=== PATIENT | male | born 1950 | race Caucasian/White ===

== ENCOUNTER → 2020-04-06 10:00 | Outpatient (BNVA) | payer MEDICARE, BC, SELFPAY | PROVIDERS: PCP Family Medicine; Visit Provider Family Medicine | DX: E11.9 Type 2 diabetes mellitus without complications (principal); E78.00 Pure hypercholesterolemia, unspecified; I10 Essential (primary) hypertension; N40.0 Benign prostatic hyperplasia without lower urinary tract symptoms; L82.1 Other seborrheic keratosis; Z79.899 Other long term (current) drug therapy; Z12.5 Encounter for screening for malignant neoplasm of prostate; Z68.30 Body mass index [BMI] 30.0-30.9, adult; F17.211 Nicotine dependence, cigarettes, in remission | CPT/HCPCS: 80053; 80061; 83036; 85025; G0103 ==

== ENCOUNTER → 2020-09-13 09:20 | Outpatient (BNVA) | payer MEDICARE, BC, SELFPAY | PROVIDERS: PCP Family Medicine; Visit Provider Surgery | DX: Z01.812 Encounter for preprocedural laboratory examination (principal); K63.5 Polyp of colon | CPT/HCPCS: 87635 ==

== ENCOUNTER 2020-09-19 07:43 | Day surgery (SDC) | payer MEDICARE, BC, SELFPAY ==
[2020-09-15 08:22] VITALS: BMI 31.1
[2020-09-19 08:00] VITALS: BP 145/75; PULSE 62; RESP 18; TEMP 36.6; O2SAT 97
[2020-09-19 08:13] LABS: Glucose Point of Care 170 mg/dL (70-110)
[2020-09-19] MEDS: sodium chloride 0.9% 1,000 ML 30 ML IV (08:14)
--- NOTE | 2020-09-19 08:25 | ANES.PREANE2 ---
Pre-Anesthetic Assessment Pre-Anesthetic Assessment: Height/Weight: Height 1.73 m Weight 92.986 kg Temp Pulse Resp BP Pulse Ox 98 F 62 18 145/75 97 09/19/20 08:00 09/19/20 08:00 09/19/20 08:00 09/19/20 08:00 09/19/20 08:00 Preop Diagnosis: screening colonoscopy Proposed Procedure: Operation Date: 09/19/20 08:30 Proposed Procedures p Colonoscopy 15784 z86.010(Not Applicable) - Scott Beltrán MD Was Beta Vish taken within 24 hours: Yes Last intake: Intake Last Liquid Date 09/18/20 Last Liquid Time 20:00 Last Solid Date 09/18/20 Last Solid Time 08:00 Social: Social History: No alcohol and No tobacco Exam: Pre-Anes Outpt Exam: alert, oriented x 3, clear to auscultation bilaterally and regular rate & rhythm Airway: Submandibular: WNL Cervical ROM: WNL MP: 2 Additional comments: Poor, missing several CV/HEM: CV/HEM: HTN Metabolic: Metabolic: DM and Morbid obesity Anesthetic Plan: ASA status: 3 Anesthesia: MAC Risk of > 500 ml blood loss (7ml/kg in children): No Meds/Allergies Current Medications: Current Medications Generic Name Dose Route Start Last Admin Trade Name Freq PRN Reason Stop Dose Admin Sodium Chloride 1,000 mls @ 30 ml s/hr 09/19/20 08:00 09/19/20 08:14 Sodium Chloride 0.9% IV 09/20/20 07:59 30 mls/hr .Q24H LAURE Administration PFSH Anesthesia PFSH: Medical History (Updated 09/01/20 @ 16:19 by Scott Beltrán MD) Colonic polyp Diabetes Hypercholesteremia Hypertension Mild depression Prostatic hypertrophy Surgical History (Updated 09/01/20 @ 09:23 by Scott Beltrán MD) History of back surgery History of colonoscopy with polypectomy History of hip replacement, total Family History (Updated 09/01/20 @ 09:12 by HIREN Solano) Denies family history of Anesthesia complication Bleeding disorder Social History Smoking and tobacco status: former smoker Alcohol intake: never Data Anesthesia Other Labs: Laboratory Results - last 48 hr 09/19/20 08:11 POC Glucose 170 H Cardiac Studies: No Data to Display
--- NOTE | 2020-09-19 08:40 | W.PM.OPSUD ---
Surgery/Procedure H&P Update DATE OF PROCEDURE: September 19, 2020 DATE H&P PERFORMED: 09/01/20 H&P UPDATE INFORMATION: I have reviewed H&P completed within last 30 days, I have examined patient prior to procedure and No changes to prior documentation PREOP DIAGNOSIS: screening colonoscopy PLANNED PROCEDURE: Operation Date: 09/19/20 08:30 Proposed Procedures p Colonoscopy 72710 z86.010(Not Applicable) - Scott Beltrán MD
[2020-09-19 09:04] VITALS: BP 103/70; PULSE 93; RESP 16; TEMP 36.1; O2SAT 95
[2020-09-19 09:19] VITALS: BP 117/81; PULSE 98; RESP 16; O2SAT 94
--- NOTE | 2020-09-19 09:20 | ANE.PACU2 ---
Inpatient post-anesthesia follow up: Airway intact: Yes Vital signs: Temperature 97 F Pulse Rate 98 Respiratory Rate 16 Blood Pressure 117/81 Pulse Oximetry 94 Oxygen Delivery Me thod Room Air Oxygen Flow Rate Fraction of Inspir ed Oxygen Hydration adequate: Yes Nausea and vomiting: No
--- NOTE | 2020-09-19 13:29 | ANE.PACU2 ---
Inpatient post-anesthesia follow up: Airway intact: Yes Vital signs: Temperature 97 F Pulse Rate 98 Respiratory Rate 16 Blood Pressure 117/81 Pulse Oximetry 94 Oxygen Delivery Me thod Room Air Oxygen Flow Rate Fraction of Inspir ed Oxygen Hydration adequate: Yes Nausea and vomiting: No Pain level: 1 Mental status: Baseline
== END 2020-09-19 09:32 | disposition home or self-care (01) ==
PROVIDERS: PCP Family Medicine; Visit Provider Surgery
PROC: 0DJD8ZZ Inspection of Lower Intestinal Tract, Via Natural or Artificial Opening Endoscopic (ICD-10-PCS; CPT 45378; principal; 2020-09-19 08:30)
DX: Z12.11 Encounter for screening for malignant neoplasm of colon (principal); Z86.010 Personal history of colon polyps; I10 Essential (primary) hypertension; E11.9 Type 2 diabetes mellitus without complications; E66.01 Morbid (severe) obesity due to excess calories; Z68.31 Body mass index [BMI] 31.0-31.9, adult; Z87.891 Personal history of nicotine dependence
CPT/HCPCS: 12345; 36416; 45378; 82962; J2704; J3490; J7030

== ENCOUNTER → 2020-11-08 11:34 | Outpatient (BNVA) | payer MEDICARE, BC, SELFPAY | PROVIDERS: PCP Family Medicine; Visit Provider Family Medicine | DX: E11.9 Type 2 diabetes mellitus without complications (principal); I10 Essential (primary) hypertension; E78.00 Pure hypercholesterolemia, unspecified; M72.2 Plantar fascial fibromatosis; Z68.31 Body mass index [BMI] 31.0-31.9, adult; F17.211 Nicotine dependence, cigarettes, in remission | CPT/HCPCS: 80053; 80061; 83036; 85025 ==

== ENCOUNTER → 2021-02-12 11:45 | Outpatient (BNVA) | payer MEDICARE, BC, SELFPAY | PROVIDERS: PCP Family Medicine; Visit Provider Family Medicine | DX: E11.9 Type 2 diabetes mellitus without complications (principal); E78.00 Pure hypercholesterolemia, unspecified; I10 Essential (primary) hypertension; N40.0 Benign prostatic hyperplasia without lower urinary tract symptoms; N02.9 Recurrent and persistent hematuria with unspecified morphologic changes | CPT/HCPCS: 80061; 81000; 83036; 85025; G0103 ==

== ENCOUNTER → 2021-02-13 10:18 | Outpatient (BNVA) | payer MEDICARE, BC, SELFPAY | PROVIDERS: PCP Family Medicine; Visit Provider Family Medicine | DX: N02.9 Recurrent and persistent hematuria with unspecified morphologic changes (principal) | CPT/HCPCS: 81000 ==

== ENCOUNTER → 2021-07-30 09:43 | Outpatient (BNVA) | payer MEDICARE, BC, SELFPAY | PROVIDERS: PCP Family Medicine; Visit Provider Family Medicine | DX: I10 Essential (primary) hypertension (principal); E11.9 Type 2 diabetes mellitus without complications; E78.00 Pure hypercholesterolemia, unspecified; N40.0 Benign prostatic hyperplasia without lower urinary tract symptoms; Z00.00 Encounter for general adult medical examination without abnormal findings; N02.9 Recurrent and persistent hematuria with unspecified morphologic changes | CPT/HCPCS: 80053; 80061; 83036; 85025; G0103 ==

== ENCOUNTER → 2022-07-25 12:32 | Outpatient (BNVA) | payer MEDICARE, BC, SELFPAY | PROVIDERS: PCP Family Medicine; Visit Provider Family Medicine | DX: I10 Essential (primary) hypertension (principal); E78.00 Pure hypercholesterolemia, unspecified; E11.9 Type 2 diabetes mellitus without complications | CPT/HCPCS: 80053; 80061; 83036; 85025 ==

== ENCOUNTER → 2023-08-27 10:03 | Outpatient (BNVA) | payer MEDICARE, SELFPAY | PROVIDERS: PCP Family Medicine; Visit Provider Family Medicine | DX: N40.0 Benign prostatic hyperplasia without lower urinary tract symptoms (principal); E11.9 Type 2 diabetes mellitus without complications; E78.00 Pure hypercholesterolemia, unspecified; I10 Essential (primary) hypertension; Z85.46 Personal history of malignant neoplasm of prostate; Z80.42 Family history of malignant neoplasm of prostate; Z00.00 Encounter for general adult medical examination without abnormal findings | CPT/HCPCS: 80053; 80061; 83036; 85025; G0103 ==

== ENCOUNTER → 2024-05-17 10:20 | Outpatient (BNVA) | payer MEDICARE, SELFPAY | PROVIDERS: PCP Family Medicine; Visit Provider Family Medicine | DX: I10 Essential (primary) hypertension (principal); E78.00 Pure hypercholesterolemia, unspecified; E11.9 Type 2 diabetes mellitus without complications | CPT/HCPCS: 80053; 80061; 83036; 85025 ==

== ENCOUNTER → 2024-07-06 08:38 | Outpatient (BNVA) | payer MEDICARE, SELFPAY | PROVIDERS: PCP Family Medicine; Referring Provider Family Medicine; Visit Provider Nurse Practitioner Family | DX: L57.0 Actinic keratosis (principal); L21.8 Other seborrheic dermatitis; L24.9 Irritant contact dermatitis, unspecified cause; L57.8 Other skin changes due to chronic exposure to nonionizing radiation | CPT/HCPCS: 17000; 99204 ==

== ENCOUNTER → 2024-08-03 08:27 | Outpatient (BNVA) | payer MEDICARE, SELFPAY | PROVIDERS: PCP Family Medicine; Visit Provider Nurse Practitioner Family | DX: L24.9 Irritant contact dermatitis, unspecified cause (principal); L21.8 Other seborrheic dermatitis | CPT/HCPCS: 99214 ==

== ENCOUNTER → 2025-02-01 07:55 | Outpatient (BNVA) | payer MEDICARE, SELFPAY | PROVIDERS: PCP Family Medicine; Visit Provider Nurse Practitioner Family | DX: L21.8 Other seborrheic dermatitis (principal); L24.9 Irritant contact dermatitis, unspecified cause; D18.01 Hemangioma of skin and subcutaneous tissue; S80.862A Insect bite (nonvenomous), left lower leg, initial encounter; S80.861A Insect bite (nonvenomous), right lower leg, initial encounter; X58.XXXA Exposure to other specified factors, initial encounter | CPT/HCPCS: 99214 ==

== ENCOUNTER 2025-03-22 12:59 | Outpatient (CLI) | payer MEDICARE, SELFPAY ==
--- NOTE | 2025-03-22 13:05 | XRR_ITS ---
PROCEDURE INFORMATION: Exam: XR Chest Exam date and time: 03/22/2025 1:12 PM Age: 74 years old Clinical indication: Dyspnea; Additional info: Dyspnea on exertion/abnormal weight loss TECHNIQUE: Imaging protocol: Radiologic exam of the chest. Views: 2 views. COMPARISON: No relevant prior studies available. FINDINGS: Tubes, catheters and devices: Neurostimulator leads terminate in the region of the T8 level of the thoracic spine. Lungs: A few linear scattered opacities are seen in both lungs most prominent in the left lower lung field. These could represent areas of infiltrate, atelectasis, or scarring. Pleural spaces: Unremarkable. No pleural effusion. No pneumothorax. Heart/Mediastinum: Unremarkable. No cardiomegaly. Bones/joints: Unremarkable. XR/XR chest 2V* [id number] IMPRESSION: Scattered linear opacities as described above. Acuity is uncertain without comparison studies. Clinical correlation is advised.
== END 2025-03-22 13:00 | disposition home or self-care (01) ==
PROVIDERS: PCP Family Medicine; Visit Provider Family Medicine
DX: R63.4 Abnormal weight loss (principal); R06.09 Other forms of dyspnea; R91.8 Other nonspecific abnormal finding of lung field
CPT/HCPCS: 71046; 80053; 82378; 83036; 85025

== ENCOUNTER 2025-03-23 10:35 | Emergency (ER) | payer MEDICARE, SELFPAY ==
[2025-03-23] VITALS (8 sets, daily range): BP systolic 102–137; BP diastolic 49–70; PULSE 76–107; RESP 15–18; TEMP 36.6–37.1; O2SAT 94–99; BMI 26.3
--- NOTE | 2025-03-23 10:37 | XR_ITS ---
WS: [id number] Portable AP upright chest, 03/23/2025 Clinical Data: sob Comparison: Two-view chest, 03/22/2025 Findings: Minimal interstitial opacities are seen in the left lower lobe which could represent atelectasis and/or scarring. Is less likely to represent pneumonia. The diaphragms are flattened. No nodules, masses or effusions are seen. The heart is normal. The pulmonary vascularity is not increased. No pneumonia or pneumothorax is seen. There are epidural stimulator leads overlying the mid thoracic vertebral bodies. Monitor leads are on the chest wall. XR/XR chest 1V portable [id number] Impression: 1. Interstitial opacities in left lower lobe which could be chronic rather than acute. 2. Atherosclerosis and hyperinflation.
--- NOTE | 2025-03-23 10:38 | ECG_ITS ---
[facility] Test Date: 2025-03-23 Pat Name: Janice Barros Department: Room: Gender: Male Route Manager: : 1950 Requested By: Alexandrea Portillo Order Number: [id number] Kai MD: Marquis Ya M.D. Measurements Intervals Foster Rate: 100 P: 63 TN: 146 QRS: 17 QRSD: 97 T: 131 QT: 327 QTc: 423 Interpretive Statements SINUS TACHYCARDIA NONSPECIFIC T-WAVE ABNORMALITY No previous ECG available for comparison Electronically Signed On 03-24-2025 10:24:20 CDT by Marquis Ya M.D. [email or web address]
[2025-03-23 11:10] LABS: Hematocrit 25.1 % (37-53); Hemoglobin 7.80 g/dL (11.27-16.99); Mean Corpuscular HGB Conc 31.1 g/dL (30-55); Mean Corpuscular Hemoglobin 29.5 pg (27-33); Mean Corpuscular Volume 95.1 fl (82-101); Nucleated Red Blood Cells % 0 %; Red Blood Count 2.64 10^6/uL (3.85-5.65); White Blood Count 2.01 10^3/uL (3.29-11.43)
[2025-03-23 11:37] LABS: Alanine Aminotransferase 9 U/L (0-41); Albumin Level 3.6 g/dL (3.5-5.2); Alkaline Phosphatase 135 U/L (40-130); Anion Gap 16.1 (5-19); Aspartate Amino Transferase 8 U/L (0-40); Blood Urea Nitrogen 17 mg/dL (8-23); Calcium 8.2 mg/dL (8.5-10.5); Carbon Dioxide 22 mmol/L (22-29); Chloride 100 mmol/L (98-107); Creatinine Clr Calc Pharmacy 73.7697; Globulin 3.3 g/dL (1.3-4.6); Glucose 204 mg/dL (65-115); NT Pro B Type Natriuretic Pept 125 pg/mL (0-125); Osmolality Calculated 285 mOsm/kg (285-295); Potassium 4.1 mmol/L (3.5-5.1); Sodium 134 mmol/L (136-145); Total Protein 6.9 g/dL (6.6-8.7)
[2025-03-23 11:57] LABS: Platelet Count 21 10^3/cmm (157-399)
[2025-03-23 11:58] LABS: Slide Review Slide Review Perform
--- NOTE | 2025-03-23 12:15 | ED_ITS ---
HPI - SOB/Dyspnea 2 General: Chief Complaint: Shortness of Breath/Dyspnea Stated Complaint: SOB Time Seen by Provider: 03/23/25 10:49 History of Present Illness: HPI Narrative: 74-year-old male presents emergency room from his primary care directed here he had a lab work done yesterday he is pancytopenic. This is new for him. He has not noticed hematochezia melena hematemesis or coffee-ground emesis. He has significant thrombocytopenia he is not having any acute bleeding. No known history of any hematologic disorders in the past. Associated symptoms: Deny abdominal pain, chest pain or fever(s) Related Data Home Medications ?Medication ?Instructions ?Recorded ?Confirmed aspirin 81 mg tablet,delayed 81 mg PO DAILY 10/07/19 0 03/23/25 release atorvastatin 10 mg tablet 10 mg PO DAILY 03/23/2502/24 duloxetine 60 mg capsule,delayed 60 mg PO DAILY 03/23/25 release finasteride 5 mg tablet 5 mg PO DAILY 03/23/2503/23 ketoconazole 2 % shampoo 1 applic topical .[id number] 0 03/23/25 03/23/25 losartan 50 mg-hydrochlorothiazide 1 tab PO DAILY 02/2403/23/25 12.5 mg tablet metformin 850 mg tablet 850 mg PO BID 03/23/2503/23 metoprolol succinate 100 mg 50 mg PO DAILY 03/23/25 tablet,extended release 24 hr triamcinolone acetonide 0.1 % 1 applic topical TID PRN skin 03/23/25 03/23/25 topical ointment irritation Previous Rx's ?Medication ?Instructions ?Recorded glipizide 5 mg tablet 5 mg PO BID 90 days #180 tab s 08/11/24 Allergies Allergy/AdvReac Type Severity Reaction Status Date / Time No Known Allergies Allergy Verified 03/22/25 11:19 Review of Systems 2 Const: Denies: fever(s) or chills Card: Denies: chest pain Resp: Denies: dyspnea GI: Denies: abdominal pain : Denies: dysuria, urinary frequency or urinary urgency Musc: Denies: neck pain or back pain Skin/Breast: Denies: rash PFSH ED 2 PFSH: Medical History Colonic polyp Prostatic hypertrophy Mild depression Diabetes Hypercholesteremia Hypertension Surgical History Hx of colonoscopy (09/19/20) normal History of colonoscopy with polypectomy History of back surgery History of hip replacement, total Family History Denies family history of Anesthesia complication Bleeding disorder Social History Smoking and tobacco/nicotine status: never used tobacco/nicotine Alcohol intake: never Substance/Drug Use: never Physical Exam 2 Const: GENERAL APPEARANCE: cooperative ORIENTATION/CONSCIOUSNESS: Yes awake, Yes oriented to person, Yes oriented to place and Yes oriented to time HENMT: COMMON NORMALS: normocephalic, atraumatic and hearing grossly normal bilaterally HEAD & SCALP: normocephalic and atraumatic Resp: COMMON NORMALS: normal respiratory effort, No retractions, No use of accessory muscles and clear to auscultation bilaterally AUSCULTATION: clear to auscultation bilaterally Cardio: COMMON NORMALS: regular rate, regular rhythm and No murmurs present (Cardio) RATE: regular rate RHYTHM: regular rhythm GI: COMMON NORMALS: Soft to palpation and No hepatosplenomegaly present A USCULTATION: Yes normoactive bowel sounds PALPATION: Yes Soft to palpation, No Tenderness to palpation present (GI), No Guarding due to palpation present (GI) and Yes No hepatosplenomegaly present Extremity: COMMON NORMALS: normal to inspection, capillary refill normal, no clubbing, cyanosis or edema, no calf tenderness and no pedal edema Neuro: SENSORIUM/ORIENTATION: Yes oriented to person, Yes oriented to place and Yes oriented to time Skin: COMMON NORMALS: no rashes or lesions noted GENERAL SKIN EXAM: no rashes or lesions noted Course 2 Vital Signs: Vital signs: Vital Signs Temperature 98.2 F 03/23/25 16:48 Pulse Rate 76 03/23/25 16:48 Respiratory Rate 16 03/23/25 16:48 Blood Pressure 125/63 03/23/25 16:48 Pulse Oximetry 98 03/23/25 16:48 Oxygen Delivery Me thod Room Air 03/23/25 16:48 MDM - SOB/Dyspnea Medical Decision Making Discussed with oncology on-call they recommend transfer for emergent evaluation for relative sudden onset of pancytopenia patient is stable at this time I discussed with Justina will take him several days to get a bed available at [facility] is able to receive them today discussed with her inpatient hospitalist they will accept him on transfer. Patient stable at this time labs and imaging to be forwarded. Medical Records I reviewed the patient's medical records. Lab Data I reviewed the patient's lab results. 03/23/25 11:01 03/23/25 11:01 Labs/Radiology: Radiology Impressions Chest X-Ray 03/23/25 10:37 Impression: 1. Interstitial opacities in left lower lobe which could be chronic rather than acute. 2. Atherosclerosis and hyperinflation. Laboratory Results WBC 2.01 10^3/uL (3.29-11.43) L 03/23/25 11:01 RBC 2.64 10^6/uL (3.85-5.65) L 03/23/25 11:01 Hgb 7.80 g/dL (11.27-16.99) L 03/23/25 11:01 Hct 25.1 % (37-53) L 03/23/25 11:01 MCV 95.1 fl (82-101) 03/23/25 11:01 MCH 29.5 pg (27-33) 03/23/25 11:01 MCHC 31.1 g/dL (30-55) 03/23/25 11:01 RDW 18.0 % (12.1-15.1) H 03/23/25 11:01 Plt Count 21 10^3/cmm (157-399) L* 03/23/25 11:01 MPV 12.2 fL (7.4-10.4) H 03/23/25 11:01 Neut % (Auto) 38.2 % 03/23/25 11:01 Lymph % (Auto) 44.3 % 03/23/25 11:01 [place] % (Auto) 8.5 % 03/23/25 11:01 Eos % (Auto) 5.5 % 03/23/25 11:01 Baso % (Auto) 1.5 % 03/23/25 11:01 Neut # (Auto) 0.77 10^3/uL (1.8-7.7) L* 03/23/25 11:01 Lymph # (Auto) 0.9 10^3/uL (0.8-4.8) 03/23/25 11:01 [place] # (Auto) 0.2 10^3/uL (0.2-0.9) 03/23/25 11:01 Eos # (Auto) 0.1 10^3/uL (0.0-0.8) 03/23/25 11:01 Baso # (Auto) 0.0 10^3/uL (0.0-0.1) 03/23/25 11:01 Nucleated RBC % (auto) 0 % 03/23/25 11:01 Nucleated RBCs # 0.0 /100WBC 03/23/25 11:01 Peripher Smr Path Cons Sent for review 03/23/25 11:01 PT 14.20 SECONDS (12.1-14.9) 03/23/25 11:01 INR 1.03 (0.8-1.2) 03/23/25 11:01 APTT 37.3 SECONDS (23.9-36.7) H 03/23/25 11:01 Fibrinogen 264 mg/dL (174-498) 03/23/25 11:01 Sodium 134 mmol/L (136-145) L 03/23/25 11:01 Potassium 4.1 mmol/L (3.5-5.1) 03/23/25 11:01 Chloride 100 mmol/L (98-107) 03/23/25 11:01 Carbon Dioxide 22 mmol/L (22-29) 03/23/25 11:01 Anion Gap 16.1 (5-19) 03/23/25 11:01 BUN 17 mg/dL (8-23) 03/23/25 11:01 Creatinine 0.9 mg/dL (0.7-1.2) 03/23/25 11:01 GFR Calculation Not Reportable 03/23/25 11:01 Glucose 204 mg/dL (65-115) H 03/23/25 11:01 Calculated Osmolality 285 mOsm/kg (285-295) 03/23/25 11:01 Uric Acid 5.3 mg/dL (3.4-7.0) 03/23/25 11:01 Calcium 8.2 mg/dL (8.5-10.5) L 03/23/25 11:01 Phosphorus 1.8 mg/dL (2.5-4.5) L 03/23/25 11:01 Total Bilirubin 1.0 mg/dL (0.15-1.2) 03/23/25 11:01 AST 8 U/L (0-40) 03/23/25 11:01 ALT 9 U/L (0-41) 03/23/25 11:01 Alkaline Phosphatase 135 U/L (40-130) H 03/23/25 11:01 Lactate Dehydrogenase 146 U/L (135-225) 03/23/25 11:01 C-Reactive Protein 9.2 mg/L (0.0-4.9) H 03/23/25 11:01 NT-Pro-B Natriuret Pep 125 pg/mL (0-125) 03/23/25 11:01 Total Protein 6.9 g/dL (6.6-8.7) 03/23/25 11:01 Albumin 3.6 g/dL (3.5-5.2) 03/23/25 11:01 Globulin 3.3 g/dL (1.3-4.6) 03/23/25 11:01 Hepatitis A IgM Ab Non-reactive (Nonreactive) 03/23/25 11:01 Hep Bs Antigen Non-reactive (Nonreactive) 03/23/25 11:01 Hep B Core IgM Ab Non-reactive (Nonreactive) 03/23/25 11:01 Hepatitis C Antibody Reactive (Nonreactive) H 03/23/25 11:01 HIV 1&2 Ab & HIV 1 Ag Non-reactive (Non-Reactiv) 03/23/25 11:01 HIV 1&2 Antibody Non-reactive (Non-Reactiv) 03/23/25 11:01 Blood Type O Positive 03/23/25 12:41 Rho(D) Type Rh positive 03/23/25 12:41 Antibody Screen Negative 03/23/25 12:41 Crossmatch See Detail 03/23/25 12:41 All radiology interpretation(s) finalized by discharge Discharge Plan Discharge Patient Disposition: Xfer Short-Term Hosp Clinical Impression: Pancytopenia, Neutropenia Condition: Stable Referrals: Janet Fatima MD [Primary Care Provider, [facility]] Print Language: Turkmen Coding Level of Care Code ED Sap Payroll Consultant for Regine Delgado
--- NOTE | 2025-03-23 13:46 | PC.PHAR ---
Dr Fatima stopped several medications yesterday 03/22/25. I was uncomfortable removing from chart at this time. Documented in pharmacy notes. Atorvastatin 10mg, Losartan-hctz, Metformin 850mg, and Metoprolol Succ. 100mg.
[2025-03-23 14:28] LABS: INR 1.03 (0.8-1.2); Prothrombin Time 14.20 SECONDS (12.1-14.9)
[2025-03-23 14:29] LABS: Partial Thromboplastin Time 37.3 SECONDS (23.9-36.7)
[2025-03-23 14:30] LABS: Fibrinogen 264 mg/dL (174-498)
[2025-03-23 14:34] LABS: Uric Acid 5.3 mg/dL (3.4-7.0)
[2025-03-23 14:43] LABS: HIV 1 & 2 Antigen Non-Reactive (Non-Reactiv)
[2025-03-23 14:44] LABS: Hepatitis A Antibody IgM Non-Reactive (Nonreactive); Hepatitis B Surface Antigen Non-Reactive (Nonreactive)
[2025-03-23 15:02] LABS: LAB Peripheral Smear Sent for Review
[2025-03-24 00:43] LABS: Hematocrit 25.9 % (37-53); Hemoglobin 8.30 g/dL (11.27-16.99); Mean Corpuscular HGB Conc 32.0 g/dL (30-55); Mean Corpuscular Hemoglobin 30.1 pg (27-33); Mean Corpuscular Volume 93.8 fl (82-101); Nucleated Red Blood Cells % 0 %; Red Blood Count 2.76 10^6/uL (3.85-5.65); White Blood Count 2.16 10^3/uL (3.29-11.43)
[2025-03-24 01:12] LABS: Platelet Count 21 10^3/cmm (157-399); Slide Review Slide Review Perform
--- NOTE | 2025-03-24 01:18 | PC.NURSE ---
Erika called with updated CBC results on Platelet count and Absolute Neut count.
[2025-03-24 01:23] VITALS: BP 115/63; PULSE 60; RESP 12; TEMP 36.5; O2SAT 96
[2025-03-24 04:32] VITALS: BP 116/62; PULSE 73; RESP 18; O2SAT 93
--- NOTE | 2025-03-24 06:58 | PC.NURSE ---
THIS NURSE ASSUME CARE @ 0204.
[2025-03-24 07:02] VITALS: BP 121/69; PULSE 84; RESP 16; O2SAT 98
[2025-03-24 08:15] LABS: Hematocrit 26.5 % (37-53); Hemoglobin 8.60 g/dL (11.27-16.99); Mean Corpuscular HGB Conc 32.5 g/dL (30-55); Mean Corpuscular Hemoglobin 30.1 pg (27-33); Mean Corpuscular Volume 92.7 fl (82-101); Nucleated Red Blood Cells % 0 %; Red Blood Count 2.86 10^6/uL (3.85-5.65); White Blood Count 1.77 10^3/uL (3.29-11.43)
[2025-03-24 08:29] LABS: Alanine Aminotransferase 8 U/L (0-41); Albumin Level 3.3 g/dL (3.5-5.2); Alkaline Phosphatase 123 U/L (40-130); Anion Gap 12.0 (5-19); Aspartate Amino Transferase 8 U/L (0-40); Blood Urea Nitrogen 13 mg/dL (8-23); Calcium 8.1 mg/dL (8.5-10.5); Carbon Dioxide 25 mmol/L (22-29); Chloride 103 mmol/L (98-107); Creatinine Clr Calc Pharmacy 82.9909; Globulin 3.0 g/dL (1.3-4.6); Glucose 177 mg/dL (65-115); Osmolality Calculated 286 mOsm/kg (285-295); Potassium 4.0 mmol/L (3.5-5.1); Sodium 136 mmol/L (136-145); Total Protein 6.3 g/dL (6.6-8.7)
[2025-03-24 09:02] LABS: Slide Review Slide Review Perform
[2025-03-24 09:03] LABS: Platelet Count 15 10^3/cmm (157-399)
[2025-03-24 09:25] VITALS: BP 106/51; PULSE 93; O2SAT 99
[2025-03-24 09:35] LABS: Ferritin 302 ng/mL (30-400); Iron 92 ug/dL (59-158); Total Iron Binding Capacity 148 mcg/dl; Unsaturated Iron Binding 56 ug/dL (112-347)
[2025-03-24 09:36] LABS: Vitamin B12 644 pg/mL (232-1245)
[2025-03-24 13:34] LABS: HEP C RNA Viral Load Quant <1.18 NOT DETECTED Log IU/mL (NOT DETECTED); HEP C RNA Viral Load Quant <15 NOT DETECTED IU/mL (NOT DETECTED)
== END 2025-03-24 09:29 | disposition short-term general hospital (02) ==
PROVIDERS: Emergency Medicine; Emergency Provider Family Medicine; PCP Family Medicine
DX: D61.818 Other pancytopenia (principal); D70.9 Neutropenia, unspecified; E11.9 Type 2 diabetes mellitus without complications; I10 Essential (primary) hypertension
CPT/HCPCS: 36415; 36430; 71045; 80053; 80074; 80503; 82607; 82728; 82746; 83010; 83540; 83550; 83615; 83880; 84100; 84550; 85025; 85384; 85610; 85730; 86140; 86850; 86900; 86920; 87040; 87522; 87806; 93005; 96372; 99285; J1815; P9016

== ENCOUNTER 2025-04-07 07:34 | Oncology outpatient (recurring) (ONCR) | payer MEDICARE, SELFPAY | END 2025-04-24 23:59 | disposition home or self-care (01) | PROVIDERS: PCP Family Medicine; Visit Provider Internal Medicine | DX: D46.9 Myelodysplastic syndrome, unspecified (principal); D61.818 Other pancytopenia; Z87.891 Personal history of nicotine dependence; Z79.899 Other long term (current) drug therapy | CPT/HCPCS: 99204 ==

== ENCOUNTER → 2025-04-08 11:36 | Day surgery (SDC) | payer MEDICARE, SELFPAY ==
[2025-04-08 12:05] VITALS: BP 120/72; PULSE 110; RESP 16; TEMP 37.4; O2SAT 97
--- NOTE | 2025-04-08 12:14 | XR_ITS ---
WS: [id number] Portable AP upright chest, 04/08/2025 Clinical Data: Post PICC insertion Comparison: Portable chest, 03/23/2025 Findings: The right PICC line ends in the superior vena cava. No pneumothorax is seen. XR/XR chest 1V portable [id number] Impression: Satisfactory insertion of right PICC line.
--- NOTE | 2025-04-08 13:17 | PICC.NOTE ---
Double lumen PICC placed to right brachial vein. Referred to vascular access nurse for PICC placement due to need for chemo. Risks and benefits discussed and informed consent obtained from patient. Right arm assessed with right brachial vein measuring 5.0 mm, straight, and apparent best choice for placement. Using sterile technique and MST, right brachial vein accessed x 1 stick. Mid-arm circumference measured 10 cm from right AC 28 cm. Trimmed cath 42 cm with 0 cm external length noted. CXR shows tip in SVC, in satisfactory position for use per radiologist. Line secured with stat-lock. Insertion site covered with Biopatch and TSM. [facility]. Tanja Orosco notified of successful PICC insertion. Home teaching and written material provided for PICC to both patient and patient . No questions voiced at this time.
== END ==
LOC: OPS 11:39
PROVIDERS: PCP Family Medicine; Visit Provider Internal Medicine
DX: D46.9 Myelodysplastic syndrome, unspecified (principal)
CPT/HCPCS: 36573; 71045

== ENCOUNTER 2025-04-09 15:40 | Emergency (ER) | payer MEDICARE, SELFPAY ==
--- OUTSIDE RECORDS SUMMARY | 2025-03-24 11:28 | XMS_ITS | Encounter Summary ---
Author Organization [facility] Address [address] [place] [address] Care Team Providers Care Submarine Advisory Team Watch Officer Name Role Phone Unavailable Primary Care Provider Unavailabl e Reason for Visit * Auth/Cert (Routine) Specialty Diagnoses / Procedures Referred By Earnest t Referred To Contact Oncology Diagnoses Pancytopenia SHort of breath Renny Álvarez MD [address] [place] [phone] Phone: tel: fax: [address] Oncology [address] [place] [phone] Phone: tel: fax: Referral ID Status Reason Start Date Expiration Date Visits Re quested Visits Authorized [id number] 1 1 Encounter Details Date Type Department Care Team (Latest Contact Info) Description 03/24/2025 11:28 AM CDT - 2025 2:20 PM CDT Hospital Encounter [address] Oncology [address] [place] [phone] [place]enny Á[place] [address] [place] [phone] Astrid Lion MD [address] [place] [phone] Beni Moses DO [address] [place] [address] Pancytopenia (CMS/HCC) Discharge Disposition: Home or Self Care Social History Tobacco Use Types Packs/Day Years Used Date Smoking Tobacco: Never Tobacco Cessation:Counseling Given: Not Answered Sex and Gender Information Value Date Recorded Sex Assigned at Not on file Legal Sex Male 1:51 PM CDT Gender Identity Not on file Sexual Orientation Not on file documented as of this encounter Last Filed Vital Signs Vital Sign Reading Time Taken Comments Blood Pressure 110/64 2025 11:48 AM CDT Pulse 106 2025 11:48 AM CDT Temperature 36.7 C (98.1 F) 2025 11:48 AM CDT Respiratory Rate 14 2025 11:48 AM CDT Oxygen Saturation 97% 2025 11:48 AM CDT Inhaled Oxygen Concentration - - Weight 72.4 kg (159 lb 9.6 oz) 2025 4:52 A M CDT Height 172.7 cm (5' 8 ) 03/24/2025 11:29 AM CDT Body Mass Index 24.27 03/24/2025 11:29 AM CDT documented in this encounter Discharge Summaries * Beni Moses DO - 2025 3:09 PM CDT [facility] Summary Faina Barrso 75 y.o. male 1950 CSN: [id number] Date of Admission: 03/24/2025 Date of Discharge: 2025 LOS: 10 days Discharging Physician: Beni Moses DO PCP: No primary care provider on file. Code Status at Discharge: Full Code Dispo: home Labs and studies from this hospitalization needing follow up: CBC/CMP within 5 days Significant Diagnostic Studies: FINAL DIAGNOSIS A/B/C. Bone marrow and peripheral blood; aspirate, clot, and core biopsy; right posterior iliac crest - Myelodysplastic neoplasm, preliminary classified as myelodysplastic neoplasm with low blasts (MDS-LB) with less than 3% bone marrow blasts and no circulating blasts - Diffuse moderate interstitial reticulin fibrosis - Iron stain shows a subset of ring sideroblasts (estimated at less than 10% of erythroid precursors) - See diagnosis comment REV:NEHAL Renetta Lucas MD [id number] at 0926 CDT DIAGNOSIS COMMENT Karyotype and NeoType NGS/CMML profile are pending. 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 Results will be reported in an addendum. Procedures performed: 04/01 1243 COMPREHENSIVE METABOLIC PANEL 04/01 1242 PROTIME-INR Patient instructions: Follow up with oncology and PCP within one week of discharge Patient instructed to seek medical attention if recurrence or worsening of admission concerns, chest pain, palpitations, shortness of breath, coughing blood, nausea, vomiting, diarrhea, pain, fever, chills, bleeding, bloody or black tarry stools. Discharge Condition: improving Primary Discharge Diagnosis: Pancytopenia (CMS/HCC) Other Active medical issues also addressed during this admission: Active Hospital Problems Diagnosis MDS (myelodysplastic syndrome), high grade (CMS/HCC) Protein-calorie malnutrition, moderate Hypophosphatemia Pancytopenia (CMS/HCC) Type 2 diabetes mellitus, without long-term current use of insulin (CMS/HCC) Benign hypertension Resolved Hospital Problems No resolved problems to display. HOSPITAL COURSE: Please see H and P for full details on admission, symptoms and initial care. Faina Barros is a 74-year-old male with a history of type 2 diabetes mellitus and benign hypertension who was admitted for evaluation and management of pancytopenia after presenting with two months of progressive weakness, shortness of breath, and gait instability. On admission, laboratory studiesrevealed leukopenia, anemia, and severe thrombocytopenia, with no evidence of bleeding or bruising,and he was hemodynamically stable. Initial workup included peripheral smear, iron studies, vitamin B12 and folate levels, hepatitis and HIV panels, and inflammatory markers, all of which were reviewed by hematology and oncology consultants. Imaging demonstrated hepatosplenomegaly and chronic interstitial lung changes. A bone marrow biopsy was performed, which ultimately revealed a myelodysplastic neoplasm with low blasts (MDS-LB), and further staining classified this as high- grade MDS. Flow cytometry was negative for acute leukemia. The diagnosis was supported by persistent trilineage cytopenias, normocytic anemia, and absence of nutritional deficiencies or infectious etiologies, including a negative tickbornepanel and non-detectable hepatitis C RNA. During hospitalization, he received transfusions to maintain hemoglobin above 7 g/dL and platelets above 10,000/??L After confirmation of high-grade MDS, he was initiated on cycle 1 of azacitidine and venetoclax, with antimicrobial prophylaxis including acyclovir, sulfamethoxazole-trimethoprim, and voriconazole. Doxycycline was discontinued after negative tickborne panel results. He tolerated chemotherapy without major complications and remained clinically stable, with plans for outpatient oncology follow-up after completion of the initial cycle. Additional issues addressed during admission included moderate protein-calorie malnutrition, managed with oral nutritional supplementation and neutropenic diet, and hypophosphatemia, which was replaced as needed. His diabetes was managed with sliding scale insulin, and oral hypoglycemic agents wereheld. Hypertension remained stable throughout the admission. Constipation was managed with bowel regimen including milk of magnesia, polyethylene glycol, senna, and docusate sodium. At the time of discharge planning, he was clinically stable, completing day 5 of chemotherapy, withongoing monitoring of cell counts and supportive care. He was anticipated to be discharged home with family after completion of cycle 1, with outpatient hematology and oncology follow-up arranged prior to discharge, patient reports he has follow up with oncology at [place] this upcoming . He is instructed to recheck is CBC with PCP or oncology within 3-5 days of discharge. Plt count appropriately increased after most recent transfusion. PCP COMMUNICATION : No primary care provider on file. via [employer] communication MEDICATION RECONCILIATION: Current and discharge medications reviewed and reconciled: Yes Consultants: IP CONSULT TO IV TEAM DISCHARGE MEDICATIONS: Medication List START taking these medications acyclovir 400 mg tablet Commonly known as: ZOVIRAX Take 1 Tablet (400 mg) by mouth 2 times daily for 14 days. Signed by: Dr. Shelby Moses Quantity: 28 Tablet Refills: 0 bisacodyL 10 mg Suppository Commonly known as: DULCOLAX Insert 1 Suppository (10 mg) by rectum 1 time daily as needed for Constipation. Signed by: Dr. Shelby Moses Quantity: 14 Suppository Refills: 0 polyethylene glycol 17 gram Powder in Packet Commonly known as: MIRALAX Take 1 Packet (17 Grams) by mouth 2 times daily as needed for Constipation. Signed by: Dr. Shelby Moses Quantity: 28 Packet Refills: 0 sennosides 17.2 mg Tablet tablet Commonly known as: SENOKOT XTRA Take 1 Tablet (17.2 mg) by mouth daily for 14 days. Signed by: Dr. Shelby Moses Quantity: 14 Tablet Refills: 0 sulfamethoxazole-trimethoprim 800-160 mg tablet Commonly known as: BACTRIM DS Take 1 Tablet by mouth every Friday, Friday, and Friday for 14 days. Start taking on: April 04, 2025 Signed by: Dr. Shelby Moses Quantity: 6 Tablet Refills: 0 venetoclax 100 mg tablet Commonly known as: VENCLEXTA Take 1 Tablet (100 mg) by mouth daily with breakfast for 14 days on, 14 days off. Signed by: Dr. Dolores Rico Quantity: 14 Tablet Refills: 0 voriconazole 200 mg tablet Commonly known as: VFEND Take 1 Tablet (200 mg) by mouth every 12 hours for 14 days. Signed by: Dr. Shelby Moses Quantity: 28 Tablet Refills: 0 CONTINUE taking these medications DULoxetine 60 mg Capsule, Delayed Release(E.C.) Commonly known as: CYMBALTA Take 60 mg by mouth daily. Refills: 0 finasteride 5 mg tablet Commonly known as: PROSCAR Take 5 mg by mouth daily. Refills: 0 glipiZIDE 5 mg tablet Commonly known as: GLUCOTROL Take 5 mg by mouth 2 times daily with meals. Refills: 0 Where to Get Your Medications These medications were sent to [id number] - [place], [place] - [address] [facility] [address], [facility] [address] Hours: M-F [id number] Sat [id number] Sun [phone] acyclovir 400 mg tablet bisacodyL 10 mg Suppository polyethylene glycol 17 gram Powder in Packet sennosides 17.2 mg Tablet tablet sulfamethoxazole-trimethoprim 800-160 mg tablet voriconazole 200 mg tablet These medications will be mailed to you From: [facility] venetoclax 100 mg tablet DISCHARGE EXAM: BP 110/64 Pulse (!) 106 Temp 98.1 ??F (36.7 ??C) Resp 14 Ht 5' 8 (1.727 m) Wt 72.4 kg (159 lb 9.6 oz) SpO2 97% BMI 24.27 kg/m?? Last documented weight: Weight: 72.4 kg (159 lb 9.6 oz) (04/03/25 5242) General: alert Neurologic: no gross focal deficits HEENT: atraumatic, normocephalic, without obvious abnormality Lungs: non labored breathing Heart: normal rate Abdomen: non distended Extremities: extremities normal Skin: negative for rash on exposed skin Total time spent on discharge services today including examining and educating the patient and available family members, writing prescriptions and reviewing the discharge medication list, documentingthis discharge summary and coordinating outpatient care and follow up required greater than 30 minutes. documented in this encounter Discharge Instructions * Discharge Instructions* Amarilis Jackson RN - 03/31/2025 8:29 AM CDT Follow up with [facility] in [place] on 04/08/25 for appointment with provider and labs of CBC and CMP Diet: You may resume your usual diet. Activity: As tolerated. Take frequent rest periods. Avoid crowds: Avoid persons with colds, flu, or other contagious diseases Medicine to note: Do not take aspirin or aspirin products unless otherwise instructed by your physician. Do not take anti-inflammatory medicines (usually used to treat pain or arthritis) such as ibuprofen, Motrin, Advil, or Aleve, unless otherwise instructed by your physician. Mouth: Mouth rinses with salt/soda after meals and before bedtime. Do not use commercial mouth washes. Follow-up: Follow up with pcp 3-5 days after d/c Follow up with [facility] in [place] on 04/08/25 for appointment with provider and labs of CBC and CMP Call the doctor if: Fever over 100.4F or shaking chills. Pain that is new or pain not relieved by current medication(s). Nausea/vomiting that is new or does not lessen after taking medication for nausea. You are unable to keep food or liquids down for 24 hours or more. Any bleeding, such as nosebleed. Diarrhea that is new or persists. Cough is new or persists. Weight loss more than 10 pounds from admission weight. Central line is red, tender or draining. Smoking: STOP SMOKING AND/OR DO NOT ALLOW ANYONE TO SMOKE IN YOUR HOUSE OR CAR. Tobacco smoke aggravates coughing and increases wheezing. Tobacco smoke may cause you to have further lung problems and delay your recovery. Tobacco smoke irritates the breathing passages and greatlyincreases the risk of pneumonia, bronchitis, and asthma. If you need help to stop smoking, call [phone] or the Health Information Team at [phone] or [phone] The staff of seeks to provide the best possible care. We hope you were satisfied with your recent stay. You may receive a phone call regarding this hospital stay and we would appreciate your sincere feedback. Thank you, Management & staff of * Discharge Instr - Activity* Amarilis Jackson RN - 2025 1:37 PM CDT Activity as tolerated * Discharge Instr - Diet* Amarilis Jackson RN - 2025 1:37 PM CDT Resume diabetic diet * Attachments The following attachments cannot be sent through Care Everywhere. * Acyclovir (Zimbabwean) * Bisacodyl (Zimbabwean) * Polyethylene Glycol 3350 (Zimbabwean) * Senna (Zimbabwean) * Co trimoxazole (Zimbabwean) * Voriconazole (Zimbabwean) * Venetoclax (Zimbabwean) documented in this encounter Medications at Time of Discharge acyclovir (ZOVIRAX) 400 mg tablet Take 1 Tablet (400 mg) by mouth 2 times daily for 14 days. 28 Tablet 2025 04/17/20 25 voriconazole (VFEND) 200 mg tablet Take 1 Tablet (200 mg) by mouth every 12 hours for 14 days. 28 Tablet 2025 04/17/20 25 sulfamethoxazole -trimethoprim (BACTRIM DS) 800-160 mg tablet Take 1 Tablet by mouth every Friday, Friday, and Friday for 14 days. 6 Tablet 04/04/2025 04/18/20 25 sennosides (SENOKOT XTRA) 17.2 mg Tablet tablet Take 1 Tablet (17.2 mg) by mouth daily for 14 days. 14 Tablet 2025 04/17/20 25 polyethylene glycol (MIRALAX) 17 gram Powder in Packet Take 1 Packet (17 Grams) by mouth 2 times daily as needed for Constipation. 28 Packet 2025 04/17/20 25 bisacodyL (DULCOLAX) 10 mg Suppository Insert 1 Suppository (10 mg) by rectum 1 time daily as needed for Constipation. 14 Suppository 2025 glipiZIDE (GLUCOTROL) 5 mg tablet Take 5 mg by mouth 2 times daily with meals. finasteride (PROSCAR) 5 mg tablet Take 5 mg by mouth daily. DULoxetine (CYMBALTA) 60 mg Capsule, Delayed Release(E.C.) Take 60 mg by mouth daily. venetoclax (VENCLEXTA) 100 mg tabletIndication s:MDS (myelodysplastic syndrome), high grade (CMS/HCC) Take 1 Tablet (100 mg) by mouth daily with breakfast for 14 days 14 Tablet 04/07/2025 1:54 PM CDT 03/31/2025 04/21/20 25 documented as of this encounter Progress Notes * Popeye Be RN - 2025 2:19 PM CDT Faina Barros will be discharged via wheelchair to home. Faina Barros is accompanied by spouse andwill be transported via private vehicle. IV removed and discharge instructions given. All questionsand concerns addressed. Pt left with all personal belongings. * Amarilis Jackson RN - 2025 12:28 PM CDT Chemotherapy Administration Note Infusion of azaCITIDine (VIDAZA) 145 mg in sterile water 5.8 mL syringe Day of current cycle: cycle 1 Day 12/27 Chemotherapy Verification: Complete order checks were performed by myself and Duane Pharmacist to verify the following: patient name and , the drug name, dose, volume, rate of administration, expiration date/times, and appearance and physical integrity of the drug with the Electronic Health Record (EHR). Dosage calculations were verified prior to administration to be in an appropriate range. Vital signs, lab values, and patient condition reviewed and found to be within appropriate limits for administration. Chemotherapy education and consent for treatment verified to be complete. Treatment reviewed with patient and/or family. Patient/family instructed to notify staff of any s/sof a reaction, including but not limited to: itching, swelling, pain/tenderness at the access site,nausea, vomiting, or generalized discomfort noted after chemotherapy initiated that may indicate a reaction. Pre-medications: Pre-medications administered per protocol/physician orders. IV Access/Blood Return: SQ injection Tolerance: Patient is tolerating treatment with no s/s of adverse reaction at this time. * Astrid Lion MD - 04/02/2025 4:30 PM CDT Images from the original note were not included. Your life is our life's work [facility] Hospitalist/Hospital Medicine Progress Note LOS: 9 days Room/Bed: [address] [place] [address] Patient name: Faina Barros Date of : 1950 HOSPITAL COURSE SUMMARY: Faina Barros is a 74 y.o. male with history sniffing and for hypertension, type 2 diabetes who wasadmitted for further management of abnormal labs. Patient reports has been having some generalized weakness, shortness of breath and gait instabilityover the last 2 months. He was seen by his primary care doctor where he was noted to have pancytopenia, and was sent to the ER for further evaluation. Presented to the ER at [facility] and eventually was sent here to [facility] for further evaluation of pancytopenia and hematology evaluation. Patient reported no bleeding, bruising. No family history of known malignancy or leukemia. No rash.[place], states it was worse this season and has removed multiple ticks from his body. On admission here patient hemodynamically stable. Labs with pancytopenia- leukopenia with WBC of 1.7, anemia with hemoglobin of 8.8, thrombocytopenia with platelets of 60, normal LFTs, normal B12 and folate, iron-50, normal TSH, hepatitis panel-hep C antibody reactive. RNA pending. Mildly elevated CRP, negative PSA. Patient was seen by hematology and being worked up for etiology. Bone marrow biopsy planned. 03/25: Patient doing well, reports no complaint, states he feels very fine and has no complaints currently. He is ambulating without difficulty. Remains hemodynamically stable. Afebrile. No bleeding noted, no bruising. Patient scheduled for bone marrow biopsy today, hematology following. Will start patient on doxycycline given history of recurrent tick bites. Continue neutropenic precautions. 03/26: No new complaints. No significant change in cell counts. Patient had bone marrow biopsy done yesterday, well-tolerated. Continue neutropenic precautions. Continue doxycycline. 03/27: No new complaints. No bleeding or bruising noted. Labs reviewed-slightly worse thrombocytopenia-down to 11K. Bone marrow biopsy results still pending 03/28: No new complaints. Patient doing well. Hemodynamically stable. Labs reviewed-no significant change in pancytopenia. According to pathologist-bone marrow preliminary with some concern for MDS however pending further staining. Continue to monitor cell counts. Oncology following. Tickborne panel negative. Will discontinue doxycycline 03/29: Patient reports no complaints. No bleeding, no bruising. Platelets down to 9K this morning. Patient received 1 units of platelets. Bone marrow biopsy reported with some concern for MDS. Oncologyfollowing planning for therapy with Vidaza plus venetoclax. Patient to start cycle 1 while inpatient. 03/30: Patient still with no complaints. Hemodynamically stable. No bleeding, no bruising. Labs reviewed, hemoglobin trended down to 7 and platelets still at 9K despite 1 unit platelets received yesterday. Will transfuse with another unit of PRBC and 1 unit of platelets. Oncology starting patient on vidaza + venetoclax today. Monitor closely 03/31: No new complaints. Patient tolerated chemotherapy. Platelets today 17K, hemoglobin improved, ANC improving. Continue chemotherapy as per oncology-cycle 1 day 2 Vidaza/venetoclax. 04/01: Patient continues to report no complaints. Labs reviewed this morning, platelets down trended back to 10,000.Hemoglobin stable above 8. Continuing chemotherapy cycle 1 day 3. Oncology following 04/02: Patient reports that he is still constipated despite bowel regimen with milk of mag and MiraLAX. No other complaints. Will order senna/Colace. If still no bowel movement may need an enema. Encourage OOB. Patient continuing chemotherapy cycle 1 day 4 today. Platelets down to 8K. Will transfuse 1 unit platelets today. Oncology not available over the weekend however reports that if patient completes day 5 of chemotherapy tomorrow 04/03 and cell counts stable, can be discharged to follow-up in clinic. Consultants: IP CONSULT TO IV TEAM SUBJECTIVE: Patient reports no complaints except for constipation. ROS: 10 point review of system negative except for above. OBJECTIVE: Temp (24hrs), Av ??F (36.7 ??C), Min:97.3 ??F (36.3 ??C), Max:98.4 ??F (36.9 ??C) BP 133/62 Pulse (!) 112 Temp 98.2 ??F (36.8 ??C) Resp 16 Ht 5' 8 (1.727 m) Wt 74.6 kg (164 lb 6.4 oz) SpO2 92% BMI 25.00 kg/m?? Intake/Output Summary (Last 24 hours) at 04/02/2025 1631 Last data filed at 04/02/2025 1500 Gross per 24 hour Intake 870 ml Output 0 ml Net 870 ml Last documented weight: Weight: 74.6 kg (164 lb 6.4 oz) (04/01/25 7382) EXAM: General: alert, in no distress Neurologic: Grossly normal HEENT: atraumatic, Normocephalic, without obvious abnormality Lungs: clear to auscultation bilaterally, normal respiratory effort Heart: normal rate, regular rhythm, normal S1, S2, no murmurs, rubs, clicks or gallops Abdomen: Soft, non-tender. Bowel sounds normal. No masses, no organomegaly. Extremities: extremities normal, atraumatic, no cyanosis or edema, intact distal pulses, moves all extremities equally, no edema, redness or tenderness in the calves or thighs, normal strength, normal tone Skin: negative LABORATORY: Recent Labs 03/31/2542703/31/25125604/01/25 0539 04/02/25 0558 WBC 1.8* 1.4* 1.1* 1.2* HGB 8.2* 8.1* 8.3* 8.3* HCT 24.1* 24.2* 24.6* 25.1* PLT 17* 14* 10* 8* Recent Labs 03/31/2542703/31/25125604/01/25 0539 04/02/25 0558 NA 129* 128* 130* 129* K 4.6 4.2 4.5 4.4 CL 98 96* 98 97* CO2 22 23 23 23 CA 7.9* 8.0* 8.1* 8.6* BUN 24* 24* 24* 27* CREAT 0.97 1.14 1.07 1.10 GLUCOSE 184* 226* 186* 271* Recent Labs 03/31/2542703/31/25125604/01/25 0539 04/02/25 0558 TOTALPROTEIN 6.1* 6.3* 6.4 6.8 ALBUMIN 3.1* 3.1* 3.2* 3.3* BILITOTAL 1.0 0.9 1.0 1.0 ALKPHOS 246* 216* 196* 176* AST 23 13 12 13 ALT 24 20 18 16 Diagnostic testing reviewed by me: Labs and imaging reviewed by me-noted below No results found for this or any previous visit. Medications were reviewed by me. Current Facility-Administered Medications: sodium chloride 0.9 % infusion, , IV, continuous, Truman Rico MD, Last Rate: 30 mL/hr at 04/02/25742, New Bag at 04/02/25742 sennosides (SENOKOT) tablet 17.2 mg, 17.2 mg, Oral, BID, Astrid Lion MD docusate sodium (COLACE) capsule 100 mg, 100 mg, Oral, BID, Astrid Lion MD [COMPLETED] voriconazole (VFEND) tablet 400 mg, 400 mg, Oral, every 12 hours (2 times daily), 400 mg at 03/31/254 FOLLOWED BY voriconazole (VFEND) tablet 200 mg, 200 mg, Oral, every 12 hours (2 times daily), Truman Rico MD, 200 mg at 04/02/25 0734 polyethylene glycol (MIRALAX) packet 17 Gram, 17 Gram, Oral, daily PRN, Truman Rico MD, 17 Gram at 04/02/25 0734 magnesium HYDROXIDE (MILK OF MAGNESIA) oral suspension 30 mL, 30 mL, Oral, daily PRN, Truman Rico MD, 30 mL at 04/02/25 1523 loperamide (IMODIUM) capsule 2 mg, 2 mg, Oral, QID PRN, Truman Rico MD venetoclax (VENCLEXTA) tablet 100 mg, 100 mg, Oral, daily WITH breakfast, Truman Rico MD, 100mg at 04/02/25 0734 ondansetron (ZOFRAN ODT) tablet 8 mg, 8 mg, Sublingual, every 24 hours, Batool Wagner, ASSISTANT STORE MANAGER, 8 mg at 04/02/25 1131 azaCITIDine (VIDAZA) 145 mg in sterile water 5.8 mL syringe, 75 mg/m2 (Treatment Plan Recorded), subCUT, every 24 hours, Batool Wagner, ASSISTANT STORE MANAGER, 145 mg at 04/02/25 1151 acyclovir (ZOVIRAX) tablet 400 mg, 400 mg, Oral, BID, Truman Rico MD, 400 mg at 04/02/25 0734 sulfamethoxazole-trimethoprim (BACTRIM DS) 800-160 mg per tablet 1 Tablet, 1 Tablet, Oral, every Mon, Wed, Fri, Truman Rico MD, 1 Tablet at 04/01/25 09 cetirizine (ZyrTEC) tablet 10 mg, 10 mg, Oral, daily, Astrid Lion MD, 10 mg at 04/02/25 0734 DULoxetine (CYMBALTA) capsule 60 mg, 60 mg, Oral, daily, Astrid Lion MD, 60 mg at 04/02/25 0734 sodium chloride flush injection 10 mL, 10 mL, IV, every 12 hours (2 times daily), Renny Álvarez MD, 10 mL at 04/02/25 0734 sodium chloride flush injection 10 mL, 10 mL, IV, see admin instructions, Renny Álvarez MD, 10 mLat 04/01/25 0114 sodium chloride 0.9 % flush bag 25 mL, 25 mL, IV, see admin instructions, Renny Álvarez MD dextrose 5 % in water 250 mL flush bag 25 mL, 25 mL, IV, see admin instructions, Renny Álvarez MD naloxone (NARCAN) 0.4 mg/mL injection 0.1-0.4 mg, 0.1-0.4 mg, IV, see admin instructions, Renny Álvarez MD acetaminophen (TYLENOL) tablet 650 mg, 650 mg, Oral, every 6 hours PRN, Renny Álvarez MD, 650 mg at 03/30/25 0933 dextrose 5 % - sodium chloride 0.9 % infusion, , IV, see admin instructions, Renny Álvarez MD dextrose 50% (D50) syringe 12.5 Gram, 12.5 Gram, IV, see admin instructions, Renny Álvarez MD dextrose 50% (D50) syringe 25 Gram, 25 Gram, IV, see admin instructions, Renny Álvarez MD glucagon HCL 1 mg/mL injection 1 mg, 1 mg, IM, see admin instructions, Renny Álvarez MD insulin lispro (HumaLOG,ADMELOG) injection 0-6 Units, 0-6 Units, subCUT, TID WITH meals, Renny Álvarez MD, 3 Units at 04/02/25 1139 insulin lispro (HumaLOG,ADMELOG) injection 0-3 Units, 0-3 Units, subCUT, daily BEDTIME, Renny Álvarez MD, 1 Units at 03/28/25 2128 insulin lispro (HumaLOG,ADMELOG) injection 0-3 Units, 0-3 Units, subCUT, daily at 0200, Renny Álvarez MD diphenhydrAMINE (BENADRYL) tablet 25 mg, 25 mg, Oral, every 8 hours PRN, Renny Álvarez MD, 25 mg at 03/30/25 0912 Primary discharge diagnosis: Pancytopenia (CMS/HCC) Other active medical issues also addressed during this admission: Active Hospital Problems Diagnosis MDS (myelodysplastic syndrome), high grade (CMS/HCC) Protein-calorie malnutrition, moderate Hypophosphatemia Pancytopenia (CMS/HCC) Type 2 diabetes mellitus, without long-term current use of insulin (CMS/HCC) Benign hypertension Resolved Hospital Problems No resolved problems to display. ASSESSMENT AND PLAN: Principal Problem: Pancytopenia (CMS/HCC) Active Problems: Type 2 diabetes mellitus, without long-term current use of insulin (CMS/HCC) Benign hypertension Hypophosphatemia Protein-calorie malnutrition, moderate MDS (myelodysplastic syndrome), high grade (CMS/HCC) Pancytopenia # Leukopenia-WBC 1.7, neutropenia--ANC of 0.4 # Anemia-hemoglobin 8.4-->7 # Thrombocytopenia-platelets of 13K-->11k--> 9K--17K--8k High suspicion for MDS Unsure etiology-renal possible infection, malignancy or medication effects. No bleeding or bruising noted. History of recurrent tick bites. Hematology on board Workup ongoing-s/p bone marrow biopsy on 03/25--Bone marrow biopsy preliminary reported with some suspicion for MDS. Pending further staining Labs so far-blood cultures-NGTD, normal B12 and folate, normal iron levels, normal TSH, hepatitis Cantibody positive, HIV negative, mildly elevated CRP and ESR, LDH-146, haptoglobin-47, reticulocytes-1.8 Order labs pending-peripheral smear, hepatitis C RNA pending, INDER pending, free light chain ratio pending, tickborne panel-negative Doxycycline discontinued Oncology planning on starting cycle 1 of Vidaza + venetoclax 03/30-cycle 1 day 4, [, will complete cycle dose on 04/03] Continue to monitor cell counts daily Transfuse to keep hemoglobin above 7 Transfuse platelets if <10K or actively bleeding. Patient received 1 unit PRBC and 2 unit platelets so far this admission. Receiving another unit of platelets today 04/02. Consider using irradiated, leukocyte reduced, CMV negative blood products. Bleeding precautions. Continue neutropenic precautions Hypophosphatemia Replaced as appropriate Optimize electrolytes. Hyponatremia-mild Continue to monitor closely Type 2 diabetes mellitus Hold oral hypoglycemic agents Continue current sliding scale Continue to monitor blood sugar Hypoglycemic protocol in place. Lab Results Component Value Date/Time HGBA1C 5.2 03/25/2025 04:09 AM Recent Labs 04/01/25 1700 04/01/25 2208 04/02/25 0703 04/02/25 1050 GLUCPOC 224* 185* 272* 252* Nutrition Status: Malnutrition Nutrition Diagnosis: Moderate protein-calorie malnutrition Provider Assessment/Plan: Symptoms/Signs/Physical Exam: Muscle Wasting, Subcutaneous Fat Loss, Poor Appetite, and Weight Loss Etiology: Cancer and Acute illness Nutrition Treatment Plan: - Current Diet and/or Nutritional Supplementation ordered: DIET NEUTROPENIC - LOW BACTERIA - Daily weights Impact of Malnutrition on patient condition and outcomes: Reduced oral intake, Increased muscle weakness and fall risk, Decreased activity tolerance and reduced mobility , and Decreased bone health and healing DVT prevention: SCDs for now-high risk for bleeding Outpatient follow up: PCP, hematology Anticipated Disposition Location: Home with family Timeframe: 1 to 2 days Criteria: Stability, completion of workup Education/DME/Equipment Needs: Patient's understanding of illness: Good Primary family contact: Spouse Code status: Full Code Medical complexity-high Astrid Lion MD 04/02/2025, 4:31 PM * Amarilis Jackson RN - 04/02/2025 11:51 AM CDT Chemotherapy Administration Note Infusion of azaCITIDine (VIDAZA) 145 mg in sterile water 5.8 mL syringe Day of current cycle: Cycle 1 Day 4/5 Chemotherapy Verification: Complete order checks were performed by myself and [place] Pharmacist to verify the following: patient name and , the drug name, dose, volume, rate of administration, expiration date/times, and appearance and physical integrity of the drug with the Electronic Health Record (EHR). Dosage calculations were verified prior to administration to be in an appropriate range. Vital signs, lab values, and patient condition reviewed and found to be within appropriate limits for administration. Chemotherapy education and consent for treatment verified to be complete. Treatment reviewed with patient and/or family. Patient/family instructed to notify staff of any s/sof a reaction, including but not limited to: itching, swelling, pain/tenderness at the access site,nausea, vomiting, or generalized discomfort noted after chemotherapy initiated that may indicate a reaction. Pre-medications: Pre-medications administered per protocol/physician orders. IV Access/Blood Return: SQ injection Tolerance: Patient is tolerating treatment with no s/s of adverse reaction at this time. * Astrid Lion MD - 04/01/2025 5:21 PM CDT Images from the original note were not included. Your life is our life's work [facility] Hospitalist/Hospital Medicine Progress Note LOS: 8 days Room/Bed: 7116/ Patient name: Faina Barros Date of : 1950 HOSPITAL COURSE SUMMARY: Faina Barros is a 74 y.o. male with history sniffing and for hypertension, type 2 diabetes who wasadmitted for further management of abnormal labs. Patient reports has been having some generalized weakness, shortness of breath and gait instabilityover the last 2 months. He was seen by his primary care doctor where he was noted to have pancytopenia, and was sent to the ER for further evaluation. Presented to the ER at [facility] and eventually was sent here to [facility] for further evaluation of pancytopenia and hematology evaluation. Patient reported no bleeding, bruising. No family history of known malignancy or leukemia. No rash.[place], states it was worse this season and has removed multiple ticks from his body. On admission here patient hemodynamically stable. Labs with pancytopenia- leukopenia with WBC of 1.7, anemia with hemoglobin of 8.8, thrombocytopenia with platelets of 60, normal LFTs, normal B12 and folate, iron-50, normal TSH, hepatitis panel-hep C antibody reactive. RNA pending. Mildly elevated CRP, negative PSA. Patient was seen by hematology and being worked up for etiology. Bone marrow biopsy planned. 03/25: Patient doing well, reports no complaint, states he feels very fine and has no complaints currently. He is ambulating without difficulty. Remains hemodynamically stable. Afebrile. No bleeding noted, no bruising. Patient scheduled for bone marrow biopsy today, hematology following. Will start patient on doxycycline given history of recurrent tick bites. Continue neutropenic precautions. 03/26: No new complaints. No significant change in cell counts. Patient had bone marrow biopsy done yesterday, well-tolerated. Continue neutropenic precautions. Continue doxycycline. 03/27: No new complaints. No bleeding or bruising noted. Labs reviewed-slightly worse thrombocytopenia-down to 11K. Bone marrow biopsy results still pending 03/28: No new complaints. Patient doing well. Hemodynamically stable. Labs reviewed-no significant change in pancytopenia. According to pathologist-bone marrow preliminary with some concern for MDS however pending further staining. Continue to monitor cell counts. Oncology following. Tickborne panel negative. Will discontinue doxycycline 03/29: Patient reports no complaints. No bleeding, no bruising. Platelets down to 9K this morning. Patient received 1 units of platelets. Bone marrow biopsy reported with some concern for MDS. Oncologyfollowing planning for therapy with Vidaza plus venetoclax. Patient to start cycle 1 while inpatient. 03/30: Patient still with no complaints. Hemodynamically stable. No bleeding, no bruising. Labs reviewed, hemoglobin trended down to 7 and platelets still at 9K despite 1 unit platelets received yesterday. Will transfuse with another unit of PRBC and 1 unit of platelets. Oncology starting patient on vidaza + venetoclax today. Monitor closely 03/31: No new complaints. Patient tolerated chemotherapy. Platelets today 17K, hemoglobin improved, ANC improving. Continue chemotherapy as per oncology-cycle 1 day 2 Vidaza/venetoclax. 04/01: Patient continues to report no complaints. Labs reviewed this morning, platelets down trended back to 10,000.Hemoglobin stable above 8. Continuing chemotherapy cycle 1 day 3. Oncology following Consultants: IP CONSULT TO IV TEAM SUBJECTIVE: Patient reports no complaints. ROS: 10 point review of system negative except for above. OBJECTIVE: Temp (24hrs), Av.2 ??F (36.8 ??C), Min:97.3 ??F (36.3 ??C), Max:98.6 ??F (37 ??C) BP 118/63 (BP Location: Right arm, Patient Position (BP): Supine) Pulse (!) 104 Temp 98.2 ??F (36.8 ??C) (Oral) Resp 16 Ht 5' 8 (1.727 m) Wt 74.6 kg (164 lb 6.4 oz) SpO2 99% BMI 25.00 kg/m?? No intake or output data in the 24 hours ending 04/01/251720 Last documented weight: Weight: 74.6 kg (164 lb 6.4 oz) (04/01/25421) EXAM: General: alert, in no distress Neurologic: Grossly normal HEENT: atraumatic, Normocephalic, without obvious abnormality Lungs: clear to auscultation bilaterally, normal respiratory effort Heart: normal rate, regular rhythm, normal S1, S2, no murmurs, rubs, clicks or gallops Abdomen: Soft, non-tender. Bowel sounds normal. No masses, no organomegaly. Extremities: extremities normal, atraumatic, no cyanosis or edema, intact distal pulses, moves all extremities equally, no edema, redness or tenderness in the calves or thighs, normal strength, normal tone Skin: negative LABORATORY: Recent Labs 03/30/2541203/31/2542703/31/25 1257 04/01/25 0539 WBC 1.6* 1.8* 1.4* 1.1* HGB 7.0* 8.2* 8.1* 8.3* HCT 20.8* 24.1* 24.2* 24.6* PLT 9* 17* 14* 10* Recent Labs 03/30/2541203/31/2542703/31/25 1257 04/01/25 0539 NA 131* 129* 128* 130* K 4.7 4.6 4.2 4.5 CL 100 98 96* 98 CO2 25 22 23 23 CA 7.8* 7.9* 8.0* 8.1* BUN 20 24* 24* 24* CREAT 0.85 0.97 1.14 1.07 GLUCOSE 194* 184* 226* 186* Recent Labs 03/30/2541203/31/2542703/31/25 1257 04/01/25 0539 TOTALPROTEIN 6.0* 6.1* 6.3* 6.4 ALBUMIN 3.0* 3.1* 3.1* 3.2* BILITOTAL 0.9 1.0 0.9 1.0 ALKPHOS 191* 246* 216* 196* AST 12 23 13 12 ALT 19 24 20 18 No results for input(s): INR , PT in the last 72 hours. Invalid input(s): PTT Diagnostic testing reviewed by me: Labs and imaging reviewed by me-noted below No results found for this or any previous visit. Medications were reviewed by me. Current Facility-Administered Medications: [COMPLETED] ondansetron (ZOFRAN) 4 mg/2 mL injection 2 mg, 2 mg, IV, ONE time only, Sita Ledbetter, BUS DRIVER/MONITOR, 2 mg at 04/01/25 0111 [COMPLETED] voriconazole (VFEND) tablet 400 mg, 400 mg, Oral, every 12 hours (2 times daily), 400 mg at 03/31/252043 FOLLOWED BY voriconazole (VFEND) tablet 200 mg, 200 mg, Oral, every 12 hours (2 times daily), Truman Rico MD, 200 mg at 04/01/25 09 polyethylene glycol (MIRALAX) packet 17 Gram, 17 Gram, Oral, daily PRN, Truman Rico MD magnesium HYDROXIDE (MILK OF MAGNESIA) oral suspension 30 mL, 30 mL, Oral, daily PRN, Truman Rico MD, 30 mL at 04/01/25 09 loperamide (IMODIUM) capsule 2 mg, 2 mg, Oral, QID PRN, Truman Rico MD venetoclax (VENCLEXTA) tablet 100 mg, 100 mg, Oral, daily WITH breakfast, Truman Rico MD, 100mg at 04/01/25 0903 ondansetron (ZOFRAN ODT) tablet 8 mg, 8 mg, Sublingual, every 24 hours, Batool Wagner NP, 8 mg at 04/01/25 1209 azaCITIDine (VIDAZA) 145 mg in sterile water 5.8 mL syringe, 75 mg/m2 (Treatment Plan Recorded), subCUT, every 24 hours, Batool Wagner ASSISTANT STORE MANAGER, 145 mg at 04/01/25 1302 acyclovir (ZOVIRAX) tablet 400 mg, 400 mg, Oral, BID, Truman Rico MD, 400 mg at 04/01/25 09 sulfamethoxazole-trimethoprim (BACTRIM DS) 800-160 mg per tablet 1 Tablet, 1 Tablet, Oral, every Mon, Wed, Fri, Truman Rico MD, 1 Tablet at 04/01/25901 cetirizine (ZyrTEC) tablet 10 mg, 10 mg, Oral, daily, Astrid Lion MD, 10 mg at 04/01/25901 DULoxetine (CYMBALTA) capsule 60 mg, 60 mg, Oral, daily, Astrid Lion MD, 60 mg at 04/01/25 09 sodium chloride flush injection 10 mL, 10 mL, IV, every 12 hours (2 times daily), Renny Álvarez MD, 10 mL at 04/01/25 0900 sodium chloride flush injection 10 mL, 10 mL, IV, see admin instructions, Renny Álvarez MD, 10 mLat 04/01/25 0114 sodium chloride 0.9 % flush bag 25 mL, 25 mL, IV, see admin instructions, Renny Álvarez MD dextrose 5 % in water 250 mL flush bag 25 mL, 25 mL, IV, see admin instructions, Renny Álvarez MD naloxone (NARCAN) 0.4 mg/mL injection 0.1-0.4 mg, 0.1-0.4 mg, IV, see admin instructions, Renny Álvarez MD acetaminophen (TYLENOL) tablet 650 mg, 650 mg, Oral, every 6 hours PRN, Renny Álvarez MD, 650 mg at 03/30/25 0933 dextrose 5 % - sodium chloride 0.9 % infusion, , IV, see admin instructions, Renny Álvarez MD dextrose 50% (D50) syringe 12.5 Gram, 12.5 Gram, IV, see admin instructions, Renny Álvarez MD dextrose 50% (D50) syringe 25 Gram, 25 Gram, IV, see admin instructions, Renny Álvarez MD glucagon HCL 1 mg/mL injection 1 mg, 1 mg, IM, see admin instructions, Renny Álvarez MD insulin lispro (HumaLOG,ADMELOG) injection 0-6 Units, 0-6 Units, subCUT, TID WITH meals, Renny Álvarez MD, 2 Units at 04/01/25 1717 insulin lispro (HumaLOG,ADMELOG) injection 0-3 Units, 0-3 Units, subCUT, daily BEDTIME, Renny Álvarez MD, 1 Units at 03/28/25 2128 insulin lispro (HumaLOG,ADMELOG) injection 0-3 Units, 0-3 Units, subCUT, daily at 0200, Renny Álvarez MD diphenhydrAMINE (BENADRYL) tablet 25 mg, 25 mg, Oral, every 8 hours PRN, Renny Álvarez MD, 25 mg at 03/30/25 0933 Primary discharge diagnosis: Pancytopenia (CMS/HCC) Other active medical issues also addressed during this admission: Active Hospital Problems Diagnosis MDS (myelodysplastic syndrome), high grade (CMS/HCC) Protein-calorie malnutrition, moderate Hypophosphatemia Pancytopenia (CMS/HCC) Type 2 diabetes mellitus, without long-term current use of insulin (CMS/HCC) Benign hypertension Resolved Hospital Problems No resolved problems to display. ASSESSMENT AND PLAN: Principal Problem: Pancytopenia (CMS/HCC) Active Problems: Type 2 diabetes mellitus, without long-term current use of insulin (CMS/HCC) Benign hypertension Hypophosphatemia Protein-calorie malnutrition, moderate MDS (myelodysplastic syndrome), high grade (CMS/HCC) Pancytopenia # Leukopenia-WBC 1.7, neutropenia--ANC of 0.3 # Anemia-hemoglobin 8.4-->7 # Thrombocytopenia-platelets of 13K-->11k--> 9K--17K High suspicion for MDS Unsure etiology-renal possible infection, malignancy or medication effects. No bleeding or bruising noted. History of recurrent tick bites. Hematology on board Workup ongoing-s/p bone marrow biopsy on 03/25--Bone marrow biopsy preliminary reported with some suspicion for MDS. Pending further staining Labs so far-blood cultures-NGTD, normal B12 and folate, normal iron levels, normal TSH, hepatitis Cantibody positive, HIV negative, mildly elevated CRP and ESR, LDH-146, haptoglobin-47, reticulocytes-1.8 Order labs pending-peripheral smear, hepatitis C RNA pending, INDER pending, free light chain ratio pending, tickborne panel-negative Doxycycline discontinued Oncology planning on starting cycle 1 of Vidaza + venetoclax 03/30-cycle 1 day 3, [, will complete dose on 04/03] Continue to monitor cell counts daily Transfuse to keep hemoglobin above 7 Transfuse platelets if <10K or actively bleeding. Patient received 1 unit PRBC and 2 unit platelets so far this admission Consider using irradiated, leukocyte reduced, CMV negative blood products. Bleeding precautions. Continue neutropenic precautions Hypophosphatemia Replacing as appropriate Optimize electrolytes. Hyponatremia-mild Continue to monitor closely Type 2 diabetes mellitus Hold oral hypoglycemic agents Continue current sliding scale Continue to monitor blood sugar Hypoglycemic protocol in place. Lab Results Component Value Date/Time HGBA1C 5.2 03/25/2025 04:09 AM Recent Labs 04/01/25 0110 04/01/25 0704 04/01/25 1051 04/01/25 1700 GLUCPOC 201* 189* 229* 224* Nutrition Status: Malnutrition Nutrition Diagnosis: Moderate protein-calorie malnutrition Provider Assessment/Plan: Symptoms/Signs/Physical Exam: Muscle Wasting, Subcutaneous Fat Loss, Poor Appetite, and Weight Loss Etiology: Cancer and Acute illness Nutrition Treatment Plan: - Current Diet and/or Nutritional Supplementation ordered: DIET NEUTROPENIC - LOW BACTERIA - Daily weights Impact of Malnutrition on patient condition and outcomes: Reduced oral intake, Increased muscle weakness and fall risk, Decreased activity tolerance and reduced mobility , and Decreased bone health and healing DVT prevention: SCDs for now-high risk for bleeding Outpatient follow up: PCP, hematology Anticipated Disposition Location: Home with family Timeframe: 2 to 3 days Criteria: Stability, completion of workup Education/DME/Equipment Needs: Patient's understanding of illness: Good Primary family contact: Spouse Code status: Full Code Medical complexity-high Astrid Lion MD 04/01/2025, 5:21 PM * Kylee Escalona - 04/01/2025 2:17 PM CDT Reason for Visit: Referral Patient spiritual issues identified: Responded to patient's on priority list. I visited with patient, who's told me: he has Diabetes. Lately has shortness of breat. Family lives in [place]. [place]No family present. Patient's calm and continue to wait for his Doctor advice for treatment. I offered spiritual support and prayer with Faina. summary of patient???s most significant issue(s): Family : Faina has support from his at home in [place]. Emma/values: Faina has [employer] emma tradition. Open for rn utilization management um visit and prayer. Needs/hopes resources: Medical team have been provide good care for Faina. Spiritual interventions Ministry of presence. Utilized presence and active listening to explore feelings, stressors, perceptions, questions and concerns, and coping patterns of Spiritual support provided;Emotional support;Hope instilled VEGETABLE VENDOR???S ASSESSMENT OF PATIENT???S LEVEL OF DISTRESS: Moderate Outcomes of Care Elizabeths found comfort from rn utilization management um visit and prayer. Expressed thanks for being and prayer with him. Goals of Spiritual Care [place] Plan Spiritual Care Services remain available for referral PRN. Recommendations for Healthcare Team As spiritual needs and distress arise, please contact Spiritual Care Services. We will follow up as needed. Thank you for this referral. Sister Kylee Augustus Mosqueda [facility]. [facility]-Spiritual Care Team * Amarilis Jackson RN - 04/01/2025 1:02 PM CDT Chemotherapy Administration Note Infusion of azaCITIDine (VIDAZA) 145 mg in sterile water 5.8 mL syringe Day of current cycle: Cycle 1 Day 3/5 Chemotherapy Verification: Complete order checks were performed by myself and Pio Bernal RN to verify the following: patient nameand , the drug name, dose, volume, rate of administration, expiration date/times, and appearanceand physical integrity of the drug with the Electronic Health Record (EHR). Dosage calculations were verified prior to administration to be in an appropriate range. Vital signs, lab values, and patient condition reviewed and found to be within appropriate limits for administration. Chemotherapy education and consent for treatment verified to be complete. Treatment reviewed with patient and/or family. Patient/family instructed to notify staff of any s/sof a reaction, including but not limited to: itching, swelling, pain/tenderness at the access site,nausea, vomiting, or generalized discomfort noted after chemotherapy initiated that may indicate a reaction. Pre-medications: Pre-medications administered per protocol/physician orders. IV Access/Blood Return: SQ injection Tolerance: Patient is tolerating treatment with no s/s of adverse reaction at this time. * Truman Rico MD - 04/01/2025 9:01 AM CDT HEMATOLOGY PROGRESS NOTE Subjective: Patient is resting in the bed. Patient is getting day 3 of the chemo. Patient would like to go homeon Friday if his labs are stable and feel fine. Review of Systems: Constitutional: denies fevers, chills, sweats, fatigue Neurological: denies headaches, weakness, visual changes Respiratory: denies cough, dyspnea, nosebleeds Cardiovascular: denies chest pain or discomfort Gastrointestinal: denies abdominal pain, constipation, diarrhea, vomiting Genitourinary: denies dysuria, urinary frequency Hematologic, Oncologic: denies bruising, bleeding, petechiae Lymphatic: denies lymph node swelling, no lumps or bumps Musculoskeletal: denies: myalgia, muscle weakness Skin: denies nail changes or rash Hematology history -03/23/2025 WBC 2.01 hgb 7.80 plts 21 ANC 0.77 -03/24/2025 WBC 2.01 ANC 0.77, hgb 7.80, plts 21 PT 14.20 INR 1.03 PTT 37.3 fibrinogen 264 uric acid5.3 LDH 146 hepatitis B negative HIV negative -03/25/2025 WBC 2.2, hemoglobin 8.4, MCV 92.1, platelet 13, ANC 0.58, calcium 8, glucose 177, albumin3.2, alkaline phosphatase 146, bilirubin 1.1, INR 1.2, fibrinogen 241 normal, PT 16. Bone marrow flow cytometry negative. -03/28/2025 WBC 1.9 hgb 7.9 plts 11 MCV 92.3 ANC 0.44 Ca 8.3 alk phos 185 --03/29/2025 WBC 1.7 ANC 0.57 hgb 7.4 plts 9 --03/30/2025 WBC 1.6 ANC 0.29 hgb 7.0 plts 9 --03/31/2025 WBC 1.8 ANC 0.52 hgb 8.2 plts 17 alk phos 246 -04/01/2025 WBC 1.1, hemoglobin 8.3, platelet 10, ANC 0.37. Imaging/procedure: -12/09/2018 CT chest 1. Relatively mild but diffuse symmetric subpleural reticulation distributed throughout both upper and lower lobes. This is most consistent with mild pulmonary fibrosis, but no specific pattern/distribution. There is presumed a superimposed atelectatic change in the dependent lung bases, but no evidence of honeycombing or significant bronchiectatic change. 2. Mildly enlarged right paratracheal/mediastinal lymph node, and borderline- enlarged left perihilar lymph node are nonspecific, presumably reactive. - 03/24/2025 ultrasound abdomen 1. Hepatosplenomegaly. 2. Bilateral renal cortical cysts. The largest cyst involving the lower pole left kidney demonstrates thickened internal septations. Short interval follow-up ultrasound or further characterization with nonemergent renal MRI with and without contrast recommended. 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 Objective: Vitals: 03/31/25 1937 04/01/25 0035 04/01/25 0422 04/01/25 0800 BP: 122/70 110/57 115/63 105/63 BP Location: Right arm Right arm Right arm Right arm Patient Position (BP): Supine Supine Supine Supine Pulse: 94 61 94 (!) 105 Resp: 11 18 18 16 Temp: 98.4 ??F (36.9 ??C) 98.4 ??F (36.9 ??C) 98.6 ??F (37 ??C) 98.2 ??F (36.8 ??C) TempSrc: Oral Oral Oral Oral SpO2: 94% 92% 97% 94% Weight: 74.6 kg (164 lb 6.4 oz) Height: PHYSICAL EXAMINATION: General appearance: Alert, in no distress ECOG 1. Head: Atraumatic, normocephalic without obvious abnormality. Eyes: Conjunctivae/corneas clear. PERRL, EOM's intact. Nose: Nares normal. Septum midline. Mucosa normal, no drainage, or sinus tenderness. Lungs: Clear to auscultation bilaterally, normal respiratory effort. Heart: Normal rate, regular rhythm, normal S1-S2,. Abdomen: Soft, non-tender. Bowel sounds normal, no masses, no organomegaly. Extremities: No extremity edema, Skin: Skin color, texture, turgor normal, no rashes, or lesions. Data Review: Labs Reviewed Lab Results Component Value Date/Time WBC 1.1 (L) 04/01/2025 05:39 AM HGB 8.3 (L) 04/01/2025 05:39 AM HCT 24.6 (L) 04/01/2025 05:39 AM PLT 10 (LL) 04/01/2025 05:39 AM MCV 92.1 04/01/2025 05:39 AM Lab Results Component Value Date/Time NA 130 (L) 04/01/2025 05:39 AM K 4.5 04/01/2025 05:39 AM CL 98 04/01/2025 05:39 AM CO2 23 04/01/2025 05:39 AM CA 8.1 (L) 04/01/2025 05:39 AM BUN 24 (H) 04/01/2025 05:39 AM CREAT 1.07 04/01/2025 05:39 AM GLUCOSE 186 (H) 04/01/2025 05:39 AM TOTALPROTEIN 6.4 04/01/2025 05:39 AM ALBUMIN 3.2 (L) 04/01/2025 05:39 AM BILITOTAL 1.0 04/01/2025 05:39 AM ALKPHOS 196 (H) 04/01/2025 05:39 AM AST 12 04/01/2025 05:39 AM ALT 18 04/01/2025 05:39 AM ANIONGAP 9 04/01/2025 05:39 AM ASSESSMENT/PLAN Principal Problem: Pancytopenia (CMS/HCC) Active Problems: Type 2 diabetes mellitus, without long-term current use of insulin (CMS/HCC) Benign hypertension Hypophosphatemia Protein-calorie malnutrition, moderate MDS (myelodysplastic syndrome), high grade (CMS/HCC) Pancytopenia -on admission: WBC 2.01 ANC 0.77, hgb 7.80, plts 21 -WBC 1.8 ANC 0.52 -monitor daily -neutropenic precautions -plan to ludwig culture for fever > 100.4 -hgb 8.2 -monitor daily -plan to transfuse for hgb <7 or active bleeding -plts 17 -monitor daily -plan to transfuse for plts < 10 or active bleeding -plan to hold AC for plts <50 -rule out underproduction: -iron 50 TIBC 116 -ferritin 350 -vitamin B12 617 -folate 11.4 -hepatitis panel C ab positive RNA not detected -HIV negative -TSH 2.09 -rule out destruction: -LDH 146 -reticulocytes 1.8 -loly negative -haptoglobin 47 -tBili 1 -CRP 12.2 -ESR 22 -INDER pending -PT 14.2 INR 1.03 -fibrinogen 264 -peripheral smear-Red blood cells are quantitatively decreased but normocytic. There is mild Priscila poikilocytosis including a dual population of microcytes and macrocytes as well as elliptocytes. No significant schistocytes. -rule out nutritional deficit: -vitamin B12 617 -folate 11.4 -zinc 58 -copper 88 -rule out malignancy: -PSA 0.6 -SPEP-Small monoclonal protein identified in the gamma region-see separate immunofixation report -free light chain ratio 1.14 -rheumatoid factor pending -rule out underproduction: -vitamin B12 617 -folate 11.4 -rule out platelet clumping: -peripheral smear-Platelets are quantitatively decreased with no significant platelet clumps. -rule out infection as cause for thrombocytopenia -blood cultures with no growth to date -tick panel negative -HIV negative -hepatitis panel C ab positive RNA pending -CMV pending -EBV pending -rule out destruction (DIC) -PT 16.0 INR 1.2 -fibrinogen 241 -s/p bone marrow fursga-jkdeefzkf-Tyemtiobxgscvoj neoplasm, preliminary classified as myelodysplastic neoplasm with low blasts (MDS-LB) with less than 3% bone marrow blasts and no circulating blasts -plan for therapy with vidaza + venetoclax-plan for a total of 5 days of therapy -con't antimicrobial prophylaxis -cycle 1 day 1 03/30/2025 -cycle 1 day 2 03/31/2025 -medical management per primary team and appropriate consultants Hematology daily plan: -plan for therapy with vidaza + venetoclax-plan for 5 day course-cycle 1 day 2 today -he will finish chemo Friday -will set up follow up with oncology at [facility]-referral sent today-will check back later this afternoon for appointment information -monitor counts,plan to ludwig culture for fever > 100.4 if ANC < 1 -monitor counts, plan to transfuse for hgb <7, plts <10 or active bleeding Discharge planning -disposition-TBD per primary team -timeframe-TBD per primary team -criteria-clinical improvement -follow up-TBD pending clinical course I have seen, examined and interviewed the patient independently myself and agree with the note mentioned above by nurse practitioner. Vitals: Vitals: 03/31/25 1937 04/01/25 0035 04/01/25 0422 04/01/25 0800 BP: 122/70 110/57 115/63 105/63 BP Location: Right arm Right arm Right arm Right arm Patient Position (BP): Supine Supine Supine Supine Pulse: 94 61 94 (!) 105 Resp: 11 18 18 16 Temp: 98.4 ??F (36.9 ??C) 98.4 ??F (36.9 ??C) 98.6 ??F (37 ??C) 98.2 ??F (36.8 ??C) TempSrc: Oral Oral Oral Oral SpO2: 94% 92% 97% 94% Weight: 74.6 kg (164 lb 6.4 oz) Height: Exam: General: Alert, awake, no distress See above Assessment: Pancytopenia Plan: Consider irradiated, leuko-reduced, CMV safe blood products only. Discussed in detail with the patient about the pathology. Answered questions in detail, agreeable with the plan. Complexity high. Discussed with the primary team. Discussed with the patient that he has MDS and per RIPSS score he has high risk MDS. We will start Azacitidine and venetoclax. Started PPX meds for infection. Pt does not want to go to [facility] and start treatment here. Tick panel negative. He would like to get this treatment locally. D/w pharmacy about treatment. Start Aza 75mg/m2 for 5 days every 28 days. For 4 cycles. With venetoclax. Reviewed up to date for high risk MDS due to pancytopenia. Discussed with the pharmacist. Azacitidine plus venetoclax -Treatment of 107 treatment-naive patients using 7-day azacitidine dosing plus an abbreviated course of venetoclax (400 mg on days 1 to 14) in 28-day cycles was associated with 30 percent complete response (CR) rate and 49 percent hematologic improvement; among the 59 patients who were red blood cell (RBC)- or platelet-transfusion dependent at baseline, 41 percent achieved transfusion independence [51]. With median follow-up of 32 months, two-year OS was 51 percent [51]. Most patients needed dose adjustment or interruption for treatment-emergent adverse effects (AEs), but toxicity reflected the known safety profiles for venetoclax and azacitidine, including grade >=3 febrile neutropenia in 42 percent and pneumonia in 11 percent. Patient will be discharged after completion of the treatment. Patient will need bone marrow biopsy after at least 1 or 2 cycles. To do: - started aza 75 mg/m2 for 5 days, today is day 3. - start acyclivir, fluconazole, bactrim - start venetoclax oral per protocol with AML, 100 daily and patient will take it inpatient and will. Discharge on venetoclax outpatient for [facility]. -discussed the bone marrow biopsy results, NGS panel pending - Patient denies any new drugs or alcohol usage. - CBC daily while inpatient - Keep hemoglobin more than 7 - Keep platelets more than 10, if bleeding keep more than 50 - Rest medical management per primary team. We appreciate the help of the primary team in taking care of this patient. Feel free to contact us if any questions or concerns. Thank you for consulting us in taking care of this patient. We will follow along from distance over the weekend. This documentation was created by polysom tech software. Effort has been done to assure accuracy of polysom tech. Any obvious errors or omissions should be clarified with the author of the document. * Anne Tee RN - 03/31/2025 3:53 PM CDT Shift Summary Patient has remained free from falls, skin remains intact. Patient has denied presence of pain. Patient reports he is tolerating the oral and injectable chemo well, denies any side effects. Preventative zofran given per MAR prior to 1430 dose of chemo. * Jana Cordero RN - 03/31/2025 2:40 PM CDT Chemotherapy Administration Note Infusion of azaCITIDine (VIDAZA) 145 mg in sterile water 5.8 mL syringe Day of current cycle: Cycle 1 /Day 2 Chemotherapy Verification: Complete order checks were performed by myself and Brayan Ortega Pharmacist to verify the following:patient name and , the drug name, dose, volume, rate of administration, expiration date/times, and appearance and physical integrity of the drug with the Electronic Health Record (EHR). Dosage calculations were verified prior to administration to be in an appropriate range. Vital signs, lab values, and patient condition reviewed and found to be within appropriate limits for administration. Chemotherapy education and consent for treatment verified to be complete. Treatment reviewed with patient and/or family. Patient/family instructed to notify staff of any s/sof a reaction, including but not limited to: itching, swelling, pain/tenderness at the access site,nausea, vomiting, or generalized discomfort noted after chemotherapy initiated that may indicate a reaction. Pre-medications: Pre-medications administered per protocol/physician orders. SubQ Site: RLQ Tolerance: Patient is tolerating treatment with no s/s of adverse reaction at this time. * Astrid Lion MD - 03/31/2025 1:37 PM CDT Images from the original note were not included. Your life is our life's work [facility] Hospitalist/Hospital Medicine Progress Note LOS: 7 days Room/Bed: 7116/01 Patient name: Faina Barros Date of : 1950 HOSPITAL COURSE SUMMARY: Faina Barros is a 74 y.o. male with history sniffing and for hypertension, type 2 diabetes who wasadmitted for further management of abnormal labs. Patient reports has been having some generalized weakness, shortness of breath and gait instabilityover the last 2 months. He was seen by his primary care doctor where he was noted to have pancytopenia, and was sent to the ER for further evaluation. Presented to the ER at [facility] and eventually was sent here to [facility] for further evaluation of pancytopenia and hematology evaluation. Patient reported no bleeding, bruising. No family history of known malignancy or leukemia. No rash.[place], states it was worse this season and has removed multiple ticks from his body. On admission here patient hemodynamically stable. Labs with pancytopenia- leukopenia with WBC of 1.7, anemia with hemoglobin of 8.8, thrombocytopenia with platelets of 60, normal LFTs, normal B12 and folate, iron-50, normal TSH, hepatitis panel-hep C antibody reactive. RNA pending. Mildly elevated CRP, negative PSA. Patient was seen by hematology and being worked up for etiology. Bone marrow biopsy planned. 03/25: Patient doing well, reports no complaint, states he feels very fine and has no complaints currently. He is ambulating without difficulty. Remains hemodynamically stable. Afebrile. No bleeding noted, no bruising. Patient scheduled for bone marrow biopsy today, hematology following. Will start patient on doxycycline given history of recurrent tick bites. Continue neutropenic precautions. 03/26: No new complaints. No significant change in cell counts. Patient had bone marrow biopsy done yesterday, well-tolerated. Continue neutropenic precautions. Continue doxycycline. 03/27: No new complaints. No bleeding or bruising noted. Labs reviewed-slightly worse thrombocytopenia-down to 11K. Bone marrow biopsy results still pending 03/28: No new complaints. Patient doing well. Hemodynamically stable. Labs reviewed-no significant change in pancytopenia. According to pathologist-bone marrow preliminary with some concern for MDS however pending further staining. Continue to monitor cell counts. Oncology following. Tickborne panel negative. Will discontinue doxycycline 03/29: Patient reports no complaints. No bleeding, no bruising. Platelets down to 9K this morning. Patient received 1 units of platelets. Bone marrow biopsy reported with some concern for MDS. Oncologyfollowing planning for therapy with Vidaza plus venetoclax. Patient to start cycle 1 while inpatient. 03/30: Patient still with no complaints. Hemodynamically stable. No bleeding, no bruising. Labs reviewed, hemoglobin trended down to 7 and platelets still at 9K despite 1 unit platelets received yesterday. Will transfuse with another unit of PRBC and 1 unit of platelets. Oncology starting patient on vidaza + venetoclax today. Monitor closely 03/31: No new complaints. Patient tolerated chemotherapy. Platelets today 17K, hemoglobin improved, ANC improving. Continue chemotherapy as per oncology-cycle 1 day 2 Vidaza/venetoclax. Consultants: IP CONSULT TO IV TEAM SUBJECTIVE: Patient reports no complaints. ROS: 10 point review of system negative except for above. OBJECTIVE: Temp (24hrs), Av.2 ??F (36.8 ??C), Min:97 ??F (36.1 ??C), Max:100.8 ??F (38.2 ??C) BP 108/59 (BP Location: Right arm, Patient Position (BP): Supine) Pulse (!) 103 Temp 97.6 ??F (36.4 ??C) (Oral) Resp 18 Ht 5' 8 (1.727 m) Wt 77 kg (169 lb 11.2 oz) SpO2 96% BMI 25.80 kg/m?? Intake/Output Summary (Last 24 hours) at 03/31/2025 1337 Last data filed at 03/31/2025 1200 Gross per 24 hour Intake 450 ml Output -- Net 450 ml Last documented weight: Weight: 77 kg (169 lb 11.2 oz) (03/30/25 9147) EXAM: General: alert, in no distress Neurologic: Grossly normal HEENT: atraumatic, Normocephalic, without obvious abnormality Lungs: clear to auscultation bilaterally, normal respiratory effort Heart: normal rate, regular rhythm, normal S1, S2, no murmurs, rubs, clicks or gallops Abdomen: Soft, non-tender. Bowel sounds normal. No masses, no organomegaly. Extremities: extremities normal, atraumatic, no cyanosis or edema, intact distal pulses, moves all extremities equally, no edema, redness or tenderness in the calves or thighs, normal strength, normal tone Skin: negative LABORATORY: Recent Labs 03/29/25 0551 03/30/25 0413 03/31/25 0428 03/31/25 1257 WBC 1.7* 1.6* 1.8* 1.4* HGB 7.4* 7.0* 8.2* 8.1* HCT 22.2* 20.8* 24.1* 24.2* PLT 9* 9* 17* 14* Recent Labs 03/29/2555003/30/2541203/31/25 0428 NA 130* 131* 129* K 4.3 4.7 4.6 CL 98 100 98 CO2 23 25 22 CA 7.8* 7.8* 7.9* BUN 19 20 24* CREAT 0.81 0.85 0.97 GLUCOSE 211* 194* 184* Recent Labs 03/29/25 0503/30/25 0413 03/31/25 0428 TOTALPROTEIN 5.8* 6.0* 6.1* ALBUMIN 2.9* 3.0* 3.1* BILITOTAL 0.9 0.9 1.0 ALKPHOS 160* 191* 246* AST 10 12 23 ALT 16 19 24 No results for input(s): INR , PT in the last 72 hours. Invalid input(s): PTT Diagnostic testing reviewed by me: Labs and imaging reviewed by me-noted below No results found for this or any previous visit. Medications were reviewed by me. Current Facility-Administered Medications: voriconazole (VFEND) tablet 400 mg, 400 mg, Oral, every 12 hours (2 times daily), 400 mg at 03/31/25 0928 FOLLOWED BY [START ON 04/01/2025] voriconazole (VFEND) tablet 200 mg, 200 mg, Oral, every 12 hours (2 times daily), Truman Rico MD polyethylene glycol (MIRALAX) packet 17 Gram, 17 Gram, Oral, daily PRN, Truman Rico MD magnesium HYDROXIDE (MILK OF MAGNESIA) oral suspension 30 mL, 30 mL, Oral, daily PRN, Truman Rico MD loperamide (IMODIUM) capsule 2 mg, 2 mg, Oral, QID PRN, Truman Rico MD venetoclax (VENCLEXTA) tablet 100 mg, 100 mg, Oral, daily WITH breakfast, Truman Rico MD, 100mg at 03/31/25 0938 ondansetron (ZOFRAN ODT) tablet 8 mg, 8 mg, Sublingual, every 24 hours, Batool Wagner, ASSISTANT STORE MANAGER, 8 mg at 03/30/25 1539 azaCITIDine (VIDAZA) 145 mg in sterile water 5.8 mL syringe, 75 mg/m2 (Treatment Plan Recorded), subCUT, every 24 hours, Batool Wagner, ASSISTANT STORE MANAGER, 145 mg at 03/30/25 1553 acyclovir (ZOVIRAX) tablet 400 mg, 400 mg, Oral, BID, Truman Rico MD, 400 mg at 03/31/25 0928 sulfamethoxazole-trimethoprim (BACTRIM DS) 800-160 mg per tablet 1 Tablet, 1 Tablet, Oral, every Mon, Fri, Fri, Truman Rico MD, 1 Tablet at 03/30/25 08 cetirizine (ZyrTEC) tablet 10 mg, 10 mg, Oral, daily, Astrid Lion MD, 10 mg at 03/31/25927 DULoxetine (CYMBALTA) capsule 60 mg, 60 mg, Oral, daily, Astrid Lion MD, 60 mg at 03/31/2528 sodium chloride flush injection 10 mL, 10 mL, IV, every 12 hours (2 times daily), Renny Álvarez MD, 10 mL at 03/30/252025 sodium chloride flush injection 10 mL, 10 mL, IV, see admin instructions, Renny Álvarez MD sodium chloride 0.9 % flush bag 25 mL, 25 mL, IV, see admin instructions, Renny Álvarez MD dextrose 5 % in water 250 mL flush bag 25 mL, 25 mL, IV, see admin instructions, Renny Álvarez MD naloxone (NARCAN) 0.4 mg/mL injection 0.1-0.4 mg, 0.1-0.4 mg, IV, see admin instructions, Renny Álvarez MD acetaminophen (TYLENOL) tablet 650 mg, 650 mg, Oral, every 6 hours PRN, Renny Álvarez MD, 650 mg at 03/30/25 0933 dextrose 5 % - sodium chloride 0.9 % infusion, , IV, see admin instructions, Renny Álvarez MD dextrose 50% (D50) syringe 12.5 Gram, 12.5 Gram, IV, see admin instructions, Renny Álvarez MD dextrose 50% (D50) syringe 25 Gram, 25 Gram, IV, see admin instructions, Renny Álvarez MD glucagon HCL 1 mg/mL injection 1 mg, 1 mg, IM, see admin instructions, Renny Álvarez MD insulin lispro (HumaLOG,ADMELOG) injection 0-6 Units, 0-6 Units, subCUT, TID WITH meals, Renny Álvarez MD, 1 Units at 03/31/25 1206 insulin lispro (HumaLOG,ADMELOG) injection 0-3 Units, 0-3 Units, subCUT, daily BEDTIME, Renny Álvarez MD, 1 Units at 03/28/25 2128 insulin lispro (HumaLOG,ADMELOG) injection 0-3 Units, 0-3 Units, subCUT, daily at 0200, Renny Álvarez MD diphenhydrAMINE (BENADRYL) tablet 25 mg, 25 mg, Oral, every 8 hours PRN, Renny Álvarez MD, 25 mg at 03/30/25 0933 Primary discharge diagnosis: Pancytopenia (CMS/HCC) Other active medical issues also addressed during this admission: Active Hospital Problems Diagnosis MDS (myelodysplastic syndrome), high grade (CMS/HCC) Protein-calorie malnutrition, moderate Hypophosphatemia Pancytopenia (CMS/HCC) Type 2 diabetes mellitus, without long-term current use of insulin (CMS/HCC) Benign hypertension Resolved Hospital Problems No resolved problems to display. ASSESSMENT AND PLAN: Principal Problem: Pancytopenia (CMS/HCC) Active Problems: Type 2 diabetes mellitus, without long-term current use of insulin (CMS/HCC) Benign hypertension Hypophosphatemia Protein-calorie malnutrition, moderate MDS (myelodysplastic syndrome), high grade (CMS/HCC) Pancytopenia # Leukopenia-WBC 1.7, neutropenia--ANC of 0.3 # Anemia-hemoglobin 8.4-->7 # Thrombocytopenia-platelets of 13K-->11k--> 9K--17K High suspicion for MDS Unsure etiology-renal possible infection, malignancy or medication effects. No bleeding or bruising noted. History of recurrent tick bites. Hematology on board Workup ongoing-s/p bone marrow biopsy on 03/25--Bone marrow biopsy preliminary reported with some suspicion for MDS. Pending further staining Labs so far-blood cultures-NGTD, normal B12 and folate, normal iron levels, normal TSH, hepatitis Cantibody positive, HIV negative, mildly elevated CRP and ESR, LDH-146, haptoglobin-47, reticulocytes-1.8 Order labs pending-peripheral smear, hepatitis C RNA pending, INDER pending, free light chain ratio pending, tickborne panel-negative Doxycycline discontinued Oncology planning on starting cycle 1 of Vidaza + venetoclax 03/30-cycle 1 day 2, Continue to monitor cell counts daily Transfuse to keep hemoglobin above 7 Transfuse platelets if <10K or actively bleeding. Patient received 1 unit PRBC and 2 unit platelets so far this admission Consider using irradiated, leukocyte reduced, CMV negative blood products. Bleeding precautions. Continue neutropenic precautions Hypophosphatemia Replacing as appropriate Optimize electrolytes. Hyponatremia-mild Continue to monitor closely Type 2 diabetes mellitus Hold oral hypoglycemic agents Continue current sliding scale Continue to monitor blood sugar Hypoglycemic protocol in place. Lab Results Component Value Date/Time HGBA1C 5.2 03/25/2025 04:09 AM Recent Labs 03/30/25202203/31/25 0205 03/31/25 0707 03/31/25 1102 GLUCPOC 186* 200* 172* 185* Nutrition Status: Malnutrition Nutrition Diagnosis: Moderate protein-calorie malnutrition Provider Assessment/Plan: Symptoms/Signs/Physical Exam: Muscle Wasting, Subcutaneous Fat Loss, Poor Appetite, and Weight Loss Etiology: Cancer and Acute illness Nutrition Treatment Plan: - Current Diet and/or Nutritional Supplementation ordered: DIET NEUTROPENIC - LOW BACTERIA - Daily weights Impact of Malnutrition on patient condition and outcomes: Reduced oral intake, Increased muscle weakness and fall risk, Decreased activity tolerance and reduced mobility , and Decreased bone health and healing DVT prevention: SCDs for now-high risk for bleeding Outpatient follow up: PCP, hematology Anticipated Disposition Location: Home with family Timeframe: 2 to 3 days Criteria: Stability, completion of workup Education/DME/Equipment Needs: Patient's understanding of illness: Good Primary family contact: Spouse Code status: Default Full Code - Needs Discussion Medical complexity-high Astrid Lion MD 03/31/2025, 1:37 PM * Truman Rico MD - 03/31/2025 9:06 AM CDT HEMATOLOGY PROGRESS NOTE Subjective: Patient is resting in the bed. Patient is getting day 2 of the chemo. Review of Systems: Constitutional: denies fevers, chills, sweats, fatigue Neurological: denies headaches, weakness, visual changes Respiratory: denies cough, dyspnea, nosebleeds Cardiovascular: denies chest pain or discomfort Gastrointestinal: denies abdominal pain, constipation, diarrhea, vomiting Genitourinary: denies dysuria, urinary frequency Hematologic, Oncologic: denies bruising, bleeding, petechiae Lymphatic: denies lymph node swelling, no lumps or bumps Musculoskeletal: denies: myalgia, muscle weakness Skin: denies nail changes or rash Hematology history -03/23/2025 WBC 2.01 hgb 7.80 plts 21 ANC 0.77 -03/24/2025 WBC 2.01 ANC 0.77, hgb 7.80, plts 21 PT 14.20 INR 1.03 PTT 37.3 fibrinogen 264 uric acid5.3 LDH 146 hepatitis B negative HIV negative -03/25/2025 WBC 2.2, hemoglobin 8.4, MCV 92.1, platelet 13, ANC 0.58, calcium 8, glucose 177, albumin3.2, alkaline phosphatase 146, bilirubin 1.1, INR 1.2, fibrinogen 241 normal, PT 16. Bone marrow flow cytometry negative. -03/28/2025 WBC 1.9 hgb 7.9 plts 11 MCV 92.3 ANC 0.44 Ca 8.3 alk phos 185 --03/29/2025 WBC 1.7 ANC 0.57 hgb 7.4 plts 9 --03/30/2025 WBC 1.6 ANC 0.29 hgb 7.0 plts 9 --03/31/2025 WBC 1.8 ANC 0.52 hgb 8.2 plts 17 alk phos 246 Imaging/procedure: -12/09/2018 CT chest 1. Relatively mild but diffuse symmetric subpleural reticulation distributed throughout both upper and lower lobes. This is most consistent with mild pulmonary fibrosis, but no specific pattern/distribution. There is presumed a superimposed atelectatic change in the dependent lung bases, but no evidence of honeycombing or significant bronchiectatic change. 2. Mildly enlarged right paratracheal/mediastinal lymph node, and borderline- enlarged left perihilar lymph node are nonspecific, presumably reactive. - 03/24/2025 ultrasound abdomen 1. Hepatosplenomegaly. 2. Bilateral renal cortical cysts. The largest cyst involving the lower pole left kidney demonstrates thickened internal septations. Short interval follow-up ultrasound or further characterization with nonemergent renal MRI with and without contrast recommended. -03/25/2025 bone marrow biopsy --03/29/2025 bone marrow biopsy pathology-Myelodysplastic neoplasm, preliminary classified as myelodysplastic neoplasm with low blasts (MDS-LB) with less than 3% bone marrow blasts and no circulating blasts --03/29/2025 1 unit plts per primary --03/30/2025 1 unit PRBC, 1 unit plts per primary --03/30/2025 cycle 1 day 1 vidaza/venetoclax --03/31/2025 cycle 1 day 2 vidaza/venetoclax Objective: Vitals: 03/30/25 1940 03/31/25 0010 03/31/25 0421 03/31/25 0715 BP: 115/66 132/72 115/65 108/59 BP Location: Left arm Right arm Patient Position (BP): Supine Supine Supine Supine Pulse: 86 (!) 112 (!) 118 (!) 103 Resp: 20 18 Temp: 98.4 ??F (36.9 ??C) 100.8 ??F (38.2 ??C) 97 ??F (36.1 ??C) 97.6 ??F (36.4 ??C) TempSrc: Oral Oral Oral Oral SpO2: 91% 90% (!) 89% 96% Weight: Height: PHYSICAL EXAMINATION: General appearance: Alert, in no distress ECOG 1. Head: Atraumatic, normocephalic without obvious abnormality. Eyes: Conjunctivae/corneas clear. PERRL, EOM's intact. Nose: Nares normal. Septum midline. Mucosa normal, no drainage, or sinus tenderness. Lungs: Clear to auscultation bilaterally, normal respiratory effort. Heart: Normal rate, regular rhythm, normal S1-S2,. Abdomen: Soft, non-tender. Bowel sounds normal, no masses, no organomegaly. Extremities: No extremity edema, Skin: Skin color, texture, turgor normal, no rashes, or lesions. Data Review: Labs Reviewed Lab Results Component Value Date/Time WBC 1.8 (L) 03/31/2025 04:28 AM HGB 8.2 (L) 03/31/2025 04:28 AM HCT 24.1 (L) 03/31/2025 04:28 AM PLT 17 (LL) 03/31/2025 04:28 AM MCV 90.9 03/31/2025 04:28 AM Lab Results Component Value Date/Time NA 129 (L) 03/31/2025 04:28 AM K 4.6 03/31/2025 04:28 AM CL 98 03/31/2025 04:28 AM CO2 22 03/31/2025 04:28 AM CA 7.9 (L) 03/31/2025 04:28 AM BUN 24 (H) 03/31/2025 04:28 AM CREAT 0.97 03/31/2025 04:28 AM GLUCOSE 184 (H) 03/31/2025 04:28 AM TOTALPROTEIN 6.1 (L) 03/31/2025 04:28 AM ALBUMIN 3.1 (L) 03/31/2025 04:28 AM BILITOTAL 1.0 03/31/2025 04:28 AM ALKPHOS 246 (H) 03/31/2025 04:28 AM AST 23 03/31/2025 04:28 AM ALT 24 03/31/2025 04:28 AM ANIONGAP 9 03/31/2025 04:28 AM ASSESSMENT/PLAN Principal Problem: Pancytopenia (CMS/HCC) Active Problems: Type 2 diabetes mellitus, without long-term current use of insulin (CMS/HCC) Benign hypertension Hypophosphatemia Protein-calorie malnutrition, moderate MDS (myelodysplastic syndrome), high grade (CMS/HCC) Pancytopenia -on admission: WBC 2.01 ANC 0.77, hgb 7.80, plts 21 -WBC 1.8 ANC 0.52 -monitor daily -neutropenic precautions -plan to ludwig culture for fever > 100.4 -hgb 8.2 -monitor daily -plan to transfuse for hgb <7 or active bleeding -plts 17 -monitor daily -plan to transfuse for plts < 10 or active bleeding -plan to hold AC for plts <50 -rule out underproduction: -iron 50 TIBC 116 -ferritin 350 -vitamin B12 617 -folate 11.4 -hepatitis panel C ab positive RNA not detected -HIV negative -TSH 2.09 -rule out destruction: -LDH 146 -reticulocytes 1.8 -loly negative -haptoglobin 47 -tBili 1 -CRP 12.2 -ESR 22 -INDER pending -PT 14.2 INR 1.03 -fibrinogen 264 -peripheral smear-Red blood cells are quantitatively decreased but normocytic. There is mild Priscila poikilocytosis including a dual population of microcytes and macrocytes as well as elliptocytes. No significant schistocytes. -rule out nutritional deficit: -vitamin B12 617 -folate 11.4 -zinc 58 -copper 88 -rule out malignancy: -PSA 0.6 -SPEP-Small monoclonal protein identified in the gamma region-see separate immunofixation report -free light chain ratio 1.14 -rheumatoid factor pending -rule out underproduction: -vitamin B12 617 -folate 11.4 -rule out platelet clumping: -peripheral smear-Platelets are quantitatively decreased with no significant platelet clumps. -rule out infection as cause for thrombocytopenia -blood cultures with no growth to date -tick panel negative -HIV negative -hepatitis panel C ab positive RNA pending -CMV pending -EBV pending -rule out destruction (DIC) -PT 16.0 INR 1.2 -fibrinogen 241 -s/p bone marrow llkgwg-psuifkcme-Gwrnpuqghsfiuzt neoplasm, preliminary classified as myelodysplastic neoplasm with low blasts (MDS-LB) with less than 3% bone marrow blasts and no circulating blasts -plan for therapy with vidaza + venetoclax-plan for a total of 5 days of therapy -con't antimicrobial prophylaxis -cycle 1 day 1 03/30/2025 -cycle 1 day 2 03/31/2025 -medical management per primary team and appropriate consultants Hematology daily plan: -plan for therapy with vidaza + venetoclax-plan for 5 day course-cycle 1 day 2 today -he will finish chemo Friday -will set up follow up with oncology at [facility]-referral sent today-will check back later this afternoon for appointment information -monitor counts,plan to ludwig culture for fever > 100.4 if ANC < 1 -monitor counts, plan to transfuse for hgb <7, plts <10 or active bleeding Discharge planning -disposition-TBD per primary team -timeframe-TBD per primary team -criteria-clinical improvement -follow up-TBD pending clinical course I have seen, examined and interviewed the patient independently myself and agree with the note mentioned above by nurse practitioner. Vitals: Vitals: 03/30/25 1940 03/31/25 0010 03/31/25 0421 03/31/25 0715 BP: 115/66 132/72 115/65 108/59 BP Location: Left arm Right arm Patient Position (BP): Supine Supine Supine Supine Pulse: 86 (!) 112 (!) 118 (!) 103 Resp: 20 18 Temp: 98.4 ??F (36.9 ??C) 100.8 ??F (38.2 ??C) 97 ??F (36.1 ??C) 97.6 ??F (36.4 ??C) TempSrc: Oral Oral Oral Oral SpO2: 91% 90% (!) 89% 96% Weight: Height: Exam: General: Alert, awake, no distress See above Assessment: Pancytopenia Plan: Consider irradiated, leuko-reduced, CMV safe blood products only. Discussed in detail with the patient about the pathology. Answered questions in detail, agreeable with the plan. Complexity high. Discussed with the primary team. Discussed with the patient that he has MDS and per RIPSS score he has high risk MDS. We will start Azacitidine and venetoclax. Start PPX meds for infection. Pt does not want to go to [facility] and start treatment here. Tick panel negative. He will explore if he can get treatment locally. D/w pharmacy about treatment. Start Aza 75mg/m2 for 5 days every 28 days. For 4 cycles. With venetoclax. Reviewed up to date for high risk MDS due to pancytopenia. Discussed with the pharmacist. Azacitidine plus venetoclax -Treatment of 107 treatment-naive patients using 7-day azacitidine dosing plus an abbreviated course of venetoclax (400 mg on days 1 to 14) in 28-day cycles was associated with 30 percent complete response (CR) rate and 49 percent hematologic improvement; among the 59 patients who were red blood cell (RBC)- or platelet-transfusion dependent at baseline, 41 percent achieved transfusion independence [51]. With median follow-up of 32 months, two-year OS was 51 percent [51]. Most patients needed dose adjustment or interruption for treatment-emergent adverse effects (AEs), but toxicity reflected the known safety profiles for venetoclax and azacitidine, including grade >=3 febrile neutropenia in 42 percent and pneumonia in 11 percent. Patient will be discharged after completion of the treatment. To do: - started aza 75 mg/m2 for 5 days, today is day 2. - start acyclivir, fluconazole, bactrim - start venetoclax oral per protocol with AML, 100 daily and patient will take it inpatient and will. Discharged outpatient for [facility]. -discussed the bone marrow biopsy results - Patient denies any new drugs or alcohol usage. - CBC daily while inpatient - Keep hemoglobin more than 7 - Keep platelets more than 10, if bleeding keep more than 50 - Rest medical management per primary team. We appreciate the help of the primary team in taking care of this patient. Feel free to contact us if any questions or concerns. Thank you for consulting us in taking care of this patient. We will follow along. This documentation was created by polysom tech software. Effort has been done to assure accuracy of polysom tech. Any obvious errors or omissions should be clarified with the author of the document. * Astrid Lion MD - 03/30/2025 4:34 PM CDT Images from the original note were not included. Your life is our life's work [facility] Hospitalist/Hospital Medicine Progress Note LOS: 6 days Room/Bed: 7116/01 Patient name: Faina Barros Date of : 1950 HOSPITAL COURSE SUMMARY: Faina Barros is a 74 y.o. male with history sniffing and for hypertension, type 2 diabetes who wasadmitted for further management of abnormal labs. Patient reports has been having some generalized weakness, shortness of breath and gait instabilityover the last 2 months. He was seen by his primary care doctor where he was noted to have pancytopenia, and was sent to the ER for further evaluation. Presented to the ER at [facility] and eventually was sent here to [facility] for further evaluation of pancytopenia and hematology evaluation. Patient reported no bleeding, bruising. No family history of known malignancy or leukemia. No rash.[place], states it was worse this season and has removed multiple ticks from his body. On admission here patient hemodynamically stable. Labs with pancytopenia- leukopenia with WBC of 1.7, anemia with hemoglobin of 8.8, thrombocytopenia with platelets of 60, normal LFTs, normal B12 and folate, iron-50, normal TSH, hepatitis panel-hep C antibody reactive. RNA pending. Mildly elevated CRP, negative PSA. Patient was seen by hematology and being worked up for etiology. Bone marrow biopsy planned. 03/25: Patient doing well, reports no complaint, states he feels very fine and has no complaints currently. He is ambulating without difficulty. Remains hemodynamically stable. Afebrile. No bleeding noted, no bruising. Patient scheduled for bone marrow biopsy today, hematology following. Will start patient on doxycycline given history of recurrent tick bites. Continue neutropenic precautions. 03/26: No new complaints. No significant change in cell counts. Patient had bone marrow biopsy done yesterday, well-tolerated. Continue neutropenic precautions. Continue doxycycline. 03/27: No new complaints. No bleeding or bruising noted. Labs reviewed-slightly worse thrombocytopenia-down to 11K. Bone marrow biopsy results still pending 03/28: No new complaints. Patient doing well. Hemodynamically stable. Labs reviewed-no significant change in pancytopenia. According to pathologist-bone marrow preliminary with some concern for MDS however pending further staining. Continue to monitor cell counts. Oncology following. Tickborne panel negative. Will discontinue doxycycline 03/29: Patient reports no complaints. No bleeding, no bruising. Platelets down to 9K this morning. Patient received 1 units of platelets. Bone marrow biopsy reported with some concern for MDS. Oncologyfollowing planning for therapy with Vidaza plus venetoclax. Patient to start cycle 1 while inpatient. 03/30: Patient still with no complaints. Hemodynamically stable. No bleeding, no bruising. Labs reviewed, hemoglobin trended down to 7 and platelets still at 9K despite 1 unit platelets received yesterday. Will transfuse with another unit of PRBC and 1 unit of platelets. Oncology starting patient on vidaza + venetoclax today. Monitor closely Consultants: IP CONSULT TO IV TEAM SUBJECTIVE: Patient reports no complaints. States he feels fine. No bleeding or bruising reported. ROS: 10 point review of system negative except for above. OBJECTIVE: Temp (24hrs), Av.2 ??F (36.8 ??C), Min:97.3 ??F (36.3 ??C), Max:99 ??F (37.2 ??C) BP 112/61 (BP Location: Left arm, Patient Position (BP): Supine) Pulse 82 Temp 97.3 ??F (36.3 ??C) (Axillary) Resp 16 Ht 5' 8 (1.727 m) Wt 77 kg (169 lb 11.2 oz) SpO2 100% BMI 25.80 kg/m?? Intake/Output Summary (Last 24 hours) at 03/30/2025 1634 Last data filed at 03/29/2025 2137 Gross per 24 hour Intake -- Output 1 ml Net -1 ml Last documented weight: Weight: 77 kg (169 lb 11.2 oz) (03/30/25 3494) EXAM: General: alert, in no distress Neurologic: Grossly normal HEENT: atraumatic, Normocephalic, without obvious abnormality Lungs: clear to auscultation bilaterally, normal respiratory effort Heart: normal rate, regular rhythm, normal S1, S2, no murmurs, rubs, clicks or gallops Abdomen: Soft, non-tender. Bowel sounds normal. No masses, no organomegaly. Extremities: extremities normal, atraumatic, no cyanosis or edema, intact distal pulses, moves all extremities equally, no edema, redness or tenderness in the calves or thighs, normal strength, normal tone Skin: negative LABORATORY: Recent Labs 03/28/2551303/29/25 0551 03/30/25 0413 WBC 1.9* 1.7* 1.6* HGB 7.9* 7.4* 7.0* HCT 23.9* 22.2* 20.8* PLT 11* 9* 9* Recent Labs 03/28/2514 03/29/25 0551 03/30/25 0413 NA 133* 130* 131* K 4.5 4.3 4.7 CL 101 98 100 CO2 27 23 25 CA 8.3* 7.8* 7.8* BUN 17 19 20 CREAT 0.84 0.81 0.85 GLUCOSE 211* 211* 194* Recent Labs 03/28/2551303/29/25 0551 03/30/25 0413 TOTALPROTEIN 6.2* 5.8* 6.0* ALBUMIN 3.2* 2.9* 3.0* BILITOTAL 1.0 0.9 0.9 ALKPHOS 185* 160* 191* AST 10 10 12 ALT 20 16 19 No results for input(s): INR , PT in the last 72 hours. Invalid input(s): PTT Diagnostic testing reviewed by me: Labs and imaging reviewed by me-noted below No results found for this or any previous visit. Medications were reviewed by me. Current Facility-Administered Medications: [START ON 03/31/2025] voriconazole (VFEND) tablet 400 mg, 400 mg, Oral, every 12 hours (2 times daily) FOLLOWED BY [START ON 04/01/2025] voriconazole (VFEND) tablet 200 mg, 200 mg, Oral, every 12 hours (2 times daily), Truman Rico MD polyethylene glycol (MIRALAX) packet 17 Gram, 17 Gram, Oral, daily PRN, Truman Rico MD magnesium HYDROXIDE (MILK OF MAGNESIA) oral suspension 30 mL, 30 mL, Oral, daily PRN, Truman Rico MD loperamide (IMODIUM) capsule 2 mg, 2 mg, Oral, QID PRN, Truman Rico MD venetoclax (VENCLEXTA) tablet 100 mg, 100 mg, Oral, daily WITH breakfast, Truman Rico MD, 100mg at 03/30/25 1542 ondansetron (ZOFRAN ODT) tablet 8 mg, 8 mg, Sublingual, every 24 hours, Batool Wagner, ASSISTANT STORE MANAGER, 8 mg at 03/30/25 1539 azaCITIDine (VIDAZA) 145 mg in sterile water 5.8 mL syringe, 75 mg/m2 (Treatment Plan Recorded), subCUT, every 24 hours, Batool Wagner NP, 145 mg at 03/30/25 1553 acyclovir (ZOVIRAX) tablet 400 mg, 400 mg, Oral, BID, Truman Rico MD, 400 mg at 03/30/25821 sulfamethoxazole-trimethoprim (BACTRIM DS) 800-160 mg per tablet 1 Tablet, 1 Tablet, Oral, every Mon, Wed, Fri, Truman Rico MD, 1 Tablet at 03/30/25821 [DISCONTINUED] fluconazole (DIFLUCAN) tablet 400 mg, 400 mg, Oral, daily, Truman Rico MD, 400mg at 03/30/25821 [DISCONTINUED] magnesium HYDROXIDE (MILK OF MAGNESIA) oral suspension 30 mL, 30 mL, Oral, daily, Astrid Lion MD, 30 mL at 03/30/25821 [DISCONTINUED] polyethylene glycol (MIRALAX) packet 17 Gram, 17 Gram, Oral, daily, Astrid Lion MD, 17 Gram at 03/30/25821 cetirizine (ZyrTEC) tablet 10 mg, 10 mg, Oral, daily, Astrid Lion MD, 10 mg at 03/30/25821 DULoxetine (CYMBALTA) capsule 60 mg, 60 mg, Oral, daily, Astrid Lion MD, 60 mg at 03/30/25821 sodium chloride flush injection 10 mL, 10 mL, IV, every 12 hours (2 times daily), Renny Álvarez MD, 10 mL at 08/06/25 0822 sodium chloride flush injection 10 mL, 10 mL, IV, see admin instructions, Renny Álvarez MD sodium chloride 0.9 % flush bag 25 mL, 25 mL, IV, see admin instructions, eRnny Álvarez MD dextrose 5 % in water 250 mL flush bag 25 mL, 25 mL, IV, see admin instructions, Renny Álvarez MD naloxone (NARCAN) 0.4 mg/mL injection 0.1-0.4 mg, 0.1-0.4 mg, IV, see admin instructions, Renny Álvarez MD acetaminophen (TYLENOL) tablet 650 mg, 650 mg, Oral, every 6 hours PRN, Renny Álvarez MD, 650 mg at 03/30/25 0933 dextrose 5 % - sodium chloride 0.9 % infusion, , IV, see admin instructions, Renny Álvarez MD dextrose 50% (D50) syringe 12.5 Gram, 12.5 Gram, IV, see admin instructions, Renny Álvarez MD dextrose 50% (D50) syringe 25 Gram, 25 Gram, IV, see admin instructions, Renny Álvarez MD glucagon HCL 1 mg/mL injection 1 mg, 1 mg, IM, see admin instructions, Renny Álvarez MD insulin lispro (HumaLOG,ADMELOG) injection 0-6 Units, 0-6 Units, subCUT, TID WITH meals, Renny Álvarez MD, 2 Units at 03/30/25 1320 insulin lispro (HumaLOG,ADMELOG) injection 0-3 Units, 0-3 Units, subCUT, daily BEDTIME, Renny Álvarez MD, 1 Units at 03/28/25 2128 insulin lispro (HumaLOG,ADMELOG) injection 0-3 Units, 0-3 Units, subCUT, daily at 0200, Renny Álvarez MD diphenhydrAMINE (BENADRYL) tablet 25 mg, 25 mg, Oral, every 8 hours PRN, Renny Álvarez MD, 25 mg at 03/30/25 0933 Primary discharge diagnosis: Pancytopenia (CMS/HCC) Other active medical issues also addressed during this admission: Active Hospital Problems Diagnosis MDS (myelodysplastic syndrome), high grade (CMS/HCC) Protein-calorie malnutrition, moderate Hypophosphatemia Pancytopenia (CMS/HCC) Type 2 diabetes mellitus, without long-term current use of insulin (CMS/HCC) Benign hypertension Resolved Hospital Problems No resolved problems to display. ASSESSMENT AND PLAN: Principal Problem: Pancytopenia (CMS/HCC) Active Problems: Type 2 diabetes mellitus, without long-term current use of insulin (CMS/HCC) Benign hypertension Hypophosphatemia Protein-calorie malnutrition, moderate MDS (myelodysplastic syndrome), high grade (CMS/HCC) Pancytopenia # Leukopenia-WBC 1.7, neutropenia--ANC of 0.3 # Anemia-hemoglobin 8.4-->7 # Thrombocytopenia-platelets of 13K-->11k--> 9K High suspicion for MDS Unsure etiology-renal possible infection, malignancy or medication effects. No bleeding or bruising noted. History of recurrent tick bites. Hematology on board Workup ongoing-s/p bone marrow biopsy on 03/25--Bone marrow biopsy preliminary reported with some suspicion for MDS. Pending further staining Labs so far-blood cultures-NGTD, normal B12 and folate, normal iron levels, normal TSH, hepatitis Cantibody positive, HIV negative, mildly elevated CRP and ESR, LDH-146, haptoglobin-47, reticulocytes-1.8 Order labs pending-peripheral smear, hepatitis C RNA pending, INDER pending, free light chain ratio pending, tickborne panel-negative Doxycycline discontinued Oncology planning on starting cycle 1 of Vidaza + venetoclax today 03/30, Continue to monitor cell counts daily Transfuse to keep hemoglobin above 7 Transfuse platelets if <10K or actively bleeding. Patient receiving 1 unit PRBC and 1 unit platelets today. Consider using irradiated, leukocyte reduced, CMV negative blood products. Bleeding precautions. Continue neutropenic precautions Hypophosphatemia Replacing as appropriate Optimize electrolytes. Hyponatremia-mild Continue to monitor closely Type 2 diabetes mellitus Hold oral hypoglycemic agents Continue current sliding scale Continue to monitor blood sugar Hypoglycemic protocol in place. Lab Results Component Value Date/Time HGBA1C 5.2 03/25/2025 04:09 AM Recent Labs 03/29/25 2139 03/30/25 0235 03/30/25 0658 03/30/25 1104 GLUCPOC 180* 185* 198* 209* Nutrition Status: Malnutrition Nutrition Diagnosis: Moderate protein-calorie malnutrition Provider Assessment/Plan: Symptoms/Signs/Physical Exam: Muscle Wasting, Subcutaneous Fat Loss, Poor Appetite, and Weight Loss Etiology: Cancer and Acute illness Nutrition Treatment Plan: - Current Diet and/or Nutritional Supplementation ordered: DIET NEUTROPENIC - LOW BACTERIA - Daily weights Impact of Malnutrition on patient condition and outcomes: Reduced oral intake, Increased muscle weakness and fall risk, Decreased activity tolerance and reduced mobility , and Decreased bone health and healing DVT prevention: SCDs for now-high risk for bleeding Outpatient follow up: PCP, hematology Anticipated Disposition Location: Home with family Timeframe: 2 to 3 days Criteria: Stability, completion of workup Education/DME/Equipment Needs: Patient's understanding of illness: Good Primary family contact: Spouse Code status: Default Full Code - Needs Discussion Medical complexity-high Astrid Lion MD 03/30/2025, 4:34 PM * Gurmeet Pichardo GN - 03/30/2025 3:53 PM CDT Chemotherapy Administration Note Shot of azaCITIDine (VIDAZA) 145 mg in sterile water 5.8 mL syringe Day of current cycle: */* Chemotherapy Verification: Complete order checks were performed by myself and Mikaela Adair to verify the following: patient name and , the drug name, dose, volume, rate of administration, expiration date/times, and appearance and physical integrity of the drug with the Electronic Health Record (EHR). Dosage calculations were verified prior to administration to be in an appropriate range. Vital signs, lab values, and patient condition reviewed and found to be within appropriate limits for administration. Chemotherapy education and consent for treatment verified to be complete. Treatment reviewed with patient and/or family. Patient/family instructed to notify staff of any s/sof a reaction, including but not limited to: itching, swelling, pain/tenderness at the access site,nausea, vomiting, or generalized discomfort noted after chemotherapy initiated that may indicate a reaction. Pre-medications: Pre-medications administered per protocol/physician orders. Tolerance: Patient is tolerating treatment with no s/s of adverse reaction at this time. * Gurmeet Pichardo GN - 03/30/2025 3:39 PM CDT Chemotherapy Education Note Cancer Resource Guide, and [facility] mouth care pamphlet left with patient/caregivers. Teaching sheets on venetoclax (VENCLEXTA) tablet 100 mg azaCITIDine (VIDAZA) 145 mg in sterile water 5.8 mL syringe left with patient and related side effects. Patient/family can describe how chemotherapy/targeted therapy works. Patient/Family can identify drugs included in treatment plan and how frequently they are given. Patient/family can identify that resource guide should be brought with them to oncology appointments and kept available at home for after office communication with oncology physicians. Patient/family can identify how to contact the health care team. Patient family can identify number in directory and verbalize phone is answered 24 hours per day. Patient/family can describe dietary modifications during treatment and resources available. Patient/family can identify need to go to closest emergency room for a true emergency, like chest pain, uncontrolled bleeding or inability to breath. Discussed with patient self care measures for the following after effects 1. Hair loss (alopecia) 2. Peripheral neuropathy 3. Constipation 4. Sore mouth 5. Myelosuppression (neutropenia, anemia, thrombocytopenia) 6. Fatigue 7. Diarrhea 8. Skin changes Patient/family can identify potential late after effects of chemotherapy. 1. Secondary malignancy 2. Pulmonary complications 3. Peripheral neuropathy 4. Infertility 5. Cardiac complications Patient/family can verbalize available resources 1. Navigating the System Class 2. Support groups Patient/family can identify symptoms to report to the health care team. 1. Fever 100.5 or higher 2. Bleeding or unusual bruising 3. Chills 4. Confusion 5. Constipation 6. Diarrhea 7. Difficulty passing your urine 8. Dizziness 9. Infection (cold, flu, changes in breathing) 10. Fatigue 11. Mouth sores 12. Nausea or vomiting 13. Pain (new or worsening) 14. Red dots under skin 15. Shortness of breath 16. Visual changes 17. Weight changes (more than 5 lbs in a week) 18. Anaphylactoid reaction (itching, anxiety, shortness of breath, light headedness) Patient/family can 1. Identify possible reaction between antioxidants and chemotherapy. General multivitamin use is allowed. 2. Identify need to self-report the use of herbal and dietary supplements. All questions answered to patient/family satisfaction. Patient in agreement with current plan. Chemotherapy consent signed and placed in paper chart. * Truman Rico MD - 03/30/2025 10:07 AM CDT HEMATOLOGY PROGRESS NOTE Subjective: Patient is resting in the bed. Patient agreed for the treatment for MDS and will start with venetoclax and azacitidine. Review of Systems: Constitutional: denies fevers, chills, sweats, fatigue Neurological: denies headaches, weakness, visual changes Respiratory: denies cough, dyspnea, nosebleeds Cardiovascular: denies chest pain or discomfort Gastrointestinal: denies abdominal pain, constipation, diarrhea, vomiting Genitourinary: denies dysuria, urinary frequency Hematologic, Oncologic: denies bruising, bleeding, petechiae Lymphatic: denies lymph node swelling, no lumps or bumps Musculoskeletal: denies: myalgia, muscle weakness Skin: denies nail changes or rash Hematology history -03/23/2025 WBC 2.01 hgb 7.80 plts 21 ANC 0.77 -03/24/2025 WBC 2.01 ANC 0.77, hgb 7.80, plts 21 PT 14.20 INR 1.03 PTT 37.3 fibrinogen 264 uric acid5.3 LDH 146 hepatitis B negative HIV negative -03/25/2025 WBC 2.2, hemoglobin 8.4, MCV 92.1, platelet 13, ANC 0.58, calcium 8, glucose 177, albumin3.2, alkaline phosphatase 146, bilirubin 1.1, INR 1.2, fibrinogen 241 normal, PT 16. Bone marrow flow cytometry negative. -03/28/2025 WBC 1.9 hgb 7.9 plts 11 MCV 92.3 ANC 0.44 Ca 8.3 alk phos 185 --03/29/2025 WBC 1.7 ANC 0.57 hgb 7.4 plts 9 --03/30/2025 WBC 1.6 ANC 0.29 hgb 7.0 plts 9 Imaging/procedure: -12/09/2018 CT chest 1. Relatively mild but diffuse symmetric subpleural reticulation distributed throughout both upper and lower lobes. This is most consistent with mild pulmonary fibrosis, but no specific pattern/distribution. There is presumed a superimposed atelectatic change in the dependent lung bases, but no evidence of honeycombing or significant bronchiectatic change. 2. Mildly enlarged right paratracheal/mediastinal lymph node, and borderline- enlarged left perihilar lymph node are nonspecific, presumably reactive. - 03/24/2025 ultrasound abdomen 1. Hepatosplenomegaly. 2. Bilateral renal cortical cysts. The largest cyst involving the lower pole left kidney demonstrates thickened internal septations. Short interval follow-up ultrasound or further characterization with nonemergent renal MRI with and without contrast recommended. 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 Head: Atraumatic, normocephalic without obvious abnormality. Eyes: Conjunctivae/corneas clear. PERRL, EOM's intact. Nose: Nares normal. Septum midline. Mucosa normal, no drainage, or sinus tenderness. Lungs: Clear to auscultation bilaterally, normal respiratory effort. Heart: Normal rate, regular rhythm, normal S1-S2,. Abdomen: Soft, non-tender. Bowel sounds normal, no masses, no organomegaly. Extremities: No extremity edema, Skin: Skin color, texture, turgor normal, no rashes, or lesions. Data Review: Labs Reviewed Lab Results Component Value Date/Time WBC 1.6 (L) 03/30/2025 04:13 AM HGB 7.0 (L) 03/30/2025 04:13 AM HCT 20.8 (L) 03/30/2025 04:13 AM PLT 9 (LL) 03/30/2025 04:13 AM MCV 90.4 03/30/2025 04:13 AM Lab Results Component Value Date/Time NA 131 (L) 03/30/2025 04:13 AM K 4.7 03/30/2025 04:13 AM CL 100 03/30/2025 04:13 AM CO2 25 03/30/2025 04:13 AM CA 7.8 (L) 03/30/2025 04:13 AM BUN 20 03/30/2025 04:13 AM CREAT 0.85 03/30/2025 04:13 AM GLUCOSE 194 (H) 03/30/2025 04:13 AM TOTALPROTEIN 6.0 (L) 03/30/2025 04:13 AM ALBUMIN 3.0 (L) 03/30/2025 04:13 AM BILITOTAL 0.9 03/30/2025 04:13 AM ALKPHOS 191 (H) 03/30/2025 04:13 AM AST 12 03/30/2025 04:13 AM ALT 19 03/30/2025 04:13 AM ANIONGAP 6 (L) 03/30/2025 04:13 AM ASSESSMENT/PLAN Principal Problem: Pancytopenia (CMS/HCC) Active Problems: Type 2 diabetes mellitus, without long-term current use of insulin (CMS/HCC) Benign hypertension Hypophosphatemia Protein-calorie malnutrition, moderate Pancytopenia -on admission: WBC 2.01 ANC 0.77, hgb 7.80, plts 21 -WBC 1.6 ANC 0.29 -monitor daily -neutropenic precautions -plan to ludwig culture for fever > 100.4 -hgb 7.0 -monitor daily -plan to transfuse for hgb <7 or active bleeding -1 unit PRBC today per primary -plts 9 -monitor daily -plan to transfuse for plts < 10 or active bleeding -plan to hold AC for plts <50 -1 unit plts today per primary -rule out underproduction: -iron 50 TIBC 116 -ferritin 350 -vitamin B12 617 -folate 11.4 -hepatitis panel C ab positive RNA not detected -HIV negative -TSH 2.09 -rule out destruction: -LDH 146 -reticulocytes 1.8 -loly negative -haptoglobin 47 -tBili 1 -CRP 12.2 -ESR 22 -INDER pending -PT 14.2 INR 1.03 -fibrinogen 264 -peripheral smear-Red blood cells are quantitatively decreased but normocytic. There is mild Priscila poikilocytosis including a dual population of microcytes and macrocytes as well as elliptocytes. No significant schistocytes. -rule out nutritional deficit: -vitamin B12 617 -folate 11.4 -zinc 58 -copper 88 -rule out malignancy: -PSA 0.6 -SPEP-Small monoclonal protein identified in the gamma region-see separate immunofixation report -free light chain ratio 1.14 -rheumatoid factor pending -rule out underproduction: -vitamin B12 617 -folate 11.4 -rule out platelet clumping: -peripheral smear-Platelets are quantitatively decreased with no significant platelet clumps. -rule out infection as cause for thrombocytopenia -blood cultures pending -tick panel negative -HIV negative -hepatitis panel C ab positive RNA pending -CMV pending -EBV pending -rule out destruction (DIC) -PT 16.0 INR 1.2 -fibrinogen 241 -s/p bone marrow tvraaq-wadgwjxto-Yxrudykwaxbfytv neoplasm, preliminary classified as myelodysplastic neoplasm with low blasts (MDS-LB) with less than 3% bone marrow blasts and no circulating blasts -plan for therapy with vidaza + venetoclax -con't antimicrobial prophylaxis -cycle 1 day 1 today 03/30/2025 -medical management per primary team and appropriate consultants Hematology daily plan: -plan for therapy with vidaza + venetoclax-plan for 5 day course-cycle 1 day 1 today -monitor counts,plan to ludwig culture for fever > 100.4 if ANC < 1 -monitor counts, plan to transfuse for hgb <7, plts <10 or active bleeding Discharge planning -disposition-TBD per primary team -timeframe-TBD per primary team -criteria-clinical improvement -follow up-TBD pending clinical course I have seen, examined and interviewed the patient independently myself and agree with the note mentioned above by nurse practitioner. Vitals: Vitals: 03/30/25 0701 03/30/25 0715 03/30/25 0741 03/30/25 0945 BP: 108/60 115/62 111/61 BP Location: Right arm Right arm Patient Position (BP): Supine Supine Pulse: 94 94 (!) 102 Resp: 18 17 16 17 Temp: 98.2 ??F (36.8 ??C) 97.5 ??F (36.4 ??C) 98.8 ??F (37.1 ??C) TempSrc: Oral Oral Oral SpO2: 100% 98% 94% Weight: Height: Exam: General: Alert, awake, no distress See above Assessment: Pancytopenia Plan: Consider irradiated, leuko-reduced, CMV safe blood products only. Discussed in detail with the patient about the pathology. Answered questions in detail, agreeable with the plan. Complexity high. Discussed with the primary team. Discussed with the patient that he has MDS and per RIPSS score he has high risk MDS. We will start Azacitidine and venetoclax. Start PPX meds for infection. Pt [facility] not [facility] and start treatment here. Tick panel negative. He will explore if he can get treatment locally. D/w pharmacy about treatment. Start Aza 75mg/m2 for 5 days every 28 days. For 4 cycles. With venetoclax. Reviewed up to date for high risk MDS due to pancytopenia. Discussed with the pharmacist. Azacitidine plus venetoclax -Treatment of 107 treatment-naive patients using 7-day azacitidine dosing plus an abbreviated course of venetoclax (400 mg on days 1 to 14) in 28-day cycles was associated with 30 percent complete response (CR) rate and 49 percent hematologic improvement; among the 59 patients who were red blood cell (RBC)- or platelet-transfusion dependent at baseline, 41 percent achieved transfusion independence [51]. With median follow-up of 32 months, two-year OS was 51 percent [51]. Most patients needed dose adjustment or interruption for treatment-emergent adverse effects (AEs), but toxicity reflected the known safety profiles for venetoclax and azacitidine, including grade >=3 febrile neutropenia in 42 percent and pneumonia in 11 percent. To do: - started aza 75 mg/m2 for 5 days - start acyclivir, fluconazole, bactrim - start venetoclax oral per protocol with AML, 100 daily -discussed the bone marrow biopsy results - Patient denies any new drugs or alcohol usage. - CBC daily while inpatient - Keep hemoglobin more than 7 - Keep platelets more than 10, if bleeding keep more than 50 - Rest medical management per primary team. We appreciate the help of the primary team in taking care of this patient. Feel free to contact us if any questions or concerns. Thank you for consulting us in taking care of this patient. We will follow along. This documentation was created by polysom tech software. Effort has been done to assure accuracy of polysom tech. Any obvious errors or omissions should be clarified with the author of the document. * Astrid Lion MD - 03/29/2025 5:41 PM CDT Images from the original note were not included. Your life is our life's work [facility] Hospitalist/Hospital Medicine Progress Note LOS: 5 days Room/Bed: [address] [place] [address] Patient name: Faina Barros Date of : 1950 HOSPITAL COURSE SUMMARY: Faina Barros is a 74 y.o. male with history sniffing and for hypertension, type 2 diabetes who wasadmitted for further management of abnormal labs. Patient reports has been having some generalized weakness, shortness of breath and gait instabilityover the last 2 months. He was seen by his primary care doctor where he was noted to have pancytopenia, and was sent to the ER for further evaluation. Presented to the ER at [facility] and eventually was sent here to [facility] for further evaluation of pancytopenia and hematology evaluation. Patient reported no bleeding, bruising. No family history of known malignancy or leukemia. No rash.[place], states it was worse this season and has removed multiple ticks from his body. On admission here patient hemodynamically stable. Labs with pancytopenia- leukopenia with WBC of 1.7, anemia with hemoglobin of 8.8, thrombocytopenia with platelets of 60, normal LFTs, normal B12 and folate, iron-50, normal TSH, hepatitis panel-hep C antibody reactive. RNA pending. Mildly elevated CRP, negative PSA. Patient was seen by hematology and being worked up for etiology. Bone marrow biopsy planned. 03/25: Patient doing well, reports no complaint, states he feels very fine and has no complaints currently. He is ambulating without difficulty. Remains hemodynamically stable. Afebrile. No bleeding noted, no bruising. Patient scheduled for bone marrow biopsy today, hematology following. Will start patient on doxycycline given history of recurrent tick bites. Continue neutropenic precautions. 03/26: No new complaints. No significant change in cell counts. Patient had bone marrow biopsy done yesterday, well-tolerated. Continue neutropenic precautions. Continue doxycycline. 03/27: No new complaints. No bleeding or bruising noted. Labs reviewed-slightly worse thrombocytopenia-down to 11K. Bone marrow biopsy results still pending 03/28: No new complaints. Patient doing well. Hemodynamically stable. Labs reviewed-no significant change in pancytopenia. According to pathologist-bone marrow preliminary with some concern for MDS however pending further staining. Continue to monitor cell counts. Oncology following. Tickborne panel negative. Will discontinue doxycycline 03/29: Patient reports no complaints. No bleeding, no bruising. Platelets down to 9K this morning. Patient received 1 units of platelets. Bone marrow biopsy reported with some concern for MDS. Oncologyfollowing planning for therapy with Vidaza plus venetoclax. Patient to start cycle 1 while inpatient. Consultants: IP CONSULT TO IV TEAM SUBJECTIVE: Patient reports no complaints. States he feels fine. No bleeding or bruising reported. ROS: 10 point review of system negative except for above. OBJECTIVE: Temp (24hrs), Av.4 ??F (36.9 ??C), Min:97.3 ??F (36.3 ??C), Max:99.3 ??F (37.4 ??C) BP 113/61 (BP Location: Right arm, Patient Position (BP): Supine) Pulse 87 Temp 98.2 ??F (36.8 ??C) (Oral) Resp 16 Ht 5' 8 (1.727 m) Wt 74.8 kg (165 lb 0.1 oz) SpO2 93% BMI 25.09 kg/m?? Intake/Output Summary (Last 24 hours) at 03/29/2025 1741 Last data filed at 03/29/2025 0452 Gross per 24 hour Intake 600 ml Output 1 ml Net 599 ml Last documented weight: Weight: 74.8 kg (165 lb 0.1 oz) (03/29/25 0450) EXAM: General: alert, in no distress Neurologic: Grossly normal HEENT: atraumatic, Normocephalic, without obvious abnormality Lungs: clear to auscultation bilaterally, normal respiratory effort Heart: normal rate, regular rhythm, normal S1, S2, no murmurs, rubs, clicks or gallops Abdomen: Soft, non-tender. Bowel sounds normal. No masses, no organomegaly. Extremities: extremities normal, atraumatic, no cyanosis or edema, intact distal pulses, moves all extremities equally, no edema, redness or tenderness in the calves or thighs, normal strength, normal tone Skin: negative LABORATORY: Recent Labs 03/27/25 04003/28/25 0514 03/29/25 0551 WBC 1.9* 1.9* 1.7* HGB 7.8* 7.9* 7.4* HCT 23.1* 23.9* 22.2* PLT 11* 11* 9* Recent Labs 03/27/25 04003/28/25 0514 03/29/25 0551 NA 133* 133* 130* K 4.5 4.5 4.3 CL 101 101 98 CO2 24 27 23 CA 8.1* 8.3* 7.8* BUN 18 17 19 CREAT 0.83 0.84 0.81 GLUCOSE 197* 211* 211* Recent Labs 03/27/25 0403 03/28/25 0514 03/29/25 0551 TOTALPROTEIN 5.8* 6.2* 5.8* ALBUMIN 3.1* 3.2* 2.9* BILITOTAL 1.0 1.0 0.9 ALKPHOS 192* 185* 160* AST 18 10 10 ALT 29 20 16 No results for input(s): INR , PT in the last 72 hours. Invalid input(s): PTT Diagnostic testing reviewed by me: Labs and imaging reviewed by me-noted below No results found for this or any previous visit. Medications were reviewed by me. Current Facility-Administered Medications: acyclovir (ZOVIRAX) tablet 400 mg, 400 mg, Oral, BID, Truman Rico MD [START ON 03/30/2025] sulfamethoxazole-trimethoprim (BACTRIM DS) 800-160 mg per tablet 1 Tablet, 1 Tablet, Oral, every Mon, Wed, Fri, Truman Rico MD [START ON 03/30/2025] fluconazole (DIFLUCAN) tablet 400 mg, 400 mg, Oral, daily, Truman Rico MD magnesium HYDROXIDE (MILK OF MAGNESIA) oral suspension 30 mL, 30 mL, Oral, daily, Astrid Lion MD, 30 mL at 03/29/25 08 polyethylene glycol (MIRALAX) packet 17 Gram, 17 Gram, Oral, daily, Astrid Lion MD, 17 Gram at 03/29/25 0811 cetirizine (ZyrTEC) tablet 10 mg, 10 mg, Oral, daily, Astrid Lion MD, 10 mg at 03/29/25 08 DULoxetine (CYMBALTA) capsule 60 mg, 60 mg, Oral, daily, Astrid Lion MD, 60 mg at 03/29/25 08 sodium chloride flush injection 10 mL, 10 mL, IV, every 12 hours (2 times daily), Renny Álvarez MD, 10 mL at 03/29/25 0811 sodium chloride flush injection 10 mL, 10 mL, IV, see admin instructions, Renny Álvarez MD sodium chloride 0.9 % flush bag 25 mL, 25 mL, IV, see admin instructions, Renny Álvarez MD dextrose 5 % in water 250 mL flush bag 25 mL, 25 mL, IV, see admin instructions, Renny Álvarez MD naloxone (NARCAN) 0.4 mg/mL injection 0.1-0.4 mg, 0.1-0.4 mg, IV, see admin instructions, Renny Álvarez MD acetaminophen (TYLENOL) tablet 650 mg, 650 mg, Oral, every 6 hours PRN, Renny Álvarez MD, 650 mg at 03/29/25 0730 dextrose 5 % - sodium chloride 0.9 % infusion, , IV, see admin instructions, Renny Álvarez MD dextrose 50% (D50) syringe 12.5 Gram, 12.5 Gram, IV, see admin instructions, Renny Álvarez MD dextrose 50% (D50) syringe 25 Gram, 25 Gram, IV, see admin instructions, Renny Álvarez MD glucagon HCL 1 mg/mL injection 1 mg, 1 mg, IM, see admin instructions, Renny Álvarez MD insulin lispro (HumaLOG,ADMELOG) injection 0-6 Units, 0-6 Units, subCUT, TID WITH meals, Renny Álvarez MD, 2 Units at 03/29/25 1128 insulin lispro (HumaLOG,ADMELOG) injection 0-3 Units, 0-3 Units, subCUT, daily BEDTIME, Renny Álvarez MD, 1 Units at 03/28/25 2128 insulin lispro (HumaLOG,ADMELOG) injection 0-3 Units, 0-3 Units, subCUT, daily at 0200, Renny Álvarez MD diphenhydrAMINE (BENADRYL) tablet 25 mg, 25 mg, Oral, every 8 hours PRN, Renny Álvarez MD, 25 mg at 03/29/25 0730 Primary discharge diagnosis: Pancytopenia (CMS/HCC) Other active medical issues also addressed during this admission: Active Hospital Problems Diagnosis Protein-calorie malnutrition, moderate Hypophosphatemia Pancytopenia (CMS/HCC) Type 2 diabetes mellitus, without long-term current use of insulin (CMS/HCC) Benign hypertension Resolved Hospital Problems No resolved problems to display. ASSESSMENT AND PLAN: Principal Problem: Pancytopenia (CMS/HCC) Active Problems: Type 2 diabetes mellitus, without long-term current use of insulin (CMS/HCC) Benign hypertension Hypophosphatemia Protein-calorie malnutrition, moderate Pancytopenia # Leukopenia-WBC 1.7 # Anemia-hemoglobin 8.4 # Thrombocytopenia-platelets of 13K-->11k High suspicion for MDS Unsure etiology-renal possible infection, malignancy or medication effects. No bleeding or bruising noted. History of recurrent tick bites. Hematology on board Workup ongoing-s/p bone marrow biopsy on 03/25--Bone marrow biopsy preliminary reported with some suspicion for MDS. Pending further staining Labs so far-blood cultures-NGTD, normal B12 and folate, normal iron levels, normal TSH, hepatitis Cantibody positive, HIV negative, mildly elevated CRP and ESR, LDH-146, haptoglobin-47, reticulocytes-1.8 Order labs pending-peripheral smear, hepatitis C RNA pending, INDER pending, free light chain ratio pending, tickborne panel-negative Doxycycline discontinued Oncology planning on starting cycle 1 of Vidaza + venetoclax, Continue to monitor cell counts daily Transfuse to keep hemoglobin above 7 Transfuse platelets if <10K or actively bleeding. Consider using irradiated, leukocyte reduced, CMV negative blood products. Bleeding precautions. Hypophosphatemia Replacing as appropriate Optimize electrolytes. Type 2 diabetes mellitus Hold oral hypoglycemic agents Continue current sliding scale Continue to monitor blood sugar Hypoglycemic protocol in place. Lab Results Component Value Date/Time HGBA1C 5.2 03/25/2025 04:09 AM Recent Labs 03/29/25 0158 03/29/25 0717 03/29/25 1101 03/29/25 1644 GLUCPOC 210* 213* 246* 161* DVT prevention: SCDs for now-high risk for bleeding Outpatient follow up: PCP, hematology Anticipated Disposition Location: Home with family Timeframe: 2 to 3 days Criteria: Stability, completion of workup Education/DME/Equipment Needs: Patient's understanding of illness: Good Primary family contact: Spouse Code status: Default Full Code - Needs Discussion Medical complexity-moderate Astrid Lion MD 03/29/2025, 5:41 PM * Francisca Temple RD - 03/29/2025 5:02 PM CDT The patient was evaluated by the dietitian and was found to have Malnutrition Nutrition Diagnosis: Moderate protein-calorie malnutrition (03/29/25 1600). The malnutrition pathway is recommended and the assessment via ASPEN criteria and nutrition recommendations from the dietitian are as follows: ASPEN Malnutrition Assessment and Findings Subcutaneous Fat Loss Assessment: Mild fat loss (03/29/251599) Muscle Wasting Assessment: Moderate (03/29/251599) Edema: Normal contour with a barely perceptible pit (no findings) (03/29/251599) Hand Grounds Restoration Specialist: Mild tag stringer (mild) (03/29/251599) Percentage of Energy: < 75% for > 7 days (moderate-acute) (03/29/251599) Percentage of Weight Loss: >10% in 6 months (severe) (03/29/251599) Malnutrition Decision Malnutrition Nutrition Diagnosis: Moderate protein-calorie malnutrition (03/29/251599) BMI BMI (Calculated): (!) 25.08 (03/29/25 0450) Malnutrition Recommendations Nutrition Interventions: Oral nutrition supplement (03/29/251599) Nutrition Interventions: (provided menu and reviewed ordering process) (03/29/251599) Cosigned by Astrid Lion MD at 03/29/2025 5:55 PM CDT * Francisca Temple RD - 03/29/2025 4:18 PM CDT Reason For Nutrition Assessment: LOS, and Other Nutrition Diagnosis Malnutrition Nutrition Diagnosis: Moderate protein-calorie malnutrition (03/29/251599) In the context of: Acute Illness/Injury and Chronic Illness Problem: Increased nutrient needs (03/29/251599) Etiology: Acute illness (03/29/251599) Signs/Symptoms: Change in functional ability (03/29/251599) Malnutrition Impact: Reduced oral intake, Delayed recovery, Increased readmission risk, Increased hospitalization length, and Increased risk of infection Interventions/Recommendations: Provide supplement tid with meals Provide texture of need/ request Provided menu and reviewed ordering process Nutrition Interventions: Oral nutrition supplement (03/29/251599) Goals: 75-100% of meals, +BM, and Consume ordered supplements daily Monitoring/Evaluation: intake, labs, wt Nutrition Discharge Plan: TBD See below for full assessment Assessment 74 y.o.male admitted with Pancytopenia (CMS/HCC). Subjective: requests soft texture Food and Nutrition Related History: DM, HTN, anemia Weight changes: > 10% wt loss over last 6 months per patient wt decreased from 200 # to 170 # Wt Readings from Last 8 Encounters: 03/29/25 74.8 kg (165 lb 0.1 oz) Subjective Global Assessment: Weight: During the past 2 weeks the patient's weight has: Not Changed (03/29/251599) Food Intake: Compared to normal intake, over the past month the patient's intake has been: Unchanged (03/29/251599) Symptoms: Patient reports the following problems that have kept them from eating enough during the past 2 weeks: Constipation (03/29/251599) Activities & Function: Over the past month the patient generally rates their activity as: : Lowenergy but in bed or chair less than half the day (03/29/251599) Total score = SGA Score : 3 (03/29/251599) Nutrition Focused Exam Physical Findings- Summary: Malnutrition Nutrition Diagnosis: Moderate protein-calorie malnutrition (03/29/251599) Orbital: Flattened fat pads but not depressed (mild) (03/29/251599) Facial cheeks (buccal pads): Slightly depressed inward (mild) (03/29/251599) Biceps and triceps: Minor but noticeable thinning of fat tissue fold (mild) (03/29/25 1600) Ribs - lower back, mid axillary line: Ribs not apparent, but mild appearance of iliac crest (mild) (03/29/251599) Subcutaneous Fat Loss Assessment: Mild fat loss (03/29/25 1600) Temporal: Slight depression or shadowing (mild) (03/29/25 1600) Clavicle: Some protrusion (moderate) (03/29/251599) Shoulder (deltoid muscle): Shoulders not square, acromion process visible (moderate) (03/29/25 1600) Scapula: Slight depressions around the scapula bone, but not prominent (mild) (03/29/25 1600) Interosseous: Thinning, flattened muscle (mild) (03/29/25 1600) Thigh (quadriceps muscle): Flattened thigh appearance but no depressions (mild) (03/29/25 1600) Knee: Muscle protrudes, bone not prominent (no findings) (03/29/25 1600) Calf (gastrocnemius muscle): 'Bulb' shape, firm and well developed (no findings) (03/29/251599) Muscle Wasting Assessment: Moderate (03/29/251599) Edema: Normal contour with a barely perceptible pit (no findings) (03/29/25 1600) Hand Grounds Restoration Specialist: Mild tag stringer (mild) (03/29/251599) Percentage of Energy: < 75% for > 7 days (moderate-acute) (03/29/25 1600) Percentage of Weight Loss: >10% in 6 months (severe) (03/29/25 1600) Estimated Needs: Estimated Energy Target: 1870- 2240 (03/29/251599) Estimated Protein Target: 75-95 (03/29/251599) Estimated Fluid Target : 1870- 2240 (03/29/251599) Nutrition Energy Formula: Calories per kilogram (03/29/251599) Weight Used for Formula: Actual weight (03/29/251599) Clinical Data: Height: 5' 8 (172.7 cm) (03/24/25 1129) [place] body weight: 68.4 kg (150 lb 12.7 oz) Adjusted ideal body weight: 71 kg (156 lb 7.7 oz) Body mass index is 25.09 kg/m??. Admission:Weight: 80.3 kg (177 lb) (03/24/25 1129) Weight Method: Actual (03/24/25 112) Current:Weight: 74.8 kg (165 lb 0.1 oz) (03/29/25 0450) Wt Readings from Last 8 Encounters: 03/29/25 74.8 kg (165 lb 0.1 oz) Labs Recent Labs 03/27/25 0403 03/28/25 0514 03/29/25 0551 GLUCOSE 197* 211* 211* BUN 18 17 19 CREAT 0.83 0.84 0.81 GFR >60 >60 >60 NA 133* 133* 130* K 4.5 4.5 4.3 CO2 24 27 23 ANIONGAP 8* 5* 9 CA 8.1* 8.3* 7.8* ALBUMIN 3.1* 3.2* 2.9* ALKPHOS 192* 185* 160* ALT 29 20 16 AST 18 10 10 BILITOTAL 1.0 1.0 0.9 Lab Results Component Value Date/Time PO4 2.0 (L) 03/24/2025 11:56 AM HGBA1C 5.2 03/25/2025 04:09 AM Current Diet and Intake: DIET NEUTROPENIC - LOW BACTERIA Food/Meal: Dinner (03/28/252000),Intake (%): 100% (03/29/25743) , Skin: Boby Score: 21 (03/29/25 0740) Gastrointestinal: Last Bowel Movement (mm/dd/yyyy): 03/27/25 (03/27/25942) Stool Consistency - Reference [place] Stool Chart: formed - (type 1-4) (03/27/25942) Allergies: No Known Allergies No past medical history on file. Time spent:Consultation Time (mins): 25 mins (03/29/25 1600) Cosigned by Astrid Lion MD at 03/29/2025 5:54 PM CDT * Beatriz Owens (Student) - 03/29/2025 2:27 PM CDT Images from the original note were not included. Your life is our life's work [facility] Hospitalist/Hospital Medicine Progress Note LOS: 5 days Room/Bed: 7116/01 Patient name: Faina Barros Date of : 1950 HOSPITAL COURSE SUMMARY: Faina Barros, a 74 y.o. male who is admitted for further management of pancytopenia. He has past medical history of T2DM and benign HTN who presented to his PCP with 2 months of weakness and shortness of breath. His labs revealed pancytopenia and he was advised to go to the ED for further evaluation. He had no signs of bleeding, was afebrile, and reported that he has no family history of blood disorders. He reported several tick bites. He had a chest xray that revealed chronic interstitial opacities. He has reported he has no history of lupus or malignancy. He does not smoke or use alcohol. Heme Onc was consulted. During his admission he has generally been well. Since 03/27 he has been hemody namically stable. He tolerated his bone marrow biopsy well. He was started on doxycycline due to his history of tick bites but was discontinued when his tickborne panel returned negative. He was found to have slightly worsened thrombocytopenia on 03/27 and was started on platelet infusions. 03/29: patient examined at bedside and reports no complaints. Was receiving platelet infusion at timeof examination. He says he feels weak but it's the same as it has been. He has been hemodynamicallystable. Consultants: IP CONSULT TO IV TEAM SUBJECTIVE: Patient says his weakness is unchanged from previous days. ROS: History obtained from the patient As above. All other negative or not pertinent. OBJECTIVE: Temp (24hrs), Av.4 ??F (36.9 ??C), Min:97.3 ??F (36.3 ??C), Max:99.3 ??F (37.4 ??C) BP 113/61 (BP Location: Right arm, Patient Position (BP): Supine) Pulse 87 Temp 98.2 ??F (36.8 ??C) (Oral) Resp 16 Ht 5' 8 (1.727 m) Wt 74.8 kg (165 lb 0.1 oz) SpO2 93% BMI 25.09 kg/m?? Intake/Output Summary (Last 24 hours) at 03/29/2025 1735 Last data filed at 03/29/2025 0452 Gross per 24 hour Intake 600 ml Output 1 ml Net 599 ml Last documented weight: Weight: 74.8 kg (165 lb 0.1 oz) (03/29/25 0450) EXAM: General: alert, in no distress HEENT: atraumatic, Normocephalic, without obvious abnormality Lungs: clear to auscultation bilaterally, normal respiratory effort Extremities: extremities normal, atraumatic, no cyanosis or edema, intact distal pulses, moves all extremities equally, no edema, redness or tenderness in the calves or thighs, normal strength, normal tone Skin: negative LABORATORY: Recent Labs 03/27/25 0403 03/28/25 0514 03/29/25 0551 WBC 1.9* 1.9* 1.7* HGB 7.8* 7.9* 7.4* HCT 23.1* 23.9* 22.2* PLT 11* 11* 9* Recent Labs 03/27/25 0403 03/28/25 0514 03/29/25 0551 NA 133* 133* 130* K 4.5 4.5 4.3 CL 101 101 98 CO2 24 27 23 CA 8.1* 8.3* 7.8* BUN 18 17 19 CREAT 0.83 0.84 0.81 GLUCOSE 197* 211* 211* Recent Labs 03/27/25 0403 03/28/25 0514 03/29/25 0551 TOTALPROTEIN 5.8* 6.2* 5.8* ALBUMIN 3.1* 3.2* 2.9* BILITOTAL 1.0 1.0 0.9 ALKPHOS 192* 185* 160* AST 18 10 10 ALT 29 20 16 No results for input(s): INR , PT in the last 72 hours. Invalid input(s): PTT No results for input(s): BASETROP , 2HRTROP , DELTA , 6HRTROP in the last 72 hours. Diagnostic testing reviewed by me: Medications were reviewed by me. Current Facility-Administered Medications: acyclovir (ZOVIRAX) tablet 400 mg, 400 mg, Oral, BID, Truman Rico MD [START ON 03/30/2025] sulfamethoxazole-trimethoprim (BACTRIM DS) 800-160 mg per tablet 1 Tablet, 1 Tablet, Oral, every Mon, Wed, Fri, Truman Rico MD [START ON 03/30/2025] fluconazole (DIFLUCAN) tablet 400 mg, 400 mg, Oral, daily, Truman Rico MD magnesium HYDROXIDE (MILK OF MAGNESIA) oral suspension 30 mL, 30 mL, Oral, daily, Astrid Lion MD, 30 mL at 03/29/25 0811 polyethylene glycol (MIRALAX) packet 17 Gram, 17 Gram, Oral, daily, Astrid Lion MD, 17 Gram at 03/29/25 0811 cetirizine (ZyrTEC) tablet 10 mg, 10 mg, Oral, daily, Astrid Lion MD, 10 mg at 03/29/25 0811 DULoxetine (CYMBALTA) capsule 60 mg, 60 mg, Oral, daily, Astrid Lion MD, 60 mg at 03/29/25 0811 sodium chloride flush injection 10 mL, 10 mL, IV, every 12 hours (2 times daily), Renny Álvarez MD, 10 mL at 03/29/25 0811 sodium chloride flush injection 10 mL, 10 mL, IV, see admin instructions, Renny Álvarez MD sodium chloride 0.9 % flush bag 25 mL, 25 mL, IV, see admin instructions, Renny Álvarez MD dextrose 5 % in water 250 mL flush bag 25 mL, 25 mL, IV, see admin instructions, Renny Álvarez MD naloxone (NARCAN) 0.4 mg/mL injection 0.1-0.4 mg, 0.1-0.4 mg, IV, see admin instructions, Renny Álvarez MD acetaminophen (TYLENOL) tablet 650 mg, 650 mg, Oral, every 6 hours PRN, Renny Álvarez MD, 650 mg at 03/29/25 0730 dextrose 5 % - sodium chloride 0.9 % infusion, , IV, see admin instructions, Renny Álvarez MD dextrose 50% (D50) syringe 12.5 Gram, 12.5 Gram, IV, see admin instructions, Renny Álvarez MD dextrose 50% (D50) syringe 25 Gram, 25 Gram, IV, see admin instructions, Renny Álvarez MD glucagon HCL 1 mg/mL injection 1 mg, 1 mg, IM, see admin instructions, Renny Álvarez MD insulin lispro (HumaLOG,ADMELOG) injection 0-6 Units, 0-6 Units, subCUT, TID WITH meals, Renny Álvarez MD, 2 Units at 03/29/25 1128 insulin lispro (HumaLOG,ADMELOG) injection 0-3 Units, 0-3 Units, subCUT, daily BEDTIME, Renny Álvarez MD, 1 Units at 03/28/258 insulin lispro (HumaLOG,ADMELOG) injection 0-3 Units, 0-3 Units, subCUT, daily at 0200, Renny Álvarez MD diphenhydrAMINE (BENADRYL) tablet 25 mg, 25 mg, Oral, every 8 hours PRN, Renny Álvarez MD, 25 mg at 03/29/25 0730 Primary discharge diagnosis: Pancytopenia (CMS/HCC) Other active medical issues also addressed during this admission: Active Hospital Problems Diagnosis Protein-calorie malnutrition, moderate Hypophosphatemia Pancytopenia (CMS/HCC) Type 2 diabetes mellitus, without long-term current use of insulin (CMS/HCC) Benign hypertension Resolved Hospital Problems No resolved problems to display. ASSESSMENT AND PLAN: Pancytopenia (CMS/HCC) Pancytopenia etiology unknown but may be due to hemolysis, destruction, nutritional deficit, malignancy. Ruled out immunologic causes of hemolysis with (-) Loly test. Ruled out nutritional deficit from folate, B12 or copper. 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 Continue with sliding insulin scale and monitor blood sugar. Hypoglycemic protocol in place. Benign hypertension HTN stable Hypophosphatemia Monitor and replace as appropriate. DVT prophylaxis: DVT Pharmacologic Prophylaxis: Patient has a contraindication for pharmacologic prophylaxis. Please refer to the orders for additional details. Nutrition Status: Malnutrition Nutrition Diagnosis: Moderate protein-calorie malnutrition Provider Assessment/Plan: - Current Diet and/or Nutritional Supplementation ordered: DIET NEUTROPENIC - LOW BACTERIA Code status: Default Full Code - Needs Discussion Beatriz Owens 03/29/2025, 5:35 PM Cosigned by Astrid Lion MD at 03/30/2025 4:51 PM CDT * Truman Rico MD - 03/29/2025 11:58 AM CDT HEMATOLOGY PROGRESS NOTE Subjective: The patient is seen awake and alert, resting in bed. No family present at time of visit. Discussionof pathology results per Dr. 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 Discussed MDS can transform to a leukemia. Patient is agreeable to initiate therapy. He wouldlike to transfer care to [place]. Review of Systems: Constitutional: denies fevers, chills, sweats, fatigue Neurological: denies headaches, weakness, visual changes Respiratory: denies cough, dyspnea, nosebleeds Cardiovascular: denies chest pain or discomfort Gastrointestinal: denies abdominal pain, constipation, diarrhea, vomiting Genitourinary: denies dysuria, urinary frequency Hematologic, Oncologic: denies bruising, bleeding, petechiae Lymphatic: denies lymph node swelling, no lumps or bumps Musculoskeletal: denies: myalgia, muscle weakness Skin: denies nail changes or rash Hematology history -03/23/2025 WBC 2.01 hgb 7.80 plts 21 ANC 0.77 -03/24/2025 WBC 2.01 ANC 0.77, hgb 7.80, plts 21 PT 14.20 INR 1.03 PTT 37.3 fibrinogen 264 uric acid5.3 LDH 146 hepatitis B negative HIV negative -03/25/2025 WBC 2.2, hemoglobin 8.4, MCV 92.1, platelet 13, ANC 0.58, calcium 8, glucose 177, albumin3.2, alkaline phosphatase 146, bilirubin 1.1, INR 1.2, fibrinogen 241 normal, PT 16. Bone marrow flow cytometry negative. -03/28/2025 WBC 1.9 hgb 7.9 plts 11 MCV 92.3 ANC 0.44 Ca 8.3 alk phos 185 --03/29/2025 WBC 1.7 ANC 0.57 hgb 7.4 plts 9 Imaging/procedure: -12/09/2018 CT chest 1. Relatively mild but diffuse symmetric subpleural reticulation distributed throughout both upper and lower lobes. This is most consistent with mild pulmonary fibrosis, but no specific pattern/distribution. There is presumed a superimposed atelectatic change in the dependent lung bases, but no evidence of honeycombing or significant bronchiectatic change. 2. Mildly enlarged right paratracheal/mediastinal lymph node, and borderline- enlarged left perihilar lymph node are nonspecific, presumably reactive. - 03/24/2025 ultrasound abdomen 1. Hepatosplenomegaly. 2. Bilateral renal cortical cysts. The largest cyst involving the lower pole left kidney demonstrates thickened internal septations. Short interval follow-up ultrasound or further characterization with nonemergent renal MRI with and without contrast recommended. -03/25/2025 bone marrow biopsy --03/29/2025 bone marrow biopsy pathology-Myelodysplastic neoplasm, preliminary classified as myelodysplastic neoplasm with low blasts (MDS-LB) with less than 3% bone marrow blasts and no circulating blasts 03/29/2025 1 unit plts per primary Objective: Vitals: 03/29/25 0450 03/29/25 0724 03/29/25 0808 03/29/25 0949 BP: 124/69 110/57 108/60 123/57 BP Location: Right arm Right arm Right arm Right arm Patient Position (BP): Supine Lying left side Supine Sitting Pulse: 92 97 92 (!) 123 Resp: 14 16 18 16 Temp: 98.6 ??F (37 ??C) 98.2 ??F (36.8 ??C) 97.3 ??F (36.3 ??C) TempSrc: Oral Oral Oral SpO2: 93% 91% 91% 97% Weight: 74.8 kg (165 lb 0.1 oz) Height: PHYSICAL EXAMINATION: General appearance: Alert, in no distress ECOG 1. Head: Atraumatic, normocephalic without obvious abnormality. Eyes: Conjunctivae/corneas clear. PERRL, EOM's intact. Nose: Nares normal. Septum midline. Mucosa normal, no drainage, or sinus tenderness. Lungs: Clear to auscultation bilaterally, normal respiratory effort. Heart: Normal rate, regular rhythm, normal S1-S2,. Abdomen: Soft, non-tender. Bowel sounds normal, no masses, no organomegaly. Extremities: No extremity edema, Skin: Skin color, texture, turgor normal, no rashes, or lesions. Data Review: Labs Reviewed Lab Results Component Value Date/Time WBC 1.7 (L) 03/29/2025 05:51 AM HGB 7.4 (L) 03/29/2025 05:51 AM HCT 22.2 (L) 03/29/2025 05:51 AM PLT 9 (LL) 03/29/2025 05:51 AM MCV 91.0 03/29/2025 05:51 AM Lab Results Component Value Date/Time NA 130 (L) 03/29/2025 05:51 AM K 4.3 03/29/2025 05:51 AM CL 98 03/29/2025 05:51 AM CO2 23 03/29/2025 05:51 AM CA 7.8 (L) 03/29/2025 05:51 AM BUN 19 03/29/2025 05:51 AM CREAT 0.81 03/29/2025 05:51 AM GLUCOSE 211 (H) 03/29/2025 05:51 AM TOTALPROTEIN 5.8 (L) 03/29/2025 05:51 AM ALBUMIN 2.9 (L) 03/29/2025 05:51 AM BILITOTAL 0.9 03/29/2025 05:51 AM ALKPHOS 160 (H) 03/29/2025 05:51 AM AST 10 03/29/2025 05:51 AM ALT 16 03/29/2025 05:51 AM ANIONGAP 9 03/29/2025 05:51 AM ASSESSMENT/PLAN Principal Problem: Pancytopenia (CMS/HCC) Active Problems: Type 2 diabetes mellitus, without long-term current use of insulin (CMS/HCC) Benign hypertension Hypophosphatemia Pancytopenia -on admission: WBC 2.01 ANC 0.77, hgb 7.80, plts 21 -WBC 1.7 ANC 0.57 -monitor daily -neutropenic precautions -plan to ludwig culture for fever > 100.4 -hgb 7.4 -monitor daily -plan to transfuse for hgb <7 or active bleeding -plts 9 -monitor daily -plan to transfuse for plts < 10 or active bleeding -plan to hold AC for plts <50 -1 unit plts today per primary -rule out underproduction: -iron 50 TIBC 116 -ferritin 350 -vitamin B12 617 -folate 11.4 -hepatitis panel C ab positive RNA not detected -HIV negative -TSH 2.09 -rule out destruction: -LDH 146 -reticulocytes 1.8 -loly negative -haptoglobin 47 -tBili 1 -CRP 12.2 -ESR 22 -INDER pending -PT 14.2 INR 1.03 -fibrinogen 264 -peripheral smear-Red blood cells are quantitatively decreased but normocytic. There is mild Priscila poikilocytosis including a dual population of microcytes and macrocytes as well as elliptocytes. No significant schistocytes. -rule out nutritional deficit: -vitamin B12 617 -folate 11.4 -zinc pending -copper pending -rule out malignancy: -PSA 0.6 -SPEP-pending -free light chain ratio pending -rheumatoid factor pending -rule out underproduction: -vitamin B12 617 -folate 11.4 -rule out platelet clumping: -peripheral smear-Platelets are quantitatively decreased with no significant platelet clumps. -rule out infection as cause for thrombocytopenia -blood cultures pending -tick panel negative -HIV negative -hepatitis panel C ab positive RNA pending -CMV pending -EBV pending -rule out destruction (DIC) -PT 16.0 INR 1.2 -fibrinogen 241 -s/p bone marrow fegqck-afqbedrua-Gqqqlacxgemuamx neoplasm, preliminary classified as myelodysplastic neoplasm with low blasts (MDS-LB) with less than 3% bone marrow blasts and no circulating blasts -plan for therapy with vidaza + venetoclax -medical management per primary team and appropriate consultants Hematology daily plan: -plan for therapy with vidaza + venetoclax -patient will require daily therapy for either 5 or 7 days -discussed with oncology office at [place] which is closest to him-will proceed with cycle 1 inpatient and arrange follow up with [place] going forward -monitor counts,plan to ludwig culture for fever > 100.4 if ANC < 1 -monitor counts, plan to transfuse for hgb <7, plts <10 or active bleeding Discharge planning -disposition-TBD per primary team -timeframe-TBD per primary team -criteria-clinical improvement -follow up-TBD pending clinical course This note is prepared by Batool Wagner NP acting as a scribe for Dr. Jacky Wagner NP, 03/29/2025 11:58 AM I have seen, examined and interviewed the patient independently myself and agree with the note mentioned above by nurse practitioner. Vitals: Vitals: 03/29/25 0450 03/29/25 0724 03/29/25 0808 03/29/25 0949 BP: 124/69 110/57 108/60 123/57 BP Location: Right arm Right arm Right arm Right arm Patient Position (BP): Supine Lying left side Supine Sitting Pulse: 92 97 92 (!) 123 Resp: 14 16 18 16 Temp: 98.6 ??F (37 ??C) 98.2 ??F (36.8 ??C) 97.3 ??F (36.3 ??C) TempSrc: Oral Oral Oral SpO2: 93% 91% 91% 97% Weight: 74.8 kg (165 lb 0.1 oz) Height: Exam: General: Alert, awake, no distress See above Assessment: Pancytopenia Plan: Consider irradiated, leuko-reduced, CMV safe blood products only. Discussed in detail with the patient about the pathology. Answered questions in detail, agreeable with the plan. Complexity high. Discussed with the primary team. Discussed with the patient that he has MDS and per RIPSS score he has high risk MDS. We will start Azacitidine and venetoclax. Start PPX meds for infection. [facility] and [facility] treatment here. Tick panel negative. He will explore if he can get treatment locally. D/w pharmacy about treatment. Start Aza 75mg/m2 for 5 days every 28 days. For 4 cycles. With venetoclax. To do: - start aza 75 mg/m2 for 5 days - start acyclivir, fluconazole, bactrim - start venetoclax oral per protocol with AML -discussed the bone marrow biopsy results - Patient denies any new drugs or alcohol usage. - CBC daily while inpatient - Keep hemoglobin more than 7 - Keep platelets more than 10, if bleeding keep more than 50 - Rest medical management per primary team. We appreciate the help of the primary team in taking care of this patient. Feel free to contact us if any questions or concerns. Thank you for consulting us in taking care of this patient. We will follow along. This documentation was created by polysom tech software. Effort has been done to assure accuracy of polysom tech. Any obvious errors or omissions should be clarified with the author of the document. * Astrid Lion MD - 03/28/2025 3:44 PM CDT Images from the original note were not included. Your life is our life's work [facility] Hospitalist/Hospital Medicine Progress Note LOS: 4 days Room/Bed: 7116/ Patient name: Faina Barros Date of : 1950 HOSPITAL COURSE SUMMARY: Faina Barros is a 74 y.o. male with history sniffing and for hypertension, type 2 diabetes who wasadmitted for further management of abnormal labs. Patient reports has been having some generalized weakness, shortness of breath and gait instabilityover the last 2 months. He was seen by his primary care doctor where he was noted to have pancytopenia, and was sent to the ER for further evaluation. Presented to the ER at [facility] and eventually was sent here to [facility] for further evaluation of pancytopenia and hematology evaluation. Patient reported no bleeding, bruising. No family history of known malignancy or leukemia. No rash.[place], states it was worse this season and has removed multiple ticks from his body. On admission here patient hemodynamically stable. Labs with pancytopenia- leukopenia with WBC of 1.7, anemia with hemoglobin of 8.8, thrombocytopenia with platelets of 60, normal LFTs, normal B12 and folate, iron-50, normal TSH, hepatitis panel-hep C antibody reactive. RNA pending. Mildly elevated CRP, negative PSA. Patient was seen by hematology and being worked up for etiology. Bone marrow biopsy planned. 03/25: Patient doing well, reports no complaint, states he feels very fine and has no complaints currently. He is ambulating without difficulty. Remains hemodynamically stable. Afebrile. No bleeding noted, no bruising. Patient scheduled for bone marrow biopsy today, hematology following. Will start patient on doxycycline given history of recurrent tick bites. Continue neutropenic precautions. 03/26: No new complaints. No significant change in cell counts. Patient had bone marrow biopsy done yesterday, well-tolerated. Continue neutropenic precautions. Continue doxycycline. 03/27: No new complaints. No bleeding or bruising noted. Labs reviewed-slightly worse thrombocytopenia-down to 11K. Bone marrow biopsy results still pending 03/28: No new complaints. Patient doing well. Hemodynamically stable. Labs reviewed-no significant change in pancytopenia. According to pathologist-bone marrow preliminary with some concern for MDS however pending further staining. Continue to monitor cell counts. Oncology following. Tickborne panel negative. Will discontinue doxycycline Consultants: IP CONSULT TO IV TEAM SUBJECTIVE: Patient reports no complaints. States he feels fine ROS: 10 point review of system negative except for above. OBJECTIVE: Temp (24hrs), Av.6 ??F (37 ??C), Min:97.5 ??F (36.4 ??C), Max:100 ??F (37.8 ??C) BP 110/70 (BP Location: Right arm, Patient Position (BP): Supine) Pulse (!) 104 Temp 99 ??F (37.2 ??C) (Oral) Resp 12 Ht 5' 8 (1.727 m) Wt 79 kg (174 lb 3.2 oz) SpO2 93% BMI 26.49 kg/m?? Intake/Output Summary (Last 24 hours) at 03/28/2025 1544 Last data filed at 03/27/2025 1700 Gross per 24 hour Intake 240 ml Output -- Net 240 ml Last documented weight: Weight: 79 kg (174 lb 3.2 oz) (03/26/25 9163) EXAM: General: alert, in no distress Neurologic: Grossly normal HEENT: atraumatic, Normocephalic, without obvious abnormality Lungs: clear to auscultation bilaterally, normal respiratory effort Heart: normal rate, regular rhythm, normal S1, S2, no murmurs, rubs, clicks or gallops Abdomen: Soft, non-tender. Bowel sounds normal. No masses, no organomegaly. Extremities: extremities normal, atraumatic, no cyanosis or edema, intact distal pulses, moves all extremities equally, no edema, redness or tenderness in the calves or thighs, normal strength, normal tone Skin: negative LABORATORY: Recent Labs 03/26/2542003/27/2540203/28/25 0514 WBC 2.5* 1.9* 1.9* HGB 8.4* 7.8* 7.9* HCT 25.6* 23.1* 23.9* PLT 13* 11* 11* Recent Labs 03/26/2542003/27/25 04003/28/25 0514 NA 136 133* 133* K 4.2 4.5 4.5 CL 105 101 101 CO2 22 24 27 CA 8.1* 8.1* 8.3* BUN 20 18 17 CREAT 0.90 0.83 0.84 GLUCOSE 171* 197* 211* Recent Labs 03/26/2542003/27/2540203/28/25 0514 TOTALPROTEIN 6.1* 5.8* 6.2* ALBUMIN 3.2* 3.1* 3.2* BILITOTAL 1.0 1.0 1.0 ALKPHOS 187* 192* 185* AST 19 18 10 ALT 26 29 20 No results for input(s): INR , PT in the last 72 hours. Invalid input(s): PTT Diagnostic testing reviewed by me: Labs and imaging reviewed by me-noted below No results found for this or any previous visit. Medications were reviewed by me. Current Facility-Administered Medications: magnesium HYDROXIDE (MILK OF MAGNESIA) oral suspension 30 mL, 30 mL, Oral, daily, Astrid Lion MD, 30 mL at 03/28/25 0810 polyethylene glycol (MIRALAX) packet 17 Gram, 17 Gram, Oral, daily, Astrid Lion MD, 17 Gram at 03/28/25 0811 cetirizine (ZyrTEC) tablet 10 mg, 10 mg, Oral, daily, Astrid Lion MD, 10 mg at 03/28/25 08 DULoxetine (CYMBALTA) capsule 60 mg, 60 mg, Oral, daily, Astrid Lion MD, 60 mg at 03/28/25 0810 [DISCONTINUED] doxycycline hyclate (VIBRAMYCIN) 100 mg in sodium chloride 0.9% 100 mL IVPB (MBP), 100 mg, IV, every 12 hours (2 times daily), Astrid Lion MD, Stopped at 03/28/25 0912 sodium chloride flush injection 10 mL, 10 mL, IV, every 12 hours (2 times daily), Renny Álvarez MD, 10 mL at 03/28/25 0811 sodium chloride flush injection 10 mL, 10 mL, IV, see admin instructions, Renny Álvarez MD sodium chloride 0.9 % flush bag 25 mL, 25 mL, IV, see admin instructions, Renny Álvarez MD dextrose 5 % in water 250 mL flush bag 25 mL, 25 mL, IV, see admin instructions, Renny Álvarez MD naloxone (NARCAN) 0.4 mg/mL injection 0.1-0.4 mg, 0.1-0.4 mg, IV, see admin instructions, Renny Álvarez MD acetaminophen (TYLENOL) tablet 650 mg, 650 mg, Oral, every 6 hours PRN, Renny Álvarez MD dextrose 5 % - sodium chloride 0.9 % infusion, , IV, see admin instructions, Renny Álvarez MD dextrose 50% (D50) syringe 12.5 Gram, 12.5 Gram, IV, see admin instructions, Renny Álvarez MD dextrose 50% (D50) syringe 25 Gram, 25 Gram, IV, see admin instructions, Renny Álvarez MD glucagon HCL 1 mg/mL injection 1 mg, 1 mg, IM, see admin instructions, Renny Álvarez MD insulin lispro (HumaLOG,ADMELOG) injection 0-6 Units, 0-6 Units, subCUT, TID WITH meals, Renny Álvarez MD, 2 Units at 03/28/25 1255 insulin lispro (HumaLOG,ADMELOG) injection 0-3 Units, 0-3 Units, subCUT, daily BEDTIME, Renny Álvarez MD, 1 Units at 03/27/25 2117 insulin lispro (HumaLOG,ADMELOG) injection 0-3 Units, 0-3 Units, subCUT, daily at 0200, Renny Álvarez MD diphenhydrAMINE (BENADRYL) tablet 25 mg, 25 mg, Oral, every 8 hours Henri KEY Liridon, MD, 25 mg at 03/25/25 1544 Primary discharge diagnosis: Pancytopenia (CMS/HCC) Other active medical issues also addressed during this admission: Active Hospital Problems Diagnosis Hypophosphatemia Pancytopenia (CMS/HCC) Type 2 diabetes mellitus, without long-term current use of insulin (CMS/HCC) Benign hypertension Resolved Hospital Problems No resolved problems to display. ASSESSMENT AND PLAN: Principal Problem: Pancytopenia (CMS/HCC) Active Problems: Type 2 diabetes mellitus, without long-term current use of insulin (CMS/HCC) Benign hypertension Hypophosphatemia Pancytopenia # Leukopenia-WBC 1.7 # Anemia-hemoglobin 8.4 # Thrombocytopenia-platelets of 13K-->11k Unsure etiology-renal possible infection, malignancy or medication effects. No bleeding or bruising noted. History of recurrent tick bites. Hematology on board Workup ongoing-s/p bone marrow biopsy on 03/25--pending result Labs so far-blood cultures-NGTD, normal B12 and folate, normal iron levels, normal TSH, hepatitis Cantibody positive, HIV negative, mildly elevated CRP and ESR, LDH-146, haptoglobin-47, reticulocytes-1.8 Bone marrow biopsy preliminary reported with some suspicion for MDS. Pending further staining Order labs pending-peripheral smear, hepatitis C RNA pending, INDER pending, free light chain ratio pending, tickborne panel-negative Doxycycline SW yes mild of discontinued Continue to monitor cell counts daily Transfuse to keep hemoglobin above 7 Transfuse platelets if <10K or actively bleeding. Consider using irradiated, leukocyte reduced, CMV negative blood products. Bleeding precautions. Hypophosphatemia Replacing as appropriate Optimize electrolytes. Type 2 diabetes mellitus Hold oral hypoglycemic agents Continue current sliding scale Continue to monitor blood sugar Hypoglycemic protocol in place. Lab Results Component Value Date/Time HGBA1C 5.2 03/25/2025 04:09 AM Recent Labs 03/27/25 1650 03/27/25 2116 03/28/25 0729 03/28/25 1050 GLUCPOC 194* 190* 211* 240* DVT prevention: SCDs for now-high risk for bleeding Outpatient follow up: PCP, hematology Anticipated Disposition Location: Home with family Timeframe: 2 to 3 days Criteria: Stability, completion of workup Education/DME/Equipment Needs: Patient's understanding of illness: Good Primary family contact: Spouse Code status: Default Full Code - Needs Discussion Medical complexity-moderate Astrid Lion MD 03/28/2025, 3:44 PM * Truman Rico MD - 03/28/2025 8:54 AM CDT HEMATOLOGY PROGRESS NOTE Subjective: The patient is seen awake and alert, resting in bed. No family present at time of visit. Patient reports a little fatigue, not like I was. Reports no bleeding, no dark stools. No lumps or bumps. Afebrile past 24 hours. Waiting for bone marrow biopsy results. Review of Systems: Constitutional: denies fevers, chills, sweats, fatigue Neurological: denies headaches, weakness, visual changes Respiratory: denies cough, dyspnea, nosebleeds Cardiovascular: denies chest pain or discomfort Gastrointestinal: denies abdominal pain, constipation, diarrhea, vomiting Genitourinary: denies dysuria, urinary frequency Hematologic, Oncologic: denies bruising, bleeding, petechiae Lymphatic: denies lymph node swelling, no lumps or bumps Musculoskeletal: denies: myalgia, muscle weakness Skin: denies nail changes or rash Hematology history -03/23/2025 WBC 2.01 hgb 7.80 plts 21 ANC 0.77 -03/24/2025 WBC 2.01 ANC 0.77, hgb 7.80, plts 21 PT 14.20 INR 1.03 PTT 37.3 fibrinogen 264 uric acid5.3 LDH 146 hepatitis B negative HIV negative -03/25/2025 WBC 2.2, hemoglobin 8.4, MCV 92.1, platelet 13, ANC 0.58, calcium 8, glucose 177, albumin3.2, alkaline phosphatase 146, bilirubin 1.1, INR 1.2, fibrinogen 241 normal, PT 16. Bone marrow flow cytometry negative. -03/28/2025 WBC 1.9 hgb 7.9 plts 11 MCV 92.3 ANC 0.44 Ca 8.3 alk phos 185 Imaging/procedure: -12/09/2018 CT chest 1. Relatively mild but diffuse symmetric subpleural reticulation distributed throughout both upper and lower lobes. This is most consistent with mild pulmonary fibrosis, but no specific pattern/distribution. There is presumed a superimposed atelectatic change in the dependent lung bases, but no evidence of honeycombing or significant bronchiectatic change. 2. Mildly enlarged right paratracheal/mediastinal lymph node, and borderline- enlarged left perihilar lymph node are nonspecific, presumably reactive. - 03/24/2025 ultrasound abdomen 1. Hepatosplenomegaly. 2. Bilateral renal cortical cysts. The largest cyst involving the lower pole left kidney demonstrates thickened internal septations. Short interval follow-up ultrasound or further characterization with nonemergent renal MRI with and without contrast recommended. -03/25/2025 bone marrow biopsy Objective: Vitals: 03/27/25 2135 03/28/25 0031 03/28/25 0432 03/28/25 0735 BP: 120/67 121/63 114/61 114/60 BP Location: Right arm Right arm Right arm Right arm Patient Position (BP): Supine Supine Supine Lying left side Pulse: 91 92 82 92 Resp: 20 18 18 13 Temp: 98.6 ??F (37 ??C) 98.8 ??F (37.1 ??C) 98.4 ??F (36.9 ??C) 97.7 ??F (36.5 ??C) TempSrc: Oral Oral Oral Oral SpO2: 94% 95% 92% 96% Weight: Height: PHYSICAL EXAMINATION: General appearance: Alert, in no distress ECOG 1. Head: Atraumatic, normocephalic without obvious abnormality. Eyes: Conjunctivae/corneas clear. PERRL, EOM's intact. Nose: Nares normal. Septum midline. Mucosa normal, no drainage, or sinus tenderness. Lungs: Clear to auscultation bilaterally, normal respiratory effort. Heart: Normal rate, regular rhythm, normal S1-S2,. Abdomen: Soft, non-tender. Bowel sounds normal, no masses, no organomegaly. Extremities: No extremity edema, Skin: Skin color, texture, turgor normal, no rashes, or lesions. Data Review: Labs Reviewed Lab Results Component Value Date/Time WBC 1.9 (L) 03/28/2025 05:14 AM HGB 7.9 (L) 03/28/2025 05:14 AM HCT 23.9 (L) 03/28/2025 05:14 AM PLT 11 (LL) 03/28/2025 05:14 AM MCV 92.3 03/28/2025 05:14 AM Lab Results Component Value Date/Time NA 133 (L) 03/28/2025 05:14 AM K 4.5 03/28/2025 05:14 AM CL 101 03/28/2025 05:14 AM CO2 27 03/28/2025 05:14 AM CA 8.3 (L) 03/28/2025 05:14 AM BUN 17 03/28/2025 05:14 AM CREAT 0.84 03/28/2025 05:14 AM GLUCOSE 211 (H) 03/28/2025 05:14 AM TOTALPROTEIN 6.2 (L) 03/28/2025 05:14 AM ALBUMIN 3.2 (L) 03/28/2025 05:14 AM BILITOTAL 1.0 03/28/2025 05:14 AM ALKPHOS 185 (H) 03/28/2025 05:14 AM AST 10 03/28/2025 05:14 AM ALT 20 03/28/2025 05:14 AM ANIONGAP 5 (L) 03/28/2025 05:14 AM ASSESSMENT/PLAN Principal Problem: Pancytopenia (CMS/HCC) Active Problems: Type 2 diabetes mellitus, without long-term current use of insulin (CMS/HCC) Benign hypertension Hypophosphatemia Pancytopenia -on admission: WBC 2.01 ANC 0.77, hgb 7.80, plts 21 -WBC 1.9 ANC 0.44 -monitor daily -neutropenic precautions -plan to ludwig culture for fever > 100.4 -hgb 7.9 -monitor daily -plan to transfuse for hgb <7 or active bleeding -plts 11 -monitor daily -plan to transfuse for plts < 10 or active bleeding -plan to hold AC for plts <50 -rule out underproduction: -iron 50 TIBC 116 -ferritin 350 -vitamin B12 617 -folate 11.4 -hepatitis panel C ab positive RNA pending -HIV negative -TSH 2.09 -rule out destruction: -LDH 146 -reticulocytes 1.8 -loly negative -haptoglobin 47 -tBili 1 -CRP 12.2 -ESR 22 -INDER pending -PT 14.2 INR 1.03 -fibrinogen 264 -peripheral smear-Red blood cells are quantitatively decreased but normocytic. There is mild Priscila poikilocytosis including a dual population of microcytes and macrocytes as well as elliptocytes. No significant schistocytes. -rule out nutritional deficit: -vitamin B12 617 -folate 11.4 -zinc pending -copper pending -rule out malignancy: -PSA 0.6 -SPEP-pending -free light chain ratio pending -rheumatoid factor pending -rule out underproduction: -vitamin B12 617 -folate 11.4 -rule out platelet clumping: -peripheral smear-Platelets are quantitatively decreased with no significant platelet clumps. -rule out infection as cause for thrombocytopenia -blood cultures pending -tick panel negative -HIV negative -hepatitis panel C ab positive RNA pending -CMV pending -EBV pending -rule out destruction (DIC) -PT 16.0 INR 1.2 -fibrinogen 241 -s/p bone marrow biopsy-pathology pending -medical management per primary team and appropriate consultants Hematology daily plan: -await results of bone marrow biopsy- -interventions will be based on results of bone marrow biopsy -monitor counts,plan to ludiwg culture for fever > 100.4 if ANC < 1 -monitor counts, plan to transfuse for hgb <7, plts <10 or active bleeding Discharge planning -disposition-TBD per primary team -timeframe-TBD per primary team -criteria-clinical improvement -follow up-TBD pending clinical course This note is prepared by Batool Wagner NP acting as a scribe for Dr. Jacky Wagner NP, 03/28/2025 8:54 AM I have seen, examined and interviewed the patient independently myself and agree with the note mentioned above by nurse practitioner. Vitals: Vitals: 03/27/25 2135 03/28/25 0031 03/28/25 0432 03/28/25 0735 BP: 120/67 121/63 114/61 114/60 BP Location: Right arm Right arm Right arm Right arm Patient Position (BP): Supine Supine Supine Lying left side Pulse: 91 92 82 92 Resp: 20 18 18 13 Temp: 98.6 ??F (37 ??C) 98.8 ??F (37.1 ??C) 98.4 ??F (36.9 ??C) 97.7 ??F (36.5 ??C) TempSrc: Oral Oral Oral Oral SpO2: 94% 95% 92% 96% Weight: Height: Exam: General: Alert, awake, no distress See above Assessment: Pancytopenia Plan: Consider irradiated, leuko-reduced, CMV safe blood products only. Discussed in detail with the patient about the pathology. Answered questions in detail, agreeable with the plan. Complexity high. Discussed with the primary team. Discussed with the patient that depending on the pathology we will consider treatment for him. To do: -Waiting for the bone marrow biopsy results - Patient denies any new drugs or alcohol usage. -He mentioned about the tick bites. - CBC daily while inpatient - Keep hemoglobin more than 7 - Keep platelets more than 10, if bleeding keep more than 50 - Rest medical management per primary team. We appreciate the help of the primary team in taking care of this patient. Feel free to contact us if any questions or concerns. Thank you for consulting us in taking care of this patient. We will follow along. This documentation was created by polysom tech software. Effort has been done to assure accuracy of polysom tech. Any obvious errors or omissions should be clarified with the author of the document. * Astrid Lion MD - 03/27/2025 12:37 PM CDT Images from the original note were not included. Your life is our life's work [facility] Hospitalist/Hospital Medicine Progress Note LOS: 3 days Room/Bed: 7116/01 Patient name: Faina Barros Date of : 1950 HOSPITAL COURSE SUMMARY: Faina Barros is a 74 y.o. male with history sniffing and for hypertension, type 2 diabetes who wasadmitted for further management of abnormal labs. Patient reports has been having some generalized weakness, shortness of breath and gait instabilityover the last 2 months. He was seen by his primary care doctor where he was noted to have pancytopenia, and was sent to the ER for further evaluation. Presented to the ER at [facility] and eventually was sent here to [facility] for further evaluation of pancytopenia and hematology evaluation. Patient reported no bleeding, bruising. No family history of known malignancy or leukemia. No rash.[place], states it was worse this season and has removed multiple ticks from his body. On admission here patient hemodynamically stable. Labs with pancytopenia- leukopenia with WBC of 1.7, anemia with hemoglobin of 8.8, thrombocytopenia with platelets of 60, normal LFTs, normal B12 and folate, iron-50, normal TSH, hepatitis panel-hep C antibody reactive. RNA pending. Mildly elevated CRP, negative PSA. Patient was seen by hematology and being worked up for etiology. Bone marrow biopsy planned. 03/25: Patient doing well, reports no complaint, states he feels very fine and has no complaints currently. He is ambulating without difficulty. Remains hemodynamically stable. Afebrile. No bleeding noted, no bruising. Patient scheduled for bone marrow biopsy today, hematology following. Will start patient on doxycycline given history of recurrent tick bites. Continue neutropenic precautions. 03/26: No new complaints. No significant change in cell counts. Patient had bone marrow biopsy done yesterday, well-tolerated. Continue neutropenic precautions. Continue doxycycline. 03/27: No new complaints. No bleeding or bruising noted. Labs reviewed-slightly worse thrombocytopenia-down to 11K. Bone marrow biopsy results still pending Consultants: IP CONSULT TO IV TEAM SUBJECTIVE: Patient reports no complaints. States he feels fine ROS: 10 point review of system negative except for above. OBJECTIVE: Temp (24hrs), Av ??F (37.2 ??C), Min:98.1 ??F (36.7 ??C), Max:99.9 ??F (37.7 ??C) BP 127/69 (BP Location: Right arm, Patient Position (BP): Supine) Pulse 91 Temp 98.6 ??F (37 ??C) (Oral) Resp 17 Ht 5' 8 (1.727 m) Wt 79 kg (174 lb 3.2 oz) SpO2 98% BMI 26.49 kg/m?? Intake/Output Summary (Last 24 hours) at 03/27/2025 1238 Last data filed at 03/27/2025 1200 Gross per 24 hour Intake 1200 ml Output 0 ml Net 1200 ml Last documented weight: Weight: 79 kg (174 lb 3.2 oz) (03/26/25423) EXAM: General: alert, in no distress Neurologic: Grossly normal HEENT: atraumatic, Normocephalic, without obvious abnormality Lungs: clear to auscultation bilaterally, normal respiratory effort Heart: normal rate, regular rhythm, normal S1, S2, no murmurs, rubs, clicks or gallops Abdomen: Soft, non-tender. Bowel sounds normal. No masses, no organomegaly. Extremities: extremities normal, atraumatic, no cyanosis or edema, intact distal pulses, moves all extremities equally, no edema, redness or tenderness in the calves or thighs, normal strength, normal tone Skin: negative LABORATORY: Recent Labs 03/25/2540803/26/2542003/27/25 040 WBC 2.2* 2.5* 1.9* HGB 8.4* 8.4* 7.8* HCT 25.6* 25.6* 23.1* PLT 13* 13* 11* Recent Labs 03/25/2540803/26/2542003/27/25 0403 NA 138 136 133* K 4.0 4.2 4.5 CL 106 105 101 CO2 24 22 24 CA 8.0* 8.1* 8.1* BUN 14 20 18 CREAT 0.83 0.90 0.83 GLUCOSE 177* 171* 197* Recent Labs 03/25/2540803/26/2542003/27/25 040 TOTALPROTEIN 5.8* 6.1* 5.8* ALBUMIN 3.2* 3.2* 3.1* BILITOTAL 1.1* 1.0 1.0 ALKPHOS 146* 187* 192* AST 10 19 18 ALT 12 26 29 Recent Labs 03/25/25408 INR 1.2 PT 16.0* Diagnostic testing reviewed by me: Labs and imaging reviewed by me-noted below No results found for this or any previous visit. Medications were reviewed by me. Current Facility-Administered Medications: magnesium HYDROXIDE (MILK OF MAGNESIA) oral suspension 30 mL, 30 mL, Oral, daily, Astrid Lion MD, 30 mL at 03/27/25 0954 [DISCONTINUED] magnesium HYDROXIDE (MILK OF MAGNESIA) oral suspension 30 mL, 30 mL, Oral, daily PRN, Astrid Lion MD polyethylene glycol (MIRALAX) packet 17 Gram, 17 Gram, Oral, daily, Astrid Lion MD, 17 Gram at 03/27/25 0939 doxycycline hyclate (VIBRAMYCIN) 100 mg in sodium chloride 0.9% 100 mL IVPB (MBP), 100 mg, IV, every 12 hours (2 times daily), Astrid Lion MD, Stopped at 03/27/25 1043 cetirizine (ZyrTEC) tablet 10 mg, 10 mg, Oral, daily, Astird Lion MD, 10 mg at 03/27/25 0939 DULoxetine (CYMBALTA) capsule 60 mg, 60 mg, Oral, daily, Astrid Lion MD, 60 mg at 03/27/25 0938 sodium chloride flush injection 10 mL, 10 mL, IV, every 12 hours (2 times daily), Renny Álvarez MD, 10 mL at 03/27/25 0939 sodium chloride flush injection 10 mL, 10 mL, IV, see admin instructions, Renny Álvarez MD sodium chloride 0.9 % flush bag 25 mL, 25 mL, IV, see admin instructions, Renny Álvarez MD dextrose 5 % in water 250 mL flush bag 25 mL, 25 mL, IV, see admin instructions, Renny Álvarez MD naloxone (NARCAN) 0.4 mg/mL injection 0.1-0.4 mg, 0.1-0.4 mg, IV, see admin instructions, Renny Álvarez MD acetaminophen (TYLENOL) tablet 650 mg, 650 mg, Oral, every 6 hours PRN, Renny Álvarez MD dextrose 5 % - sodium chloride 0.9 % infusion, , IV, see admin instructions, Renny Álvarez MD dextrose 50% (D50) syringe 12.5 Gram, 12.5 Gram, IV, see admin instructions, Renny Álvarez MD dextrose 50% (D50) syringe 25 Gram, 25 Gram, IV, see admin instructions, Renny Álvarez MD glucagon HCL 1 mg/mL injection 1 mg, 1 mg, IM, see admin instructions, Renny Álvarez MD insulin lispro (HumaLOG,ADMELOG) injection 0-6 Units, 0-6 Units, subCUT, TID WITH meals, Renny Álvarez MD, 3 Units at 03/27/25 1129 insulin lispro (HumaLOG,ADMELOG) injection 0-3 Units, 0-3 Units, subCUT, daily BEDTIME, Renny Álvarez MD insulin lispro (HumaLOG,ADMELOG) injection 0-3 Units, 0-3 Units, subCUT, daily at 0200, Renny Álvarez MD diphenhydrAMINE (BENADRYL) tablet 25 mg, 25 mg, Oral, every 8 hours PRN, Renny Álvarez MD, 25 mg at 03/25/25 1544 Primary discharge diagnosis: Pancytopenia (CMS/HCC) Other active medical issues also addressed during this admission: Active Hospital Problems Diagnosis Hypophosphatemia Pancytopenia (CMS/HCC) Type 2 diabetes mellitus, without long-term current use of insulin (CMS/HCC) Benign hypertension Resolved Hospital Problems No resolved problems to display. ASSESSMENT AND PLAN: Principal Problem: Pancytopenia (CMS/HCC) Active Problems: Type 2 diabetes mellitus, without long-term current use of insulin (CMS/HCC) Benign hypertension Hypophosphatemia Pancytopenia # Leukopenia-WBC 1.7 # Anemia-hemoglobin 8.4 # Thrombocytopenia-platelets of 13K-->11k Unsure etiology-renal possible infection, malignancy or medication effects. No bleeding or bruising noted. History of recurrent tick bites. Hematology on board Workup ongoing-s/p bone marrow biopsy on 03/25--pending result Labs so far-blood cultures-NGTD, normal B12 and folate, normal iron levels, normal TSH, hepatitis Cantibody positive, HIV negative, mildly elevated CRP and ESR, LDH-146, haptoglobin-47, reticulocytes-1.8 Order labs pending-peripheral smear, hepatitis C RNA pending, INDER pending, free light chain ratio pending, tickborne panel pending. Started on doxycycline 100 mg twice daily for tickborne Continue to monitor cell counts daily Transfuse to keep hemoglobin above 7 Transfuse platelets if <10K or actively bleeding. Consider using irradiated, leukocyte reduced, CMV negative blood products. Bleeding precautions. Hypophosphatemia Replacing as appropriate Optimize electrolytes. Type 2 diabetes mellitus Hold oral hypoglycemic agents Continue current sliding scale Continue to monitor blood sugar Hypoglycemic protocol in place. Lab Results Component Value Date/Time HGBA1C 5.2 03/25/2025 04:09 AM Recent Labs 03/26/25 1128 03/26/25 1711 03/26/25 2115 03/27/25 0736 GLUCPOC 234* 241* 231* 199* DVT prevention: SCDs for now-high risk for bleeding Outpatient follow up: PCP, hematology Anticipated Disposition Location: Home with family Timeframe: 2 to 3 days Criteria: Stability, completion of workup Education/DME/Equipment Needs: Patient's understanding of illness: Good Primary family contact: Spouse Code status: Default Full Code - Needs Discussion Medical complexity-moderate Astrid Lion MD 03/27/2025, 12:38 PM * Astrid Lion MD - 03/26/2025 1:24 PM CDT Images from the original note were not included. Your life is our life's work [facility] Hospitalist/Hospital Medicine Progress Note LOS: 2 days Room/Bed: 7116/01 Patient name: Faina Barros Date of : 1950 HOSPITAL COURSE SUMMARY: Faina Barros is a 74 y.o. male with history sniffing and for hypertension, type 2 diabetes who wasadmitted for further management of abnormal labs. Patient reports has been having some generalized weakness, shortness of breath and gait instabilityover the last 2 months. He was seen by his primary care doctor where he was noted to have pancytopenia, and was sent to the ER for further evaluation. Presented to the ER at [facility] and eventually was sent here to [facility] for further evaluation of pancytopenia and hematology evaluation. Patient reported no bleeding, bruising. No family history of known malignancy or leukemia. No rash.[place], states it was worse this season and has removed multiple ticks from his body. On admission here patient hemodynamically stable. Labs with pancytopenia- leukopenia with WBC of 1.7, anemia with hemoglobin of 8.8, thrombocytopenia with platelets of 60, normal LFTs, normal B12 and folate, iron-50, normal TSH, hepatitis panel-hep C antibody reactive. RNA pending. Mildly elevated CRP, negative PSA. Patient was seen by hematology and being worked up for etiology. Bone marrow biopsy planned. 03/25: Patient doing well, reports no complaint, states he feels very fine and has no complaints currently. He is ambulating without difficulty. Remains hemodynamically stable. Afebrile. No bleeding noted, no bruising. Patient scheduled for bone marrow biopsy today, hematology following. Will start patient on doxycycline given history of recurrent tick bites. Continue neutropenic precautions. 03/26: No new complaints. No significant change in cell counts. Patient had bone marrow biopsy done yesterday, well-tolerated. Continue neutropenic precautions. Continue doxycycline. Consultants: None SUBJECTIVE: Patient reports no complaints. States he feels fine ROS: 10 point review of system negative except for above. OBJECTIVE: Temp (24hrs), Av.5 ??F (36.9 ??C), Min:97.9 ??F (36.6 ??C), Max:99.1 ??F (37.3 ??C) BP 116/65 Pulse (!) 101 Temp 98.5 ??F (36.9 ??C) Resp 15 Ht 5' 8 (1.727 m) Wt 79 kg (174lb 3.2 oz) SpO2 98% BMI 26.49 kg/m?? Intake/Output Summary (Last 24 hours) at 03/26/2025 1324 Last data filed at 03/26/2025 1039 Gross per 24 hour Intake 842.15 ml Output -- Net 842.15 ml Last documented weight: Weight: 79 kg (174 lb 3.2 oz) (03/26/25 0424) EXAM: General: alert, in no distress Neurologic: Grossly normal HEENT: atraumatic, Normocephalic, without obvious abnormality Lungs: clear to auscultation bilaterally, normal respiratory effort Heart: normal rate, regular rhythm, normal S1, S2, no murmurs, rubs, clicks or gallops Abdomen: Soft, non-tender. Bowel sounds normal. No masses, no organomegaly. Extremities: extremities normal, atraumatic, no cyanosis or edema, intact distal pulses, moves all extremities equally, no edema, redness or tenderness in the calves or thighs, normal strength, normal tone Skin: negative LABORATORY: Recent Labs 03/24/25115503/25/25 04003/26/25 042 WBC 1.7* 2.2* 2.5* HGB 8.8* 8.4* 8.4* HCT 26.5* 25.6* 25.6* PLT 16* 13* 13* Recent Labs 03/24/25115503/25/25 04003/26/25 042 NA 135* 138 136 K 3.5 4.0 4.2 CL 103 106 105 CO2 22 24 22 CA 8.2* 8.0* 8.1* BUN 14 14 20 CREAT 0.82 0.83 0.90 GLUCOSE 227* 177* 171* Recent Labs 03/24/25115503/25/25 0409 03/26/25 042 TOTALPROTEIN 6.2* 5.8* 6.1* ALBUMIN 3.4* 3.2* 3.2* BILITOTAL 1.0 1.1* 1.0 ALKPHOS 127 146* 187* AST 7* 10 19 ALT 8 12 26 Recent Labs 03/25/25 040 INR 1.2 PT 16.0* Diagnostic testing reviewed by me: Labs and imaging reviewed by me-noted below No results found for this or any previous visit. Medications were reviewed by me. Current Facility-Administered Medications: polyethylene glycol (MIRALAX) packet 17 Gram, 17 Gram, Oral, daily, Astrid Lion MD, 17 Gram at 03/26/25 1028 doxycycline hyclate (VIBRAMYCIN) 100 mg in sodium chloride 0.9% 100 mL IVPB (MBP), 100 mg, IV, every 12 hours (2 times daily), Astrid Lion MD, Stopped at 03/26/25 1011 cetirizine (ZyrTEC) tablet 10 mg, 10 mg, Oral, daily, Astrid Lion MD, 10 mg at 03/26/25 0908 DULoxetine (CYMBALTA) capsule 60 mg, 60 mg, Oral, daily, Astrid Lion MD, 60 mg at 03/26/25 0908 sodium chloride flush injection 10 mL, 10 mL, IV, every 12 hours (2 times daily), Renny Álvarez MD, 10 mL at 03/26/25 0910 sodium chloride flush injection 10 mL, 10 mL, IV, see admin instructions, Renny Álvarez MD sodium chloride 0.9 % flush bag 25 mL, 25 mL, IV, see admin instructions, Renny Álvarez MD dextrose 5 % in water 250 mL flush bag 25 mL, 25 mL, IV, see admin instructions, Renny Álvarez MD naloxone (NARCAN) 0.4 mg/mL injection 0.1-0.4 mg, 0.1-0.4 mg, IV, see admin instructions, Renny Álvarez MD acetaminophen (TYLENOL) tablet 650 mg, 650 mg, Oral, every 6 hours PRN, Renny Álvarez MD dextrose 5 % - sodium chloride 0.9 % infusion, , IV, see admin instructions, Renny Álvarez MD dextrose 50% (D50) syringe 12.5 Gram, 12.5 Gram, IV, see admin instructions, Renny Álvarez MD dextrose 50% (D50) syringe 25 Gram, 25 Gram, IV, see admin instructions, Renny Álvarez MD glucagon HCL 1 mg/mL injection 1 mg, 1 mg, IM, see admin instructions, Renny Álvarez MD insulin lispro (HumaLOG,ADMELOG) injection 0-6 Units, 0-6 Units, subCUT, TID WITH meals, Renny Álvarez MD, 2 Units at 03/26/25 1150 insulin lispro (HumaLOG,ADMELOG) injection 0-3 Units, 0-3 Units, subCUT, daily BEDTIME, Renny Álvarez MD insulin lispro (HumaLOG,ADMELOG) injection 0-3 Units, 0-3 Units, subCUT, daily at 0200, Renny Álvarez MD diphenhydrAMINE (BENADRYL) tablet 25 mg, 25 mg, Oral, every 8 hours PRN, Renny Álvarez MD, 25 mg at 03/25/25 1544 Primary discharge diagnosis: Pancytopenia (CMS/HCC) Other active medical issues also addressed during this admission: Active Hospital Problems Diagnosis Hypophosphatemia Pancytopenia (CMS/HCC) Type 2 diabetes mellitus, without long-term current use of insulin (CMS/HCC) Benign hypertension Resolved Hospital Problems No resolved problems to display. ASSESSMENT AND PLAN: Principal Problem: Pancytopenia (CMS/HCC) Active Problems: Type 2 diabetes mellitus, without long-term current use of insulin (CMS/HCC) Benign hypertension Hypophosphatemia Pancytopenia # Leukopenia-WBC 1.7 # Anemia-hemoglobin 8.4 # Thrombocytopenia-platelets of 13K Unsure etiology-renal possible infection, malignancy or medication effects. No bleeding or bruising noted. History of recurrent tick bites. Hematology on board Workup ongoing-s/p bone marrow biopsy on 03/25 Labs so far-blood cultures-NGTD, normal B12 and folate, normal iron levels, normal TSH, hepatitis Cantibody positive, HIV negative, mildly elevated CRP and ESR, LDH-146, haptoglobin-47, reticulocytes-1.8 Order labs pending-peripheral smear, hepatitis C RNA pending, INDER pending, free light chain ratio pending, tickborne panel pending. Started on doxycycline 100 mg twice daily for tickborne Continue to monitor cell counts daily Transfuse to keep hemoglobin above 7 Transfuse platelets if <10K or actively bleeding. Consider using irradiated, leukocyte reduced, CMV negative blood products. Bleeding precautions. Hypophosphatemia Replacing as appropriate Optimize electrolytes. Type 2 diabetes mellitus Hold oral hypoglycemic agents Continue current sliding scale Continue to monitor blood sugar Hypoglycemic protocol in place. Lab Results Component Value Date/Time HGBA1C 5.2 03/25/2025 04:09 AM Recent Labs 03/25/25 2033 03/26/25 0201 03/26/25 0705 03/26/25 1128 GLUCPOC 203* 182* 164* 234* DVT prevention: SCDs for now-high risk for bleeding Outpatient follow up: PCP, hematology Anticipated Disposition Location: Home with family Timeframe: 2 to 3 days Criteria: Stability, completion of workup Education/DME/Equipment Needs: Patient's understanding of illness: Good Primary family contact: Spouse Code status: Default Full Code - Needs Discussion Medical complexity-high Astrid Lion MD 03/26/2025, 1:24 PM * Astrid Lion MD - 03/25/2025 3:27 PM CDT Images from the original note were not included. Your life is our life's work [facility] Hospitalist/[facility] Medicine Progress Note LOS: 1 day Room/Bed: 7116/01 Patient name: Faina Barros Date of : 1950 HOSPITAL COURSE SUMMARY: Faina Barros is a 74 y.o. male with history sniffing and for hypertension, type 2 diabetes who wasadmitted for further management of abnormal labs. Patient reports has been having some generalized weakness, shortness of breath and gait instabilityover the last 2 months. He was seen by his primary care doctor where he was noted to have pancytopenia, and was sent to the ER for further evaluation. Presented to the ER at [facility] and eventually was sent here to [facility] for further evaluation of pancytopenia and hematology evaluation. Patient reported no bleeding, bruising. No family history of known malignancy or leukemia. No rash.[place], states it was worse this season and has removed multiple ticks from his body. On admission here patient hemodynamically stable. Labs with pancytopenia- leukopenia with WBC of 1.7, anemia with hemoglobin of 8.8, thrombocytopenia with platelets of 60, normal LFTs, normal B12 and folate, iron-50, normal TSH, hepatitis panel-hep C antibody reactive. RNA pending. Mildly elevated CRP, negative PSA. Patient was seen by hematology and being worked up for etiology. Bone marrow biopsy planned. 03/25: Patient doing well, reports no complaint, states he feels very fine and has no complaints currently. He is ambulating without difficulty. Remains hemodynamically stable. Afebrile. No bleeding noted, no bruising. Patient scheduled for bone marrow biopsy today, hematology following. Will start patient on doxycycline given history of recurrent tick bites. Continue neutropenic precautions. Consultants: None SUBJECTIVE: Patient reports no complaints. States he feels fine ROS: 10 point review of system negative except for above. OBJECTIVE: Temp (24hrs), Av.1 ??F (36.7 ??C), Min:97.3 ??F (36.3 ??C), Max:99.5 ??F (37.5 ??C) BP 124/71 (BP Location: Right arm, Patient Position (BP): Sitting) Pulse 88 Temp 97.9 ??F (36.6??C) (Oral) Resp 18 Ht 5' 8 (1.727 m) Wt 80.3 kg (177 lb) SpO2 94% BMI 26.91 kg/m?? Intake/Output Summary (Last 24 hours) at 03/25/2025 1527 Last data filed at 03/25/2025 1151 Gross per 24 hour Intake 50 ml Output -- Net 50 ml Last documented weight: Weight: 80.3 kg (177 lb) (03/24/25 1129) EXAM: General: alert, in no distress Neurologic: Grossly normal HEENT: atraumatic, Normocephalic, without obvious abnormality Lungs: clear to auscultation bilaterally, normal respiratory effort Heart: normal rate, regular rhythm, normal S1, S2, no murmurs, rubs, clicks or gallops Abdomen: Soft, non-tender. Bowel sounds normal. No masses, no organomegaly. Extremities: extremities normal, atraumatic, no cyanosis or edema, intact distal pulses, moves all extremities equally, no edema, redness or tenderness in the calves or thighs, normal strength, normal tone Skin: negative LABORATORY: Recent Labs 03/24/25115503/25/25 0409 WBC 1.7* 2.2* HGB 8.8* 8.4* HCT 26.5* 25.6* PLT 16* 13* Recent Labs 03/24/25 1156 03/25/25 0409 NA 135* 138 K 3.5 4.0 CL 103 106 CO2 22 24 CA 8.2* 8.0* BUN 14 14 CREAT 0.82 0.83 GLUCOSE 227* 177* Recent Labs 03/24/25 1156 03/25/25 0409 TOTALPROTEIN 6.2* 5.8* ALBUMIN 3.4* 3.2* BILITOTAL 1.0 1.1* ALKPHOS 127 146* AST 7* 10 ALT 8 12 Recent Labs 03/25/25 0409 INR 1.2 PT 16.0* Diagnostic testing reviewed by me: Labs and imaging reviewed by me-noted below No results found for this or any previous visit. Medications were reviewed by me. Current Facility-Administered Medications: doxycycline hyclate (VIBRAMYCIN) 100 mg in sodium chloride 0.9% 100 mL IVPB (MBP), 100 mg, IV, every 12 hours (2 times daily), Astrid Lion MD, Stopped at 03/25/25 0955 cetirizine (ZyrTEC) tablet 10 mg, 10 mg, Oral, daily, Astrid Lion MD, 10 mg at 03/25/25 1003 [COMPLETED] dextrose 5% - sodium chloride 0.45% infusion, , IV, intra-proc ONE time, Daniel Cummins MD, Stopped at 03/25/25 1151 [COMPLETED] midazolam (VERSED) injection 1.5 mg, 1.5 mg, IV, ONE time only, Daniel Cummins MD,1.5 mg at 03/25/25 1158 sodium chloride flush injection 10 mL, 10 mL, IV, every 12 hours (2 times daily), Renny Álvarez MD, 10 mL at 03/25/25 0852 sodium chloride flush injection 10 mL, 10 mL, IV, see admin instructions, Renny Álvarez MD sodium chloride 0.9 % flush bag 25 mL, 25 mL, IV, see admin instructions, Renny Álvarez MD dextrose 5 % in water 250 mL flush bag 25 mL, 25 mL, IV, see admin instructions, Renny Álvarez MD naloxone (NARCAN) 0.4 mg/mL injection 0.1-0.4 mg, 0.1-0.4 mg, IV, see admin instructions, Renny Álvarez MD acetaminophen (TYLENOL) tablet 650 mg, 650 mg, Oral, every 6 hours PRN, Renny Álvarez MD dextrose 5 % - sodium chloride 0.9 % infusion, , IV, see admin instructions, Renny Álvarez MD dextrose 50% (D50) syringe 12.5 Gram, 12.5 Gram, IV, see admin instructions, Renny Álvarez MD dextrose 50% (D50) syringe 25 Gram, 25 Gram, IV, see admin instructions, Renny Álvarez MD glucagon HCL 1 mg/mL injection 1 mg, 1 mg, IM, see admin instructions, Renny Álvarez MD insulin lispro (HumaLOG,ADMELOG) injection 0-6 Units, 0-6 Units, subCUT, TID WITH meals, Renny Álvarez MD, 2 Units at 03/24/25 1734 insulin lispro (HumaLOG,ADMELOG) injection 0-3 Units, 0-3 Units, subCUT, daily BEDTIME, Renny Álvarez MD insulin lispro (HumaLOG,ADMELOG) injection 0-3 Units, 0-3 Units, subCUT, daily at 0200, Renny Álvarez MD diphenhydrAMINE (BENADRYL) tablet 25 mg, 25 mg, Oral, every 8 hours PRN, Renny Álvarez MD [COMPLETED] sodium PHOSPHATE 15 mmol in sodium chloride 0.9 % 105 mL IVPB, 15 mmol, IV, ONE time only, Renny Álvarez MD, Stopped at 03/24/252116 [COMPLETED] polyethylene glycol (MIRALAX) packet 17 Gram, 17 Gram, Oral, ONE time only, Sita Ledbetter FNP, 17 Gram at 03/24/25 2130 Primary discharge diagnosis: Pancytopenia (CMS/HCC) Other active medical issues also addressed during this admission: Active Hospital Problems Diagnosis Pancytopenia (CMS/HCC) Type 2 diabetes mellitus, without long-term current use of insulin (CMS/HCC) Benign hypertension Resolved Hospital Problems No resolved problems to display. ASSESSMENT AND PLAN: Principal Problem: Pancytopenia (CMS/HCC) Active Problems: Type 2 diabetes mellitus, without long-term current use of insulin (CMS/HCC) Benign hypertension Pancytopenia # Leukopenia-WBC 1.7 # Anemia-hemoglobin 8.4 # Thrombocytopenia-platelets of 13K Unsure etiology-renal possible infection, malignancy or medication effects. No bleeding or bruising noted. History of recurrent tick bites. Hematology on board Workup ongoing-s/p bone marrow biopsy on 03/25 Labs so far-blood cultures-NGTD, normal B12 and folate, normal iron levels, normal TSH, hepatitis Cantibody positive, HIV negative, mildly elevated CRP and ESR, LDH-146, haptoglobin-47, reticulocytes-1.8 Order labs pending-peripheral smear, hepatitis C RNA pending, INDER pending, free light chain ratio pending, tickborne panel pending. Started on doxycycline 100 mg twice daily for tickborne Continue to monitor cell counts daily Transfuse to keep hemoglobin above 7 Transfuse platelets if <10K or actively bleeding. Consider using irradiated, leukocyte reduced, CMV negative blood products. Bleeding precautions. Hypophosphatemia Replacing as appropriate Optimize electrolytes. Type 2 diabetes mellitus Hold oral hypoglycemic agents Continue current sliding scale Continue to monitor blood sugar Hypoglycemic protocol in place. Recent Labs 03/24/25 1652 03/24/25 2034 03/25/25 0123 03/25/25 0655 GLUCPOC 226* 240* 147* 177* DVT prevention: SCDs for now-high risk for bleeding Outpatient follow up: PCP, hematology Anticipated Disposition Location: Home with family Timeframe: 2 to 3 days Criteria: Stability, completion of workup Education/DME/Equipment Needs: Patient's understanding of illness: Good Primary family contact: Spouse Code status: Default Full Code - Needs Discussion Medical complexity-high Astrid Lion MD 03/25/2025, 3:27 PM * Francia Cronin RN - 03/25/2025 11:53 AM CDT Imaging Nurse Post Procedure Note (left blank = NA) Bone Marrow Biopsy Dressing (x by appropriate choice): tegaderm: Bandaid: Percustay: Gauze/tape: X Dermabond: Steristrips: Sureseal: Other: Dressing location: Cumulative Dose : plane A: 15 Plane B: (units in mGy) Dose Area Product (DAP) : plane A: 201.18 Plane B: (units in mGy-cm2) All interventional radiology devices/equipment that were utilized during this case were removed intact as reported per charge histotechnologist Sedation time: 8 (min) (may also be documented via sedation tracking in sedation navigator) : Report: Called to Imaging RN: Called to nurse on floor/unit: yes Written SBAR on chart: Tolerated well: yes Other: Medications given: 1.5 mg Versed * Mitchell Diaz PA - 03/25/2025 11:51 AM CDT Procedure Note: The patient was identified using two unique identifiers. After informed consent eryn bedside timeout procedure, a bone marrow aspirate and biopsy were obtained from the right posterior iliac crest using aseptic technique, 2% Lidocaine and a power device. A portion of the aspirate was quickly made into smears with the remainder retained for the clot. A second aspirate was obtainedand placed into an EDTA tube for molecular studies, and a third aspirate was obtained and placed t[place]on heparinized syringe for flow and/or cytogenetic studies, if indicated. A biopsy was obtained. There was minimal blood loss. The patient tolerated the procedure well. Medication: Versed 1.5 mg Cosigned by Daniel Cummins MD at 03/25/2025 12:21 PM CDT * Jennifer Fonseca RN - 03/25/2025 10:50 AM CDT Radiology Nursing Assessment (WDL = within defined limits) Neuro WDL (Alert, oriented x 4) Cardiac - WDL (regular rhythm, no chest pain) Respiratory - WDL (regular rate, depth and pattern, breath sounds clear and equal bilaterally, no shortness of breath) Peripheral Vascular - WDL (capillary refill less than or equal to 3 seconds, pulses palpable to allextremities, extremities warm, no numbness or tingling) Skin - pale, warm, dry Gastorintestinal - WDL (no abnormalities in abd appearance, bowel sounds present in 4 quadrants) * Truman Rico MD - 03/25/2025 9:28 AM CDT [place] HEMATOLOGY CONSULTATION NOTE Faina Barros is a 74 y.o. male 1950 CSN:[id number] Referring provider Dr Álvarez Reason for referral pancytopenia History of Present illness: The patient initially presented to an [facility] ED following direction by his primary care provider.The patient had had outpatient labs drawn which revealed new onset pancytopenia. In the ED the patient had no complaints, no bleeding. In the ED, the patient was found with pancytopenia (WBC 2.01 ANC0.77, hgb 7.80, plts 21). CXR done in the ED revealed interstitial opacities in the left lower lobewhich could be chronic rather than acute; atherosclerosis and hyperinflation. Today: Patient resting in the bed. was present in the room. Patient was bunch of medication-Medication were stopped because of the pancytopenia. He was asked to come to the hospital for direct admit. Patient denies any history of lupus or any other malignancy in the past. Patient denies any blood clots. Patient has punch of tick bites in the summer months. He denies any fever or rash. Patient denies any smoking or alcohol. Patient denies any bleeding. No black stools. 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 Denies family history of cancer. Hematology history --03/23/2025 WBC 2.01 hgb 7.80 plts 21 ANC 0.77 --03/24/2025 WBC 2.01 ANC 0.77, hgb 7.80, plts 21 PT 14.20 INR 1.03 PTT 37.3 fibrinogen 264 uric acid 5.3 LDH 146 hepatitis B negative HIV negative -03/25/2025 WBC 2.2, hemoglobin 8.4, MCV 92.1, platelet 13, ANC 0.58, calcium 8, glucose 177, albumin3.2, alkaline phosphatase 146, bilirubin 1.1, INR 1.2, fibrinogen 241 normal, PT 16. Faina Barros is a 74 y.o. male with the following history as recorded in [facility]: Patient Active Problem List Diagnosis Date Noted Pancytopenia ([facility]) 03/24/2025 Type 2 diabetes mellitus, without long-term current use of insulin ([facility]) 03/24/2025 Benign hypertension 03/24/2025 No current facility-administered medications on file prior to encounter. Current Outpatient Medications on File Prior to Encounter Medication Sig Dispense Refill glipiZIDE (GLUCOTROL) 5 mg tablet Take 5 mg by mouth 2 times daily with meals. finasteride (PROSCAR) 5 mg tablet Take 5 mg by mouth daily. DULoxetine (CYMBALTA) 60 mg Capsule, Delayed Release(E.C.) Take 60 mg by mouth daily. Allergies: Patient has no known allergies. No past medical history on file. No past surgical history on file. No family history on file. Social History Tobacco Use Smoking status: Never Smokeless tobacco: Not on file Substance Use Topics Alcohol use: Not on file Review of Symptoms: Constitutional: denies fevers, chills, sweats, fatigue Neurological: denies headaches, weakness, visual changes Respiratory: denies cough, dyspnea, nosebleeds Cardiovascular: denies chest pain or discomfort Gastrointestinal: denies abdominal pain, constipation, diarrhea, vomiting Genitourinary: denies dysuria, urinary frequency Hematologic, Oncologic: denies bruising, bleeding, petechiae Lymphatic: denies lymph node swelling, no lumps or bumps Musculoskeletal: denies: myalgia, muscle weakness Skin: denies nail changes or rash PHYSICAL EXAMINATION: Vitals: 03/25/25 0747 BP: 125/65 Pulse: 88 Resp: 18 Temp: 97.5 ??F (36.4 ??C) SpO2: 96% PHYSICAL EXAMINATION: General appearance: Alert, in no distress ECOG 1. Head: Atraumatic, normocephalic without obvious abnormality. Eyes: Conjunctivae/corneas clear. PERRL, EOM's intact. Nose: Nares normal. Septum midline. Mucosa normal, no drainage, or sinus tenderness. Lungs: Clear to auscultation bilaterally, normal respiratory effort. Heart: Normal rate, regular rhythm, normal S1-S2, Abdomen: Soft, non-tender. Bowel sounds normal, no masses, no organomegaly. Extremities: No extremity edema, Skin: Skin color, texture, turgor normal, no rashes, or lesions. LABORATORY/RADIOLOGY DATA: Lab Results Component Value Date/Time WBC 2.2 (L) 03/25/2025 04:09 AM HGB 8.4 (L) 03/25/2025 04:09 AM HCT 25.6 (L) 03/25/2025 04:09 AM PLT 13 (LL) 03/25/2025 04:09 AM MCV 92.1 03/25/2025 04:09 AM Lab Results Component Value Date/Time NA 138 03/25/2025 04:09 AM K 4.0 03/25/2025 04:09 AM CL 106 03/25/2025 04:09 AM CO2 24 03/25/2025 04:09 AM CA 8.0 (L) 03/25/2025 04:09 AM BUN 14 03/25/2025 04:09 AM CREAT 0.83 03/25/2025 04:09 AM GLUCOSE 177 (H) 03/25/2025 04:09 AM TOTALPROTEIN 5.8 (L) 03/25/2025 04:09 AM ALBUMIN 3.2 (L) 03/25/2025 04:09 AM BILITOTAL 1.1 (H) 03/25/2025 04:09 AM ALKPHOS 146 (H) 03/25/2025 04:09 AM AST 10 03/25/2025 04:09 AM ALT 12 03/25/2025 04:09 AM ANIONGAP 8 (L) 03/25/2025 04:09 AM ASSESSMENT/PLAN Principal Problem: Pancytopenia (CMS/HCC) Active Problems: Type 2 diabetes mellitus, without long-term current use of insulin (CMS/HCC) Benign hypertension Pancytopenia -on admission: WBC 2.01 ANC 0.77, hgb 7.80, plts 21 -WBC 2.2, ANC 0.58 -monitor daily -neutropenic precautions -plan to ludwig culture for fever > 100.4 -hgb 8.4, iron panel suggestive of anemia of chronic disease. With low TIBC and low iron. Loly test negative, haptoglobin normal. B12 folate normal. -monitor daily -plan to transfuse for hgb <7 or active bleeding -plts 13 -monitor daily -plan to transfuse for plts < 10 or active bleeding -plan to hold AC for plts <50 -rule out underproduction: -iron 50 TIBC 116 -ferritin 350 -vitamin B12 617 -folate 11.4 -hepatitis panel pending -HIV negative -TSH 2.09 -rule out destruction: -LDH 146 -reticulocytes 1.8 -loly negative -haptoglobin 47 -tBili 1 -CRP 12.2 -ESR 22 -INDER pending -PT 14.2 INR 1.03 -PTT 37.3 -fibrinogen 264 -peripheral smear-pending -rule out nutritional deficit: -vitamin B12 617 -folate 11.4 -zinc pending -copper pending -rule out malignancy: -PSA 0.6 -SPEP-pending -free light chain ratio pending -rheumatoid factor pending -rule out underproduction: -vitamin B12 617 -folate 11.4 -rule out platelet clumping: -peripheral smear-pending -rule out infection as cause for thrombocytopenia -blood cultures pending -tick panel pending -HIV negative -hepatitis panel pending -CMV pending -parvovirus pending -rule out destruction (DIC) -PT pending INR pending -PTT pending -fibrinogen pending Diabetes mellitus: Monitor Hyponatremia, hypocalcemia, hypoalbuminemia, hyperglycemia: Monitor. Discussed with the patient about the differential diagnosis for pancytopenia likely medication, infection, bone marrow disorder. Patient agreed for the bone marrow biopsy. -medical management per primary team and appropriate consultants Hematology daily plan: -monitor counts,plan to ludwig culture for fever > 100.4 if ANC < 1 -monitor counts, plan to transfuse for hgb <7, plts <10 or active bleeding Discharge planning -disposition-TBD per primary team -timeframe-TBD per primary team -criteria-clinical improvement -follow up-TBD pending clinical course Assessment: Pancytopenia Hyponatremia, hyperglycemia, hypocalcemia Hypophosphatemia Anemia of chronic disease Diabetes mellitus BPH Hypertension Plan: Keep hemoglobin more than 7 Keep platelets more than 10, if bleeding keep more than 50 Consider irradiated, leuko-reduced, CMV safe blood products only. Discussed in detail with the patient about the pathology. Answered questions in detail, agreeable with the plan. Complexity high. Discussed with the primary team. Patient had multiple tick bites in the last month so could be because of that. Patient denies any bleeding. Platelet transfusion at this time. To do: -Bone marrow biopsy today - Wait for the peripheral smear - Check CBC daily with differential -Rest medical management per primary team. We appreciate the help of the primary team in taking care of this patient. Feel free to contact us if any questions or concerns. Thank you for consulting us in taking care of this patient. We will follow along from distance over the weekend. This documentation was created by polysom tech software. Effort has been done to assure accuracy of polysom tech. Any obvious errors or omissions should be clarified with the author of the document. * Souleymane Hernandez V (Student) - 03/24/2025 3:39 PM CDT Reason for Visit: Priority Patient List Patient spiritual issues identified summary of patient???s most significant issue(s): Family Patient;Other (Comment) present during encounter. Emma/values: Faina was alone then his family came to the room when I visited him. He is hoping and praying and his result will be okay. He has good family support and medical support. Spiritual interventions Utilized presence and active listening to explore feelings, stressors, perceptions, questions/concerns, and coping patterns of Faina and their family member. 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 Recommendations for Healthcare Team As spiritual needs/distress arise, please contact Spiritual Care Services. We will follow up as needed. Thank you for this referral. [facility] Spiritual Care Team [phone] documented in this encounter H&P Notes * Renny Álvarez MD - 03/24/2025 12:21 PM CDT [facility] Hospitalist-Renny Álvarez MD History and physical- date of admission: 03/24/2025 Patient name: Faina Barros Date of : 1950 CSN number: [id number] PCP: No primary care provider on file. Chief Complaint: No chief complaint on file. History of present illness: Pt seen and examined at the bedside Patient presented as a direct admit for evaluation of pancytopenia. He had initially presented to his primary care for evaluation of 2 months of weakness shortness of breath and inability to walk. Lab work done which revealed pancytopenia. He was sent to the ER at [facility] for evaluation for leukemia. Patient had not reported any overt signs of bleeding. He has not been started on any new medicine although he does mention that he was on a supplement for diabetes until 2 weeks ago. He has not had any fever. He does not have any personal or family history of blood disorder. Pertinent labs from 03/23/2025 show pancytopenia with a WBC count of 2.01?10??/?L, hemoglobin 7.8?g/dL, hematocrit 25.1%, and platelets 21?10??/?L. Differential shows neutrophils 38.2%, lymphocytes 44.3%, monocytes 8.0%, eosinophils 0.1%, and basophils 0.0%. Slide review confirmed 1+ ovalocytes and no blasts or abnormal cells. Liver enzymes were AST 8?U/L and ALT 9?U/L. Inflammatory markers were elevated with CRP 9.2?mg/L. Coagulation studies revealed INR 1.03 and PT 37.3?sec, fibrinogen 264 mg/dL. Additional abnormalities included low phosphorus at 1.8?mg/dL, LDH 146 U/L, and low uric acid at 5.3?mg/dL. HIV and hepatitis panels were non- reactive, Hep C pending. At the time of my evaluation the patient has a BP of 115/62 mm Hg, HR of 104 bpm, RR of 18/min, SpO2 of 99 on RA , and a Temp. of 98.6 F (Oral). Complete blood count is remarkable for WBC of 1.7 K/uL, RBC of 2.90 M/uL, Hgb of 8.8 g/dL, Hct of 26.5 %, PLT of 16 K/uL, ANC of 0.60 K/uL, and Lymph. of 0.90 K/uL. Chemistry is remarkable for Sod. of 135 mEq/L, Calc. of 8.2 mg/dL, Gluc. of 227 mg/dL, Tot. protein of 6.2 g/dL, and Phosph. of 2.0 mg/dL. Liver panel is remarkable for Alb. of 3.4 g/dL, and AST of 7 U/L. Other labs is remarkable for ESR of 22 mm/Hr, and CRP of 12.2 mg/L. Patient received 1 unit of pRBC Past medical history: No past medical history on file. Active chronic medical issues that patient has been followed for as outpatient: Patient Active Problem List Diagnosis Code Pancytopenia ([facility]) D61.818 Type 2 diabetes mellitus, without long-term current use of insulin ([facility]) E11.9 Benign hypertension I10 Past surgical history: No past surgical history on file. Current medications: None Allergies and intolerances: No Known Allergies Social history: Social History Socioeconomic History Marital status: Not on file Spouse name: Not on file Number of children: Not on file Years of education: Not on file Highest education level: Not on file Occupational History Not on file Tobacco Use Smoking status: Never Smokeless tobacco: Not on file Substance and Sexual Activity Alcohol use: Not on file Drug use: Not on file Sexual activity: Not on file Other Topics Concern Not on file Social History Narrative Not on file Social Drivers of Health Food Insecurity: Not on file (03/24/2025) Transportation Needs: No Transportation Needs (03/24/2025) Transportation Needs Patient needs follow up regarding:: 1 Feeling Safe: Not At Risk (03/24/2025) Feeling Safe Patient has indicated abuse: : No Housing Stability: Not on file Family History: No family history on file. Review of Systems - see HPI. Physical Exam: BP 115/62 (BP Location: Left arm, Patient Position (BP): Supine) Pulse (!) 104 Temp 98.6 ??F (37 ??C) (Oral) Resp 18 Ht 5' 8 (1.727 m) Wt 80.3 kg (177 lb) SpO2 99% BMI 26.91 kg/m?? Last documented weight: Weight: 80.3 kg (177 lb) (03/24/25 1129) General appearance alert, cooperative, no distress, appears stated age, oriented to time, place andperson, Head Normocephalic, without obvious abnormality, atraumatic Eyes Conjunctivae are pale. PERRL, EOM's intact. Nose Nares normal. Septum midline. Mucosa normal. No drainage or sinus tenderness. Throat Lips, mucosa, and tongue normal. Neck supple, symmetrical, trachea midline Back symmetric, no curvature. ROM normal. No CVA tenderness Lungs clear to auscultation bilaterally Chest wall no tenderness, no skin rash or lesions or bruising, no crepitance Heart regular rate and rhythm, S1, S2 normal, no murmur, click, rub or gallop Abdomen soft, non-tender. Bowel sounds normal. No masses, No organomegaly Extremities extremities normal, atraumatic, no cyanosis or edema, warm and well perfused. Muscle tone is normal and equal bilaterally Pulses 2+ and symmetric on dorsal pedal pulses, posterior tibial pulses, radial pulses Skin Skin is pale Neurologic Normal, nonfocal, no focal weakness, sensation intact, reflexes 2+ bilaterally, cranial nerves 2-12 intact Lab Data: Recent Labs 03/24/25 1156 WBC 1.7* HGB 8.8* HCT 26.5* PLT 16* Recent Labs 03/24/25 1156 NA 135* K 3.5 CL 103 CO2 22 CA 8.2* BUN 14 CREAT 0.82 GLUCOSE 227* Recent Labs 03/24/25 1156 TOTALPROTEIN 6.2* ALBUMIN 3.4* BILITOTAL 1.0 ALKPHOS 127 AST 7* ALT 8 No results for input(s): INR , PT in the last 72 hours. Invalid input(s): PTT No results for input(s): BASETROP , 2HRTROP , DELTA , 6HRTROP in the last 72 hours. Problem List Principal Problem: Pancytopenia (CMS/HCC) Active Problems: Type 2 diabetes mellitus, without long-term current use of insulin (CMS/HCC) Benign hypertension Assessment/Plan: Pancytopenia HIV/Hep panel negative except for hep C Trilineage - Hematology consulted - Rct count, vitamin B12/folic acid, peripheral smear Normochromic normocytic anemia Hgb is 8.8 Iron Studies: Fe of 50 ug/dL TIBC of 116 ug/dL % Fe of 43 % Ferritin of 350.4 ng/mL on 03/24/2025. Vitamins: Vit. B12 of 617 pg/mL Folate of 11.4 ng/mL on 03/24/2025. - Monitor Hgb Severe thrombocytopenia Overt sign of bleeding PLT is 16.0 . 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 is 2.0 . - Replace and recheck levels DVT Prophylaxis: compression stockings only Current Diet: DIET NEUTROPENIC - LOW BACTERIA I have a reasonable expectation that this patient requires hospital care that crosses 2 midnights supported by complex medical factors documented in the medical record. This documentation was written in part with the use of [employer] speech to text software. Effort has been done to assure accuracy of polysom tech. Any errors in spelling, syntax, or meaningshould be interpreted in the context of the broader note. Any obvious errors or omissions should beclarified with the author of the document. Renny Álvarez MD 03/24/2025 5:03 PM documented in this encounter Procedure Notes * Krys Turcios - 03/27/2025 8:06 AM CDT VASCULAR ACCESS TEAM Peripheral IV insertion PATIENT NAME: Faina Barros DATE OF : 1950 CSN: [id number] DATE: 03/27/2025 Room: [address] [place] [address] Admit Date: 03/24/2025 Hospital day: LOS: 3 days PERIPHERAL IV INSERTION Ultrasound assessment was performed to assess adequacy of vascular anatomy Adequate vessel was located Insertion site cleansed for 30 seconds with Chlora-prep. Allowed to dry before initial needle stick. A 20 Gauge 2 Inch peripheral IV was successfully placed using ultrasound guidance in the left, lower Arm Secure port adhesive used Yes 1 attempts 20 minutes required to complete procedure Positive blood return noted Neutral pressure cap applied Catheter Flushed with 5ml of Normal Saline Transparent dressing applied with date, time and initials of cowoker inserting. LDA documentation is contained in EMR flowsheet Patient tolerated well. Krys Turcios documented in this encounter Consult Notes * Truman Rico MD - 03/24/2025 2:19 PM CDT [place] HEMATOLOGY CONSULTATION NOTE Faina Barros is a 74 y.o. male 1950 CSN:[id number] Referring provider Dr Álvarez Reason for referral pancytopenia History of Present illness: The patient initially presented to an [facility] ED following direction by his primary care provider.The patient had had outpatient labs drawn which revealed new onset pancytopenia. In the ED the patient had no complaints, no bleeding. In the ED, the patient was found with pancytopenia (WBC 2.01 ANC0.77, hgb 7.80, plts 21). CXR done in the ED revealed interstitial opacities in the left lower lobewhich could be chronic rather than acute; atherosclerosis and hyperinflation. Today: Patient resting in the bed. was present in the room. Patient was bunch of medication-Medication were stopped because of the pancytopenia. He was asked to come to the hospital for direct admit. Patient denies any history of lupus or any other malignancy in the past. Patient denies any blood clots. Patient has punch of tick bites in the summer months. He denies any fever or rash. Patient denies any smoking or alcohol. Patient denies any bleeding. No black stools. Hematology history --03/23/2025 WBC 2.01 hgb 7.80 plts 21 ANC 0.77 --03/24/2025 WBC 2.01 ANC 0.77, hgb 7.80, plts 21 PT 14.20 INR 1.03 PTT 37.3 fibrinogen 264 uric acid 5.3 LDH 146 hepatitis B negative HIV negative Faina Barros is a 74 y.o. male with the following history as recorded in [facility]: Patient Active Problem List Diagnosis Date Noted Pancytopenia (CMS/HCC) 03/24/2025 Type 2 diabetes mellitus, without long-term current use of insulin (CMS/HCC) 03/24/2025 Benign hypertension 03/24/2025 No current facility-administered medications on file prior to encounter. Current Outpatient Medications on File Prior to Encounter Medication Sig Dispense Refill glipiZIDE (GLUCOTROL) 5 mg tablet Take 5 mg by mouth 2 times daily with meals. finasteride (PROSCAR) 5 mg tablet Take 5 mg by mouth daily. DULoxetine (CYMBALTA) 60 mg Capsule, Delayed Release(E.C.) Take 60 mg by mouth daily. Allergies: Patient has no known allergies. No past medical history on file. No past surgical history on file. No family history on file. Social History Tobacco Use Smoking status: Not on file Smokeless tobacco: Not on file Substance Use Topics Alcohol use: Not on file Review of Symptoms: Constitutional: denies fevers, chills, sweats, fatigue Neurological: denies headaches, weakness, visual changes Respiratory: denies cough, dyspnea, nosebleeds Cardiovascular: denies chest pain or discomfort Gastrointestinal: denies abdominal pain, constipation, diarrhea, vomiting Genitourinary: denies dysuria, urinary frequency Hematologic, Oncologic: denies bruising, bleeding, petechiae Lymphatic: denies lymph node swelling, no lumps or bumps Musculoskeletal: denies: myalgia, muscle weakness Skin: denies nail changes or rash PHYSICAL EXAMINATION: Vitals: 03/24/25 1129 BP: 128/78 Pulse: 76 Resp: 16 Temp: 97.8 ??F (36.6 ??C) SpO2: 99% PHYSICAL EXAMINATION: General appearance: Alert, in no distress ECOG 1. Head: Atraumatic, normocephalic without obvious abnormality. Eyes: Conjunctivae/corneas clear. PERRL, EOM's intact. Nose: Nares normal. Septum midline. Mucosa normal, no drainage, or sinus tenderness. Lungs: Clear to auscultation bilaterally, normal respiratory effort. Heart: Normal rate, regular rhythm, normal S1-S2, Abdomen: Soft, non-tender. Bowel sounds normal, no masses, no organomegaly. Extremities: No extremity edema, Skin: Skin color, texture, turgor normal, no rashes, or lesions. LABORATORY/RADIOLOGY DATA: Lab Results Component Value Date/Time WBC 1.7 (L) 03/24/2025 11:56 AM HGB 8.8 (L) 03/24/2025 11:56 AM HCT 26.5 (L) 03/24/2025 11:56 AM PLT 16 (LL) 03/24/2025 11:56 AM MCV 91.4 03/24/2025 11:56 AM Lab Results Component Value Date/Time NA 135 (L) 03/24/2025 11:56 AM K 3.5 03/24/2025 11:56 AM CL 103 03/24/2025 11:56 AM CO2 22 03/24/2025 11:56 AM CA 8.2 (L) 03/24/2025 11:56 AM BUN 14 03/24/2025 11:56 AM CREAT 0.82 03/24/2025 11:56 AM GLUCOSE 227 (H) 03/24/2025 11:56 AM TOTALPROTEIN 6.2 (L) 03/24/2025 11:56 AM ALBUMIN 3.4 (L) 03/24/2025 11:56 AM BILITOTAL 1.0 03/24/2025 11:56 AM ALKPHOS 127 03/24/2025 11:56 AM AST 7 (L) 03/24/2025 11:56 AM ALT 8 03/24/2025 11:56 AM ANIONGAP 10 03/24/2025 11:56 AM ASSESSMENT/PLAN Principal Problem: Pancytopenia (CMS/HCC) Active Problems: Type 2 diabetes mellitus, without long-term current use of insulin (CMS/HCC) Benign hypertension Pancytopenia -on admission: WBC 2.01 ANC 0.77, hgb 7.80, plts 21 -WBC 1.7 ANC 0.6 -monitor daily -neutropenic precautions -plan to ludwig culture for fever > 100.4 -hgb 8.8, iron panel suggestive of anemia of chronic disease. With low TIBC and low iron. Loly test negative, haptoglobin normal. B12 folate normal. -monitor daily -plan to transfuse for hgb <7 or active bleeding -plts 16 -monitor daily -plan to transfuse for plts < 10 or active bleeding -plan to hold AC for plts <50 -rule out underproduction: -iron 50 TIBC 116 -ferritin 350 -vitamin B12 617 -folate 11.4 -hepatitis panel pending -HIV negative -TSH 2.09 -rule out destruction: -LDH 146 -reticulocytes 1.8 -loly negative -haptoglobin 47 -tBili 1 -CRP 12.2 -ESR 22 -INDER pending -PT 14.2 INR 1.03 -PTT 37.3 -fibrinogen 264 -peripheral smear-pending -rule out nutritional deficit: -vitamin B12 617 -folate 11.4 -zinc pending -copper pending -rule out malignancy: -PSA 0.6 -SPEP-pending -free light chain ratio pending -rheumatoid factor pending -rule out underproduction: -vitamin B12 617 -folate 11.4 -rule out platelet clumping: -peripheral smear-pending -rule out infection as cause for thrombocytopenia -blood cultures pending -tick panel pending -HIV negative -hepatitis panel pending -CMV pending -parvovirus pending -rule out destruction (DIC) -PT pending INR pending -PTT pending -fibrinogen pending Diabetes mellitus: Monitor Hyponatremia, hypocalcemia, hypoalbuminemia, hyperglycemia: Monitor. Discussed with the patient about the differential diagnosis for pancytopenia likely medication, infection, bone marrow disorder. Patient agreed for the bone marrow biopsy. -medical management per primary team and appropriate consultants Hematology daily plan: -monitor counts,plan to ludwig culture for fever > 100.4 if ANC < 1 -monitor counts, plan to transfuse for hgb <7, plts <10 or active bleeding Discharge planning -disposition-TBD per primary team -timeframe-TBD per primary team -criteria-clinical improvement -follow up-TBD pending clinical course I have seen, examined and interviewed the patient independently myself and agree with the note mentioned above by nurse practitioner. Vitals: Vitals: 03/24/25 1129 03/24/25 1613 BP: 128/78 115/62 BP Location: Left arm Left arm Patient Position (BP): Supine Supine Pulse: 76 (!) 104 Resp: 16 18 Temp: 97.8 ??F (36.6 ??C) 98.6 ??F (37 ??C) TempSrc: Oral Oral SpO2: 99% 99% Weight: 80.3 kg (177 lb) Height: 5' 8 (1.727 m) Exam: General: Alert, awake, no distress See above Assessment: Pancytopenia Hyponatremia, hyperglycemia, hypocalcemia Hypophosphatemia Anemia of chronic disease Diabetes mellitus BPH Hypertension Plan: Keep hemoglobin more than 7 Keep platelets more than 10, if bleeding keep more than 50 Consider irradiated, leuko-reduced, CMV safe blood products only. Discussed in detail with the patient about the pathology. Answered questions in detail, agreeable with the plan. Complexity high. Discussed with the primary team. Patient had multiple tick bites in the last month so could be because of that. To do: -Bone marrow biopsy tomorrow - INR, PT PTT, fibrinogen - Wait for the peripheral smear - Check CBC daily with differential -Rest medical management per primary team. We appreciate the help of the primary team in taking care of this patient. Feel free to contact us if any questions or concerns. Thank you for consulting us in taking care of this patient. We will follow along. This documentation was created by polysom tech software. Effort has been done to assure accuracy of polysom tech. Any obvious errors or omissions should be clarified with the author of the document. documented in this encounter Miscellaneous Notes * Care Plan - Popeye Be RN - 2025 1:08 PM CDT Shift Summary Platelet transfusions were administered, resulting in an increase in platelet count from 7 K/uL to 23 K/uL. Safety checks and fall risk assessments were completed, with no falls or injuries reported. Patient remained independent in mobility and activities of daily living, with mild muscle weakness noted. Isolation precautions were maintained and no pain or delirium was reported during the shift. Overall, patient remained stable with ongoing monitoring and interventions focused on infection risk and hematologic status. Infection Risk/Actual: Infection prevention, control, or resolution by discharge: Isolation precautions were maintained and no pain or delirium was reported; WBC and neutrophil counts remained low throughout the shift, and platelet transfusions were administered with a rise in platelet count noted a fter transfusion. Safety/Fall: Absence of fall, injury, harm during hospitalization: Safety checks were completed, fall risk was reviewed, and no falls or injuries occurred; patient remained in bed for most of the shift and ambulated independently when up. Identify discharge needs upon admission and through discharge: Plan of care was reviewed with the patient and healthcare team, and individualized goals focused on platelets; no family or caregiver contact occurred this shift. Achieve optimal peripheral neurovascular function by discharge or maintain baseline function: Peripheral neurovascular function remained within defined limits and no impairment in sensory perception was documented. * Care Plan - Andrew Cancino RN - 2025 5:31 AM CDT Shift Summary Sennosides and docusate sodium were administered to address constipation during the shift. Blood glucose levels remained elevated on two checks during the shift. No pain or discomfort was reported and no pain interventions were required. High fall risk interventions and regular safety checks were completed with no falls or injuries documented. Overall, remained stable with no new skin or safety concerns and continued to rest quietly throughout the shift. Verbalizes/displays acceptable comfort level or baseline comfort level: No pain or discomfort was reported throughout the shift and no pain interventions were required, with continued denial of pain at each assessment. Safety/Fall: Absence of fall, injury, harm during hospitalization: High fall risk interventions were completed and safety checks were performed regularly, with no falls or injuries documented during the shift. Maintain skin integrity and/or promote wound healing by discharge: Skin remained within defined limits and an air bed was in use, with interventions to promote mobility and no new skin issues noted during the shift. * Care Plan - Ben Thomas LPN - 04/02/2025 5:47 AM CDT Shift Summary No pain was reported or interventions required, and comfort was maintained at baseline throughout the shift. Remained independent with activity and positioning, and cognitive status was within defined limits for the entire shift. Capillary glucose was elevated during the shift. No changes in sensory perception or psychomotor status were noted during the shift. Overall, remained stable and independent with no acute issues reported during the shift. Verbalizes/displays acceptable comfort level or baseline comfort level: No pain was reported throughout the shift and no interventions for pain were required, with comfort maintained at baseline. * Care Plan - Amarilis Jackson RN - 04/01/2025 5:35 PM CDT Shift Summary Voriconazole was administered and neutropenic isolation precautions were maintained throughout the shift. Blood glucose levels remained elevated on multiple checks, and morning labs showed persistent pancytopenia. No pain or discomfort was reported, and the patient remained independent with mobility and self-care. High fall risk interventions and safety checks were completed, with no falls or injuries documented. Overall, the patient remained engaged in care and spiritual support was provided during the shift. Verbalizes/displays acceptable comfort level or baseline comfort level: No pain or discomfort was reported throughout the shift, and no pain interventions were required. Infection Risk/Actual: Infection prevention, control, or resolution by discharge: Neutropenic isolation precautions were maintained and voriconazole was administered; WBC and neutrophil counts remained low on morning labs. Safety/Fall: Absence of fall, injury, harm during hospitalization: High fall risk interventions were completed and safety checks were performed regularly, with no falls or injuries documented during the shift. Identify discharge needs upon admission and through discharge: Referral was documented and spiritual support was provided; patient remains independent with mobility and self-care. * Care Plan - Starr Mario RN - 04/01/2025 5:37 AM CDT Shift Summary Antiemetic was administered for intermittent nausea, which did not escalate after intervention. Provider was notified for nausea and new orders were received. Sodium chloride was administered and [id number] glucose was elevated. No falls, injuries, or new infection-related symptoms occurred during the shift. Overall, comfort was maintained and safety precautions were upheld. Verbalizes/displays acceptable comfort level or baseline comfort level: No pain or discomfort was reported throughout the shift, and pain ratings remained at zero; intermittent nausea was managed with antiemetic administration and symptoms did not escalate after intervention. Infection Risk/Actual: Infection prevention, control, or resolution by discharge: No new symptoms or documentation related to infection were noted during the shift. Safety/Fall: Absence of fall, injury, harm during hospitalization: Fall risk armband remained in place and safety checks were completed; no falls or injuries occurred. Achieve optimal nutrition and fluid status to meet metabolic needs throughout hospitalization: Nutrition was documented as adequate and weight decreased slightly since last filed data; sodium chloride was administered and glucose was elevated on [id number] testing. Problem: Pain, Potential/Actual Goal: Verbalizes/displays acceptable comfort level or baseline comfort level Description: Outcome: Shift Focus Problem: Infection Risk/Actual Goal: Infection Risk/Actual: Infection prevention, control, or resolution by discharge Description: Outcome: Shift Focus Problem: Safety/Fall Goal: Safety/Fall: Absence of fall, injury, harm during hospitalization Description: Absence of/reduce fall risk during current hospitalization related to: 1. History of falls 2. Mobility deficits 3. Medications 4. Mental status/LOC/awareness 5. Toileting needs 6. Volume/electrolyte status 7. Communication/sensory 8. Behavior Outcome: Shift Focus Problem: Discharge Planning Goal: Identify discharge needs upon admission and through discharge Description: Outcome: Shift Focus Problem: Nutrition/Endocrine Goal: Achieve optimal nutrition and fluid status to meet metabolic needs throughout hospitalization Outcome: Shift Focus * Care Plan - Daysi Sesay RN - 03/31/2025 9:29 AM CDT [place] Discharge Planning Expected Discharge Date 2025 Plan Discharge To: Home with family assist (03/28/251199) Plan Discharge To - Alternate: Home or Self Care (03/28/251199) Family/Caregiver Assist Does the patient have family and/or a caregiver that is willing, able and available to assist if needed?: Yes (03/28/251199) Name and Relation: spouse (03/28/251199) Patient starting inpatient oncology treatment for MDS. Plans to return home when discharged with family and appropriate outpatient follow up. Care management to continue to follow for discharge plan. Referrals Status: Preferred Pharmacy: [id number] - [place] [address] [address] [facility] [address] [facility] - [address] [facility] Patient / Family Communications: Patient/Family Communications: Plan Discharge To Update (03/28/251199) Discharge Plan Agreed Upon: Patient (03/28/251199) Resources Provided Transportation Plan Follow Up Appointments Scheduled Daysi Sesay RN * Care Plan - Cira Hernandez RN - 03/31/2025 6:01 AM CDT Shift Summary Provider was notified due to a critically low platelet count. Blood pressure readings fluctuated but remained within acceptable ranges. Pulse rates were consistently abnormal throughout the shift. Nutrition was adequate, and the patient was eating normally with excellent tolerance. Overall, the patient maintained baseline comfort levels and adequate nutritional intake. Verbalizes/displays acceptable comfort level or baseline comfort level: No pain or discomfort was reported throughout the shift, and the patient remained content and relaxed. Achieve optimal nutrition and fluid status to meet metabolic needs throughout hospitalization: Nutrition was adequate, and the patient was eating normally with excellent tolerance. Achieve optimal gastrointestinal function by discharge or maintain baseline function: Altered bowelfunction was noted, with unformed stool consistency reported. Achieve optimal cardiovascular function by discharge or maintain baseline function: Blood pressure fluctuated but remained within acceptable ranges, while pulse rates were consistently abnormal. * Care Plan - Amarilis Schmidt RN - 03/30/2025 6:18 AM CDT Shift Summary Platelets came back at 9 with ANC of 0.29 at approximately 0600. Orders placed to transfuse 1 unit of platelets, and awaiting products. Hgb 7. Glucose levels were consistently high during the shift. Overall, the patient maintained independence in activity and had no weight- bearing restrictions. Identify discharge needs upon admission and through discharge: Rest was prioritized as an individualized goal, and no weight-bearing restrictions were noted throughout the shift. Pain assessment was challenging, as the patient was unable to communicate pain levels during multiple checks. * Care Plan - Amarilis Schmidt RN - 03/29/2025 6:15 AM CDT Shift Summary Patient appeared to be resting quietly for majority of shift. Glucose levels decreased from 281 mg/dL to 210 mg/dL during the shift. Safety checks were consistently completed, and fall risk was reviewed with no incidents. Overall, the patient remained stable with no significant changes in condition. Infection Risk/Actual: Infection prevention, control, or resolution by discharge: Isolation precautions were maintained throughout the shift, and blood cultures are in progress with preliminary results available. Safety/Fall: Absence of fall, injury, harm during hospitalization: Safety checks were completed, and the fall risk was reviewed and agreed upon with no incidents reported. * Care Plan - Daysi Sesay RN - 03/28/2025 12:00 PM CDT [place] Discharge Planning Expected Discharge Date Mar 28, 2025 Plan Discharge To: Home with family assist (03/24/251342) Plan Discharge To - Alternate: Home Health Services (03/24/251342) Family/Caregiver Assist Does the patient have family and/or a caregiver that is willing, able and available to assist if needed?: Yes (03/24/251342) Name and Relation: spouse Emely (03/24/251342) Met with patient, his discharge plan is to go home with family at time of discharge with necessary follow up. Care management to continue to follow for discharge planning needs. Referrals Status: Preferred Pharmacy: [id number] - [place], [place] - [address] [facility] [address] [facility] [address] Patient / Family Communications: Patient/Family Communications: Plan Discharge To Update (03/24/251342) Discharge Plan Agreed Upon: Patient (03/24/251342) Resources Provided Transportation Plan Follow Up Appointments Scheduled Daysi Sesay RN * Care Plan - Itzel Barreto RN - 03/26/2025 6:25 AM CDT Shift Summary Isolation precautions were maintained throughout the shift. Blood cultures were initiated to assess for potential infection. Glucose levels were elevated, with readings of 203 mg/dL and 182 mg/dL. BIPAP was noted as a new event during the shift. Constipation and altered bowel function were documented, with no significant changes in bowel movement status. Infection Risk/Actual: Infection prevention, control, or resolution by discharge: Isolation precautions were maintained throughout the shift. Blood cultures were in progress to assess for potential infection. Achieve optimal gastrointestinal function by discharge or maintain baseline function: Constipation was noted, and altered bowel function was documented. No significant changes in bowel movement status were reported during the shift. * Care Plan - Amarilis Jackson RN - 03/25/2025 6:08 PM CDT Shift Summary Bone marrow biopsy was performed successfully with all procedural verifications completed. Pain was intermittently reported but resolved quickly, with no pain noted after 11:50 AM. Safety precautions were maintained throughout the shift, including isolation precautions and high fall risk interventions. Fluid intake was consistent, and the patient was able to drink fluids and eat normally. Mobility was slightly limited, but the patient was able to stand and walk straight, maintaining prior levels of function. Verbalizes/displays acceptable comfort level or baseline comfort level: Pain was intermittently reported but resolved quickly, with no pain noted after 11:50 AM. Safety/Fall: Absence of fall, injury, harm during hospitalization: Safety precautions were maintained throughout the shift, including isolation precautions and high fall risk interventions. Achieve optimal nutrition and fluid status to meet metabolic needs throughout hospitalization: Fluid intake was consistent, and the patient was able to drink fluids and eat normally. Achieve optimal musculoskeletal function by discharge or maintain baseline function: Mobility was slightly limited, but the patient was able to stand and walk straight, maintaining prior levels of function. * Care Plan - Daysi Sesay RN - 03/25/2025 10:45 AM CDT [place] Discharge Planning Expected Discharge Date Mar 28, 2025 Plan Discharge To: Home with family assist (03/24/251342) Plan Discharge To - Alternate: Home Health Services (03/24/251342) Family/Caregiver Assist Does the patient have family and/or a caregiver that is willing, able and available to assist if needed?: Yes (03/24/251342) Name and Relation: spouse Emely (03/24/251342) Patient to undergo bone marrow biopsy today. Patient with discharge plan to return home with Emely pending workup and medical stability. Care management to continue to follow for discharge planning. Referrals Status: Preferred Pharmacy: [facility][id number] - [place], [place] - [address] [facility] [address] [facility] - [place], [place] - [address] [facility] Patient / Family Communications: Patient/Family Communications: Plan Discharge To Update (03/24/251342) Discharge Plan Agreed Upon: Patient (03/24/251342) Resources Provided Transportation Plan Follow Up Appointments Scheduled Daysi Sesay RN * Care Plan - Itzel Barreto RN - 03/25/2025 6:12 AM CDT Shift Summary Safety precautions were maintained throughout the shift with no falls or injuries. Pulse decreased from 102 to 96 by the end of the shift. Glucose levels decreased from 240 mg/dL to 147 mg/dL. Polyethylene glycol was administered during the shift. Overall, the patient remained stable with no significant incidents. Safety/Fall: Absence of fall, injury, harm during hospitalization: No falls or injuries occurred during the shift, and safety precautions were maintained with isolation precautions and a low low bed setup. * Care Plan - Daysi Sesay RN - 03/24/2025 1:47 PM CDT Care Management Initial Assessment Initial Discharge Planning Assessment completed. Discussed Care Management's role and Discharge planning. Plan Discharge To: Home with family assist Plan Discharge To - Alternate: Home Health Services Does the patient have family and/or a caregiver that is willing, able and available to assist if needed? Yes - Name/Relation:Emely, spouse Comments: Patient states that he has always been healthy, is independent at home with his , sonand grandson. He lives at [address] [place] [address]. He is retired. Has been feeling weak for about 2 months. Patient Discharge Planning Goal: return home Patient will potentially discharge to a SNF/NH? No Care Management visited with: patient via in person. Prior to admission, patient resides at: own home. Patient resides in a one story home with 5 stairs to enter. Prior to admission, living arrangements: spouse. Prior to admission, patient's functional level:independent; uses N/A for mobility; needs assistancewith iADLs: N/A Community Ambulator: yes Prior to admission, the patient has the following DME? N/A Services in the home/community: none Serviced by NA Receives hemodialysis? No Emergency contact(s): Extended Emergency Contact Information Primary Emergency Contact: Emely Barros Mobile Relation: Spouse Prescription coverage: yes Preferred Pharmacy verified: [facility][id number] - [facility] [address] [facility] [address] [facility] [address] Insurance coverage verified: Payor: / patient states that he has Medicare and BCBS, and I have scanned his insurance card to patient registration. Secondary Insurance:N/A Medicaid Status: NA Has VA Benefits: no Employment Status: retired PCP verified as: No primary care provider on file. Dr. Janet Fatima - [place] per patient Patient has not had a stay at an acute care hospital in the last 30 days. Recent Falls?: Plan for transportation at discharge: spouse to transport Care Management contact information provided. Care Management will continue to follow and assist asneeded. documented in this encounter Plan of Treatment Not on file documented as of this encounter Procedures Procedure Name Priority Date/Time Associated Diagnosis Comments TELEMETRY REPORT 04/05/2025 3:24 AM CDT POC GLUCOSE Routine 2025 10:49 AM CDT DIFFERENTIAL, MANUAL Stat 2025 10:39 AM CDT CBC WITH DIFFERENTIAL Pending Discharge 2025 10:39 AM CDT TRANSFUSE PLATELETS Routine 2025 8 :40 AM CDT POC GLUCOSE Routine 2025 7:09 AM CDT PREPARE PLATELETS Routine 2025 7:0 4 AM CDT CBC WITH DIFFERENTIAL Routine 2025 5:23 AM CDT MDS (myelodysplastic syndrome), high grade (CMS/HCC) COMPREHENSIVE METABOLIC PANEL Routine 2025 5:23 AM CDT MDS (myelodysplastic syndrome), high grade (CMS/HCC) POC GLUCOSE Routine 2025 2:23 AM CDT POC GLUCOSE Routine 04/02/2025 9:37 PM CDT DIFFERENTIAL, MANUAL Stat 04/02/2025 4:52 PM CDT CBC WITH DIFFERENTIAL Stat 04/02/2025 4:52 PM CDT POC GLUCOSE Routine 04/02/2025 4:33 PM CDT POC GLUCOSE Routine 04/02/2025 10:50 AM CDT TRANSFUSE PLATELETS Routine 04/02/2025 10:20 AM CDT PREPARE PLATELETS Routine 04/02/2025 7:1 3 AM CDT POC GLUCOSE Routine 04/02/2025 7:03 AM CDT DIFFERENTIAL, MANUAL Routine 04/02/2025 5:58 AM CDT MDS (myelodysplastic syndrome), high grade (CMS/HCC) CBC WITH DIFFERENTIAL Routine 04/02/2025 5:58 AM CDT MDS (myelodysplastic syndrome), high grade (CMS/HCC) COMPREHENSIVE METABOLIC PANEL Routine 04/02/2025 5:58 AM CDT MDS (myelodysplastic syndrome), high grade (CMS/HCC) POC GLUCOSE Routine 04/01/2025 10:08 PM CDT POC GLUCOSE Routine 04/01/2025 5:00 PM CDT POC GLUCOSE Routine 04/01/2025 10:51 AM CDT POC GLUCOSE Routine 04/01/2025 7:04 AM CDT DIFFERENTIAL, MANUAL Routine 04/01/2025 5:39 AM CDT MDS (myelodysplastic syndrome), high grade (CMS/HCC) CBC WITH DIFFERENTIAL Routine 04/01/2025 5:39 AM CDT MDS (myelodysplastic syndrome), high grade (CMS/HCC) COMPREHENSIVE METABOLIC PANEL Routine 04/01/2025 5:39 AM CDT MDS (myelodysplastic syndrome), high grade (CMS/HCC) POC GLUCOSE Routine 04/01/2025 1:10 AM CDT POC GLUCOSE Routine 03/31/2025 8:40 PM CDT POC GLUCOSE Routine 03/31/2025 4:56 PM CDT CBC WITH DIFFERENTIAL Routine 03/31/2025 12:57 PM CDT MDS (myelodysplastic syndrome), high grade (CMS/HCC) URIC ACID Stat 03/31/2025 12:57 PM CDT MDS (myelodysplastic syndrome), high grade (CMS/HCC) COMPREHENSIVE METABOLIC PANEL Routine 03/31/2025 12:57 PM CDT MDS (myelodysplastic syndrome), high grade (CMS/HCC) POC GLUCOSE Routine 03/31/2025 11:02 AM CDT EKG 12-LEAD Routine 03/31/2025 9:04 AM CDT POC GLUCOSE Routine 03/31/2025 7:07 AM CDT DIFFERENTIAL, MANUAL Routine 03/31/2025 4:28 AM CDT CBC WITH DIFFERENTIAL Routine 03/31/2025 4:28 AM CDT COMPREHENSIVE METABOLIC PANEL Routine 03/31/2025 4:28 AM CDT POC GLUCOSE Routine 03/31/2025 2:05 AM CDT POC GLUCOSE Routine 03/30/2025 8:23 PM CDT POC GLUCOSE Routine 03/30/2025 4:59 PM CDT URIC ACID Routine 03/30/2025 4:14 PM CDT POC GLUCOSE Routine 03/30/2025 11:04 AM CDT TRANSFUSE PACKED RED BLOOD CELLS Routine 03/30/2025 10:08 AM CDT PREPARE RED BLOOD CELLS Routine 03/30/2025 7:53 AM CDT TRANSFUSE PLATELETS Routine 03/30/2025 7 :01 AM CDT POC GLUCOSE Routine 03/30/2025 6:58 AM CDT PREPARE PLATELETS Routine 03/30/2025 6:05 AM CDT DIFFERENTIAL, MANUAL Routine 03/30/2025 4:13 AM CDT CBC WITH DIFFERENTIAL Routine 03/30/2025 4:13 AM CDT COMPREHENSIVE METABOLIC PANEL Routine 03/30/2025 4:13 AM CDT POC GLUCOSE Routine 03/30/2025 2:35 AM CDT POC GLUCOSE Routine 03/29/2025 9:39 PM CDT POC GLUCOSE Routine 03/29/2025 4:44 PM CDT POC GLUCOSE Routine 03/29/2025 11:01 AM CDT TYPE AND SCREEN Routine 03/29/2025 9:05 AM CDT TRANSFUSE PLATELETS Routine 03/29/2025 7 :35 AM CDT POC GLUCOSE Routine 03/29/2025 7:17 AM CDT PREPARE PLATELETS Routine 03/29/2025 7:0 5 AM CDT CBC WITH DIFFERENTIAL Routine 03/29/2025 5:51 AM CDT COMPREHENSIVE METABOLIC PANEL Routine 03/29/2025 5:51 AM CDT POC GLUCOSE Routine 03/29/2025 1:58 AM CDT POC GLUCOSE Routine 03/28/2025 9:28 PM CDT POC GLUCOSE Routine 03/28/2025 4:58 PM CDT POC GLUCOSE Routine 03/28/2025 10:50 AM CDT POC GLUCOSE Routine 03/28/2025 7:29 AM CDT DIFFERENTIAL, MANUAL Routine 03/28/2025 5:14 AM CDT CBC WITH DIFFERENTIAL Routine 03/28/2025 5:14 AM CDT COMPREHENSIVE METABOLIC PANEL Routine 03/28/2025 5:14 AM CDT POC GLUCOSE Routine 03/27/2025 9:16 PM CDT POC GLUCOSE Routine 03/27/2025 4:50 PM CDT POC GLUCOSE Routine 03/27/2025 11:29 AM CDT POC GLUCOSE Routine 03/27/2025 7:36 AM CDT DIFFERENTIAL, MANUAL Routine 03/27/2025 4:03 AM CDT CBC WITH DIFFERENTIAL Routine 03/27/2025 4:03 AM CDT COMPREHENSIVE METABOLIC PANEL Routine 03/27/2025 4:03 AM CDT POC GLUCOSE Routine 03/26/2025 9:15 PM CDT POC GLUCOSE Routine 03/26/2025 5:11 PM CDT POC GLUCOSE Routine 03/26/2025 11:28 AM CDT POC GLUCOSE Routine 03/26/2025 7:05 AM CDT DIFFERENTIAL, MANUAL Routine 03/26/2025 4:21 AM CDT CBC WITH DIFFERENTIAL Routine 03/26/2025 4:21 AM CDT COMPREHENSIVE METABOLIC PANEL Routine 03/26/2025 4:21 AM CDT POC GLUCOSE Routine 03/26/2025 2:01 AM CDT POC GLUCOSE Routine 03/25/2025 8:33 PM CDT POC GLUCOSE Routine 03/25/2025 4:49 PM CDT CELL COUNT, BONE MARROW Pathology 03/25/2025 11:50 AM CDT FLOW CYTOMETRY PANEL Routine 03/25/2025 11:50 AM CDT BONE MARROW ASPIRATION & BIOPSY Pathology 03/25/2025 11:50 AM CDT FLOW CYTOMETRY REPORT Routine 03/25/2025 11:50 AM CDT IR BIOPSY BONE MARROW Routine 03/25/2025 11:48 AM CDT POC GLUCOSE Routine 03/25/2025 6:55 AM CDT CBC WITH DIFFERENTIAL Routine 03/25/2025 4:09 AM CDT PROTIME-INR Routine 03/25/2025 4:09 AM CDT FIBRINOGEN QUANTITATIVE Routine 03/25/2025 4:09 AM CDT HEMOGLOBIN A1C Routine 03/25/2025 4:09 AM CDT COMPREHENSIVE METABOLIC PANEL Routine 03/25/2025 4:09 AM CDT POC GLUCOSE Routine 03/25/2025 1:23 AM CDT POC GLUCOSE Routine 03/24/2025 8:34 PM CDT EBV BY PCR Routine 03/24/2025 6:41 PM CDT BLOOD CULTURE Routine 03/24/2025 6:41 PM CDT TICK-BORNE PANEL, PCR Routine 03/24/2025 6:41 PM CDT ACUTE HEPATITIS PANEL Routine 03/24/2025 6:41 PM CDT HEPATITIS C RNA PCR, QUANTITATIVE Routine 03/24/2025 6:41 PM CDT CMV BY PCR Routine 03/24/2025 6:41 PM CDT ZINC LEVEL Routine 03/24/2025 6:41 PM CDT IMMUNOFIXATION Routine 03/24/2025 6:41 PM CDT KAPPA/LAMBDA LIGHT CHAINS Routine 03/24/2025 6:41 PM CDT COPPER LEVEL Routine 03/24/2025 6:41 PM CDT BLOOD CULTURE Routine 03/24/2025 6:41 PM CDT INDER SCREEN W/REFLEX Routine 03/24/2025 6 :41 PM CDT PROTEIN ELECTROPHORESIS W/REFLEX,SERUM Routine 03/24/2025 6:41 PM CDT BLOOD CULTURE Routine 03/24/2025 6:40 PM CDT BLOOD CULTURE Routine 03/24/2025 6:40 PM CDT POC GLUCOSE Routine 03/24/2025 4:52 PM CDT US ABDOMEN COMPLETE Routine 03/24/2025 4 :41 PM CDT VERIFICATION BLOOD GROUP Stat 03/24/2025 12:48 PM CDT DIRECT ANTIGLOBULIN TEST Routine 03/24/2025 12:48 PM CDT TYPE AND SCREEN Routine 03/24/2025 11:57 AM CDT PERIPHERAL BLOOD SMEAR PATHOLOGY INTERP Routine 03/24/2025 11:56 AM CDT VITAMIN B12 AND FOLATE Routine 11:56 AM CDT IRON, TIBC, AND PERCENT SATURATION Routine 03/24/2025 11:56 AM CDT CBC WITH DIFFERENTIAL Stat 03/24/2025 11:56 AM CDT SEDIMENTATION RATE Routine 03/24/2025 11:56 AM CDT RETICULOCYTES Routine 03/24/2025 11:56 AM CDT C-REACTIVE PROTEIN Routine 03/24/2025 11:56 AM CDT TSH Routine 03/24/2025 11:56 AM CDT PSA Routine 03/24/2025 11:56 AM CDT PHOSPHORUS Routine 03/24/2025 11:56 AM CDT HAPTOGLOBIN Routine 03/24/2025 11:56 AM CDT FERRITIN Routine 03/24/2025 11:56 AM CDT COMPREHENSIVE METABOLIC PANEL Stat 03/24/2025 11:56 AM CDT documented in this encounter Results * TELEMETRY REPORT (04/05/2025 3:24 AM CDT) us Provider Scanning ECG ORDERABLES Final Result * (ABNORMAL) POC GLUCOSE (2025 10:49 AM CDT) GLUCOSE POC 231(H) 74 - 99 mg/dL 2025 10:49 AM CDT [facility] SPECIMEN SOURCE, GLUCOSE POC Capillary 2025 10:49 AM CDT [facility] Blood, whole 2025 10:4 9 AM CDT 2025 11:12 AM CDT Beni Moses DO POINT OF CARE TESTI NG Final Result [facility] CLIA # [id number] [address] [address] [place] [address] * MANUAL DIFFERENTIAL (2025 10:39 AM CDT) Pathologist [facility] [place] PLATELET EST. Decreased 2025 11:37 AM CDT [facility] ANISOCYTOSIS 1+ /hpf 2025 11:37 AM CDT [facility] POIKILOCYTES 2+ /hpf 2025 11:37 AM CDT [facility] OVALOCYTES 2+ /hpf 2025 11:37 AM CDT [facility] Blood Venipuncture / Unknown 2025 10:39 AM CDT 2025 10:46 AM CDT [facility] - 2025 11:37 AM CDT Due to the extremely low WBC, the automated differential is a better representation of the patient's actual differential. Beni Moses DO HEMATOLOGY ORDERABL ES COM Final Result [facility] CLIA # [id number] [facility] [address] * (ABNORMAL) CBC WITH DIFFERENTIAL (2025 10:39 AM CDT) [facility] WBC 1.3(L) 4.8 - 10.8 K/uL 2025 11:37 AM CDT [facility] RBC 2.36(L) 4.60 - 6.20 M/uL 2025 11:37 AM CDT [facility] HEMOGLOBIN 7.2(L) 14.0 - 18.0 g/dL 2025 11:37 AM CDT [facility] HEMATOCRIT 21.1(L) 41.0 - 53.0 % 2025 11:37 AM CDT [facility] MCV 89.4 84.0 - 103.0 fL 2025 11:37 AM CDT [facility] MCH 30.5 27.0 - 34.0 pg 2025 11:37 AM [facility] MCHC 34.1 30.0 - 35.0 g/dL 2025 11:37 AM [facility] PLATELETS 23(L) 140 - 440 K/uL 2025 11:37 AM [facility] MPV 10.6 8.9 - 12.8 fL 2025 11:37 AM [facility] RDW 16.3(H) 11.0 - 14.5 % 2025 11:37 AM [facility] RDW-STDEV 52.0 37.0 - 54.0 fL 2025 11:37 AM [facility] NEUTROPHILS 34(L) 42 - 75 % 2025 11:37 AM [facility] LYMPHOCYTES 61(H) 24 - 44 % 2025 11:37 AM [facility] MONOCYTES 4 2 - 10 % 2025 11:37 AM [facility] EOSINOPHILS 0 0 - 7 % 2025 11:37 AM [facility] BASOPHILS 0 0 - 1 % 2025 11:37 AM [facility] IMMATURE GRANULOCYTES 1 0 - 2 % 2025 11:37 AM [facility] NEUTROPHIL ABSOLUTE 0.43(LL) 2.00 - 8.00 K/uL 2025 11:37 AM [facility] LYMPHOCYTE ABSOLUTE 0.76(L) 1.20 - 4.00 K/uL 2025 11:37 AM [facility] MONOCYTE ABSOLUTE 0.05(L) 0.10 - 0.60 K/uL 2025 11:37 AM [facility] EOSINOPHIL ABSOLUTE 0.00 0.00 - 0.70 K/uL 2025 11:37 AM [facility] BASOPHILS ABSOLUTE 0.00 0.00 - 0.20 K/uL 2025 11:37 AM CDT [facility] IMMATURE GRANULOCYTES ABSOLUTE 0.01 0.00 - 0.10 K/uL 2025 11:37 AM CDT [facility] SMEAR REVIEWED: SR - See Smear Review on Manual Diff. 2025 11:37 AM CDT [facility] Blood Venipuncture / Unknown 2025 10:39 AM CDT 2025 10:46 AM CDT Result [facility] Beni Moses DO HEMATOLOGY ORDERABL ES Final Result [facility] CLIA # [id number] [address] [address] * TRANSFUSE PLATELETS (2025 10:14 AM CDT) Result [facility] Astrid Lion MD BLOOD TRANSFUSION ORDERABLES Fi nal Result * TRANSFUSE PLATELETS (2025 10:14 AM CDT) Result [facility] Astrid Lion MD BLOOD TRANSFUSION ORDERABLES Fi nal Result * TRANSFUSE PLATELETS (2025 10:12 AM CDT) Result [facility] Truman Rico MD BLOOD TRANSFUSION ORDERABLES Final Result * TRANSFUSE PLATELETS (2025 10:12 AM CDT) Truman Rico MD BLOOD TRANSFUSION ORDERABLES Final Result * (ABNORMAL) POC GLUCOSE (2025 7:09 AM CDT) GLUCOSE POC 203(H) 74 - 99 mg/dL 2025 7:09 AM CDT [facility] SPECIMEN SOURCE, GLUCOSE POC Capillary 2025 7:09 AM CDT [facility] Blood, whole 2025 7:09 AM CDT 2025 7:27 AM CDT Astrid Lion MD POINT OF CARE TESTING Final Res ult Performing Organization Address City/[facility]/ZIP Co de Phone Number [facility] [employer] [facility] [place] CLIA # [id number] [address] [place] [address] * PREPARE PLATELETS (2025 7:04 AM CDT) Pathologist [facility] [place] COMPONENT TYPE [id number] [facility] [place] COMPONENT IDENTIFICATION [id number] [facility] [place] UNIT ABO O [facility] [place] UNIT RH POS [facility] -- [place] COMPONENT STATUS Transfused ME [facility] SERVICES -- [place] COMPONENT EXPIRATION DATE/TIME [id number] [facility] [place] COMPONENT CODING SYSTEM 5100 [facility] [place] VOLUME, BLOOD PRODUCT 207 [facility] [place] Other, specify 2025 7: 04 AM CDT Truman Rico MD LAB TRANSFUSION ORDERABLES Ed ited Result - Final Performing Organization Address City/[facility]/ZIP Co de Phone Number [facility] [employer] [facility] [place] CLIA#[id number] [address] [place] [address] [phone] * (ABNORMAL) COMPREHENSIVE METABOLIC PANEL (2025 5:23 AM CDT) [facility] SODIUM 131(L) 136 - 145 mmol/L 2025 6:49 AM CDT [facility] [employer] [facility] POTASSIUM 4.5 3.5 - 5.1 mmol/L 2025 6:49 AM CDT [facility] [employer] [facility] CHLORIDE 99 98 - 107 mmol/L 2025 6:49 AM CDT [facility] [employer] [facility] CO2 24 22 - 29 mmol/L 2025 6:49 AM CDT [facility] [employer] [facility] CALCIUM 8.3(L) 8.8 - 10.2 mg/dL 2025 6:49 AM [facility] BUN 30(H) 8 - 23 mg/dL 2025 6:49 AM [facility] CREATININE 1.12 0.67 - 1.17 mg/dL 2025 6:49 AM [facility] Comment:The GFR result is no t clinically significant on patients <18 or >70 years of age. GLUCOSE 198(H) 74 - 99 mg/dL 2025 6:49 AM [facility] TOTAL PROTEIN 6.2(L) 6.4 - 8.3 g/dL 2025 6:49 AM [facility] ALBUMIN 3.1(L) 3.5 - 5.2 g/dL 2025 6:49 AM [facility] BILIRUBIN TOTAL 0.9 0.0 - 1.0 mg/dL 2025 6:49 AM [facility] ALKALINE PHOSPHATASE 153(H) 40 - 129 U/L 2025 6:49 AM [facility] AST 14 10 - 50 U/L 2025 6:49 AM [facility] ALT 16 <=50 U/L 2025 6:49 AM [facility] GFR >60 mL/min/1.7 3 sq meter 2025 6:49 AM [facility] Comment:eGFR calculated with 2020 CKD-EPI equation. Vegetarian diet, extremely high or low muscle mass, and may affect results. Cystatin C with Glomerular Filtration Rate is a suitable alternative for these patients. ANION GAP 8(L) 9 - 20 mmol/L 2025 6:49 AM [facility] Blood Venipuncture / Unknown 2025 5:23 AM CDT 2025 6:18 AM CDT us Truman Rico MD CHEMISTRY ORDERABLES Final Re sult [facility] CLIA # [id number] [address] [address] [place] [address] * (ABNORMAL) CBC WITH DIFFERENTIAL (2025 5:23 AM CDT) Pathologist [facility] [place] WBC 1.2(L) 4.8 - 10.8 K/uL 2025 7:48 AM CDT [facility] RBC 2.39(L) 4.60 - 6.20 M/uL 2025 7:48 AM CDT [facility] HEMOGLOBIN 7.3(L) 14.0 - 18.0 g/dL 2025 7:48 AM CDT [facility] HEMATOCRIT 22.0(L) 41.0 - 53.0 % 2025 7:48 AM CDT [facility] MCV 92.1 84.0 - 103.0 fL 2025 7:48 AM CDT [facility] MCH 30.5 27.0 - 34.0 pg 2025 7:48 AM CDT [facility] MCHC 33.2 30.0 - 35.0 g/dL 2025 7:48 AM CDT [facility] PLATELETS 7(LL) 140 - 440 K/uL 2025 7:48 AM CDT [facility] MPV 10.7 8.9 - 12.8 fL 2025 7:48 AM CDT [facility] RDW 15.9(H) 11.0 - 14.5 % 2025 7:48 AM CDT [facility] RDW-STDEV 52.1 37.0 - 54.0 fL 2025 7:48 AM CDT [facility] NEUTROPHILS 35(L) 42 - 75 % 2025 7:48 AM CDT [facility] LYMPHOCYTES 57(H) 24 - 44 % 2025 7:48 AM CDT [facility] MONOCYTES 4 2 - 10 % 2025 7:48 AM CDT [facility] EOSINOPHILS 2 0 - 7 % 2025 7:48 AM CDT [facility] BASOPHILS 1 0 - 1 % 2025 7:48 AM CDT [facility] IMMATURE GRANULOCYTES 2 0 - 2 % 2025 7:48 AM CDT [facility] NEUTROPHIL ABSOLUTE 0.43(LL) 2.00 - 8.00 K/uL 2025 7:48 AM CDT [facility] LYMPHOCYTE ABSOLUTE 0.71(L) 1.20 - 4.00 K/uL 2025 7:48 AM CDT [facility] MONOCYTE ABSOLUTE 0.05(L) 0.10 - 0.60 K/uL 2025 7:48 AM CDT [facility] EOSINOPHIL ABSOLUTE 0.02 0.00 - 0.70 K/uL 2025 7:48 AM CDT [facility] BASOPHILS ABSOLUTE 0.01 0.00 - 0.20 K/uL 2025 7:48 AM CDT [facility] IMMATURE GRANULOCYTES ABSOLUTE 0.02 0.00 - 0.10 K/uL 2025 7:48 AM T [facility] SMEAR REVIEWED: WBC/PLT - Automated differential confirmed. PLT confirmed on smear. 2025 7:48 AM T [facility] Blood Venipuncture / Unknown 2025 5:23 AM CDT 2025 6:18 AM CDT us Truman Rico MD HEMATOLOGY ORDERABLES Final R esult [facility] CLIA # [id number] [address] [place] [address] [place] [address] * (ABNORMAL) POC GLUCOSE (2025 2:23 AM CDT) GLUCOSE POC 195(H) 74 - 99 mg/dL 2025 2:23 AM CDT [facility] SPECIMEN SOURCE, GLUCOSE POC Capillary 2025 2:23 AM CDT [facility] Blood, whole 2025 2:23 AM CDT 2025 2:30 AM CDT Astrid Lion MD POINT OF CARE TESTING Final Res ult Performing Organization Address [facility] Co de Phone Number [facility] CLIA # [id number] [address] [address] * (ABNORMAL) POC GLUCOSE (04/02/2025 9:37 PM CDT) Pathologist [facility] [place] GLUCOSE POC 216(H) 74 - 99 mg/dL 04/02/2025 9:37 PM CDT [facility] SPECIMEN SOURCE, GLUCOSE POC Capillary 04/02/2025 9:37 PM CDT [facility] Blood, whole 04/02/2025 9:37 PM CDT 04/02/2025 9:49 PM CDT Astrid Lion MD POINT OF CARE TESTING Final Res ult [facility] CLIA # [id number] [address] [address] * MANUAL DIFFERENTIAL (04/02/2025 4:52 PM CDT) PLATELET EST. Decreased 04/02/2025 6:14 PM CDT [facility] ANISOCYTOSIS 1+ /hpf 04/02/2025 6:14 PM CDT [facility] POIKILOCYTES 2+ /hpf 04/02/2025 6:14 PM CDT [facility] OVALOCYTES 2+ /hpf 04/02/2025 6:14 PM CDT [facility] Blood Venipuncture / Unknown 04/02/2025 4:52 PM CDT 04/02/2025 5:10 PM CDT Astrid Lion MD HEMATOLOGY ORDERABLES COM Final Result [facility] CLIA # [id number] [address] [place] [address] * (ABNORMAL) CBC WITH DIFFERENTIAL (04/02/2025 4:52 PM CDT) WBC 1.1(L) 4.8 - 10.8 K/uL 04/02/2025 6:14 PM CDT [facility] RBC 2.44(L) 4.60 - 6.20 M/uL 04/02/2025 6:14 PM CDT [facility] HEMOGLOBIN 7.4(L) 14.0 - 18.0 g/dL 04/02/2025 6:14 PM T [facility] HEMATOCRIT 22.2(L) 41.0 - 53.0 % 04/02/2025 6:14 PM CDT [facility] MCV 91.0 84.0 - 103.0 fL 04/02/2025 6:14 PM CDT [facility] MCH 30.3 27.0 - 34.0 pg 04/02/2025 6:14 PM CDT [facility] MCHC 33.3 30.0 - 35.0 g/dL 04/02/2025 6:14 PM CDT [facility] PLATELETS 11(LL) 140 - 440 K/uL 04/02/2025 6:14 PM CDT [facility] MPV 11.3 8.9 - 12.8 fL 04/02/2025 6:14 PM [facility] RDW 16.0(H) 11.0 - 14.5 % 04/02/2025 6:14 PM [facility] RDW-STDEV 52.5 37.0 - 54.0 fL 04/02/2025 6:14 PM [facility] NEUTROPHILS 33(L) 42 - 75 % 04/02/2025 6:14 PM [facility] LYMPHOCYTES 53(H) 24 - 44 % 04/02/2025 6:14 PM [facility] MONOCYTES 4 2 - 10 % 04/02/2025 6:14 PM [facility] EOSINOPHILS 5 0 - 7 % 04/02/2025 6:14 PM [facility] BASOPHILS 1 0 - 1 % 04/02/2025 6:14 PM [facility] IMMATURE GRANULOCYTES 5(H) 0 - 2 % 04/02/2025 6:14 PM [facility] NEUTROPHIL ABSOLUTE 0.37(LL) 2.00 - 8.00 K/uL 04/02/2025 6:14 PM [facility] LYMPHOCYTE ABSOLUTE 0.59(L) 1.20 - 4.00 K/uL 04/02/2025 6:14 PM [facility] MONOCYTE ABSOLUTE 0.04(L) 0.10 - 0.60 K/uL 04/02/2025 6:14 PM [facility] EOSINOPHIL ABSOLUTE 0.05 0.00 - 0.70 K/uL 04/02/2025 6:14 PM [facility] BASOPHILS ABSOLUTE 0.01 0.00 - 0.20 K/uL 04/02/2025 6:14 PM [facility] IMMATURE GRANULOCYTES ABSOLUTE 0.05 0.00 - 0.10 K/uL 04/02/2025 6:14 PM [facility] SMEAR REVIEWED: SR - See Smear Review on Manual Diff. 04/02/2025 6:14 PM [facility] Blood Venipuncture / Unknown 04/02/2025 4:52 PM CDT 04/02/2025 5:10 PM CDT Astrid Lion MD HEMATOLOGY ORDERABLES Final Res ult Performing Organization Address [facility] Co de Phone Number [facility] CLIA # [id number] [address] [address] * (ABNORMAL) POC GLUCOSE (04/02/2025 4:33 PM CDT) GLUCOSE POC 172(H) 74 - 99 mg/dL 04/02/2025 4:33 PM CDT [facility] SPECIMEN SOURCE, GLUCOSE POC Capillary 04/02/2025 4:33 PM CDT [facility] Blood, whole 04/02/2025 4:33 PM CDT 04/02/2025 4:47 PM CDT Astrdi Lion MD POINT OF CARE TESTING Final Res ult Performing Organization Address [facility] Co de Phone Number [facility] CLIA # [id number] [address] [address] * (ABNORMAL) POC GLUCOSE (04/02/2025 10:50 AM CDT) GLUCOSE POC 252(H) 74 - 99 mg/dL 04/02/2025 10:50 AM CDT [facility] SPECIMEN SOURCE, GLUCOSE POC Capillary 04/02/2025 10:50 AM CDT [facility] Blood, whole 04/02/2025 10:5 0 AM CDT 04/02/2025 11:08 AM CDT Astrid Lion MD POINT OF CARE TESTING Final Res ult Performing Organization Address City/State/[facility] Co de Phone Number [facility] [employer] [facility] CLIA # [id number] [address] [address] * PREPARE PLATELETS (04/02/2025 7:13 AM CDT) COMPONENT TYPE [id number] [facility] LABORATORY SERVICES -- [place] COMPONENT IDENTIFICATION [id number] [facility] LABORATORY SERVICES -- [place] UNIT ABO A [facility] LABORATORY SERVICES [facility] [place] UNIT RH NEG [facility] LABORATORY SERVICES -- [place] COMPONENT STATUS Transfused ME [facility] LABORATORY SERVICES -- [place] COMPONENT EXPIRATION DATE/TIME [id number] [facility] LABORATORY SERVICES -- [place] COMPONENT CODING SYSTEM 0600 [facility] LABORATORY SERVICES -- [place] VOLUME, BLOOD PRODUCT 243 [facility] LABORATORY SERVICES -- [place] Other, specify 04/02/2025 7: 13 AM CDT Astrid Lion MD LAB TRANSFUSION ORDERABLES Edit ed Result - Final Performing Organization Address [facility] de Phone Number [facility] [employer] [facility] [place] CLIA#[id number] [facility] [place], [place] [id number] [place] [address] * (ABNORMAL) POC GLUCOSE (04/02/2025 7:03 AM CDT) GLUCOSE POC 272(H) 74 - 99 mg/dL 04/02/2025 7:03 AM CDT [facility] [employer] [facility] SPECIMEN SOURCE, GLUCOSE POC Capillary 04/02/2025 7:03 AM CDT [facility] [employer] [facility] Blood, whole 04/02/2025 7:03 AM CDT 04/02/2025 7:15 AM CDT Astrid Lion MD POINT OF CARE TESTING Final Res ult Performing Organization Address City/[facility]/ZIP Co de Phone Number [facility] [employer] [facility] CLIA # [id number] [address] [address] * MANUAL DIFFERENTIAL (04/02/2025 5:58 AM CDT) Pathologist [facility] [place] PLATELET EST. Decreased 04/02/2025 7:14 AM CDT [facility] ANISOCYTOSIS 1+ /hpf 04/02/2025 7:14 AM CDT [facility] POIKILOCYTES 3+ /hpf 04/02/2025 7:14 AM CDT [facility] OVALOCYTES 2+ /hpf 04/02/2025 7:14 AM CDT [facility] Blood Venipuncture / Unknown 04/02/2025 5:58 AM CDT 04/02/2025 6:34 AM CDT us Truman Rico MD HEMATOLOGY ORDERABLES COM Fin al Result [facility] CLIA # [id number] [address] [place] [address] * (ABNORMAL) COMPREHENSIVE METABOLIC PANEL (04/02/2025 5:58 AM CDT) [facility] SODIUM 129(L) 136 - 145 mmol/L 04/02/2025 7:11 AM CDT [facility] POTASSIUM 4.4 3.5 - 5.1 mmol/L 04/02/2025 7:11 AM T [facility] CHLORIDE 97(L) 98 - 107 mmol/L 04/02/2025 7:11 AM CDT [facility] CO2 23 22 - 29 mmol/L 04/02/2025 7:11 AM CDT [facility] CALCIUM 8.6(L) 8.8 - 10.2 mg/dL 04/02/2025 7:11 AM T [facility] BUN 27(H) 8 - 23 mg/dL 04/02/2025 7:11 AM T [facility] CREATININE 1.10 0.67 - 1.17 mg/dL 04/02/2025 7:11 AM [facility] Comment:The GFR result is no t clinically significant on patients <18 or >70 years of age. GLUCOSE 271(H) 74 - 99 mg/dL 04/02/2025 7:11 AM [facility] TOTAL PROTEIN 6.8 6.4 - 8.3 g/dL 04/02/2025 7:11 AM [facility] ALBUMIN 3.3(L) 3.5 - 5.2 g/dL 04/02/2025 7:11 AM [facility] BILIRUBIN TOTAL 1.0 0.0 - 1.0 mg/dL 04/02/2025 7:11 AM [facility] ALKALINE PHOSPHATASE 176(H) 40 - 129 U/L 04/02/2025 7:11 AM [facility] AST 13 10 - 50 U/L 04/02/2025 7:11 AM [facility] ALT 16 <=50 U/L 04/02/2025 7:11 AM [facility] GFR >60 mL/min/1.7 3 sq meter 04/02/2025 7:11 AM [facility] Comment:eGFR calculated with 2020 CKD-EPI equation. Vegetarian diet, extremely high or low muscle mass, and may affect results. Cystatin C with Glomerular Filtration Rate is a suitable alternative for these patients. ANION GAP 9 9 - 20 mmol/L 04/02/2025 7:11 AM [facility] Blood Venipuncture / Unknown 04/02/2025 5:58 AM CDT 04/02/2025 6:34 AM T us Truman Rico MD CHEMISTRY ORDERABLES Final Re sult [facility] CLIA # [id number] [address] [place] [address] * (ABNORMAL) CBC WITH DIFFERENTIAL (04/02/2025 5:58 AM CDT) [facility] WBC 1.2(L) 4.8 - 10.8 K/uL 04/02/2025 7:14 AM T [facility] RBC 2.72(L) 4.60 - 6.20 M/uL 04/02/2025 7:14 AM T [facility] HEMOGLOBIN 8.3(L) 14.0 - 18.0 g/dL 04/02/2025 7:14 AM [facility] HEMATOCRIT 25.1(L) 41.0 - 53.0 % 04/02/2025 7:14 AM [facility] MCV 92.3 84.0 - 103.0 fL 04/02/2025 7:14 AM [facility] MCH 30.5 27.0 - 34.0 pg 04/02/2025 7:14 AM [facility] MCHC 33.1 30.0 - 35.0 g/dL 04/02/2025 7:14 AM [facility] PLATELETS 8(LL) 140 - 440 K/uL 04/02/2025 7:14 AM [facility] MPV 04/02/2025 7:14 AM [facility] Comment:MPV not resulted due to platelet size variation. RDW 16.2(H) 11.0 - 14.5 % 04/02/2025 7:14 AM [facility] RDW-STDEV 53.3 37.0 - 54.0 fL 04/02/2025 7:14 AM [facility] NEUTROPHILS 38(L) 42 - 75 % 04/02/2025 7:14 AM [facility] LYMPHOCYTES 52(H) 24 - 44 % 04/02/2025 7:14 AM T [facility] MONOCYTES 4 2 - 10 % 04/02/2025 7:14 AM T [facility] EOSINOPHILS 3 0 - 7 % 04/02/2025 7:14 AM CDT [facility] BASOPHILS 1 0 - 1 % 04/02/2025 7:14 AM [facility] IMMATURE GRANULOCYTES 3(H) 0 - 2 % 04/02/2025 7:14 AM T [facility] NEUTROPHIL ABSOLUTE 0.45(LL) 2.00 - 8.00 K/uL 04/02/2025 7:14 AM T [facility] LYMPHOCYTE ABSOLUTE 0.61(L) 1.20 - 4.00 K/uL 04/02/2025 7:14 AM T [facility] MONOCYTE ABSOLUTE 0.05(L) 0.10 - 0.60 K/uL 04/02/2025 7:14 AM [facility] EOSINOPHIL ABSOLUTE 0.03 0.00 - 0.70 K/uL 04/02/2025 7:14 AM [facility] BASOPHILS ABSOLUTE 0.01 0.00 - 0.20 K/uL 04/02/2025 7:14 AM T [facility] IMMATURE GRANULOCYTES ABSOLUTE 0.03 0.00 - 0.10 K/uL 04/02/2025 7:14 AM [facility] SMEAR REVIEWED: SR - See Smear Review on Manual Diff. 04/02/2025 7:14 AM [facility] Blood Venipuncture / Unknown 04/02/2025 5:58 AM CDT 04/02/2025 6:34 AM CDT us Truman Rico MD HEMATOLOGY ORDERABLES Final R esult [facility] CLIA # [id number] [address] [place] [address] * (ABNORMAL) POC GLUCOSE (04/01/2025 10:08 PM CDT) GLUCOSE POC 185(H) 74 - 99 mg/dL 04/01/2025 10:08 PM T [facility] SPECIMEN SOURCE, GLUCOSE POC Capillary 04/01/2025 10:08 PM CDT [facility] Blood, whole 04/01/2025 10:0 8 PM CDT 04/01/2025 10:15 PM CDT Astrid Lion MD POINT OF CARE TESTING Final Res ult Performing Organization Address [facility] de Phone Number [facility] CLIA # [id number] [address] [place] [address] * (ABNORMAL) POC GLUCOSE (04/01/2025 5:00 PM CDT) GLUCOSE POC 224(H) 74 - 99 mg/dL 04/01/2025 5:00 PM CDT [facility] SPECIMEN SOURCE, GLUCOSE POC Capillary 04/01/2025 5:00 PM CDT [facility] Blood, whole 04/01/2025 5:00 PM CDT 04/01/2025 5:08 PM CDT Astrid Lion MD POINT OF CARE TESTING Final Res ult Performing Organization Address [facility] de Phone Number [facility] CLIA # [id number] [address] [place] [address] * (ABNORMAL) POC GLUCOSE (04/01/2025 10:51 AM CDT) GLUCOSE POC 229(H) 74 - 99 mg/dL 04/01/2025 10:51 AM CDT [facility] SPECIMEN SOURCE, GLUCOSE POC Capillary 04/01/2025 10:51 AM CDT [facility] Blood, whole 04/01/2025 10:5 1 AM CDT 04/01/2025 11:03 AM CDT Astrid Lion MD POINT OF CARE TESTING Final Res ult Performing Organization Address [facility] Co de Phone Number [facility] CLIA # [id number] [address] [address] * (ABNORMAL) POC GLUCOSE (04/01/2025 7:04 AM CDT) [facility] GLUCOSE POC 189(H) 74 - 99 mg/dL 04/01/2025 7:04 AM CDT [facility] SPECIMEN SOURCE, GLUCOSE POC Capillary 04/01/2025 7:04 AM CDT [facility] Blood, whole 04/01/2025 7:04 AM CDT 04/01/2025 7:40 AM CDT Astrid Lion MD POINT OF CARE TESTING Final Res ult Performing Organization Address [facility] Co de Phone Number [facility] [employer] [facility] CLIA # [id number] [address] [address] * MANUAL DIFFERENTIAL (04/01/2025 5:39 AM CDT) [facility] PLATELET EST. Decreased 04/01/2025 7:21 AM CDT [facility] ANISOCYTOSIS 1+ /hpf 04/01/2025 7:21 AM CDT [facility] [employer] [facility] POIKILOCYTES 2+ /hpf 04/01/2025 7:21 AM CDT [facility] POLYCHROMASIA 1+ /hpf 04/01/2025 7:21 AM CDT [facility] OVALOCYTES 2+ /hpf 04/01/2025 7:21 AM CDT [facility] Blood Venipuncture / Unknown 04/01/2025 5:39 AM CDT 04/01/2025 6:12 AM CDT us Truman Rico MD HEMATOLOGY ORDERABLES COM Fin al Result [facility] JUSTINE # [id number] [address] [address] [place] [address] * (ABNORMAL) COMPREHENSIVE METABOLIC PANEL (04/01/2025 5:39 AM CDT) SODIUM 130(L) 136 - 145 mmol/L 04/01/2025 8:00 AM CDT [facility] POTASSIUM 4.5 3.5 - 5.1 mmol/L 04/01/2025 8:00 AM T [facility] CHLORIDE 98 98 - 107 mmol/L 04/01/2025 8:00 AM T [facility] CO2 23 22 - 29 mmol/L 04/01/2025 8:00 AM T [facility] CALCIUM 8.1(L) 8.8 - 10.2 mg/dL 04/01/2025 8:00 AM T [facility] BUN 24(H) 8 - 23 mg/dL 04/01/2025 8:00 AM T [facility] CREATININE 1.07 0.67 - 1.17 mg/dL 04/01/2025 8:00 AM T [facility] Comment:The GFR result is no t clinically significant on patients <18 or >70 years of age. GLUCOSE 186(H) 74 - 99 mg/dL 04/01/2025 8:00 AM T [facility] TOTAL PROTEIN 6.4 6.4 - 8.3 g/dL 04/01/2025 8:00 AM T [facility] ALBUMIN 3.2(L) 3.5 - 5.2 g/dL 04/01/2025 8:00 AM T [facility] BILIRUBIN TOTAL 1.0 0.0 - 1.0 mg/dL 04/01/2025 8:00 AM T [facility] ALKALINE PHOSPHATASE 196(H) 40 - 129 U/L 04/01/2025 8:00 AM T [facility] AST 12 10 - 50 U/L 04/01/2025 8:00 AM T [facility] ALT 18 <=50 U/L 04/01/2025 8:00 AM T [facility] GFR >60 mL/min/1.7 3 sq meter 04/01/2025 8:00 AM [facility] Comment:eGFR calculated with 2020 CKD-EPI equation. Vegetarian diet, extremely high or low muscle mass, and may affect results. Cystatin C with Glomerular Filtration Rate is a suitable alternative for these patients. ANION GAP 9 9 - 20 mmol/L 04/01/2025 8:00 AM [facility] Blood Venipuncture / Unknown 04/01/2025 5:39 AM CDT 04/01/2025 6:12 AM CDT us Truman Rico MD CHEMISTRY ORDERABLES Final Re sult [facility] CLIA # [id number] [address] [place] [address] * (ABNORMAL) CBC WITH DIFFERENTIAL (04/01/2025 5:39 AM CDT) WBC 1.1(L) 4.8 - 10.8 K/uL 04/01/2025 7:21 AM [facility] RBC 2.67(L) 4.60 - 6.20 M/uL 04/01/2025 7:21 AM T [facility] HEMOGLOBIN 8.3(L) 14.0 - 18.0 g/dL 04/01/2025 7:21 AM [facility] HEMATOCRIT 24.6(L) 41.0 - 53.0 % 04/01/2025 7:21 AM [facility] MCV 92.1 84.0 - 103.0 fL 04/01/2025 7:21 AM [facility] MCH 31.1 27.0 - 34.0 pg 04/01/2025 7:21 AM [facility] MCHC 33.7 30.0 - 35.0 g/dL 04/01/2025 7:21 AM [facility] PLATELETS 10(LL) 140 - 440 K/uL 04/01/2025 7:21 AM [facility] MPV 04/01/2025 7:21 AM [facility] Comment:MPV not resulted due to platelet size variation. RDW 15.9(H) 11.0 - 14.5 % 04/01/2025 7:21 AM [facility] RDW-STDEV 52.7 37.0 - 54.0 fL 04/01/2025 7:21 AM [facility] NEUTROPHILS 33(L) 42 - 75 % 04/01/2025 7:21 AM [facility] LYMPHOCYTES 56(H) 24 - 44 % 04/01/2025 7:21 AM [facility] MONOCYTES 5 2 - 10 % 04/01/2025 7:21 AM [facility] EOSINOPHILS 4 0 - 7 % 04/01/2025 7:21 AM [facility] BASOPHILS 1 0 - 1 % 04/01/2025 7:21 AM [facility] IMMATURE GRANULOCYTES 2 0 - 2 % 04/01/2025 7:21 AM [facility] NEUTROPHIL ABSOLUTE 0.37(LL) 2.00 - 8.00 K/uL 04/01/2025 7:21 AM [facility] LYMPHOCYTE ABSOLUTE 0.62(L) 1.20 - 4.00 K/uL 04/01/2025 7:21 AM [facility] MONOCYTE ABSOLUTE 0.05(L) 0.10 - 0.60 K/uL 04/01/2025 7:21 AM [facility] EOSINOPHIL ABSOLUTE 0.04 0.00 - 0.70 K/uL 04/01/2025 7:21 AM CDT [facility] BASOPHILS ABSOLUTE 0.01 0.00 - 0.20 K/uL 04/01/2025 7:21 AM CDT [facility] IMMATURE GRANULOCYTES ABSOLUTE 0.02 0.00 - 0.10 K/uL 04/01/2025 7:21 AM CDT [facility] SMEAR REVIEWED: SR - See Smear Review on Manual Diff. 04/01/2025 7:21 AM CDT [facility] Blood Venipuncture / Unknown 04/01/2025 5:39 AM CDT 04/01/2025 6:12 AM CDT us Truman Rico MD HEMATOLOGY ORDERABLES Final R esult Performing Organization Address [facility] Co de Phone Number [facility] CLIA # [id number] [address] [address] * (ABNORMAL) POC GLUCOSE (04/01/2025 1:10 AM CDT) GLUCOSE POC 201(H) 74 - 99 mg/dL 04/01/2025 1:10 AM CDT [facility] SPECIMEN SOURCE, GLUCOSE POC Capillary 04/01/2025 1:10 AM CDT [facility] COMMENT, GLU POC Read Back 04/01/2025 1:10 AM CDT [facility] Blood, whole 04/01/2025 1:10 AM CDT 04/01/2025 1:26 AM CDT us Astrid Lion MD POINT OF CARE TESTING Final Res ult Performing Organization Address [facility] Co de Phone Number [facility] CLIA # [id number] [address] [id number] * (ABNORMAL) POC GLUCOSE (03/31/2025 8:40 PM CDT) GLUCOSE POC 212(H) 74 - 99 mg/dL 03/31/2025 8:40 PM CDT [facility] SPECIMEN SOURCE, GLUCOSE POC Capillary 03/31/2025 8:40 PM CDT [facility] Blood, whole 03/31/2025 8:40 PM CDT 03/31/2025 8:55 PM CDT Astrid Lion MD POINT OF CARE TESTING Final Res ult Performing Organization Address [facility]/ZIP Co de Phone Number [facility] CLIA # [id number] [address] [id number] * (ABNORMAL) POC GLUCOSE (03/31/2025 4:56 PM CDT) GLUCOSE POC 168(H) 74 - 99 mg/dL 03/31/2025 4:56 PM CDT [facility] SPECIMEN SOURCE, GLUCOSE POC Capillary 03/31/2025 4:56 PM CDT [facility] Blood, whole 03/31/2025 4:56 PM CDT 03/31/2025 5:08 PM CDT Astrdi Lion MD POINT OF CARE TESTING Final Res ult Performing Organization Address [facility]/ZIP Co de Phone Number [facility] CLIA # [id number] [address] [address] * (ABNORMAL) COMPREHENSIVE METABOLIC PANEL (03/31/2025 12:57 PM CDT) SODIUM 128(L) 136 - 145 mmol/L 03/31/2025 1:43 PM CDT [facility] POTASSIUM 4.2 3.5 - 5.1 mmol/L 03/31/2025 1:43 PM CDT [facility] CHLORIDE 96(L) 98 - 107 mmol/L 03/31/2025 1:43 PM [facility] CO2 23 22 - 29 mmol/L 03/31/2025 1:43 PM [facility] CALCIUM 8.0(L) 8.8 - 10.2 mg/dL 03/31/2025 1:43 PM [facility] BUN 24(H) 8 - 23 mg/dL 03/31/2025 1:43 PM [facility] CREATININE 1.14 0.67 - 1.17 mg/dL 03/31/2025 1:43 PM [facility] Comment:The GFR result is no t clinically significant on patients <18 or >70 years of age. GLUCOSE 226(H) 74 - 99 mg/dL 03/31/2025 1:43 PM [facility] TOTAL PROTEIN 6.3(L) 6.4 - 8.3 g/dL 03/31/2025 1:43 PM [facility] ALBUMIN 3.1(L) 3.5 - 5.2 g/dL 03/31/2025 1:43 PM [facility] BILIRUBIN TOTAL 0.9 0.0 - 1.0 mg/dL 03/31/2025 1:43 PM [facility] ALKALINE PHOSPHATASE 216(H) 40 - 129 U/L 03/31/2025 1:43 PM [facility] AST 13 10 - 50 U/L 03/31/2025 1:43 PM [facility] ALT 20 <=50 U/L 03/31/2025 1:43 PM [facility] GFR >60 mL/min/1.7 3 sq meter 03/31/2025 1:43 PM [facility] Comment:eGFR calculated with 2020 CKD-EPI equation. Vegetarian diet, extremely high or low muscle mass, and may affect results. Cystatin C with Glomerular Filtration Rate is a suitable alternative for these patients. ANION GAP 9 9 - 20 mmol/L 03/31/2025 1:43 PM [facility] Blood Venipuncture / Unknown 03/31/2025 12:57 PM CDT 03/31/2025 1:06 PM CDT us Truman Rico MD CHEMISTRY ORDERABLES Final Re sult [facility] CLIA # [id number] [address] [address] [place] [address] * (ABNORMAL) CBC WITH DIFFERENTIAL (03/31/2025 12:57 PM CDT) Pathologist [facility] [place] WBC 1.4(L) 4.8 - 10.8 K/uL 03/31/2025 1:20 PM CDT [facility] RBC 2.65(L) 4.60 - 6.20 M/uL 03/31/2025 1:20 PM CDT [facility] HEMOGLOBIN 8.1(L) 14.0 - 18.0 g/dL 03/31/2025 1:20 PM CDT [facility] HEMATOCRIT 24.2(L) 41.0 - 53.0 % 03/31/2025 1:20 PM CDT [facility] MCV 91.3 84.0 - 103.0 fL 03/31/2025 1:20 PM CDT [facility] MCH 30.6 27.0 - 34.0 pg 03/31/2025 1:20 PM CDT [facility] MCHC 33.5 30.0 - 35.0 g/dL 03/31/2025 1:20 PM CDT [facility] PLATELETS 14(LL) 140 - 440 K/uL 03/31/2025 1:20 PM CDT [facility] MPV 13.8(H) 8.9 - 12.8 fL 03/31/2025 1:20 PM CDT [facility] RDW 16.0(H) 11.0 - 14.5 % 03/31/2025 1:20 PM CDT [facility] RDW-STDEV 52.3 37.0 - 54.0 fL 03/31/2025 1:20 PM CDT [facility] NEUTROPHILS 33(L) 42 - 75 % 03/31/2025 1:20 PM CDT [facility] LYMPHOCYTES 56(H) 24 - 44 % 03/31/2025 1:20 PM CDT [facility] MONOCYTES 6 2 - 10 % 03/31/2025 1:20 PM CDT [facility] EOSINOPHILS 3 0 - 7 % 03/31/2025 1:20 PM CDT [facility] BASOPHILS 1 0 - 1 % 03/31/2025 1:20 PM CDT [facility] IMMATURE GRANULOCYTES 1 0 - 2 % 03/31/2025 1:20 PM CDT [facility] NEUTROPHIL ABSOLUTE 0.46(LL) 2.00 - 8.00 K/uL 03/31/2025 1:20 PM CDT [facility] LYMPHOCYTE ABSOLUTE 0.79(L) 1.20 - 4.00 K/uL 03/31/2025 1:20 PM CDT [facility] MONOCYTE ABSOLUTE 0.09(L) 0.10 - 0.60 K/uL 03/31/2025 1:20 PM CDT [facility] EOSINOPHIL ABSOLUTE 0.04 0.00 - 0.70 K/uL 03/31/2025 1:20 PM CDT [facility] BASOPHILS ABSOLUTE 0.01 0.00 - 0.20 K/uL 03/31/2025 1:20 PM CDT [facility] IMMATURE GRANULOCYTES ABSOLUTE 0.02 0.00 - 0.10 K/uL 03/31/2025 1:20 PM CDT [facility] SMEAR REVIEWED: NN - No Action Needed 03/31/2025 1:20 PM [facility] Blood Venipuncture / Unknown 03/31/2025 12:57 PM CDT 03/31/2025 1:06 PM CDT us Truman Rico MD HEMATOLOGY ORDERABLES Final R esult Performing Organization Address City/[facility] Co de Phone Number [facility] CLIA # [id number] [address] [address] * URIC ACID (03/31/2025 12:57 PM CDT) URIC ACID 4.5 3.4 - 7.0 mg/dL 03/31/2025 1:43 PM CDT [facility] Blood Venipuncture / Unknown 03/31/2025 12:57 PM CDT 03/31/2025 1:06 PM CDT us Truman Rico MD CHEMISTRY ORDERABLES Final Re sult Performing Organization Address [facility] de Phone Number [facility] CLIA # [id number] [address] [address] * (ABNORMAL) POC GLUCOSE (03/31/2025 11:02 AM CDT) Pathologist [facility] [place] GLUCOSE POC 185(H) 74 - 99 mg/dL 03/31/2025 11:02 AM CDT [facility] SPECIMEN SOURCE, GLUCOSE POC Capillary 03/31/2025 11:02 AM CDT [facility] Blood, whole 03/31/2025 11:0 2 AM CDT 03/31/2025 11:14 AM CDT us Astrid Lion MD POINT OF CARE TESTING Final Res ult Performing Organization Address [facility] Co de Phone Number [facility] CLIA # [id number] [address] [address] * EKG 12-LEAD (03/31/2025 9:04 AM CDT) 03/31/2025 9:04 AM CDT Narrative INTERFACE SYSTEM - 03/31/2025 5:05 PM [address] [address] Test Date: 2025-03-31 Pat Name: FAINA BARROS Department: 12 Room: [address] [place] [address] Gender: Male 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: [id number] : 1950 Requested By: Order Number: [id number] Reading MD: Marco Nina Measurements Intervals [place] Rate: 100 P: 53 CO: 142 QRS: 3 QRSD: 92 T: 67 QT: 352 QTc: 454 Interpretive Statements Normal sinus rhythm Possible Anterior infarct, age undetermined Abnormal ECG Electronically Signed On 03-31-2025 17:05:12 CDT by Marco Nina Procedure Note Marco Nina MD - 03/31/[address] [address] Test Date: 2025-03-31 Pat Name: FAINA BARROS Department: 12 Room: [address] [place] [address] Gender: Male 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: [id number] : 1950 Requested By: Order Number: [id number] Reading MD: Marco Nina Measurements Intervals [place] Rate: 100 P: 53 CO: 142 QRS: 3 QRSD: 92 T: 67 QT: 352 QTc: 454 Interpretive Statements Normal sinus rhythm Possible Anterior infarct, age undetermined Abnormal ECG Electronically Signed On 03-31-2025 17:05:12 CDT by Marco Nina us Batool Wagner ASSISTANT STORE MANAGER ECG ORDERABLES Final Resu lt INTERFACE SYSTEM Refer to clinic/hospital department * (ABNORMAL) POC GLUCOSE (03/31/2025 7:07 AM CDT) GLUCOSE POC 172(H) 74 - 99 mg/dL 03/31/2025 7:07 AM CDT [facility] LAB[facility]AT[facility] SPECIMEN SOURCE, GLUCOSE POC Capillary 03/31/2025 7:07 AM CDT [facility] Blood, whole 03/31/2025 7:07 AM CDT 03/31/2025 7:23 AM CDT Astrid Lion MD POINT OF CARE TESTING Final Res ult [facility] CLIA # [id number] [address] [place] [address] [place] [address] * (ABNORMAL) MANUAL DIFFERENTIAL (03/31/2025 4:28 AM CDT) SEGMENTED NEUTROPHILS 29(L) 36 - 66 % 03/31/2025 5:33 AM CDT [facility] LYMPHOCYTES RELATIVE 67(H) 24 - 44 % 03/31/2025 5:33 AM CDT [facility] MONOCYTES RELATIVE 3(L) 4 - 10 % 03/31/2025 5:33 AM CDT [facility] EOSINOPHILS RELATIVE 1 0 - 3 % 03/31/2025 5:33 AM CDT [facility] PLATELET EST. Decreased 03/31/2025 5:33 AM CDT [facility] NEUTROPHILS ABSOLUTE COUNT 0.52(L) 2.00 - 8.00 K/uL 03/31/2025 5:33 AM CDT [facility] LYMPHOCYTES ABSOLUTE 1.21 1.20 - 4.00 K/uL 03/31/2025 5:33 AM CDT [facility] ATYPICAL LYMPHS ABSOLUTE 03/31/2025 5:33 AM CDT [facility] MONOCYTES ABSOLUTE 0.05(L) 0.10 - 0.60 K/uL 03/31/2025 5:33 AM CDT [facility] EOSINOPHILS ABSOLUTE 0.02 0.00 - 0.70 K/uL 03/31/2025 5:33 AM CDT [facility] ANISOCYTOSIS 1+ /hpf 03/31/2025 5:33 AM CDT [facility] POIKILOCYTES 2+ /hpf 03/31/2025 5:33 AM CDT [facility] POLYCHROMASIA 1+ /hpf 03/31/2025 5:33 AM CDT [facility] OVALOCYTES 1+ /hpf 03/31/2025 5:33 AM CDT [facility] TOTAL CELLS COUNTED IN DIFF 100 03/31/2025 5:33 AM CDT [facility] Blood Venipuncture / Unknown 03/31/2025 4:28 AM CDT 03/31/2025 4:50 AM CDT us Astrid Lion MD HEMATOLOGY ORDERABLES COM Final Result [facility] CLIA # [id number] [facility] [address] * (ABNORMAL) CBC WITH DIFFERENTIAL (03/31/2025 4:28 AM CDT) Pathologist [facility] [place] WBC 1.8(L) 4.8 - 10.8 K/uL 03/31/2025 5:33 AM CDT [facility] RBC 2.65(L) 4.60 - 6.20 M/uL 03/31/2025 5:33 AM CDT [facility] HEMOGLOBIN 8.2(L) 14.0 - 18.0 g/dL 03/31/2025 5:33 AM CDT [facility] HEMATOCRIT 24.1(L) 41.0 - 53.0 % 03/31/2025 5:33 AM CDT [facility] MCV 90.9 84.0 - 103.0 fL 03/31/2025 5:33 AM CDT [facility] MCH 30.9 27.0 - 34.0 pg 03/31/2025 5:33 AM CDT [facility] MCHC 34.0 30.0 - 35.0 g/dL 03/31/2025 5:33 AM CDT [facility] PLATELETS 17(LL) 140 - 440 K/uL 03/31/2025 5:33 AM CDT [facility] MPV 10.7 8.9 - 12.8 fL 03/31/2025 5:33 AM CDT [facility] RDW 15.7(H) 11.0 - 14.5 % 03/31/2025 5:33 AM CDT [facility] RDW-STDEV 51.7 37.0 - 54.0 fL 03/31/2025 5:33 AM CDT [facility] SMEAR REVIEWED: - See Manual Diff. 03/31/2025 5:33 AM T [facility] Blood Venipuncture / Unknown 03/31/2025 4:28 AM CDT 03/31/2025 4:50 AM CDT us Astrid Lion MD HEMATOLOGY ORDERABLES Final Res ult [facility] CLIA # [id number] [address] [place] [address] * (ABNORMAL) COMPREHENSIVE METABOLIC PANEL (03/31/2025 4:28 AM CDT) SODIUM 129(L) 136 - 145 mmol/L 03/31/2025 5:25 AM CDT [facility] POTASSIUM 4.6 3.5 - 5.1 mmol/L 03/31/2025 5:25 AM T [facility] CHLORIDE 98 98 - 107 mmol/L 03/31/2025 5:25 AM CDT [facility] CO2 22 22 - 29 mmol/L 03/31/2025 5:25 AM CDT [facility] CALCIUM 7.9(L) 8.8 - 10.2 mg/dL 03/31/2025 5:25 AM CDT [facility] BUN 24(H) 8 - 23 mg/dL 03/31/2025 5:25 AM CDT [facility] CREATININE 0.97 0.67 - 1.17 mg/dL 03/31/2025 5:25 AM T [facility] Comment:The GFR result is no t clinically significant on patients <18 or >70 years of age. GLUCOSE 184(H) 74 - 99 mg/dL 03/31/2025 5:25 AM T [facility] TOTAL PROTEIN 6.1(L) 6.4 - 8.3 g/dL 03/31/2025 5:25 AM [facility] ALBUMIN 3.1(L) 3.5 - 5.2 g/dL 03/31/2025 5:25 AM [facility] BILIRUBIN TOTAL 1.0 0.0 - 1.0 mg/dL 03/31/2025 5:25 AM [facility] ALKALINE PHOSPHATASE 246(H) 40 - 129 U/L 03/31/2025 5:25 AM [facility] AST 23 10 - 50 U/L 03/31/2025 5:25 AM [facility] ALT 24 <=50 U/L 03/31/2025 5:25 AM [facility] GFR >60 mL/min/1.7 3 sq meter 03/31/2025 5:25 AM [facility] Comment:eGFR calculated with 2020 CKD-EPI equation. Vegetarian diet, extremely high or low muscle mass, and may affect results. Cystatin C with Glomerular Filtration Rate is a suitable alternative for these patients. ANION GAP 9 9 - 20 mmol/L 03/31/2025 5:25 AM T [facility] Blood Venipuncture / Unknown 03/31/2025 4:28 AM CDT 03/31/2025 4:50 AM CDT us Astrid Lion MD CHEMISTRY ORDERABLES Final Resu lt [facility] CLIA # [id number] [address] [place] [address] * (ABNORMAL) POC GLUCOSE (03/31/2025 2:05 AM CDT) GLUCOSE POC 200(H) 74 - 99 mg/dL 03/31/2025 2:05 AM CDT [facility] SPECIMEN SOURCE, GLUCOSE POC Capillary 03/31/2025 2:05 AM CDT [facility] Blood, whole 03/31/2025 2:05 AM CDT 03/31/2025 2:13 AM CDT Astrid Lion MD POINT OF CARE TESTING Final Res ult Performing Organization Address [facility]/ZIP Co de Phone Number [facility] CLIA # [id number] [address] [address] * (ABNORMAL) POC GLUCOSE (03/30/2025 8:23 PM CDT) GLUCOSE POC 186(H) 74 - 99 mg/dL 03/30/2025 8:23 PM CDT [facility] SPECIMEN SOURCE, GLUCOSE POC Capillary 03/30/2025 8:23 PM CDT [facility] Blood, whole 03/30/2025 8:23 PM CDT 03/31/2025 5:14 AM CDT Astrid Lion MD POINT OF CARE TESTING Final Res ult [facility] CLIA # [id number] [address] [address] * (ABNORMAL) POC GLUCOSE (03/30/2025 4:59 PM CDT) GLUCOSE POC 164(H) 74 - 99 mg/dL 03/30/2025 4:59 PM CDT [facility] SPECIMEN SOURCE, GLUCOSE POC Capillary 03/30/2025 4:59 PM CDT [facility] Blood, whole 03/30/2025 4:59 PM CDT 03/30/2025 5:11 PM CDT Astrid Lion MD POINT OF CARE TESTING Final Res ult Performing Organization Address [facility]/ZIP Co de Phone Number [facility] CLIA # [id number] [address] [address] * URIC ACID (03/30/2025 4:14 PM CDT) [facility] URIC ACID 3.5 3.4 - 7.0 mg/dL 03/30/2025 4:55 PM CDT [facility] Blood Venipuncture / Unknown 03/30/2025 4:14 PM CDT 03/30/2025 4:23 PM CDT Truman Rico MD CHEMISTRY ORDERABLES Final Re sult Performing Organization Address [facility] Co de Phone Number [facility] CLIA # [id number] [facility] [address] * TRANSFUSE RED BLOOD CELLS (03/30/2025 2:08 PM CDT) Astrid Lion MD BLOOD TRANSFUSION ORDERABLES Fi nal Result * TRANSFUSE RED BLOOD CELLS (03/30/2025 2:08 PM CDT) Astrid Lion MD BLOOD TRANSFUSION ORDERABLES Fi nal Result * (ABNORMAL) POC GLUCOSE (03/30/2025 11:04 AM CDT) Pathologist [facility] [place] GLUCOSE POC 209(H) 74 - 99 mg/dL 03/30/2025 11:04 AM CDT [facility] SPECIMEN SOURCE, GLUCOSE POC Capillary 03/30/2025 11:04 AM CDT [facility] [place] Blood, whole 03/30/2025 11:0 4 AM CDT 03/30/2025 11:17 AM CDT Astrid Lion MD POINT OF CARE TESTING Final Res ult Performing Organization Address [facility]/ZIP Co de Phone Number [facility] [place] CLIA # [id number] [address] [address] * TRANSFUSE PLATELETS (03/30/2025 11:01 AM CDT) Srinath Rodriguez MD BLOOD TRANSFUSION ORDERABLES Fi nal Result * TRANSFUSE PLATELETS (03/30/2025 11:01 AM CDT) Srinath Rodriguez MD BLOOD TRANSFUSION ORDERABLES Fi nal Result * PREPARE RED BLOOD CELLS (03/30/2025 7:53 AM CDT) [facility] COMPONENT TYPE [id number] [facility] [place] COMPONENT IDENTIFICATION [id number] [facility] [place] UNIT ABO O [facility] UNIT RH POS [facility] [place] CROSSMATCH Compatible [facility] [place] COMPONENT STATUS Transfused [facility] [place] COMPONENT EXPIRATION DATE/TIME [id number] [facility] [place] COMPONENT CODING SYSTEM 5100 [facility] [place] VOLUME, BLOOD PRODUCT 350 [facility] [place] Other, specify 03/30/2025 7: 53 AM CDT Astrid Lion MD LAB TRANSFUSION ORDERABLES Edit ed Result - Final Performing Organization Address City/[facility]/ZIP Co de Phone Number [facility] [place] CLIA#[id number] [address] [place] [address], * (ABNORMAL) POC GLUCOSE (03/30/2025 6:58 AM CDT) GLUCOSE POC 198(H) 74 - 99 mg/dL 03/30/2025 6:58 AM CDT [facility] [place] SPECIMEN SOURCE, GLUCOSE POC Capillary 03/30/2025 6:58 AM CDT [facility] [place] Blood, whole 03/30/2025 6:58 AM CDT 03/30/2025 7:31 AM CDT Astrid Lion MD POINT OF CARE TESTING Final Res ult [facility] [employer] [facility] [place] CLIA # [id number] [facility] [address] * PREPARE PLATELETS (03/30/2025 6:05 AM CDT) Pathologist [facility] [place] COMPONENT TYPE [id number] [facility] [place] COMPONENT IDENTIFICATION [id number] [facility] [place] UNIT ABO O [facility] [place] UNIT RH NEG [facility] [place] COMPONENT STATUS Transfused [facility] [place] COMPONENT EXPIRATION DATE/TIME [id number] [facility] [place] COMPONENT CODING SYSTEM 9500 [facility] [place] VOLUME, BLOOD PRODUCT 244 [facility] [place] Other, specify 03/30/2025 6: 05 AM CDT Srinath Rodriguez MD LAB TRANSFUSION ORDERABLES Edit ed Result - Final [facility] [employer] [facility] [place] CLIA#[id number] [address] [place] [address], [place] [phone] * (ABNORMAL) MANUAL DIFFERENTIAL (03/30/2025 4:13 AM CDT) SEGMENTED NEUTROPHILS 18(L) 36 - 66 % 03/30/2025 5:55 AM CDT [facility] LYMPHOCYTES RELATIVE 79(H) 24 - 44 % 03/30/2025 5:55 AM T [facility] MONOCYTES RELATIVE 3(L) 4 - 10 % 03/30/2025 5:55 AM [facility] PLATELET EST. Decreased 03/30/2025 5:55 AM T [facility] NEUTROPHILS ABSOLUTE COUNT 0.29(LL) 2.00 - 8.00 K/uL 03/30/2025 5:55 AM CDT [facility] LYMPHOCYTES ABSOLUTE 1.26 1.20 - 4.00 K/uL 03/30/2025 5:55 AM [facility] ATYPICAL LYMPHS ABSOLUTE 03/30/2025 5:55 AM [facility] MONOCYTES ABSOLUTE 0.05(L) 0.10 - 0.60 K/uL 03/30/2025 5:55 AM CDT [facility] ANISOCYTOSIS 1+ /hpf 03/30/2025 5:55 AM CDT [facility] POIKILOCYTES 3+ /hpf 03/30/2025 5:55 AM [facility] POLYCHROMASIA 1+ /hpf 03/30/2025 5:55 AM [facility] OVALOCYTES 2+ /hpf 03/30/2025 5:55 AM [facility] TEAR DROP CELLS 1+ /hpf 5:55 AM T [facility] SMUDGE CELLS Present /100 03/30/2025 5:55 AM T [facility] TOTAL CELLS COUNTED IN DIFF 100 03/30/2025 5:55 AM [facility] Blood Venipuncture / Unknown 03/30/2025 4:13 AM CDT 03/30/2025 4:30 AM CDT us Astrid Lion MD HEMATOLOGY ORDERABLES COM Final Result [facility] CLIA # [id number] [address] [place] [address] [place] [address] * (ABNORMAL) CBC WITH DIFFERENTIAL (03/30/2025 4:13 AM CDT) [facility] WBC 1.6(L) 4.8 - 10.8 K/uL 03/30/2025 5:55 AM T [facility] RBC 2.30(L) 4.60 - 6.20 M/uL 03/30/2025 5:55 AM T [facility] HEMOGLOBIN 7.0(L) 14.0 - 18.0 g/dL 03/30/2025 5:55 AM [facility] HEMATOCRIT 20.8(L) 41.0 - 53.0 % 03/30/2025 5:55 AM [facility] MCV 90.4 84.0 - 103.0 fL 03/30/2025 5:55 AM [facility] MCH 30.4 27.0 - 34.0 pg 03/30/2025 5:55 AM [facility] MCHC 33.7 30.0 - 35.0 g/dL 03/30/2025 5:55 AM [facility] PLATELETS 9(LL) 140 - 440 K/uL 03/30/2025 5:55 AM [facility] MPV 03/30/2025 5:55 AM [facility] Comment:MPV not resulted due to platelet size variation. RDW 16.0(H) 11.0 - 14.5 % 03/30/2025 5:55 AM [facility] RDW-STDEV 51.8 37.0 - 54.0 fL 03/30/2025 5:55 AM [facility] SMEAR REVIEWED: - See Manual Diff. 03/30/2025 5:55 AM [facility] Blood Venipuncture / Unknown 03/30/2025 4:13 AM CDT 03/30/2025 4:30 AM CDT us Astrid Lion MD HEMATOLOGY ORDERABLES Final Res ult [facility] JUSTINE # [id number] [id number] [place] [address] * (ABNORMAL) COMPREHENSIVE METABOLIC PANEL (03/30/2025 4:13 AM CDT) SODIUM 131(L) 136 - 145 mmol/L 03/30/2025 5:13 AM CDT [facility] POTASSIUM 4.7 3.5 - 5.1 mmol/L 03/30/2025 5:13 AM CDT [facility] CHLORIDE 100 98 - 107 mmol/L 03/30/2025 5:13 AM CDT [facility] CO2 25 22 - 29 mmol/L 03/30/2025 5:13 AM CDT [facility] CALCIUM 7.8(L) 8.8 - 10.2 mg/dL 03/30/2025 5:13 AM CDT [facility] BUN 20 8 - 23 mg/dL 03/30/2025 5:13 AM CDT [facility] CREATININE 0.85 0.67 - 1.17 mg/dL 03/30/2025 5:13 AM CDT [facility] Comment:The GFR result is no t clinically significant on patients <18 or >70 years of age. GLUCOSE 194(H) 74 - 99 mg/dL 03/30/2025 5:13 AM CDT [facility] TOTAL PROTEIN 6.0(L) 6.4 - 8.3 g/dL 03/30/2025 5:13 AM CDT [facility] ALBUMIN 3.0(L) 3.5 - 5.2 g/dL 03/30/2025 5:13 AM CDT [facility] BILIRUBIN TOTAL 0.9 0.0 - 1.0 mg/dL 03/30/2025 5:13 AM CDT [facility] ALKALINE PHOSPHATASE 191(H) 40 - 129 U/L 03/30/2025 5:13 AM CDT [facility] AST 12 10 - 50 U/L 03/30/2025 5:13 AM CDT [facility] ALT 19 <=50 U/L 03/30/2025 5:13 AM CDT [facility] GFR >60 mL/min/1.7 3 sq meter 03/30/2025 5:13 AM CDT [facility] Comment:eGFR calculated with 2020 CKD-EPI equation. Vegetarian diet, extremely high or low muscle mass, and may affect results. Cystatin C with Glomerular Filtration Rate is a suitable alternative for these patients. ANION GAP 6(L) 9 - 20 mmol/L 03/30/2025 5:13 AM CDT [facility] Blood Venipuncture / Unknown 03/30/2025 4:13 AM CDT 03/30/2025 4:30 AM CDT Astrid Lion MD CHEMISTRY ORDERABLES Final Resu lt Performing Organization Address [facility]/ZIP Co de Phone Number [facility] CLIA # [id number] [facility] [address] * (ABNORMAL) POC GLUCOSE (03/30/2025 2:35 AM CDT) GLUCOSE POC 185(H) 74 - 99 mg/dL 03/30/2025 2:35 AM CDT [facility] SPECIMEN SOURCE, GLUCOSE POC Capillary 03/30/2025 2:35 AM CDT [facility] Blood, whole 03/30/2025 2:35 AM CDT 03/30/2025 2:42 AM CDT Astrid Lion MD POINT OF CARE TESTING Final Res ult Performing Organization Address City/[facility]/ZIP Co de Phone Number [facility] CLIA # [id number] [address] [address] [place] [address] * (ABNORMAL) POC GLUCOSE (03/29/2025 9:39 PM CDT) GLUCOSE POC 180(H) 74 - 99 mg/dL 03/29/2025 9:39 PM CDT [facility] SPECIMEN SOURCE, GLUCOSE POC Capillary 03/29/2025 9:39 PM CDT [facility] Blood, whole 03/29/2025 9:39 PM CDT 03/29/2025 9:48 PM CDT Astrid Lion MD POINT OF CARE TESTING Final Res ult Performing Organization Address [facility]/ZIP Co de Phone Number [facility] CLIA # [id number] [address] [address] [place] [address] * (ABNORMAL) POC GLUCOSE (03/29/2025 4:44 PM CDT) GLUCOSE POC 161(H) 74 - 99 mg/dL 03/29/2025 4:44 PM CDT [facility] SPECIMEN SOURCE, GLUCOSE POC Capillary 03/29/2025 4:44 PM CDT [facility] Blood, whole 03/29/2025 4:44 PM CDT 03/29/2025 5:02 PM CDT Astrid Lion MD POINT OF CARE TESTING Final Res ult [facility] CLIA # [id number] [address] [address] * TRANSFUSE PLATELETS (03/29/2025 11:35 AM CDT) Astrid Lion MD BLOOD TRANSFUSION ORDERABLES Fi nal Result * TRANSFUSE PLATELETS (03/29/2025 11:35 AM CDT) Astrid Lion MD BLOOD TRANSFUSION ORDERABLES Fi nal Result * (ABNORMAL) POC GLUCOSE (03/29/2025 11:01 AM CDT) Pathologist [facility] [place] GLUCOSE POC 246(H) 74 - 99 mg/dL 03/29/2025 11:01 AM CDT [facility] SPECIMEN SOURCE, GLUCOSE POC Capillary 03/29/2025 11:01 AM CDT [facility] Blood, whole 03/29/2025 11:0 1 AM CDT 03/29/2025 11:25 AM CDT Astrid Lion MD POINT OF CARE TESTING Final Res ult Performing Organization Address [facility] Co de Phone Number [facility] CLIA # [id number] [address] [place] [address] * TYPE AND SCREEN (03/29/2025 9:05 AM CDT) Pathologist [facility] [place] ABO GROUP O 03/29/2025 10:16 AM CDT [facility]ORAT[facility] RH (D) TYPE Positive 03/29/2025 10:16 AM CDT [facility] ANTIBODY SCREEN Negative 03/29/2025 10:16 AM CDT [facility] Blood Venipuncture / Unknown 03/29/2025 9:05 AM CDT 03/29/2025 9:14 AM CDT Astrdi Lion MD BLOOD BANK ORDERABLES Edited Re sult - Final [facility] CLIA#[id number] [address] [place], [place] [address] [place] [address] * (ABNORMAL) POC GLUCOSE (03/29/2025 7:17 AM CDT) Pathologist [facility] [place] GLUCOSE POC 213(H) 74 - 99 mg/dL 03/29/2025 7:17 AM CDT [facility] [place] SPECIMEN SOURCE, GLUCOSE POC Capillary 03/29/2025 7:17 AM CDT [facility] [place] Blood, whole 03/29/2025 7:17 AM CDT 03/29/2025 7:35 AM CDT Astrid Lion MD POINT OF CARE TESTING Final Res ult Performing Organization Address City/[facility] Co de Phone Number [facility] [place] CLIA # [id number] [address] [place] [address] * PREPARE PLATELETS (03/29/2025 7:05 AM CDT) Pathologist [facility] [place] COMPONENT TYPE [id number] [facility] [place] COMPONENT IDENTIFICATION [id number] [facility] [place] UNIT ABO A [facility] [place] UNIT RH POS [facility] [place] COMPONENT STATUS Transfused ME [facility] LAB[facility]ORY SERVICES [facility] [place] COMPONENT EXPIRATION DATE/TIME [id number] [facility] [place] COMPONENT CODING SYSTEM 6[address] [facility] [place] VOLUME, BLOOD PRODUCT 255 [facility] [place] Other, specify 03/29/2025 7: 05 AM CDT Astrid Lion MD LAB TRANSFUSION ORDERABLES Edit ed Result - Final Performing Organization Address City/[facility]/ZIP Co de Phone Number [facility] [employer] [facility] [place] CLIA#[id number] [address] [place] [address], [place] [phone] * (ABNORMAL) CBC WITH DIFFERENTIAL (03/29/2025 5:51 AM CDT) Pathologist [facility] [place] WBC 1.7(L) 4.8 - 10.8 K/uL 03/29/2025 6:50 AM [facility] RBC 2.44(L) 4.60 - 6.20 M/uL 03/29/2025 6:50 AM [facility] HEMOGLOBIN 7.4(L) 14.0 - 18.0 g/dL 03/29/2025 6:50 AM [facility] HEMATOCRIT 22.2(L) 41.0 - 53.0 % 03/29/2025 6:50 AM [facility] MCV 91.0 84.0 - 103.0 fL 03/29/2025 6:50 AM [facility] MCH 30.3 27.0 - 34.0 pg 03/29/2025 6:50 AM [facility] MCHC 33.3 30.0 - 35.0 g/dL 03/29/2025 6:50 AM [facility] PLATELETS 9(LL) 140 - 440 K/uL 03/29/2025 6:50 AM [facility] MPV 03/29/2025 6:50 AM [facility] Comment:MPV not given becaus e of platelet size variation RDW 16.3(H) 11.0 - 14.5 % 03/29/2025 6:50 AM [facility] RDW-STDEV 53.0 37.0 - 54.0 fL 03/29/2025 6:50 AM [facility] NEUTROPHILS 34(L) 42 - 75 % 03/29/2025 6:50 AM [facility] LYMPHOCYTES 59(H) 24 - 44 % 03/29/2025 6:50 AM [facility] MONOCYTES 5 2 - 10 % 03/29/2025 6:50 AM [facility] EOSINOPHILS 0 0 - 7 % 03/29/2025 6:50 AM [facility] BASOPHILS 1 0 - 1 % 03/29/2025 6:50 AM [facility] IMMATURE GRANULOCYTES 1 0 - 2 % 03/29/2025 6:50 AM [facility] NEUTROPHIL ABSOLUTE 0.57(L) 2.00 - 8.00 K/uL 03/29/2025 6:50 AM CDT [facility] LYMPHOCYTE ABSOLUTE 0.98(L) 1.20 - 4.00 K/uL 03/29/2025 6:50 AM CDT [facility] MONOCYTE ABSOLUTE 0.09(L) 0.10 - 0.60 K/uL 03/29/2025 6:50 AM CDT [facility] EOSINOPHIL ABSOLUTE 0.00 0.00 - 0.70 K/uL 03/29/2025 6:50 AM CDT [facility] BASOPHILS ABSOLUTE 0.01 0.00 - 0.20 K/uL 03/29/2025 6:50 AM CDT [facility] IMMATURE GRANULOCYTES ABSOLUTE 0.01 0.00 - 0.10 K/uL 03/29/2025 6:50 AM CDT [facility] SMEAR REVIEWED: NN - No Action Needed 03/29/2025 6:50 AM CDT [facility] Blood Venipuncture / Unknown 03/29/2025 5:51 AM CDT 03/29/2025 6:33 AM CDT us Astrid Lion MD HEMATOLOGY ORDERABLES Final Res ult [facility] CLIA # [id number] [address] [place] [address] * (ABNORMAL) COMPREHENSIVE METABOLIC PANEL (03/29/2025 5:51 AM CDT) SODIUM 130(L) 136 - 145 mmol/L 03/29/2025 7:04 AM CDT [facility] POTASSIUM 4.3 3.5 - 5.1 mmol/L 03/29/2025 7:04 AM CDT [facility] CHLORIDE 98 98 - 107 mmol/L 03/29/2025 7:04 AM CDT [facility] CO2 23 22 - 29 mmol/L 03/29/2025 7:04 AM [facility] CALCIUM 7.8(L) 8.8 - 10.2 mg/dL 03/29/2025 7:04 AM [facility] BUN 19 8 - 23 mg/dL 03/29/2025 7:04 AM [facility] CREATININE 0.81 0.67 - 1.17 mg/dL 03/29/2025 7:04 AM [facility] Comment:The GFR result is no t clinically significant on patients <18 or >70 years of age. GLUCOSE 211(H) 74 - 99 mg/dL 03/29/2025 7:04 AM [facility] TOTAL PROTEIN 5.8(L) 6.4 - 8.3 g/dL 03/29/2025 7:04 AM [facility] ALBUMIN 2.9(L) 3.5 - 5.2 g/dL 03/29/2025 7:04 AM [facility] BILIRUBIN TOTAL 0.9 0.0 - 1.0 mg/dL 03/29/2025 7:04 AM [facility] ALKALINE PHOSPHATASE 160(H) 40 - 129 U/L 03/29/2025 7:04 AM [facility] AST 10 10 - 50 U/L 03/29/2025 7:04 AM [facility] ALT 16 <=50 U/L 03/29/2025 7:04 AM [facility] GFR >60 mL/min/1.7 3 sq meter 03/29/2025 7:04 AM [facility] Comment:eGFR calculated with 2020 CKD-EPI equation. Vegetarian diet, extremely high or low muscle mass, and may affect results. Cystatin C with Glomerular Filtration Rate is a suitable alternative for these patients. ANION GAP 9 9 - 20 mmol/L 03/29/2025 7:04 AM [facility] Blood Venipuncture / Unknown 03/29/2025 5:51 AM CDT 03/29/2025 6:32 AM CDT Astrid Lion MD CHEMISTRY ORDERABLES Final Resu lt Performing Organization Address [facility]/ZIP Co de Phone Number [facility] CLIA # [id number] [address] [place] [address] * (ABNORMAL) POC GLUCOSE (03/29/2025 1:58 AM CDT) GLUCOSE POC 210(H) 74 - 99 mg/dL 03/29/2025 1:58 AM CDT [facility] SPECIMEN SOURCE, GLUCOSE POC Capillary 03/29/2025 1:58 AM CDT [facility] Blood, whole 03/29/2025 1:58 AM CDT 03/29/2025 2:06 AM CDT Astrid Lion MD POINT OF CARE TESTING Final Res ult Performing Organization Address [facility] Co de Phone Number [facility] CLIA # [id number] [address] [place] [address] * (ABNORMAL) POC GLUCOSE (03/28/2025 9:28 PM CDT) GLUCOSE POC 281(H) 74 - 99 mg/dL 03/28/2025 9:28 PM CDT [facility] SPECIMEN SOURCE, GLUCOSE POC Capillary 03/28/2025 9:28 PM CDT [facility] Blood, whole 03/28/2025 9:28 PM CDT 03/28/2025 9:41 PM CDT Astrid Lion MD POINT OF CARE TESTING Final Res ult Performing Organization Address City/[facility]/ZIP Co de Phone Number [facility] CLIA # [id number] [address] [address] * (ABNORMAL) POC GLUCOSE (03/28/2025 4:58 PM CDT) GLUCOSE POC 185(H) 74 - 99 mg/dL 03/28/2025 4:58 PM CDT [facility] SPECIMEN SOURCE, GLUCOSE POC Capillary 03/28/2025 4:58 PM CDT [facility] Blood, whole 03/28/2025 4:58 PM CDT 03/28/2025 5:10 PM CDT Astrid Lion MD POINT OF CARE TESTING Final Res ult Performing Organization Address [facility]/ZIP Co de Phone Number [facility] CLIA # [id number] [address] [place] [address] * (ABNORMAL) POC GLUCOSE (03/28/2025 10:50 AM CDT) GLUCOSE POC 240(H) 74 - 99 mg/dL 03/28/2025 10:50 AM CDT [facility] SPECIMEN SOURCE, GLUCOSE POC Capillary 03/28/2025 10:50 AM CDT [facility] Blood, whole 03/28/2025 10:5 0 AM CDT 03/28/2025 11:17 AM CDT Astrid Lion MD POINT OF CARE TESTING Final Res ult [facility] CLIA # [id number] [facility] [address] [address] * (ABNORMAL) POC GLUCOSE (03/28/2025 7:29 AM CDT) GLUCOSE POC 211(H) 74 - 99 mg/dL 03/28/2025 7:29 AM CDT [facility] SPECIMEN SOURCE, GLUCOSE POC Capillary 03/28/2025 7:29 AM CDT [facility] Blood, whole 03/28/2025 7:29 AM CDT 03/28/2025 7:44 AM CDT Astrid Lion MD POINT OF CARE TESTING Final Res ult [facility] CLIA # [id number] [address] [address] [place] [address] * (ABNORMAL) MANUAL DIFFERENTIAL (03/28/2025 5:14 AM CDT) SEGMENTED NEUTROPHILS 23(L) 36 - 66 % 03/28/2025 6:43 AM CDT [facility] LYMPHOCYTES RELATIVE 67(H) 24 - 44 % 03/28/2025 6:43 AM CDT [facility] MONOCYTES RELATIVE 4 4 - 10 % 03/28/2025 6:43 AM CDT [facility] EOSINOPHILS RELATIVE 6(H) 0 - 3 % 03/28/2025 6:43 AM T [facility] PLATELET EST. Decreased 03/28/2025 6:43 AM T [facility] NEUTROPHILS ABSOLUTE COUNT 0.44(LL) 2.00 - 8.00 K/uL 03/28/2025 6:43 AM CDT [facility] LYMPHOCYTES ABSOLUTE 1.27 1.20 - 4.00 K/uL 03/28/2025 6:43 AM CDT [facility] ATYPICAL LYMPHS ABSOLUTE 03/28/2025 6:43 AM CDT [facility] MONOCYTES ABSOLUTE 0.08(L) 0.10 - 0.60 K/uL 03/28/2025 6:43 AM CDT [facility] EOSINOPHILS ABSOLUTE 0.11 0.00 - 0.70 K/uL 03/28/2025 6:43 AM CDT [facility] ANISOCYTOSIS 1+ /hpf 03/28/2025 6:43 AM CDT [facility] POIKILOCYTES 2+ /hpf 03/28/2025 6:43 AM CDT [facility] OVALOCYTES 2+ /hpf 03/28/2025 6:43 AM CDT [facility] DOHLE BODIES Present /hpf 03/28/2025 6:43 AM CDT [facility] TOTAL CELLS COUNTED IN DIFF 100 03/28/2025 6:43 AM CDT [facility] Blood Venipuncture / Unknown 03/28/2025 5:14 AM CDT 03/28/2025 5:18 AM CDT us Astrid Lion MD HEMATOLOGY ORDERABLES COM Final Result Performing Organization Address City/State/[facility] Co de Phone Number [facility] CLIA # [id number] [address] [place] [address] * (ABNORMAL) CBC WITH DIFFERENTIAL (03/28/2025 5:14 AM CDT) WBC 1.9(L) 4.8 - 10.8 K/uL 03/28/2025 6:43 AM T [facility] RBC 2.59(L) 4.60 - 6.20 M/uL 03/28/2025 6:43 AM CDT [facility] HEMOGLOBIN 7.9(L) 14.0 - 18.0 g/dL 03/28/2025 6:43 AM CDT [facility] HEMATOCRIT 23.9(L) 41.0 - 53.0 % 03/28/2025 6:43 AM CDT [facility] MCV 92.3 84.0 - 103.0 fL 03/28/2025 6:43 AM T [facility] MCH 30.5 27.0 - 34.0 pg 03/28/2025 6:43 AM CDT [facility] MCHC 33.1 30.0 - 35.0 g/dL 03/28/2025 6:43 AM CDT [facility] PLATELETS 11(LL) 140 - 440 K/uL 03/28/2025 6:43 AM CDT [facility] MPV 03/28/2025 6:43 AM T [facility] Comment:MPV not given becaus e of platelet size variation RDW 16.4(H) 11.0 - 14.5 % 03/28/2025 6:43 AM T [facility] RDW-STDEV 53.6 37.0 - 54.0 fL 03/28/2025 6:43 AM T [facility] SMEAR REVIEWED: - See Manual Diff. 03/28/2025 6:43 AM T [facility] Blood Venipuncture / Unknown 03/28/2025 5:14 AM CDT 03/28/2025 5:18 AM CDT us Astrid Lion MD HEMATOLOGY ORDERABLES Final Res ult [facility] CLIA # [id number] [address] [place] [address] * (ABNORMAL) COMPREHENSIVE METABOLIC PANEL (03/28/2025 5:14 AM CDT) SODIUM 133(L) 136 - 145 mmol/L 03/28/2025 5:57 AM CDT [facility] POTASSIUM 4.5 3.5 - 5.1 mmol/L 03/28/2025 5:57 AM T [facility] CHLORIDE 101 98 - 107 mmol/L 03/28/2025 5:57 AM CDT [facility] CO2 27 22 - 29 mmol/L 03/28/2025 5:57 AM CDT [facility] CALCIUM 8.3(L) 8.8 - 10.2 mg/dL 03/28/2025 5:57 AM T [facility] BUN 17 8 - 23 mg/dL 03/28/2025 5:57 AM [facility] CREATININE 0.84 0.67 - 1.17 mg/dL 03/28/2025 5:57 AM [facility] Comment:The GFR result is no t clinically significant on patients <18 or >70 years of age. GLUCOSE 211(H) 74 - 99 mg/dL 03/28/2025 5:57 AM [facility] TOTAL PROTEIN 6.2(L) 6.4 - 8.3 g/dL 03/28/2025 5:57 AM [facility] ALBUMIN 3.2(L) 3.5 - 5.2 g/dL 03/28/2025 5:57 AM [facility] BILIRUBIN TOTAL 1.0 0.0 - 1.0 mg/dL 03/28/2025 5:57 AM [facility] ALKALINE PHOSPHATASE 185(H) 40 - 129 U/L 03/28/2025 5:57 AM [facility] AST 10 10 - 50 U/L 03/28/2025 5:57 AM [facility] ALT 20 <=50 U/L 03/28/2025 5:57 AM [facility] GFR >60 mL/min/1.7 3 sq meter 03/28/2025 5:57 AM [facility] Comment:eGFR calculated with 2020 CKD-EPI equation. Vegetarian diet, extremely high or low muscle mass, and may affect results. Cystatin C with Glomerular Filtration Rate is a suitable alternative for these patients. ANION GAP 5(L) 9 - 20 mmol/L 03/28/2025 5:57 AM [facility] Blood Venipuncture / Unknown 03/28/2025 5:14 AM CDT 03/28/2025 5:20 AM CDT us Astrid Lion MD CHEMISTRY ORDERABLES Final Resu lt [facility] CLIA # [id number] [address] [place] [address] * (ABNORMAL) POC GLUCOSE (03/27/2025 9:16 PM CDT) GLUCOSE POC 190(H) 74 - 99 mg/dL 03/27/2025 9:16 PM CDT [facility] SPECIMEN SOURCE, GLUCOSE POC Capillary 03/27/2025 9:16 PM CDT [facility] Blood, whole 03/27/2025 9:16 PM CDT 03/27/2025 9:36 PM CDT Astrid Lion MD POINT OF CARE TESTING Final Res ult Performing Organization Address [facility]/ZIP Co de Phone Number [facility] CLIA # [id number] [address] [address] * (ABNORMAL) POC GLUCOSE (03/27/2025 4:50 PM CDT) GLUCOSE POC 194(H) 74 - 99 mg/dL 03/27/2025 4:50 PM CDT [facility] SPECIMEN SOURCE, GLUCOSE POC Capillary 03/27/2025 4:50 PM CDT [facility] Blood, whole 03/27/2025 4:50 PM CDT 03/27/2025 5:20 PM CDT Astrid Lion MD POINT OF CARE TESTING Final Res ult [facility] CLIA # [id number] [address] [place] [address] * (ABNORMAL) POC GLUCOSE (03/27/2025 11:29 AM CDT) GLUCOSE POC 268(H) 74 - 99 mg/dL 03/27/2025 11:29 AM CDT [facility] SPECIMEN SOURCE, GLUCOSE POC Capillary 03/27/2025 11:29 AM CDT [facility] Blood, whole 03/27/2025 11:2 9 AM CDT 03/27/2025 12:53 PM CDT Astrid Lion MD POINT OF CARE TESTING Final Res ult Performing Organization Address [facility] Co de Phone Number [facility] CLIA # [id number] [address] [address] * (ABNORMAL) POC GLUCOSE (03/27/2025 7:36 AM CDT) GLUCOSE POC 199(H) 74 - 99 mg/dL 03/27/2025 7:36 AM CDT [facility] SPECIMEN SOURCE, GLUCOSE POC Capillary 03/27/2025 7:36 AM CDT [facility] Blood, whole 03/27/2025 7:36 AM CDT 03/27/2025 9:13 AM CDT Astrid Lion MD POINT OF CARE TESTING Final Res ult Performing Organization Address [facility] Co de Phone Number [facility] CLIA # [id number] [address] [address] * (ABNORMAL) MANUAL DIFFERENTIAL (03/27/2025 4:03 AM CDT) SEGMENTED NEUTROPHILS 34(L) 36 - 66 % 03/27/2025 5:18 AM CDT [facility] LYMPHOCYTES RELATIVE 55(H) 24 - 44 % 03/27/2025 5:18 AM CDT [facility] MONOCYTES RELATIVE 6 4 - 10 % 03/27/2025 5:18 AM CDT [facility] EOSINOPHILS RELATIVE 4(H) 0 - 3 % 03/27/2025 5:18 AM T [facility] BASOPHILS RELATIVE 1 0 - 1 % 03/27/2025 5:18 AM [facility] PLATELET EST. Decreased 03/27/2025 5:18 AM [facility] NEUTROPHILS ABSOLUTE COUNT 0.65(L) 2.00 - 8.00 K/uL 03/27/2025 5:18 AM CDT [facility] LYMPHOCYTES ABSOLUTE 1.05(L) 1.20 - 4.00 K/uL 03/27/2025 5:18 AM [facility] ATYPICAL LYMPHS ABSOLUTE 03/27/2025 5:18 AM T [facility] MONOCYTES ABSOLUTE 0.11 0.10 - 0.60 K/uL 03/27/2025 5:18 AM [facility] EOSINOPHILS ABSOLUTE 0.08 0.00 - 0.70 K/uL 03/27/2025 5:18 AM T [facility] BASOPHILS ABSOLUTE 0.02 0.00 - 0.20 K/uL 03/27/2025 5:18 AM T [facility] ANISOCYTOSIS 1+ /hpf 03/27/2025 5:18 AM [facility] POIKILOCYTES 3+ /hpf 03/27/2025 5:18 AM [facility] OVALOCYTES 3+ /hpf 03/27/2025 5:18 AM [facility] TOTAL CELLS COUNTED IN DIFF 100 03/27/2025 5:18 AM [facility] Blood Venipuncture / Unknown 03/27/2025 4:03 AM CDT 03/27/2025 4:36 AM CDT us Astrid Lion MD HEMATOLOGY ORDERABLES COM Final Result [facility] CLIA # [id number] [address] [address] * (ABNORMAL) CBC WITH DIFFERENTIAL (03/27/2025 4:03 AM CDT) [facility] WBC 1.9(L) 4.8 - 10.8 K/uL 03/27/2025 5:18 AM CDT [facility] RBC 2.54(L) 4.60 - 6.20 M/uL 03/27/2025 5:18 AM CDT [facility] HEMOGLOBIN 7.8(L) 14.0 - 18.0 g/dL 03/27/2025 5:18 AM [facility] HEMATOCRIT 23.1(L) 41.0 - 53.0 % 03/27/2025 5:18 AM T [facility] MCV 90.9 84.0 - 103.0 fL 03/27/2025 5:18 AM [facility] MCH 30.7 27.0 - 34.0 pg 03/27/2025 5:18 AM [facility] MCHC 33.8 30.0 - 35.0 g/dL 03/27/2025 5:18 AM [facility] PLATELETS 11(LL) 140 - 440 K/uL 03/27/2025 5:18 AM [facility] MPV 03/27/2025 5:18 AM [facility] Comment:MPV not resulted due to platelet size variation. RDW 16.7(H) 11.0 - 14.5 % 03/27/2025 5:18 AM [facility] RDW-STDEV 53.7 37.0 - 54.0 fL 03/27/2025 5:18 AM [facility] SMEAR REVIEWED: - See Manual Diff. 03/27/2025 5:18 AM [facility] Blood Venipuncture / Unknown 03/27/2025 4:03 AM CDT 03/27/2025 4:36 AM CDT us Astrid Lion MD HEMATOLOGY ORDERABLES Final Res ult [facility] JUSTINE # [id number] [facility] [place] [address] * (ABNORMAL) COMPREHENSIVE METABOLIC PANEL (03/27/2025 4:03 AM CDT) SODIUM 133(L) 136 - 145 mmol/L 03/27/2025 5:12 AM CDT [facility] POTASSIUM 4.5 3.5 - 5.1 mmol/L 03/27/2025 5:12 AM CDT [facility] CHLORIDE 101 98 - 107 mmol/L 03/27/2025 5:12 AM CDT [facility] CO2 24 22 - 29 mmol/L 03/27/2025 5:12 AM CDT [facility] CALCIUM 8.1(L) 8.8 - 10.2 mg/dL 03/27/2025 5:12 AM CDT [facility] BUN 18 8 - 23 mg/dL 03/27/2025 5:12 AM CDT [facility] CREATININE 0.83 0.67 - 1.17 mg/dL 03/27/2025 5:12 AM T [facility] Comment:The GFR result is no t clinically significant on patients <18 or >70 years of age. GLUCOSE 197(H) 74 - 99 mg/dL 03/27/2025 5:12 AM CDT [facility] TOTAL PROTEIN 5.8(L) 6.4 - 8.3 g/dL 03/27/2025 5:12 AM CDT [facility] ALBUMIN 3.1(L) 3.5 - 5.2 g/dL 03/27/2025 5:12 AM CDT [facility] BILIRUBIN TOTAL 1.0 0.0 - 1.0 mg/dL 03/27/2025 5:12 AM CDT [facility] ALKALINE PHOSPHATASE 192(H) 40 - 129 U/L 03/27/2025 5:12 AM CDT [facility] AST 18 10 - 50 U/L 03/27/2025 5:12 AM CDT [facility] ALT 29 <=50 U/L 03/27/2025 5:12 AM CDT [facility] GFR >60 mL/min/1.7 3 sq meter 03/27/2025 5:12 AM CDT [facility] Comment:eGFR calculated with 2020 CKD-EPI equation. Vegetarian diet, extremely high or low muscle mass, and may affect results. Cystatin C with Glomerular Filtration Rate is a suitable alternative for these patients. ANION GAP 8(L) 9 - 20 mmol/L 03/27/2025 5:12 AM CDT [facility] Blood Venipuncture / Unknown 03/27/2025 4:03 AM CDT 03/27/2025 4:34 AM CDT Astrid Lion MD CHEMISTRY ORDERABLES Final Resu lt Performing Organization Address City/[facility]/ZIP Co de Phone Number [facility] CLIA # [id number] [address] [address] * (ABNORMAL) POC GLUCOSE (03/26/2025 9:15 PM CDT) GLUCOSE POC 231(H) 74 - 99 mg/dL 03/26/2025 9:15 PM CDT [facility] SPECIMEN SOURCE, GLUCOSE POC Capillary 03/26/2025 9:15 PM CDT [facility] Blood, whole 03/26/2025 9:15 PM CDT 03/26/2025 9:23 PM CDT Astrid Lion MD POINT OF CARE TESTING Final Res ult Performing Organization Address City/[facility]/ZIP Co de Phone Number [facility] CLIA # [id number] [address] [address] [place] [address] * (ABNORMAL) POC GLUCOSE (03/26/2025 5:11 PM CDT) GLUCOSE POC 241(H) 74 - 99 mg/dL 03/26/2025 5:11 PM CDT [facility] SPECIMEN SOURCE, GLUCOSE POC Capillary 03/26/2025 5:11 PM CDT [facility] Blood, whole 03/26/2025 5:11 PM CDT 03/26/2025 5:21 PM CDT Astrid Lion MD POINT OF CARE TESTING Final Res ult Performing Organization Address City/[facility]/ZIP Co de Phone Number [facility] CLIA # [id number] [address] [address] * (ABNORMAL) POC GLUCOSE (03/26/2025 11:28 AM CDT) GLUCOSE POC 234(H) 74 - 99 mg/dL 03/26/2025 11:28 AM CDT [facility] SPECIMEN SOURCE, GLUCOSE POC Capillary 03/26/2025 11:28 AM CDT [facility] Blood, whole 03/26/2025 11:2 8 AM CDT 03/26/2025 11:40 AM CDT Astrid Lion MD POINT OF CARE TESTING Final Res ult [facility] CLIA # [id number] [address] [address] * (ABNORMAL) POC GLUCOSE (03/26/2025 7:05 AM CDT) GLUCOSE POC 164(H) 74 - 99 mg/dL 03/26/2025 7:05 AM CDT [facility] SPECIMEN SOURCE, GLUCOSE POC Capillary 03/26/2025 7:05 AM CDT [facility] Blood, whole 03/26/2025 7:05 AM CDT 03/26/2025 7:44 AM CDT Astrid Lion MD POINT OF CARE TESTING Final Res ult [facility] CLIA # [id number] [address] [address] [place] [address] * (ABNORMAL) MANUAL DIFFERENTIAL (03/26/2025 4:21 AM CDT) SEGMENTED NEUTROPHILS 24(L) 36 - 66 % 03/26/2025 5:07 AM T [facility] LYMPHOCYTES RELATIVE 69(H) 24 - 44 % 03/26/2025 5:07 AM T [facility] MONOCYTES RELATIVE 2(L) 4 - 10 % 03/26/2025 5:07 AM T [facility] EOSINOPHILS RELATIVE 5(H) 0 - 3 % 03/26/2025 5:07 AM [facility] PLATELET EST. Decreased 03/26/2025 5:07 AM [facility] NEUTROPHILS ABSOLUTE COUNT 0.60(L) 2.00 - 8.00 K/uL 03/26/2025 5:07 AM T [facility] LYMPHOCYTES ABSOLUTE 1.73 1.20 - 4.00 K/uL 03/26/2025 5:07 AM T [facility] ATYPICAL LYMPHS ABSOLUTE 03/26/2025 5:07 AM T [facility] MONOCYTES ABSOLUTE 0.05(L) 0.10 - 0.60 K/uL 03/26/2025 5:07 AM [facility] EOSINOPHILS ABSOLUTE 0.13 0.00 - 0.70 K/uL 03/26/2025 5:07 AM [facility] ANISOCYTOSIS 1+ /hpf 03/26/2025 5:07 AM CDT [facility] POIKILOCYTES 3+ /hpf 03/26/2025 5:07 AM CDT [facility] OVALOCYTES 2+ /hpf 03/26/2025 5:07 AM CDT [facility] TOTAL CELLS COUNTED IN DIFF 100 03/26/2025 5:07 AM T [facility] Blood Venipuncture / Unknown 03/26/2025 4:21 AM CDT 03/26/2025 4:26 AM CDT us Astrid Lion MD HEMATOLOGY ORDERABLES COM Final Result [facility] CLIA # [id number] [address] [place] [address] * (ABNORMAL) CBC WITH DIFFERENTIAL (03/26/2025 4:21 AM CDT) Pathologist [facility] [place] WBC 2.5(L) 4.8 - 10.8 K/uL 03/26/2025 5:07 AM T [facility] NRBCS 1(H) <1 % 03/26/2025 5:07 AM [facility] RBC 2.82(L) 4.60 - 6.20 M/uL 03/26/2025 5:07 AM T [facility] HEMOGLOBIN 8.4(L) 14.0 - 18.0 g/dL 03/26/2025 5:07 AM T [facility] HEMATOCRIT 25.6(L) 41.0 - 53.0 % 03/26/2025 5:07 AM CDT [facility] MCV 90.8 84.0 - 103.0 fL 03/26/2025 5:07 AM T [facility] MCH 29.8 27.0 - 34.0 pg 03/26/2025 5:07 AM CDT [facility] MCHC 32.8 30.0 - 35.0 g/dL 03/26/2025 5:07 AM T [facility] PLATELETS 13(LL) 140 - 440 K/uL 03/26/2025 5:07 AM T [facility] MPV 03/26/2025 5:07 AM T [facility] Comment:MPV not resulted due to platelet size variation. RDW 16.9(H) 11.0 - 14.5 % 03/26/2025 5:07 AM [facility] RDW-STDEV 53.9 37.0 - 54.0 fL 03/26/2025 5:07 AM [facility] SMEAR REVIEWED: - See Manual Diff. 03/26/2025 5:07 AM [facility] Blood Venipuncture / Unknown 03/26/2025 4:21 AM CDT 03/26/2025 4:26 AM CDT us Astrid Lion MD HEMATOLOGY ORDERABLES Final Res ult [facility] CLIA # [id number] [address] [place] [address] * (ABNORMAL) COMPREHENSIVE METABOLIC PANEL (03/26/2025 4:21 AM CDT) SODIUM 136 136 - 145 mmol/L 03/26/2025 5:05 AM [facility] POTASSIUM 4.2 3.5 - 5.1 mmol/L 03/26/2025 5:05 AM [facility] CHLORIDE 105 98 - 107 mmol/L 03/26/2025 5:05 AM [facility] CO2 22 22 - 29 mmol/L 03/26/2025 5:05 AM [facility] CALCIUM 8.1(L) 8.8 - 10.2 mg/dL 03/26/2025 5:05 AM [facility] BUN 20 8 - 23 mg/dL 03/26/2025 5:05 AM [facility] CREATININE 0.90 0.67 - 1.17 mg/dL 03/26/2025 5:05 AM [facility] Comment:The GFR result is no t clinically significant on patients <18 or >70 years of age. GLUCOSE 171(H) 74 - 99 mg/dL 03/26/2025 5:05 AM [facility] TOTAL PROTEIN 6.1(L) 6.4 - 8.3 g/dL 03/26/2025 5:05 AM [facility] ALBUMIN 3.2(L) 3.5 - 5.2 g/dL 03/26/2025 5:05 AM [facility] BILIRUBIN TOTAL 1.0 0.0 - 1.0 mg/dL 03/26/2025 5:05 AM [facility] ALKALINE PHOSPHATASE 187(H) 40 - 129 U/L 03/26/2025 5:05 AM [facility] AST 19 10 - 50 U/L 03/26/2025 5:05 AM [facility] ALT 26 <=50 U/L 03/26/2025 5:05 AM [facility] GFR >60 mL/min/1.7 3 sq meter 03/26/2025 5:05 AM [facility] Comment:eGFR calculated with 2020 CKD-EPI equation. Vegetarian diet, extremely high or low muscle mass, and may affect results. Cystatin C with Glomerular Filtration Rate is a suitable alternative for these patients. ANION GAP 9 9 - 20 mmol/L 03/26/2025 5:05 AM [facility] Blood Venipuncture / Unknown 03/26/2025 4:21 AM CDT 03/26/2025 4:29 AM T us Astrid Lion MD CHEMISTRY ORDERABLES Final Resu lt [facility] CLIA # [id number] [address] [place] [address] * (ABNORMAL) POC GLUCOSE (03/26/2025 2:01 AM CDT) GLUCOSE POC 182(H) 74 - 99 mg/dL 03/26/2025 2:01 AM CDT [facility] SPECIMEN SOURCE, GLUCOSE POC Capillary 03/26/2025 2:01 AM CDT [facility] COMMENT, GLU POC Alerted Nurse/OMAIRA/DR 03/26/2025 2:01 AM CDT [facility] Blood, whole 03/26/2025 2:01 AM CDT 03/26/2025 2:09 AM CDT Astrid Lion MD POINT OF CARE TESTING Final Res ult Performing Organization Address City/[facility]/ZIP Co de Phone Number [facility] CLIA # [id number] [address] [address] * (ABNORMAL) POC GLUCOSE (03/25/2025 8:33 PM CDT) [facility] GLUCOSE POC 203(H) 74 - 99 mg/dL 03/25/2025 8:33 PM CDT [facility] SPECIMEN SOURCE, GLUCOSE POC Capillary 03/25/2025 8:33 PM CDT [facility] Blood, whole 03/25/2025 8:33 PM CDT 03/25/2025 8:58 PM CDT Astrid Lion MD POINT OF CARE TESTING Final Res ult [facility] CLIA # [id number] [address] [place] [address] * (ABNORMAL) POC GLUCOSE (03/25/2025 4:49 PM CDT) GLUCOSE POC 222(H) 74 - 99 mg/dL 03/25/2025 4:49 PM CDT [facility] SPECIMEN SOURCE, GLUCOSE POC Capillary 03/25/2025 4:49 PM CDT [facility] Blood, whole 03/25/2025 4:49 PM CDT 03/25/2025 4:59 PM CDT us Astrid Lion MD POINT OF CARE TESTING Final Res ult Performing Organization Address City/[facility]/ZIP Co de Phone Number [facility] CLIA # [id number] [address] [address] * CELL COUNT, BONE MARROW (03/25/2025 11:50 AM CDT) Bone marrow ALL BONE MARROW / Unknown Collection / Unknown 03/25/2025 11:50 AM CDT 03/25/2025 12:15 PM CDT us Poly Funes NP HEMATOLOGY ORDERABLES Final Result Performing Organization Address City/[facility] Co de Phone Number [facility] CLIA # [id number] [address] [address] * FLOW CYTOMETRY REPORT (03/25/2025 11:50 AM CDT) CASE REPORT Surgical Pathology Report Case: [id number] Authorizing Provider: Poly Funes NP Collected: 03/25/2025 11:50 AM Ordering Location: [facility] Received: 03/25/2025 12:18 PM 7A Oncology Pathologist: Sameer Galvan MD Specimen: Bone marrow 2:27 PM CDT [facility] FINAL DIAGNOSIS FLOW CYTOMETRIC ANALYSIS. FINAL PATHOLOGY DIAGNOSIS IN SEPARATE REPORT. SPECIMEN: - Bone marrow aspirate INTERPRETATION: - No diagnostic immunophenotypic abnormalities detected - This is ONLY an interpretation of the flow cytometry study; for the final/integrated pathology diagnosis see bone marrow case [id number] Sameer Galvan MD [id number] 2:27 PM CDT [facility] at 1427 CDT DIAGNOSIS COMMENT No immunophenotypic evidence of a lymphoproliferative disorder, acute leukemia, increase in blasts, or plasma cell neoplasm is identified. Myeloproliferative neoplasms and myelodysplastic syndromes may not show antigenic abnormalities on myeloid cells and cannot be ruled out by flow cytometry. Please correlate the result with morphological findings, other pertinent laboratory data and clinical information. 2:27 PM CDT [facility] IMMUNOPHENOTYPIC ANALYSIS Lymphocytes are 61.3% of total analyzed events. T-cells (62.5% of lymphoid cells) show a CD4/CD8 ratio of about 1.7 without overt phenotypic abnormality. NK-cells (31.4% of lymphoid cells) are unremarkable. Mature B-cells (2.7% of lymphoid cells) are polyclonal (kappa:lambda 1.6). BL92-qtrmuart events (1.2% of total cells) are not increased. Plasma cells are not increased and show unremarkable surface marker expression. Markers analyzed: CD2, CD3, CD4, CD5, CD7, CD8, CD10, CD11b, CD11c, CD13, CD14, CD16, CD19, CD20, CD23, CD33, CD34, CD38, CD45, CD56, CD57, CD64, CD117, HLA-DR, surface kappa, surface lambda (total = 26) 2:27 PM CDT [facility] COMMENT [facility] ([address] [place] [address], 2nd floor, room #[id number] in [place], [place]) and interpreted in-house at [facility] in [facility]. 2:27 PM CDT [facility] Bone marrow ALL BONE MARROW / Unknown Collection / Unknown 03/25/2025 11:50 AM CDT 03/25/2025 12:18 PM CDT Poly Funes NP PATHOLOGY/CYTOLOGY ORDERABL ES Final Result Performing Organization Address [facility] Co de Phone Number [facility] CLIA # [id number] [address] [address] * FLOW CYTOMETRY PANEL (03/25/2025 11:50 AM CDT) Pathologist [facility] [place] FLOW CYTOMETRY INTERP See Separate Pathology Report 03/25/2025 2:30 PM CDT [facility] Bone marrow ALL BONE MARROW / Unknown Collection / Unknown 03/25/2025 11:50 AM CDT 03/25/2025 12:09 PM CDT Poly Funes NP PATHOLOGY/CYTOLOGY ORDERABL ES Final Result Performing Organization Address [facility] Co de Phone Number [facility] CLIA # [id number] [facility] [address] * BONE MARROW ASPIRATION & BIOPSY (03/25/2025 11:50 AM CDT) Pathologist [facility] [place] CASE REPORT Surgical Pathology Report Case: [id number] Authorizing Provider: Poly Funes NP Collected: 03/25/2025 11:50 AM Ordering Location: [facility] Received: 03/25/2025 12:15 PM 7A Oncology Pathologist: Renetta Lucas MD Specimens: A) - Bone marrow, right posterior iliac crest, clot B) - Bone marrow, right posterior iliac crest, biopsy C) - Peripheral Blood Smear 9:36 AM CDT [facility] ADDENDUM 1 This case was submitted to [facility] [facility] for cytogenetics and NeoType MDS/CMML profile on 03/25/25. The original diagnosis/classificati on is unchanged. KARYOTYPE: 46,XY[6] Cytogenetic analysis shows a male karyotype in all cells analyzed. PLEASE NOTE: Due to poor mitotic index, only six metaphase cells are available for analysis. This is less than our standard of twenty cells and therefore represents an incomplete study and a disease-associated change cannot be ruled out. MDS/CMML Profile NeoTYPE Analysis: SNVs/Indels: ASXL1 Q512*; BRAF D594G; KRAS K5E; SETBP1 D868N; STAT5B N642H; U2AF1 Q157P Pertinent Negatives: NO alterations detected in the following genes: FLT3, IDH1, IDH2, NPM1, TP53 Interpretation: - ASXL1 mutations can be seen in various myeloid neoplasms, and are associated with a poor prognosis in MDS, AML, MPN and CMML. - SETBP1 mutations can be seen in various myeloid neoplasms, and are associated with disease progression in MDS and a poor prognosis in CMML. - U2AF1 mutations can be seen in various myeloid neoplasms, and are associated with a poor prognosis in MDS and AML. See full report scanned in chart. NOTE: Ancillary laboratory reports are scanned to the patient's electronic health record. CLB/wls [id number] 9:36 AM [facility] [facility] Addendum electronically signed by Renetta Lucas MD on 04/05/2025 at 0936 CDT FINAL DIAGNOSIS A/B/C. 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 Results will be reported in an addendum. 9:36 AM [facility] [facility] GROSS DESCRIPTION A. Received fresh in a syringe labeled Malugen is a single syringe containing 1.1 mL of dark partially clotted bone marrow. The marrow is filtered to form a 2.6 x 1.7 x 0.4 cm clot. The clot is sectioned and entirely submitted in A1. B. Received are 2 containers (1 received fresh, 1 received in formalin) labeled Jonnathanugen are 3 bone cores ranging from 0.4-1.5 cm in greatest dimension. The specimen is submitted entirely in B1, following light decalcification. Grossed by: Beatriz Small MS, LALITHA (ASCP) 9:36 AM T [facility] MICROSCOPIC DESCRIPTION Peripheral Blood CBC (03/25/2025): Hgb 8.4 g/dL; RBC 2.78 x10(12)/L; MCV 92.1 fL; RDW 17.1%; WBC 2.18 x10(9)/L; PLT 13 x10(9)/L. Automated white blood cell differential %: neutrophils 26.5; lymphocytes 59.6; monocytes 8.3; eosinophils 3.7, basophils 0.5, immature granulocytes 1.4. Peripheral smear: No diagnostic cytologic abnormalities. No granulocytic dysplasia or circulating blasts, although a subset of neutrophils shows toxic granulation. No significant schistocytes. Bone Marrow Aspirate/Touch Imprint The aspirate smears are somewhat clotted with numerous broken cells. Erythroid and myeloid maturation appears rental salesperson and complete with no significant dyspoiesis or increase in blasts. The megakaryocytes, however, are markedly atypical with micromegakaryocytes and small to intermediate and large forms showing multiple widely nuclear lobes. Bone Marrow Biopsy/Clot The clot and core biopsy are adequate for evaluation. The marrow is hypercellular for age (90%). The myeloid:erythroid ratio appears decreased at about 1:1. No increase in immature-appearing cells is identified. Lymphoid aggregates are present and generally ill-defined. Focally they show a juxta-trabecular distribution. Special Studies Iron stain: Insufficient particles for quantitative storage assessment. However, sideroblasts are present including scattered ring sideroblasts. Precise enumeration is limited by the nature of the smears. Reticulin and trichrome stains (block B1): Diffuse moderate interstitial reticulin fibrosis (2+ out of 3+) with no significant collagen fibrosis. GMS stain (block B1): No fungal organisms identified. Immunohistochemistry for CD34 (blocks A1 and B1) as well as BRAF, CD3, CD28, CD61, CD68, CD71, and myeloperoxidase (block B1): The lymphocytes are small, polymorphous, and a mixture of CD3 positive T cells and CD20 positive B cells with a marked T-cell predominance. CD68 highlights a prominent histiocytic/monocytic population. BRAF is negative in both the lymphocytes and histiocytes. CD61 highlights the megakaryocytes, including small micromegakaryocytes. CD71 highlights the erythroid maturation as well as the absence of well-defined erythroid islands. Myeloperoxidase highlights the residual but decreased granulocytic maturation. No quantitative increase in blasts or abnormal clustering of blasts is identified by CD34 stain. Flow cytometry: No diagnostic immunophenotypic abnormalities detected. A separate report is available ([id number]). Karyotype and NeoType MDS/CMML profile: Pending from outside reference facility. 9:36 AM CDT [facility] CLINICAL INFORMATION Pancytopenia. Chart review shows hepatosplenomegaly. 9:36 AM T [facility] COMMENT The [employer] voice-activated dictation system may have been used in the creation of this report. Inherent to this system is the possibility of errors in syntax, grammar, punctuation, or other areas that could impact interpretation. If there are interpretive questions about the report, please contact the performing pathologist. Unless gross only is specified in the diagnosis, the microscopic examination substantiates the above cited diagnosis. The performance characteristics of all immunohistochemical stains cited in this report (if any) were determined by the [facility] of [facility] in compliance with CLIA'88 regulations. Some of these tests rely on the use of analyte specific reagents and are subject to specific labeling requirements by the FDA. All controls show appropriate reactivity. This testing was developed by the [facility] of [facility]. It has not been cleared or approved by the FDA. The FDA has determined that such clearance or approval is not necessary. 9:36 AM CDT [facility] Bone marrow ALL BONE MARROW / Unknown Collection / Unknown 03/25/2025 11:50 AM CDT 03/25/2025 12:15 PM CDT Bone marrow specimen (specimen) ALL BONE MARROW / Unknown 03/25/2025 11:50 AM CDT 03/25/2025 12:15 PM CDT Bone marrow specimen (specimen) (Peripheral Blood Smear) 03/25/2025 11:50 AM CDT 03/25/2025 12:13 PM CDT Poly Funes NP PATHOLOGY/CYTOLOGY ORDERABL ES Edited Result - Final [facility] CLIA # [id number] [address] [place] [address] * IR BIOPSY BONE MARROW (03/25/2025 11:48 AM CDT) Anatomical Region Laterality Modality X-Ray Angiograph y 03/25/2025 11:5 2 AM CDT Impressions 03/28/2025 9:31 AM CDT IMPRESSION: Please see below. Exam: IR BIOPSY BONE MARROW Date/Time of Exam: 03/25/2025 11:48 AM Reason For Exam: Marrow. This procedure was performed and preliminary findings dictated by Mitchell Diaz PA-C. Supervision and final interpretation by Dr. Monk. CONSENT: Risks, benefits, and alternatives of the procedure were discussed with the patient. Specific risks of bone marrow aspiration and /or core biopsy of the posterior iliac crest include, but not limited to: bleeding, hematoma, discomfort at the site of the biopsy, and infection. Procedure may need to be repeated in the event the sample obtained is inadequate or non-diagnostic. Additional complications of anesthesia include, but not limited to: allergic/drug reaction and breathing problems. Written informed consent was obtained from the patient. Description of Procedure: A time out was performed to verify the patient and procedure. The patient was placed in a prone position, and fluoroscopy was utilized to evaluate the right posterior iliac crest for needle insertion site. The area was marked, prepped, and draped in the usual sterile fashion. All elements of maximal sterile barrier technique, including hand hygiene and cutaneous antisepsis with an antisepsis agent, were used. Local anesthesia was achieved with 1% lidocaine overlying the proposed needle course. Under fluoroscopic guidance, a hybrisshDentLight needle was advanced into the bone space via power drill. Approximately 10 mL of bone marrow aspirate as well as a bone biopsy were collected at that time and sent to the laboratory for ordered specimens. Patient tolerated the procedure well without complication. Estimated Blood Loss: None Narrative Procedure Note Dainel Monk MD - 03/28/2025 IMPRESSION: Please see below. Exam: IR BIOPSY BONE MARROW Date/Time of Exam: 03/25/2025 11:48 AM Reason For Exam: Marrow. This procedure was performed and preliminary findings dictated by Mitchell Diaz PA-C. Supervision and final interpretation by Dr. Monk. CONSENT: Risks, benefits, and alternatives of the procedure were discussed with the patient. Specific risks of bone marrow aspiration and /or core biopsy of the posterior iliac crest include, but not limited to: bleeding, hematoma, discomfort at the site of the biopsy, and infection. Procedure may need to be repeated in the event the sample obtained is inadequate or non-diagnostic. Additional complications of anesthesia include, but not limited to: allergic/drug reaction and breathing problems. Written informed consent was obtained from the patient. Description of Procedure: A time out was performed to verify the patient and procedure. The patient was placed in a prone position, and fluoroscopy was utilized to evaluate the right posterior iliac crest for needle insertion site. The area was marked, prepped, and draped in the usual sterile fashion. All elements of maximal sterile barrier technique, including hand hygiene and cutaneous antisepsis with an antisepsis agent, were used. Local anesthesia was achieved with 1% lidocaine overlying the proposed needle course. Under fluoroscopic guidance, a Jamshidi needle was advanced into the bone space via power drill. Approximately 10 mL of bone marrow aspirate as well as a bone biopsy were collected at that time and sent to the laboratory for ordered specimens. Patient tolerated the procedure well without complication. Estimated Blood Loss: None Poly Funes NP IR ORDERABLES Final Resul t * (ABNORMAL) POC GLUCOSE (03/25/2025 6:55 AM CDT) GLUCOSE POC 177(H) 74 - 99 mg/dL 03/25/2025 6:55 AM CDT [facility] SPECIMEN SOURCE, GLUCOSE POC Capillary 03/25/2025 6:55 AM CDT [facility] Blood, whole 03/25/2025 6:55 AM CDT 03/25/2025 7:18 AM CDT Astrid Lion MD POINT OF CARE TESTING Final Res ult Performing Organization Address [facility]/ZIP Co de Phone Number [facility] CLIA # [id number] [address] [address] [place], [place] [address] * HEMOGLOBIN A1C (03/25/2025 4:09 AM CDT) Pathologist [facility] [place] HEMOGLOBIN A1C 5.2 <=5.6 % 03/26/2025 12:01 PM CDT [facility] EST. AVG GLUCOSE, A1C 103 mg/dL 03/26/2025 12:01 PM CDT [facility] Blood Venipuncture / Unknown 03/25/2025 4:09 AM CDT 03/25/2025 4:40 AM CDT Narrative [facility] - 03/26/2025 12:01 PM CDT HGB A1C INTERPRETATION NORMAL: <5.7% PRE-DIABETES: 5.7 - 6.4% DIABETES: 6.5% OR GREATER Astrid Lion MD CHEMISTRY ORDERABLES Final Resu lt Performing Organization Address City/[facility]/ZIP Co de Phone Number [facility] CLIA # [id number] [address] [id number] * (ABNORMAL) COMPREHENSIVE METABOLIC PANEL (03/25/2025 4:09 AM CDT) Pathologist [facility] [place] SODIUM 138 136 - 145 mmol/L 03/25/2025 5:17 AM CDT [facility] [employer] [facility] POTASSIUM 4.0 3.5 - 5.1 mmol/L 03/25/2025 5:17 AM [facility] CHLORIDE 106 98 - 107 mmol/L 03/25/2025 5:17 AM [facility] CO2 24 22 - 29 mmol/L 03/25/2025 5:17 AM [facility] CALCIUM 8.0(L) 8.8 - 10.2 mg/dL 03/25/2025 5:17 AM [facility] BUN 14 8 - 23 mg/dL 03/25/2025 5:17 AM [facility] CREATININE 0.83 0.67 - 1.17 mg/dL 03/25/2025 5:17 AM [facility] Comment:The GFR result is no t clinically significant on patients <18 or >70 years of age. GLUCOSE 177(H) 74 - 99 mg/dL 03/25/2025 5:17 AM [facility] TOTAL PROTEIN 5.8(L) 6.4 - 8.3 g/dL 03/25/2025 5:17 AM [facility] ALBUMIN 3.2(L) 3.5 - 5.2 g/dL 03/25/2025 5:17 AM [facility] BILIRUBIN TOTAL 1.1(H) 0.0 - 1.0 mg/dL 03/25/2025 5:17 AM [facility] ALKALINE PHOSPHATASE 146(H) 40 - 129 U/L 03/25/2025 5:17 AM [facility] AST 10 10 - 50 U/L 03/25/2025 5:17 AM [facility] ALT 12 <=50 U/L 03/25/2025 5:17 AM [facility] GFR >60 mL/min/1.7 3 sq meter 03/25/2025 5:17 AM [facility] Comment:eGFR calculated with 2020 CKD-EPI equation. Vegetarian diet, extremely high or low muscle mass, and may affect results. Cystatin C with Glomerular Filtration Rate is a suitable alternative for these patients. ANION GAP 8(L) 9 - 20 mmol/L 03/25/2025 5:17 AM CDT [facility] Blood Venipuncture / Unknown 03/25/2025 4:09 AM CDT 03/25/2025 4:40 AM CDT us Renny Álvarez MD CHEMISTRY ORDERABLES Final Resu lt [facility] CLIA # [id number] [address] [place] [address] [place] [address] * (ABNORMAL) CBC WITH DIFFERENTIAL (03/25/2025 4:09 AM CDT) Pathologist [facility] [place] WBC 2.2(L) 4.8 - 10.8 K/uL 03/25/2025 4:52 AM CDT [facility] RBC 2.78(L) 4.60 - 6.20 M/uL 03/25/2025 4:52 AM CDT [facility] HEMOGLOBIN 8.4(L) 14.0 - 18.0 g/dL 03/25/2025 4:52 AM T [facility] HEMATOCRIT 25.6(L) 41.0 - 53.0 % 03/25/2025 4:52 AM T [facility] MCV 92.1 84.0 - 103.0 fL 03/25/2025 4:52 AM T [facility] MCH 30.2 27.0 - 34.0 pg 03/25/2025 4:52 AM T [facility] MCHC 32.8 30.0 - 35.0 g/dL 03/25/2025 4:52 AM T [facility] PLATELETS 13(LL) 140 - 440 K/uL 03/25/2025 4:52 AM T [facility] MPV 03/25/2025 4:52 AM T [facility] Comment:MPV not resulted due to platelet size variation. RDW 17.1(H) 11.0 - 14.5 % 03/25/2025 4:52 AM [facility] RDW-STDEV 55.2(H) 37.0 - 54.0 fL 03/25/2025 4:52 AM T [facility] NEUTROPHILS 27(L) 42 - 75 % 03/25/2025 4:52 AM [facility] LYMPHOCYTES 60(H) 24 - 44 % 03/25/2025 4:52 AM [facility] MONOCYTES 8 2 - 10 % 03/25/2025 4:52 AM T [facility] EOSINOPHILS 4 0 - 7 % 03/25/2025 4:52 AM [facility] BASOPHILS 1 0 - 1 % 03/25/2025 4:52 AM [facility] IMMATURE GRANULOCYTES 1 0 - 2 % 03/25/2025 4:52 AM [facility] NEUTROPHIL ABSOLUTE 0.58(L) 2.00 - 8.00 K/uL 03/25/2025 4:52 AM [facility] LYMPHOCYTE ABSOLUTE 1.30 1.20 - 4.00 K/uL 03/25/2025 4:52 AM [facility] MONOCYTE ABSOLUTE 0.18 0.10 - 0.60 K/uL 03/25/2025 4:52 AM [facility] EOSINOPHIL ABSOLUTE 0.08 0.00 - 0.70 K/uL 03/25/2025 4:52 AM [facility] BASOPHILS ABSOLUTE 0.01 0.00 - 0.20 K/uL 03/25/2025 4:52 AM [facility] IMMATURE GRANULOCYTES ABSOLUTE 0.03 0.00 - 0.10 K/uL 03/25/2025 4:52 AM [facility] SMEAR REVIEWED: NN - No Action Needed 03/25/2025 4:52 AM [facility] Blood Venipuncture / Unknown 03/25/2025 4:09 AM CDT 03/25/2025 4:40 AM CDT us Renny Álvarez MD HEMATOLOGY ORDERABLES Final Res ult Performing Organization Address [facility] de Phone Number [facility] CLIA # [id number] [address] [address] * (ABNORMAL) PROTIME-INR (03/25/2025 4:09 AM CDT) PROTIME 16.0(H) 12.7 - 14.9 Seconds 03/25/2025 4:53 AM CDT [facility] INR 1.2 0.8 - 1.2 03/25/2025 4:53 AM CDT [facility] Blood Venipuncture / Unknown 03/25/2025 4:09 AM CDT 03/25/2025 4:40 AM CDT Narrative [facility] - 03/25/2025 4:53 AM CDT Expected Values for INR: DVT/PE Goal INR 2.5; range 2.0 - 3.0 Valve Replacement Tissue Goal INR 2.5; range 2.0 - 3.0 Valve Replacement Mechanical Goal INR 3.0; range 2.5 - 3.5 POST-MT Goal INR 2.5; range 2.0 - 3.0 or Goal INR 3.0; range 2.5 - 3.5 Atrial Fibrillation Goal INR 2.5; range 2.0 - 3.0 Ischemic Stroke Goal INR 2.5; range 2.0 - 3.0 us Truman Rico MD HEMATOLOGY ORDERABLES Final R esult Performing Organization Address [facility] Co de Phone Number [facility] CLIA # [id number] [address] [address] * FIBRINOGEN QUANTITATIVE (03/25/2025 4:09 AM CDT) FIBRINOGEN 241 200 - 400 mg/dL 03/25/2025 4:53 AM CDT [facility] Blood Venipuncture / Unknown 03/25/2025 4:09 AM CDT 03/25/2025 4:40 AM CDT us Truman Rico MD HEMATOLOGY ORDERABLES Final R esult Performing Organization Address [facility]/ZIP Co de Phone Number [facility] CLIA # [id number] [address] [address] [place] [address] * (ABNORMAL) POC GLUCOSE (03/25/2025 1:23 AM CDT) GLUCOSE POC 147(H) 74 - 99 mg/dL 03/25/2025 1:23 AM CDT [facility] SPECIMEN SOURCE, GLUCOSE POC Capillary 03/25/2025 1:23 AM CDT [facility] Blood, whole 03/25/2025 1:23 AM CDT 03/25/2025 1:31 AM CDT us Renny Álvarez MD POINT OF CARE TESTING Final Res ult Performing Organization Address [facility] Co de Phone Number [facility] CLIA # [id number] [address] [address] * (ABNORMAL) POC GLUCOSE (03/24/2025 8:34 PM CDT) GLUCOSE POC 240(H) 74 - 99 mg/dL 03/24/2025 8:34 PM CDT [facility] SPECIMEN SOURCE, GLUCOSE POC Capillary 03/24/2025 8:34 PM CDT [facility] Blood, whole 03/24/2025 8:34 PM CDT 03/24/2025 9:33 PM CDT us Renny Álvarez MD POINT OF CARE TESTING Final Res ult Performing Organization Address City/[facility]/ZIP Co de Phone Number [facility] CLIA # [id number] [address] [address] * IMMUNOFIXATION (03/24/2025 6:41 PM CDT) [facility] IMMUNOFIXATION INTERP See Interpretation Below 03/28/2025 4:39 PM CDT [facility] Comment:M1 = IgG kappa INTERPRETED BY: Popeye Michelle MD 11/2024 4:39 PM CDT [facility] Blood Venipuncture / Unknown 03/24/2025 6:41 PM CDT 03/24/2025 7:59 PM CDT Batool Wagner ASSISTANT STORE MANAGER CHEMISTRY ORDERABLES Final Result [facility] CLIA # [id number] [address] [address] * HEPATITIS C RNA PCR, QUANTITATIVE (03/24/2025 6:41 PM CDT) [facility] HCV RNA, QUANT REAL TIME PCR <15 NOT DETECTED NOT DETECTED IU/mL 03/28/2025 5:29 PM CDT [facility] HCV RNA QUANT PCR COPIES IU/ML <1.18 NOT DETECTED NOT DETECTED Log IU/mL 03/28/2025 5:29 PM CDT [facility] Comment: For additional information, please refer to http://education.[employer]/faq/SIK30d7 (This link is being provided for informational/ educational purposes only.) Blood Venipuncture / Unknown 03/24/2025 6:41 PM CDT 03/24/2025 7:47 PM CDT Narrative [facility] - 03/28/2025 5:29 PM CDT Performing Organization Information: Site ID: [place] Name: [employer] Address: [address] [address] Director: Chavez Andrews MD Batool Wagner NP CHEMISTRY ORDERABLES Final Result [facility] * BLOOD CULTURE (03/24/2025 6:41 PM CDT) BLOOD CULTURE No growth 03/29/2025 7:58 PM CDT [facility] Blood (Peripheral) Venipuncture / Unknown 03/24/2025 6:41 PM CDT 03/24/2025 6:53 PM CDT Batool Wagner NP MICROBIOLOGY - GENERAL ORD ERABLES Final Result Performing Organization Address [facility] Co de Phone Number [facility] CLIA # [id number] [address] [place] [address] * (ABNORMAL) ZINC LEVEL (03/24/2025 6:41 PM CDT) ZINC LEVEL 58(L) 60 - 130 mcg/dL 03/29/2025 9:25 AM CDT [facility] Comment: (Note) This test was developed and its analytical performance characteristics have been determined by [employer]. It has not been cleared or approved by the FDA. This assay has been validated pursuant to the CLIA regulations and is used for clinical purposes. [facility] [address] [place] [address],[address] [place] [id number] Lola Ramey MD, PhD Blood Venipuncture / Unknown 03/24/2025 6:41 PM CDT 03/24/2025 6:53 PM CDT Narrative [facility] - 03/29/2025 9:25 AM CDT Performing Organization Information: Site ID: [id number] Name: [employer] Address: [address] [place] [address], [address] [place] [id number] Director: Lola Ramey MD,PhD Batool Wagner NP CHEMISTRY ORDERABLES Final Result [facility] * COPPER LEVEL (03/24/2025 6:41 PM CDT) COPPER LEVEL 88 70 - 175 mcg/dL 03/29/2025 9:17 AM CDT [facility] Comment: (Note) This test was developed and its analytical performance characteristics have been determined by [employer]. It has not been cleared or approved by the FDA. This assay has been validated pursuant to the CLIA regulations and is used for clinical purposes. MD [facility] [address] [place] [address],[address] [facility] [id number] Lola Ramey MD, PhD Blood Venipuncture / Unknown 03/24/2025 6:41 PM CDT 03/24/2025 6:53 PM CDT Narrative [facility] - 03/29/2025 9:17 AM CDT Performing Organization Information: Site ID: [id number] Name: [employer] Address: [address] [place] [address], [address] [place] [id number] Director: Lola Ramey MD,PhD Batolo Wagner NP CHEMISTRY ORDERABLES Final Result Performing Organization Address [facility] Co de Phone Number [facility] * INDER SCREEN W/REFLEX (03/24/2025 6:41 PM CDT) Pathologist [facility] [place] INDER SCREEN NEGATIVE NEGATIVE 03/29/2025 4:46 PM CDT [facility] Comment: INDER IFA is a first line screen for detecting the presence of up to approximately 150 autoantibodies in various autoimmune diseases. A negative INDER IFA result suggests an INDER-associated autoimmune disease is not present at this time, and does not reflex further. If there is high clinical suspicion for Sjogren's syndrome, testing for anti-SS-A/Ro antibody should be considered. Anti-Ana-1 antibody should be considered for clinically suspected inflammatory myopathies. AC-0: Negative International Consensus on INDER Patterns (https://doi.org/10.1515/pmen-1132-3363) For additional information, please refer to http://education.[employer]/faq/FYQ597 (This link is being provided for informational/ educational purposes only.) Blood Venipuncture / Unknown 03/24/2025 6:41 PM CDT 03/24/2025 6:53 PM CDT Narrative [facility] - 03/29/2025 4:46 PM CDT Performing Organization Information: Site ID: [place] Name: [employer] Address: [address] [address] Director: Chavez Andrews MD Batool Wagner NP CHEMISTRY ORDERABLES Final Result [facility] * (ABNORMAL) ACUTE HEPATITIS PANEL (03/24/2025 6:41 PM CDT) HEPATITIS B SURFACE AG NON-REACT HUBERT Non-react hubert 03/24/2025 7:47 PM CDT [facility] [employer] [facility] Comment:A non-reactive test result does not exclude the possibility of exposure to or infection with hepatitis B. HEPATITIS B CORE IGM NON-REACT HUBERT Non-react hubert 03/24/2025 7:47 PM CDT [facility] Comment:IgM antibodies to HB c were not detected; does not exclude the possibility of exposure to HBV. HEPATITIS A IGM Non-react hubert Non-react hubert 03/24/2025 7:47 PM CDT [facility] Comment:A negative test resu lt does not exclude the possibility of exposure to Hepatitis A virus. HEPATITIS C AB REACTIVE( A) Non-react hubert 03/24/2025 7:47 PM CDT [facility] [employer] [facility] Blood Venipuncture / Unknown 03/24/2025 6:41 PM CDT 03/24/2025 6:53 PM CDT Narrative [facility] [employer] [facility] - 03/24/2025 7:47 PM CDT Confirmatory testing by HCV_RNA by PCR will be automatically reflexed on reactive results. Batool Wagner ASSISTANT STORE MANAGER CHEMISTRY ORDERABLES Final Result [facility] # [id number] [address] [place] [address] [place] [address] * (ABNORMAL) KAPPA/LAMBDA, FREE LIGHT CHAINS (03/24/2025 6:41 PM CDT) Pathologist [facility] [place] KAPPA FREE LIGHT CHAIN 52.9(H) 3.3 - 19.4 mg/L 03/29/2025 4:46 PM CDT [facility] LAMBDA FREE LIGHT CHAIN 46.5(H) 5.7 - 26.3 mg/L 03/29/2025 4:46 PM CDT [facility] KAPPA/LAMBDA LIGHT CHAIN RATIO 1.14 0.26 - 1.65 03/29/2025 4:46 PM CDT [facility] Comment: Free kappa/lambda ratio in serum of normal individuals is 0.26-1.65. Excess production of free kappa or lambda chains can alter this ratio. Monoclonal free light chains are found in serum of patients with multiple myeloma, Waldenstrom's macroglobulinemia, mu-heavy chain disease, primary amyloidosis, light chain deposition disease, monoclonal gammopathy of undetermined significance, and lymphoproliferative disorders. Measurement of free light chain concentration in serum is useful for diagnosis, prognosis, monitoring disease activity and following response to therapy of these disorders. Blood Venipuncture / Unknown 03/24/2025 6:41 PM CDT 03/24/2025 6:53 PM CDT Narrative [facility] - 03/29/2025 4:46 PM CDT Performing Organization Information: Site ID: [place] Name: [employer] Address: [address] [place] [address] Director: Chavez Andrews MD Performing Organization Information: Site ID: [place] Name: [employer] Address: [address] [place] [address] Director: Chavez Andrews MD Batool Wagner ASSISTANT STORE MANAGER CHEMISTRY ORDERABLES Edite d Result - Final [facility] * (ABNORMAL) PROTEIN ELECTROPHORESIS W/REFLEX,SERUM (03/24/2025 6:41 PM CDT) TOTAL PROTEIN 6.2(L) 6.4 - 8.3 g/dL 03/28/2025 4:38 PM CDT [facility] ALBUMIN SPE 3.33(L) 3.50 - 5.20 g/dL 03/28/2025 4:38 PM CDT [facility] ALPHA 1 GLOBULIN SPE 0.25 0.21 - 0.45 g/dL 03/28/2025 4:38 PM CDT [facility] ALPHA 2 GLOBULIN SPE 0.43(L) 0.50 - 1.01 g/dL 03/28/2025 4:38 PM CDT [facility] BETA GLOBULIN 0.62 0.60 - 1.06 g/dL 03/28/2025 4:38 PM CDT [facility] GAMMA GLOBULIN 1.51(H) 0.60 - 1.33 g/dL 03/28/2025 4:38 PM CDT [facility] MONOCLONAL PROTEIN 1 0.04 g/dL 03/28/2025 4:38 PM CDT [facility] SPE INTERP See Interpretation Below 03/28/2025 4:38 PM CDT [facility] Comment:Small monoclonal pro tein identified in the gamma region-see separate immunofixation report. INTERPRETED BY: Popeye Michelle MD 11/2024 4:38 PM T [facility] Blood Venipuncture / Unknown 03/24/2025 6:41 PM CDT 03/24/2025 7:59 PM CDT Narrative [facility] - 03/28/2025 4:38 PM CDT Immunofixation ordered at [facility] per policy per pathologist. Batool Wagner ASSISTANT STORE MANAGER CHEMISTRY ORDERABLES Final Result [facility] # [id number] [address] [place] [address] [place] [address] * TICK-BORNE PANEL, PCR (03/24/2025 6:41 PM CDT) BORRELIA MIYAMOTOI PCR NOT DETECTED 03/28/2025 8:54 AM CDT [facility] Comment: REFERENCE RANGE: NOT DETECTED This test detects but does not distinguish between B. miyamotoi and B. hermsii. This test was developed and its analytical performance characteristics have been determined by [employer]. It has not been cleared or approved by FDA. This assay has been validated pursuant to the CLIA regulations and is used for clinical purposes. COMMENT INFECTIOUS DISEASE SEE COMMENT 03/28/2025 8:54 AM CDT [facility] Comment: A negative result does not exclude Borrelia infection as the concentration of the organism in blood may be low or non-existent in patients with Lyme disease, and may depend on timing of specimen collection from onset of symptoms. Clinical correlation is recommended and additional studies such as serologic testing may be indicated. BORRELIA SP, PCR, BLOOD NOT DETECTED 03/28/2025 8:54 AM CDT [facility] Comment: REFERENCE RANGE: NOT DETECTED This test was developed and its analytical performance characteristics have been determined by [employer]. It has not been cleared or approved by FDA. This assay has been validated pursuant to the CLIA regulations and is used for clinical purposes. For additional information, please refer to https://education.[employer]/faq/wkd305 (This link is being provided for informational/ educational purposes only.) EHRLICHIA EWINGII DNA, QL REAL TIME PCR NOT DETECTED 03/28/2025 8:54 AM CDT [facility] Comment: REFERENCE RANGE: NOT DETECTED This test was developed and its analytical performance characteristics have been determined by [employer]. It has not been cleared or approved by FDA. This assay has been validated pursuant to the CLIA regulations and is used for clinical purposes. EHRLICHIA CHAFFEENSIS PCR NOT DETECTED 03/28/2025 8:54 AM CDT [facility] Comment: REFERENCE RANGE: NOT DETECTED This test was developed and its analytical performance characteristics have been determined by [facility]. It has not been cleared or approved by FDA. This assay has been validated pursuant to the CLIA regulations and is used for clinical purposes. ANAPLASMA PHAGOCYTOPHILUM PCR NOT DETECTED 03/28/2025 8:54 AM CDT [facility] Comment: REFERENCE RANGE: NOT DETECTED This test was developed and its analytical performance characteristics have been determined by [employer]. It has not been cleared or approved by FDA. This assay has been validated pursuant to the CLIA regulations and is used for clinical purposes. BABESIA MICROTI PCR NOT DETECTED 11/2024 8:54 AM CDT [facility] Comment: REFERENCE RANGE: NOT DETECTED This test was developed and its analytical performance characteristics have been determined by [employer]. It has not been cleared or approved by FDA. This assay has been validated pursuant to the CLIA regulations and is used for clinical purposes. Blood Venipuncture / Unknown 03/24/2025 6:41 PM CDT 03/24/2025 6:53 PM CDT [facility] - 03/28/2025 8:54 AM CDT Performing Organization Information: Site ID: [id number] Name: [employer] [facility], Address: [address] [place] [address] Director: Gayle Marcelino MD,PhD,CHIP Performing Organization Information: Site ID: [id number] Name: [employer] [facility], Address: [address] [place], [place] [id number] Director: Gayle Marcelino MD,PhD,CHIP Performing Organization Information: Site ID: EZ Name: [employer] [facility], Address: [address] [place], [place] [id number] Director: Gayle Marcelino MD,PhD,CHIP Performing Organization Information: Site ID: EZ Name: [employer] [facility], Address: [address] [place] [address] Director: Gayle Marcelino MD,PhD,CHIP Performing Organization Information: Site ID: EZ Name: [employer], Address: [address] [place] [phone] Director: Gayle Marcelino MD,PhD,CHIP Performing Organization Information: Site ID: EZ Name: [employer], Address: [address] [place] [id number] Director: Gayle Marcelino MD,PhD,CHIP Batool Wagner ASSISTANT STORE MANAGER CHEMISTRY ORDERABLES Final Result Performing Organization Address City/[facility] Co de Phone Number [facility] * CMV BY PCR (03/24/2025 6:41 PM CDT) [facility] CYTOMEGALOVIRUS, QUANT IU/ML Not Detected IU/mL 04/02/2025 6:48 AM CDT [facility] CYTOMEGALOVIRUS BY PCR, QUANT LOG IU/ML Not Detected log IU/mL 04/02/2025 6:48 AM CDT [facility] Comment: REFERENCE RANGE: NOT DETECTED For additional information, please refer to http://education.SED Web/faq/CMVandEBVPCR (This link is being provided for informational/ educational purposes only.) Blood Venipuncture / Unknown 03/24/2025 6:41 PM CDT 03/24/2025 6:53 PM CDT Narrative [facility] - 04/02/2025 6:48 AM CDT Performing Organization Information: Site ID: AMD Name: [employer] [place] Address: [address] [place] [address] [place] [address] Director: Ortiz Raymundo M.D.,PhD Batool Wganer ASSISTANT STORE MANAGER CHEMISTRY ORDERABLES Final Result Performing Organization Address City/[facility]/ZIP Co de Phone Number [facility] * EBV BY PCR (03/24/2025 6:41 PM CDT) [facility] EBV DNA, QN PCR Not Detected IU/mL 04/01/2025 6:24 PM CDT [facility] LOG10 EBV DNA QN PCR Not Detected Log IU/mL 04/01/2025 6:24 PM CDT [facility] Comment: Reference Range: Not Detected For additional information, please refer to http://education.SED Web/faq/CMVandEBVPCR (This link is being provided for informational/ educational purposes only.) Blood Venipuncture / Unknown 03/24/2025 6:41 PM CDT 03/24/2025 6:53 PM CDT Narrative [facility] - 04/01/2025 6:24 PM CDT Performing Organization Information: Site ID: AMD Name: [facility] Address: [address] [place] [address] [place], [place] Director: Ortiz Raymundo M.D.,PhD Batool Wagner NP CHEMISTRY ORDERABLES Final Result Performing Organization Address [facility]/ZIP Co de Phone Number [facility]ENCE [facility] [place] BLOOD CULTURE (03/24/2025 6:40 PM CDT) [facility] BLOOD CULTURE No growth 03/29/2025 7:58 PM CDT [facility] Blood (Peripheral) Venipuncture / Unknown 03/24/2025 6:40 PM CDT 03/24/2025 6:53 PM CDT Batool Wagner NP MICROBIOLOGY - GENERAL ORD ERABLES Final Result Performing Organization Address [facility]/ZIP Co de Phone Number [facility] CLIA # [id number] [address] [place] [address] * (ABNORMAL) POC GLUCOSE (03/24/2025 4:52 PM CDT) [facility] GLUCOSE POC 226(H) 74 - 99 mg/dL 03/24/2025 4:52 PM CDT [facility] SPECIMEN SOURCE, GLUCOSE POC Capillary 03/24/2025 4:52 PM CDT [facility] Blood, whole 03/24/2025 4:52 PM CDT 03/24/2025 5:18 PM CDT us Renny Álvarez MD POINT OF CARE TESTING Final Res ult [facility] CLIA # [id number] [address] [address] [place] [address] * US ABDOMEN COMPLETE (03/24/2025 4:41 PM CDT) Anatomical Region Laterality Modality Abdomen Ultrasound 03/24/2025 4:41 PM CDT Impressions 03/24/2025 6:18 PM CDT IMPRESSION: Please see below. Exam: US ABDOMEN COMPLETE Date/Time of Exam: 03/24/2025 4:41 PM Reason For Exam: Other - Please see comments. Diagnosis: See Reason for Exam. Comparison: None. FINDINGS: Realtime transabdominal ultrasound was performed. Exam quality: Adequate. Liver: The parenchyma is homogeneous without evidence of a discrete mass. Hepatomegaly measuring 20.7cm Extrahepatic Bile Ducts: The common duct is normal measuring 5.4 mm in diameter. Gallbladder: There is no evidence of intraluminal calculi. The gallbladder wall is normal in thickness measuring 1.9 mm. Positive Rivas's sign: No Pancreas: The parenchyma is homogeneous without evidence of a discrete mass. Right Kidney: The right kidney measures 10.8 cm in length. The renal cortical thickness and echogenicity are within normal limits. Simple cyst seen on upper pole measuring 1.1x0.9x1.0cm Left Kidney: The left kidney measures 12.5 cm in length. The renal cortical thickness and echogenicity are within normal limits. Multiple cystic structures seen with largest involving the lower pole measuring 3.5x3.3x3.9cm Multiple cystic structures seen with largest involving the lower pole measuring 3.5x3.3x3.9cm the largest cortical cyst demonstrates thickened internal septations. Spleen: The spleen measures 9.4 x 7.3 x 15.0 cm with a volume of 537.49ml mL. The parenchyma is homogeneous without evidence of a discrete mass. Splenomegaly IVC/Aorta: The visualized portions are within normal limits. Ascites: None. Additional Findings: None. IMPRESSION: 1. Hepatosplenomegaly. 2. Bilateral renal cortical cysts. The largest cyst involving the lower pole left kidney demonstrates thickened internal septations. Short interval follow-up ultrasound or further characterization with nonemergent renal MRI with and without contrast recommended. Narrative Procedure Note Man Bedoya MD - 03/24/2025 IMPRESSION: Please see below. Exam: US ABDOMEN COMPLETE Date/Time of Exam: 03/24/2025 4:41 PM Reason For Exam: Other - Please see comments. Diagnosis: See Reason for Exam. Comparison: None. FINDINGS: Realtime transabdominal ultrasound was performed. Exam quality: Adequate. Liver: The parenchyma is homogeneous without evidence of a discrete mass. Hepatomegaly measuring 20.7cm Extrahepatic Bile Ducts: The common duct is normal measuring 5.4 mm in diameter. Gallbladder: There is no evidence of intraluminal calculi. The gallbladder wall is normal in thickness measuring 1.9 mm. Positive Rivas's sign: No Pancreas: The parenchyma is homogeneous without evidence of a discrete mass. Right Kidney: The right kidney measures 10.8 cm in length. The renal cortical thickness and echogenicity are within normal limits. Simple cyst seen on upper pole measuring 1.1x0.9x1.0cm Left Kidney: The left kidney measures 12.5 cm in length. The renal cortical thickness and echogenicity are within normal limits. Multiple cystic structures seen with largest involving the lower pole measuring 3.5x3.3x3.9cm Multiple cystic structures seen with largest involving the lower pole measuring 3.5x3.3x3.9cm the largest cortical cyst demonstrates thickened internal septations. Spleen: The spleen measures 9.4 x 7.3 x 15.0 cm with a volume of 537.49ml mL. The parenchyma is homogeneous without evidence of a discrete mass. Splenomegaly IVC/Aorta: The visualized portions are within normal limits. Ascites: None. Additional Findings: None. IMPRESSION: 1. Hepatosplenomegaly. 2. Bilateral renal cortical cysts. The largest cyst involving the lower pole left kidney demonstrates thickened internal septations. Short interval follow-up ultrasound or further characterization with nonemergent renal MRI with and without contrast recommended. Batool Wagner ASSISTANT STORE MANAGER US ORDERABLES Final Resu lt * DIRECT ANTIGLOBULIN TEST W/REFLEX (03/24/2025 12:48 PM CDT) Pathologist [facility] [place] DIRECT ANTIGLOBULIN POLY Negative 03/24/2025 3:58 PM CDT [facility] Blood Venipuncture / Unknown 03/24/2025 12:48 PM CDT 03/24/2025 2:39 PM CDT Batool Wagner NP BLOOD BANK ORDERABLES Lee Ann l Result Performing Organization Address [facility] Co de Phone Number [facility] [employer] [facility] -- [place] CLIA#[id number] [address] [place] [address], [place] [phone] * VERIFICATION BLOOD GROUP (03/24/2025 12:48 PM CDT) Pathologist [facility] [place] ABO GROUP O 03/24/2025 2:29 PM CDT [facility] [place] RH (D) TYPE Positive 03/24/2025 2:29 PM CDT [facility] Blood Venipuncture / Unknown 03/24/2025 12:48 PM CDT 03/24/2025 1:05 PM CDT Renny Álvarez MD BLOOD BANK ORDERABLES Final Res ult [facility] [employer] [facility] [place] CLIA#[id number] [address] [place] [address], * TYPE AND SCREEN (03/24/2025 11:57 AM CDT) ABO GROUP O 03/24/2025 1:14 PM CDT [facility] [place] RH (D) TYPE Positive 03/24/2025 1:14 PM CDT [facility] [place] ANTIBODY SCREEN Negative 03/24/2025 1:14 PM CDT [facility] [place] Blood Venipuncture / Unknown 03/24/2025 11:57 AM CDT 03/24/2025 12:03 PM CDT Renny Álvarez MD BLOOD BANK ORDERABLES Edited Re sult - Final Performing Organization Address [facility] Co de Phone Number [facility]ORY [facility] CLIA#[id number] [facility] [place] [address], * (ABNORMAL) C-REACTIVE PROTEIN (03/24/2025 11:56 AM CDT) Pathologist [facility] [place] CRP 12.2(H) 0.0 - 5.0 mg/L 03/24/2025 3:03 PM CDT [facility] Blood Venipuncture / Unknown 03/24/2025 11:56 AM CDT 03/24/2025 12:11 PM CDT Batool Wagner NP CHEMISTRY ORDERABLES Final Result Performing Organization Address [facility] de Phone Number [facility] CLIA # [id number] [facility] [address] * (ABNORMAL) SEDIMENTATION RATE (03/24/2025 11:56 AM CDT) Pathologist [facility] [place] ESR (SEDIMENTATION RATE) 22(H) 0 - 10 mm/Hr 03/24/2025 3:02 PM CDT [facility] Blood Venipuncture / Unknown 03/24/2025 11:56 AM CDT 03/24/2025 12:10 PM CDT Batool Wagner NP HEMATOLOGY ORDERABLES Lee Ann l Result Performing Organization Address City/[facility]/ZIP Co de Phone Number [facility] [employer] [facility] CLIA # [id number] [address] [place] [address] * PSA (03/24/2025 11:56 AM CDT) Pathologist [facility] [place] PSA 0.6 0.0 - 4.0 ng/mL 03/24/2025 3:42 PM CDT [facility] Blood Venipuncture / Unknown 03/24/2025 11:56 AM CDT 03/24/2025 12:11 PM CDT Narrative [facility] - 03/24/2025 3:42 PM CDT The concentration of PSA in a given specimen, as determined by assays from different manufacturers, can vary because of differences in assay methods and reagent specificity. Values obtained with different assay methods cannot be used interchangeably. The testing method in use is the ZOFIA Electrochemiluminescence Immunoassay. Batool Wagner NP CHEMISTRY ORDERABLES Final Result [facility] CLIA # [id number] [address] [place] [address] * TSH (03/24/2025 11:56 AM CDT) [facility] TSH 2.09 0.27 - 4.20 uIU/mL 03/24/2025 3:03 PM CDT [facility] Blood Venipuncture / Unknown 03/24/2025 11:56 AM CDT 03/24/2025 12:11 PM CDT Batool Wagner NP CHEMISTRY ORDERABLES Final Result [facility] CLIA # [id number] [address] [place] [address] * HAPTOGLOBIN (03/24/2025 11:56 AM CDT) HAPTOGLOBIN 47 30 - 200 mg/dL 03/24/2025 3:03 PM CDT [facility] Blood Venipuncture / Unknown 03/24/2025 11:56 AM CDT 03/24/2025 12:11 PM CDT Batool Wagner ASSISTANT STORE MANAGER CHEMISTRY ORDERABLES Final Result Performing Organization Address [facility] Co de Phone Number [facility] CLIA # [id number] [address] [address] * FERRITIN (03/24/2025 11:56 AM CDT) FERRITIN 350.4 30.0 - 400.0 ng/mL 03/24/2025 3:03 PM CDT [facility] Blood Venipuncture / Unknown 03/24/2025 11:56 AM CDT 03/24/2025 12:11 PM CDT Batool Wagner ASSISTANT STORE MANAGER CHEMISTRY ORDERABLES Final Result Performing Organization Address [facility] de Phone Number [facility] CLIA # [id number] [address] [address] * (ABNORMAL) IRON, TIBC, AND PERCENT SATURATION (03/24/2025 11:56 AM CDT) IRON 50(L) 59 - 158 ug/dL 03/24/2025 3:03 PM CDT [facility] TIBC 116(L) 250 - 450 ug/dL 03/24/2025 3:03 PM CDT [facility] IRON % SATURATION 43 15 - 60 % 03/24/2025 3:03 PM CDT [facility] Blood Venipuncture / Unknown 03/24/2025 11:56 AM CDT 03/24/2025 12:11 PM CDT Batool Wagner ASSISTANT STORE MANAGER CHEMISTRY ORDERABLES Final Result [facility] CLIA # [id number] [address] [place] [address] * (ABNORMAL) PHOSPHORUS (03/24/2025 11:56 AM CDT) PHOSPHORUS 2.0(L) 2.5 - 4.5 mg/dL 03/24/2025 2:00 PM CDT [facility] Blood Venipuncture / Unknown 03/24/2025 11:56 AM CDT 03/24/2025 12:11 PM CDT us Renny Álvarez MD CHEMISTRY ORDERABLES Final Resu lt Performing Organization Address [facility] Co de Phone Number [facility] CLIA # [id number] [address] [place] [address] * VITAMIN B12 AND FOLATE (03/24/2025 11:56 AM CDT) VITAMIN B12 617 211 - 946 pg/mL 03/24/2025 1:02 PM CDT [facility] FOLATE, SERUM 11.4 3.1 - 17.5 ng/mL 03/24/2025 1:02 PM CDT [facility] Blood Venipuncture / Unknown 03/24/2025 11:56 AM CDT 03/24/2025 12:11 PM CDT Renny Álvarez MD CHEMISTRY ORDERABLES Final Resu lt Performing Organization Address City/[facility]/ZIP Co de Phone Number [facility] [employer] [facility] CLIA # [id number] [address] [address] * PERIPHERAL BLOOD SMEAR PATHOLOGY INTERP (03/24/2025 11:56 AM CDT) [facility] PERIPHERAL BLOOD SMEAR INTERP See Interpretation Below 03/25/2025 10:28 AM CDT [facility] Comment: Red blood cells are quantitatively decreased but normocytic. There is mild Priscila poikilocytosis including a dual population of microcytes and macrocytes as well as elliptocytes. No significant schistocytes. White blood cells are quantitatively decreased with severe absolute neutropenia. The neutrophils show complete maturation with no dysplasia and no circulating blasts. A few forms with toxic granulation and a few slightly left shifted forms (band forms) are seen. Platelets are quantitatively decreased with no significant platelet clumps. No specific cause for the patient's cytopenias identified on morphologic review. Interpreted by: Renetta Lucas MD Blood Venipuncture / Unknown 03/24/2025 11:56 AM CDT 03/24/2025 12:10 PM CDT us Renny Álvarez MD HEMATOLOGY ORDERABLES Final Res ult [facility] CLIA # [id number] [address] [place] [address] * RETICULOCYTES (03/24/2025 11:56 AM CDT) [facility] RETICULOCYTES 1.8 0.9 - 2.2 % 03/24/2025 12:29 PM CDT [facility] IMMATURE RETIC FRACTION 11.2 4.3 - 16.9 % 03/24/2025 12:29 PM CDT [facility] RETICULOCYTE, ABSOLUTE 0.0508 0.0260 - 0.0950 10e6/uL 03/24/2025 12:29 PM CDT [facility] RETICULOCYTE HEMOGLOBIN CONTENT 31.9 28.6 - 37.4 pg 03/24/2025 12:29 PM CDT [facility] Blood Venipuncture / Unknown 03/24/2025 11:56 AM CDT 03/24/2025 12:10 PM CDT us Renny Álvarez MD HEMATOLOGY ORDERABLES Final Res ult [facility] CLIA # [id number] [facility] [address] [place] [address] * (ABNORMAL) COMPREHENSIVE METABOLIC PANEL (03/24/2025 11:56 AM CDT) SODIUM 135(L) 136 - 145 mmol/L 03/24/2025 12:42 PM T [facility] POTASSIUM 3.5 3.5 - 5.1 mmol/L 03/24/2025 12:42 PM T [facility] CHLORIDE 103 98 - 107 mmol/L 03/24/2025 12:42 PM T [facility] CO2 22 22 - 29 mmol/L 03/24/2025 12:42 PM T [facility] CALCIUM 8.2(L) 8.8 - 10.2 mg/dL 03/24/2025 12:42 PM T [facility] BUN 14 8 - 23 mg/dL 03/24/2025 12:42 PM T [facility] CREATININE 0.82 0.67 - 1.17 mg/dL 03/24/2025 12:42 PM T [facility] Comment:The GFR result is no t clinically significant on patients <18 or >70 years of age. GLUCOSE 227(H) 74 - 99 mg/dL 03/24/2025 12:42 PM T [facility] TOTAL PROTEIN 6.2(L) 6.4 - 8.3 g/dL 03/24/2025 12:42 PM T [facility] ALBUMIN 3.4(L) 3.5 - 5.2 g/dL 03/24/2025 12:42 PM [facility] BILIRUBIN TOTAL 1.0 0.0 - 1.0 mg/dL 03/24/2025 12:42 PM CDT [facility] ALKALINE PHOSPHATASE 127 40 - 129 U/L 03/24/2025 12:42 PM T [facility] AST 7(L) 10 - 50 U/L 03/24/2025 12:42 PM T [facility] ALT 8 <=50 U/L 03/24/2025 12:42 PM [facility] GFR >60 mL/min/1.7 3 sq meter 03/24/2025 12:42 PM T [facility] Comment:eGFR calculated with 2020 CKD-EPI equation. Vegetarian diet, extremely high or low muscle mass, and may affect results. Cystatin C with Glomerular Filtration Rate is a suitable alternative for these patients. ANION GAP 10 9 - 20 mmol/L 03/24/2025 12:42 PM [facility] Blood Venipuncture / Unknown 03/24/2025 11:56 AM CDT 03/24/2025 12:11 PM CDT us Renny Álvarez MD CHEMISTRY ORDERABLES Final Resu lt [facility] CLIA # [id number] [address] [place] [id number] * (ABNORMAL) CBC WITH DIFFERENTIAL (03/24/2025 11:56 AM CDT) Pathologist [facility] [place] WBC 1.7(L) 4.8 - 10.8 K/uL 03/24/2025 12:36 PM T [facility] RBC 2.90(L) 4.60 - 6.20 M/uL 03/24/2025 12:36 PM CDT [facility] HEMOGLOBIN 8.8(L) 14.0 - 18.0 g/dL 03/24/2025 12:36 PM CDT [facility] HEMATOCRIT 26.5(L) 41.0 - 53.0 % 03/24/2025 12:36 PM [facility] MCV 91.4 84.0 - 103.0 fL 03/24/2025 12:36 PM [facility] MCH 30.3 27.0 - 34.0 pg 03/24/2025 12:36 PM [facility] MCHC 33.2 30.0 - 35.0 g/dL 03/24/2025 12:36 PM [facility] PLATELETS 16(LL) 140 - 440 K/uL 03/24/2025 12:36 PM [facility] MPV 9.8 8.9 - 12.8 fL 03/24/2025 12:36 PM [facility] RDW 17.1(H) 11.0 - 14.5 % 03/24/2025 12:36 PM [facility] RDW-STDEV 54.7(H) 37.0 - 54.0 fL 03/24/2025 12:36 PM [facility] NEUTROPHILS 35(L) 42 - 75 % 03/24/2025 12:36 PM [facility] LYMPHOCYTES 53(H) 24 - 44 % 03/24/2025 12:36 PM [facility] MONOCYTES 6 2 - 10 % 03/24/2025 12:36 PM [facility] EOSINOPHILS 4 0 - 7 % 03/24/2025 12:36 PM [facility] BASOPHILS 1 0 - 1 % 03/24/2025 12:36 PM [facility] IMMATURE GRANULOCYTES 1 0 - 2 % 03/24/2025 12:36 PM [facility] NEUTROPHIL ABSOLUTE 0.60(L) 2.00 - 8.00 K/uL 03/24/2025 12:36 PM [facility] LYMPHOCYTE ABSOLUTE 0.90(L) 1.20 - 4.00 K/uL 03/24/2025 12:36 PM [facility] MONOCYTE ABSOLUTE 0.10 0.10 - 0.60 K/uL 03/24/2025 12:36 PM CDT [facility] LABORATORY [facility] EOSINOPHIL ABSOLUTE 0.07 0.00 - 0.70 K/uL 03/24/2025 12:36 PM CDT [facility] BASOPHILS ABSOLUTE 0.02 0.00 - 0.20 K/uL 03/24/2025 12:36 PM CDT [facility] IMMATURE GRANULOCYTES ABSOLUTE 0.01 0.00 - 0.10 K/uL 03/24/2025 12:36 PM CDT [facility] SMEAR REVIEWED: NN - No Action Needed 03/24/2025 12:36 PM CDT [facility] Blood Venipuncture / Unknown 03/24/2025 11:56 AM CDT 03/24/2025 12:10 PM CDT us Renny Álvarez MD HEMATOLOGY ORDERABLES Final Res ult Performing Organization Address City/State/[facility] Co de Phone Number [facility] CLIA # [id number] [address] [place] [address] documented in this encounter Visit Diagnoses Diagnosis Pancytopenia (CMS/HCC)- Primary Other pancytopenia MDS (myelodysplastic syndrome), high grade (CMS/HCC) High grade myelodysplastic syndrome lesions Type 2 diabetes mellitus, without long-term current use of insulin (CMS/HCC) Benign hypertension Essential hypertension, benign Hypophosphatemia Disorders of phosphorus metabolism Protein-calorie malnutrition, moderate Malnutrition of moderate degree documented in this encounter Administered Medications Inactive Administered Medications - up to 3 most recent administrations Medication Order MAR Action Action Date Dose Rate Site acetaminophen (TYLENOL) tablet 650 mg 650 mg, Oral, EVERY 6 HOURS PRN, Starting on Cate 03/24/25 at 1339, Until 04/03/25 at 1620, Other (See Comment), See admin instructions, Routine Given 03/30/2025 9:33 AM CDT 650 mg Given 03/29/2025 7:30 AM CDT 650 mg acyclovir (ZOVIRAX) tablet 400 mg 400 mg, Oral, TWO TIMES DAILY, First dose on Fri03/29/25 at 2100, Until Discontinued, Routine Given 2025 8:39 AM CDT 400 mg Given 04/02/2025 9:38 PM CDT 400 mg Given 04/02/2025 7:34 AM CDT 400 mg azaCITIDine (VIDAZA) 145 mg in sterile water 5.8 mL syringe 145 mg (rounded from 144 mg = 75 mg/m2 1.92 m2 Treatment Plan BSA from Recorded weight), subCUT, EVERY 24 HOURS, 5 doses, First dose on Fri03/30/25 at 1430, Last dose on Fri04/03/25 at 1230, RoutineIndications:MDS (myelodysplastic syndrome), high grade (CMS/HCC) Given 2025 12:21 PM CDT 145 mg Abdomen, Left Lower Quadrant Given 04/02/2025 11:51 AM CDT 145 mg A bdomen, Left Upper Quadrant Given 04/01/2025 1:02 PM CDT 145 mg Ab domen, Left Lower Quadrant cetirizine (ZyrTEC) tablet 10 mg 10 mg, Oral, DAILY, First dose on Fri03/25/25 at 0930, Until Discontinued, Routine Given 2025 8:39 AM CDT 10 mg Given 04/02/2025 7:34 AM CDT 10 mg Given 04/01/2025 9:02 AM CDT 10 mg dextrose 5 % - sodium chloride 0.9 % infusion IV, at 40 mL/hr, SEE ADMIN INSTRUCTIONS, Starting on Fri03/24/25 at 1222, Until Fri04/03/25 at 1620, Routine dextrose 5% - sodium chloride 0.45% infusion IV, at 40 mL/hr, INTRA-PROCEDURE ONCE, 1 dose, Starting on Fri03/25/25 at 1114, Until Fri03/25/25 at 1151, Routine New Bag 03/25/2025 11:43 AM CDT 40 mL/hr dextrose 50% (D50) syringe 12.5 Gram 12.5 Gram, IV, SEE ADMIN INSTRUCTIONS, Starting on Fri03/24/25 at 1222, Until Fri04/03/25 at 1620, Routine dextrose 50% (D50) syringe 25 Gram 25 Gram, IV, SEE ADMIN INSTRUCTIONS, Starting on Fri03/24/25 at 1222, Until Fri04/03/25 at 1620, Routine diphenhydrAMINE (BENADRYL) tablet 25 mg 25 mg, Oral, EVERY 8 HOURS PRN, Starting on Fri03/24/25 at 1627, Until Fri04/03/25 at 1620, Allergies, Routine Given 03/30/2025 9:33 AM CDT 25 mg Given 03/29/2025 7:30 AM CDT 25 mg Given 03/25/2025 3:44 PM CDT 25 mg docusate sodium (COLACE) capsule 100 mg 100 mg, Oral, TWO TIMES DAILY, First dose on 04/02/25 at 2100, Until Discontinued, Routine Given 2025 8:39 AM CDT 100 mg Given 04/02/2025 9:38 PM CDT 100 mg doxycycline hyclate (VIBRAMYCIN) 100 mg in sodium chloride 0.9% 100 mL IVPB (MBP) 100 mg, IV, EVERY 12 HOURS (BlD), First dose on Fri03/25/25 at 0900, Until Discontinued, Routine, Antibiotic Indication: Other: Enter in Comments, Antibiotic Indication: suspected tick borne disease New Bag 03/28/2025 8:12 AM CDT 100 mg 11 5 mL/hr New Bag 03/27/2025 9:19 PM CDT 100 mg 115 mL/hr New Bag 03/27/2025 9:43 AM CDT 100 mg 115 mL/hr DULoxetine (CYMBALTA) capsule 60 mg 60 mg, Oral, DAILY, First dose on Fri03/26/25 at 0900, Until Discontinued, Routine, Previous Med: DULoxetine (CYMBALTA) 60 mg Capsule, Delayed Release(E.C.) - Orig Sig - Take 60 mg by mouth daily. Given 2025 8:39 AM CDT 60 mg Given 04/02/2025 7:34 AM CDT 60 mg Given 04/01/2025 9:02 AM CDT 60 mg fluconazole (DIFLUCAN) tablet 400 mg 400 mg, Oral, DAILY, First dose on Fri03/30/25 at 0900, Until Discontinued, Routine, Antibiotic Indication: Other: Enter in Comments, Antibiotic Indication: ppx in immunocompromised patient Given 03/30/2025 8:22 AM CDT 400 mg glucagon HCL 1 mg/mL injection 1 mg 1 mg, IM, SEE ADMIN INSTRUCTIONS, Starting on Fri03/24/25 at 1222, Until Fri04/03/25 at 1620, Routine insulin lispro (HumaLOG,ADMELOG) injection 0-3 Units 0-3 Units, subCUT, DAILY AT BEDTIME, First dose on Fri03/24/25 at 2100, Until Discontinued, Routine Given 03/28/2025 9:28 PM CDT 1 Units Abdomen, Right Lower Quadrant Given 03/27/2025 9:17 PM CDT 1 Units Ab domen, Left Lower Quadrant insulin lispro (HumaLOG,ADMELOG) injection 0-3 Units 0-3 Units, subCUT, DAILY 0200, First dose on Fri03/25/25 at 0200, Until Discontinued, Routine insulin lispro (HumaLOG,ADMELOG) injection 0-6 Units 0-6 Units, subCUT, THREE TIMES DAILY WITH MEALS, First dose on Fri03/24/25 at 1230, Until Discontinued, Routine Given 2025 11:36 AM CDT 2 Units Arm, Right Upper Given 2025 8:12 AM CDT 2 Units Ar m, Right Upper Given 04/02/2025 11:39 AM CDT 3 Units A bdomen, Left Lower Quadrant loperamide (IMODIUM) capsule 2 mg 2 mg, Oral, FOUR TIMES DAILY PRN, Starting on Fri03/30/25 at 0915, Until Fri04/03/25 at 1620, Diarrhea/Loose Stools, Routine magnesium HYDROXIDE (MILK OF MAGNESIA) oral suspension 30 mL 30 mL, Oral, DAILY, First dose (after last modification) on Fri03/27/25 at 0945, Until Discontinued, Routine Given 03/30/2025 8:22 AM CDT 30 mL Given 03/29/2025 8:11 AM CDT 30 mL Given 03/28/2025 8:10 AM CDT 30 mL magnesium HYDROXIDE (MILK OF MAGNESIA) oral suspension 30 mL 30 mL, Oral, DAILY PRN, Starting on Fri03/30/25 at 0930, Until Fri04/03/25 at 1620, Constipation, Routine Given 04/02/2025 3:23 PM CDT 30 mL Given 04/01/2025 9:00 AM CDT 30 mL midazolam (VERSED) injection 1.5 mg 1.5 mg, IV, ONE TIME ONLY, 1 dose, On Fri03/25/25 at 1200, Routine, IntraProcedure (IR) Given 03/25/2025 11:5 8 AM CDT 1.5 mg ondansetron (ZOFRAN ODT) tablet 8 mg 8 mg, Sublingual, EVERY 24 HOURS, 5 doses, First dose on Fri03/30/25 at 1430, Last dose on Fri04/03/25 at 1200, RoutineIndications:MDS (myelodysplastic syndrome), high grade (CMS/HCC) Given 2025 11:35 AM CDT 8 mg Given 04/02/2025 11:31 AM CDT 8 mg Given 04/01/2025 12:09 PM CDT 8 mg ondansetron (ZOFRAN) 4 mg/2 mL injection 2 mg 2 mg, IV, ONE TIME ONLY, 1 dose, On Fri04/01/25 at 0100, Routine Given 04/01/2025 1:11 AM CDT 2 mg polyethylene glycol (MIRALAX) packet 17 Gram 17 Gram, Oral, ONE TIME ONLY, 1 dose, On Cate 03/24/25 at 2045, Routine Given 03/24/2025 9:30 PM CDT 17 Grams polyethylene glycol (MIRALAX) packet 17 Gram 17 Gram, Oral, DAILY, First dose on Fri03/26/25 at 0930, Until Discontinued, Routine Given 03/30/2025 8:22 AM CDT 17 Grams Given 03/29/2025 8:11 AM CDT 17 Grams Given 03/28/2025 8:11 AM CDT 17 Grams polyethylene glycol (MIRALAX) packet 17 Gram 17 Gram, Oral, DAILY PRN, Starting on Fri03/30/25 at 0930, Until 04/03/25 at 1620, Constipation, Routine Given 04/02/2025 7:34 AM CDT 17 Grams sennosides (SENOKOT) tablet 17.2 mg 17.2 mg, Oral, TWO TIMES DAILY, First dose on Fri04/02/25 at 2100, Until Discontinued, Routine Given 2025 8:39 AM CDT 17.2 mg Given 04/02/2025 9:38 PM CDT 17.2 mg sodium chloride 0.9 % infusion IV, at 30 mL/hr, CONTINUOUS, Starting on 04/02/25 at 0730, Until 04/03/25 at 0729, Routine New Bag 04/02/2025 7:43 AM CDT 30 mL/ hr sodium chloride 0.9 % infusion IV, at 30 mL/hr, CONTINUOUS, Starting on Fri04/03/25 at 0715, Until [place] 04/03/25 at 1620, Routine New Bag 2025 8:11 AM CDT 30 mL/ hr sodium chloride flush injection 10 mL 10 mL, IV, EVERY 12 HOURS (BlD), First dose on Fri03/24/25 at 1345, Until Discontinued, Routine Given 2025 8:11 AM CDT 10 mL Given 04/02/2025 9:40 PM CDT 10 mL Given 04/02/2025 7:34 AM CDT 10 mL sodium chloride flush injection 10 mL 10 mL, IV, SEE ADMIN INSTRUCTIONS, Starting on Cate 03/24/25 at 1339, Until [place] 04/03/25 at 1620, Routine Given 2025 8:39 AM CDT 10 mL Given 04/01/2025 1:14 AM CDT 10 mL sodium PHOSPHATE 15 mmol in sodium chloride 0.9 % 105 mL IVPB 15 mmol, IV, ONE TIME ONLY, 1 dose, On Fri03/24/25 at 1800, Routine New Bag 03/24/2025 6:17 PM CDT 15 mmol 40 mL/hr sulfamethoxazole-trimethoprim (BACTRIM DS) 800-160 mg per tablet 1 Tablet 1 Tablet, Oral, FRIDAY,FRIDAY AND FRIDAY, First dose on Fri03/30/25 at 0900, Until Discontinued, Routine, Antibiotic Indication: Other: Enter in Comments, Antibiotic Indication: PJP ppx Given 04/01/2025 9:02 AM CDT 1 Tablet Given 03/30/2025 8:22 AM CDT 1 Tablet venetoclax (VENCLEXTA) tablet 100 mg 100 mg, Oral, DAILY WITH BREAKFAST, 14 doses, First dose on Fri03/30/25 at 1330, Last dose on Fri04/12/25 at 0800, Routine Given 2025 8:11 AM CDT 100 mg Given 04/02/2025 7:34 AM CDT 100 mg Given 04/01/2025 9:03 AM CDT 100 mg voriconazole (VFEND) tablet 200 mg 200 mg, Oral, EVERY 12 HOURS (BlD), First dose on Fri04/01/25 at 0900, Until Discontinued, Routine, Antibiotic Indication: Other: Enter in Comments, Antibiotic Indication: ppx while on venetoclax Given 2025 8:38 AM CDT 200 mg Given 04/02/2025 9:38 PM CDT 200 mg Given 04/02/2025 7:34 AM CDT 200 mg voriconazole (VFEND) tablet 400 mg 400 mg, Oral, EVERY 12 HOURS (BlD), 2 doses, First dose on Fri03/31/25 at 0900, Last dose on Fri03/31/25 at 2100, Routine, Antibiotic Indication: Other: Enter in Comments, Antibiotic Indication: ppx while on venetoclax Given 03/31/2025 8:44 PM CDT 400 mg Given 03/31/2025 9:28 AM CDT 400 mg documented in this encounter Active and Recently Administered Medications Times are shown in CDT. Scheduled Medication Order 04/01/2025 04/02/2025 2025 acyclovir (ZOVIRAX) tablet 400 mg 400 mg, Oral, TWO TIMES DAILY, First dose on Fri03/29/25 at 2100, Until Discontinued, Routine 0901 (Given - Provider: Amarilis Jackson RN)2051 (Given - Provider: Ben Thomas LPN) 0734 (Given - Provider: Kai Bess, RN)213 (Given - Provider: Andrew Cancino RN) 0839 (Given - Provider: Popeye Be RN) azaCITIDine (VIDAZA) 145 mg in sterile water 5.8 mL syringe (COMPLETED) 145 mg (rounded from 144 mg = 75 mg/m2 1.92 m2 Treatment Plan BSA from Recorded weight), subCUT, EVERY 24 HOURS, 5 doses, First dose on Fri03/30/25 at 1430, Last dose on Fri04/03/25 at 1230, Routine 1302 (Given - Provider: Amarilis Jackson RN - Comment: and right lowerabd) 1151 (Given - Provider: Amarilis Jackson RN - Comment: RUQ) 1221 (Given - Provider: Amarilis Jackson, RN) cetirizine (ZyrTEC) tablet 10 mg 10 mg, Oral, DAILY, First dose on Fri03/25/25 at 0930, Until Discontinued, Routine 09 (Given - Provider: Amarilis Jackson, RN) 07 (Given - Provider: Kai Bess, RN) 0839 (Given - Provider: Popeye Be, RN) dextrose 5 % - sodium chloride 0.9 % infusion IV, at 40 mL/hr, SEE ADMIN INSTRUCTIONS, Starting on Cate 03/24/25 at 1222, Until 04/03/25 at 1620, Routine dextrose 5 % in water 250 mL flush bag 25 mL 25 mL, IV, SEE ADMIN INSTRUCTIONS, Starting on Fri03/24/25 at 1339, Until Fri04/03/25 at 1620, Routine dextrose 50% (D50) syringe 12.5 Gram 12.5 Gram, IV, SEE ADMIN INSTRUCTIONS, Starting on Cate 03/24/25 at 1222, Until 04/03/25 at 1620, Routine dextrose 50% (D50) syringe 25 Gram 25 Gram, IV, SEE ADMIN INSTRUCTIONS, Starting on Cate 03/24/25 at 1222, Until 04/03/25 at 1620, Routine docusate sodium (COLACE) capsule 100 mg 100 mg, Oral, TWO TIMES DAILY, First dose on 04/02/25 at 2100, Until Discontinued, Routine 2138 (Given - Provider: Andrew Cancino RN) 0839 (Given - Provider: Popeye Be, REBEKAH) DULoxetine (CYMBALTA) capsule 60 mg 60 mg, Oral, DAILY, First dose on 03/26/25 at 0900, Until Discontinued, Routine, Previous Med: DULoxetine (CYMBALTA) 60 mg Capsule, Delayed Release(E.C.) - Orig Sig - Take 60 mg by mouth daily. 901 (Given - Provider: Amarilis Jackson RN) 07 (Given - Provider: Kai Bess, REBEKAH) 0839 (Given - Provider: Popeye Be, REBKEAH) glucagon HCL 1 mg/mL injection 1 mg 1 mg, IM, SEE ADMIN INSTRUCTIONS, Starting on Fri03/24/25 at 1222, Until Fri04/03/25 at 1620, Routine insulin lispro (HumaLOG,ADMELOG) injection 0-3 Units 0-3 Units, subCUT, DAILY AT BEDTIME, First dose on Fri03/24/25 at 2100, Until Discontinued, Routine 2100 (Not Given - Provider: Ben Thomas LPN - Reason: Lab results / vitals) 2100 (Not Given - Provider: Andrew Cancino RN - Reason: Lab results / vitals - Comment: 216) insulin lispro (HumaLOG,ADMELOG) injection 0-3 Units 0-3 Units, subCUT, DAILY 0200, First dose on Fri03/25/25 at 0200, Until Discontinued, Routine 0111 (Not Given - Provider: Starr Mario RN - Reason: Lab results / vitals - Comment: bs 201) 0200 (Not Given - Provider: Ben Thomas LPN - Reason: Lab results / vitals) 0200 (Not Given - Provider: Andrew Cancino RN - Reason: Lab results / vitals - Comment: BS 196) insulin lispro (HumaLOG,ADMELOG) injection 0-6 Units 0-6 Units, subCUT, THREE TIMES DAILY WITH MEALS, First dose on Fri03/24/25 at 1230, Until Discontinued, Routine 0902 (Given - Provider: Amarilis Jackson RN)1209 (Given - Provider: Amarilis Jackson RN)1717 (Given - Provider: Amarilis Jackson RN) 0744 (Given - Provider: Kai Bess RN)1139 (Given - Provider: Kai Bess RN)1700 (Not Given - Provider: Kai Bess RN - Reason: Lab results / vitals) 0812 (Given - Provider: Popeye Be, REBEKAH)1136 (Given - Provider: Popeye Be, REBEKAH) naloxone (NARCAN) 0.4 mg/mL injection 0.1-0.4 mg 0.1-0.4 mg, IV, SEE ADMIN INSTRUCTIONS, Starting on Fri03/24/25 at 1339, Until Fri04/03/25 at 1620, Routine ondansetron (ZOFRAN ODT) tablet 8 mg (COMPLETED) 8 mg, Sublingual, EVERY 24 HOURS, 5 doses, First dose on Fri03/30/25 at 1430, Last dose on Fri04/03/25 at 1200, Routine 1209 (Given - Provider: Amarilis Jackson RN) 1131 (Given - Provider: Kai Bess, REBEKAH) 1135 (Given - Provider: Popeye Be, REBEKAH) ondansetron (ZOFRAN) 4 mg/2 mL injection 2 mg (COMPLETED) 2 mg, IV, ONE TIME ONLY, 1 dose, On Fri04/01/25 at 0100, Routine 0111 (Given - Provider: Starr Mario, REBEKAH) sennosides (SENOKOT) tablet 17.2 mg 17.2 mg, Oral, TWO TIMES DAILY, First dose on Fri04/02/25 at 2100, Until Discontinued, Routine 2138 (Given - Provider: Andrew Cancino RN) 0839 (Given - Provider: Popeye Be, REBEKAH) sodium chloride 0.9 % flush bag 25 mL 25 mL, IV, SEE ADMIN INSTRUCTIONS, Starting on Fri03/24/25 at 1339, Until Fri04/03/25 at 1620, Routine sodium chloride flush injection 10 mL 10 mL, IV, EVERY 12 HOURS (BlD), First dose on Fri03/24/25 at 1345, Until Discontinued, Routine 0900 (Given - Provider: Amarilis Jackson RN)2053 (Given - Provider: Ben Thomas LPN) 0734 (Given - Provider: Kai Bess, REBEKAH)2140 (Given - Provider: Andrew Cancino RN) 0811 (Given - Provider: Popeye Be, REBEKAH) sodium chloride flush injection 10 mL 10 mL, IV, SEE ADMIN INSTRUCTIONS, Starting on Cate 03/24/25 at 1339, Until Fri04/03/25 at 1620, Routine 0114 (Given - Provider: Starr Mario RN) 0839 (Given - Provider: Popeye Be, REBEKAH) sulfamethoxazole-trime thoprim (BACTRIM DS) 800-160 mg per tablet 1 Tablet 1 Tablet, Oral, FRIDAY,FRIDAY AND FRIDAY, First dose on Fri03/30/25 at 0900, Until Discontinued, Routine, Antibiotic Indication: Other: Enter in Comments, Antibiotic Indication: PJP ppx 0902 (Given - Provider: Amarilis Jackson, REBEKAH) venetoclax (VENCLEXTA) tablet 100 mg 100 mg, Oral, DAILY WITH BREAKFAST, 14 doses, First dose on Fri03/30/25 at 1330, Last dose on Fri04/12/25 at 0800, Routine 0903 (Given - Provider: Amarilis Jackson, RN) 0734 (Given - Provider: Kai Bess RN) 0811 (Given - Provider: Popeye Be, REBEKAH) voriconazole (VFEND) tablet 200 mg(Linked Group 1) 200 mg, Oral, EVERY 12 HOURS (BlD), First dose on Fri04/01/25 at 0900, Until Discontinued, Routine, Antibiotic Indication: Other: Enter in Comments, Antibiotic Indication: ppx while on venetoclax 0901 (Given - Provider: Amarilis Jackson RN)2052 (Given - Provider: Ben Thomas LPN) 0734 (Given - Provider: Kai Bess RN)2138 (Given - Provider: Andrew Cancino RN) 0838 (Given - Provider: Popeye Be, REBEKAH) Continuous Medication Order 04/01/2025 04/02/2025 2025 sodium chloride 0.9 % infusion () IV, at 30 mL/hr, CONTINUOUS, Starting on 04/02/25 at 0730, Until 04/03/25 at 0729, Routine 0743 (New Bag - Provider: Kai Bess RN) 0729 (Stopped - Provider: Popeye Be RN - Comment: [Order ends at this time. Document the following action when infusion is complete: Stopped]) sodium chloride 0.9 % infusion IV, at 30 mL/hr, CONTINUOUS, Starting on 04/03/25 at 0715, Until 04/03/25 at 1620, Routine 0811 (New Bag - Provider: Popeye Be RN)1620 (Due: Order Ending - Provider: PROVIDER, DISCHARGE PATIENT - Comment: [Order ends at this time. Document the following action when infusion is complete: Stopped]) PRN Medication Order 04/01/2025 04/02/2025 2025 acetaminophen (TYLENOL) tablet 650 mg 650 mg, Oral, EVERY 6 HOURS PRN, Starting on Fri03/24/25 at 1339, Until Fri04/03/25 at 1620, Other (See Comment), See admin instructions, Routine diphenhydrAMINE (BENADRYL) tablet 25 mg 25 mg, Oral, EVERY 8 HOURS PRN, Starting on Fri03/24/25 at 1627, Until Fri04/03/25 at 1620, Allergies, Routine loperamide (IMODIUM) capsule 2 mg 2 mg, Oral, FOUR TIMES DAILY PRN, Starting on Fri03/30/25 at 0915, Until Fri04/03/25 at 1620, Diarrhea/Loose Stools, Routine magnesium HYDROXIDE (MILK OF MAGNESIA) oral suspension 30 mL 30 mL, Oral, DAILY PRN, Starting on Fri03/30/25 at 0930, Until Fri04/03/25 at 1620, Constipation, Routine 0900 (Given - Provider: Amarilis Jackson RN) 1523 (Given - Provider: Amarilis Jackson RN) polyethylene glycol (MIRALAX) packet 17 Gram 17 Gram, Oral, DAILY PRN, Starting on Fri03/30/25 at 0930, Until Fri04/03/25 at 1620, Constipation, Routine 0734 (Given - Provider: Kai Bess RN) Linked Groups Order Group 1: voriconazole (VFEND) tablet 400 mg (COMPLETED) 400 mg, Oral, EVERY 12 HOURS (BlD), 2 doses, First dose on Fri03/31/25 at 0900, Last dose on Fri03/31/25 at 2100, Routine, Antibiotic Indication: Other: Enter in Comments, Antibiotic Indication: ppx while on venetoclax Followed by voriconazole (VFEND) tablet 200 mgJump to med 200 mg, Oral, EVERY 12 HOURS (BlD), First dose on Fri04/01/25 at 0900, Until Discontinued, Routine, Antibiotic Indication: Other: Enter in Comments, Antibiotic Indication: ppx while on venetoclax documented in this encounter Additional Health Concerns Infection Onset Date Last Indicated Resolved Time Neutropenic Precautions 03/29/2025 03/29/2025 documented as of this encounter
[2025-04-09] VITALS (21 sets, daily range): BP systolic 99–124; BP diastolic 51–68; PULSE 87–132; RESP 16–22; TEMP 36.7–37.7; O2SAT 97–100; BMI 25.8
--- OUTSIDE RECORDS SUMMARY | 2025-04-09 15:44 | XMS_ITS ---
Author Organization [facility] Address [address] [place] [address] Phone Care Team Providers Care Patient Assistant Name Role Phone Unavailable Primary Care Provider Unavailabl e Active Problems Problem Noted Date Diagnosed Date MDS (myelodysplastic syndrome), high grade 03/30 Protein-calorie malnutrition, moderate Hypophosphatemia 03/25/2025 Pancytopenia 03/24/2025 Type 2 diabetes mellitus, wi thout long-term current use of insulin 03/24/2025 Benign hypertension 03/24/2025 Current Treatment and Therapy Plans IP-TO-OP ONC MDS_AZACITIDINE SUBCUTANEOUS_DAYS 1-5_VENETOCLAX_DAYS 1-14_ EVERY 28 DAYS* Plan Start Date:03/29/2025 Plan Provider:Truman Rico MD Linked Problems MDS (myelodysplastic syndrom e), high grade (CMS/HCC) Treatment Medications Current Day (Day 1 , Cycle 2 - Planned for 04/27/2025) Next Day (Day 2, Cycle 2 - Planned for 04/28/2025) azaCITIDine (VIDAZA) 25 mg/m L syringe azaCITIDine (VIDAZA) 145 mg in sterile water 5.8 mL syringe azaCITIDine (VIDAZA) 145 mg in sterile water 5.8 mL syringe Past Treatment and Therapy Plans No past plan information found.
--- OUTSIDE RECORDS SUMMARY | 2025-04-09 15:44 | XMS_ITS | Encounter Summary ---
Author Organization [facility] Address [address] [place] [address] Care Team Providers Care Thread Cutter Name Role Phone Unavailable Primary Care Provider Unavailabl e Encounter Details Date Type Department Care Team (Late st Contact Info) Description 04/06/2025 Specialty Pharmacy [facility] [address] [place] [id number] Taylor Magaña, PHARMACIST Social History Tobacco Use Types Packs/Day Years Used Date Smoking Tobacco: Never Sex and Gender Information Value Date Recorded Sex Assigned at Not on file Legal Sex Male 1:51 PM CDT Gender Identity Not on file Sexual Orientation Not on file documented as of this encounter Plan of Treatment Not on file documented as of this encounter Visit Diagnoses Not on filedocumented in this encounter Additional Health Concerns Infection Onset Date Last Indicated Resolved Time Neutropenic Precautions 03/29/2025 03/29/2025 documented as of this encounter
--- OUTSIDE RECORDS SUMMARY | 2025-04-09 15:45 | XMS_ITS | Clinical Summary ---
Author Organization [facility] Address [address] [place] [address] Phone Care Team Providers [facility] Name Role Phone Unavailable Primary Care Provider Unavailabl e Allergies No known active allergies Medications glipiZIDE (GLUCOTROL) 5 mg tablet Take 5 mg by mouth 2 times daily with meals. Active finasteride (PROSCAR) 5 mg tablet Take 5 mg by mouth daily. Active DULoxetine (CYMBALTA) 60 mg Capsule, Delayed Release(E.C.) Take 60 mg by mouth daily. Active venetoclax (VENCLEXTA) 100 mg tabletIndicatio ns:MDS (myelodysplasti c syndrome), high grade (CMS/HCC) Take 1 Tablet (100 mg) by mouth daily with breakfast for 14 days 14 Tablet 04/07/2025 1:54 PM CDT 03/31/20 25 025 Active acyclovir (ZOVIRAX) 400 mg tablet Take 1 Tablet (400 mg) by mouth 2 times daily for 14 days. 28 Tablet 04/03/20 25 025 Active voriconazole (VFEND) 200 mg tablet Take 1 Tablet (200 mg) by mouth every 12 hours for 14 days. 28 Tablet 04/03/20 25 025 Active sulfamethoxazol e-trimethoprim (BACTRIM DS) 800-160 mg tablet Take 1 Tablet by mouth every Friday, Friday, and Friday for 14 days. 6 Tablet 04/04/20 25 025 Active sennosides (SENOKOT XTRA) 17.2 mg Tablet tablet Take 1 Tablet (17.2 mg) by mouth daily for 14 days. 14 Tablet 04/03/20 25 025 Active polyethylene glycol (MIRALAX) 17 gram Powder in Packet Take 1 Packet (17 Grams) by mouth 2 times daily as needed for Constipation. 28 Packet 04/03/20 25 025 Active bisacodyL (DULCOLAX) 10 mg Suppository Insert 1 Suppository (10 mg) by rectum 1 time daily as needed for Constipation. 14 Suppository 04/03/20 Active Active Problems Problem Noted Date Diagnosed Date MDS (myelodysplastic syndrome), high grade 03/30 Protein-calorie malnutrition, moderate Hypophosphatemia 03/25/2025 Pancytopenia 03/24/2025 Type 2 diabetes mellitus, ia thout long-term current use of insulin 03/24/2025 Benign hypertension 03/24/2025 Encounters Date Type Department Care Team Description 04/06/2025 Specialty Pharmacy [facility] [address] [place] [phone] Taylor Magaña, PHARMACIST 04/05/2025 Specialty Pharmacy [facility] [address] [place] [phone] Taylor Magaña, PHARMACIST Specialty Pharmacy Clinical Assessment 04/05/2025 Specialty Pharmacy [facility] [address] [place] [phone] Comfort Palmer, PHARMACIST Specialty Pharmacy Refill Coordination 04/01/2025 Orders Only [facility] [address] [place] [address] Provider, Abstract 04/01/2025 Abstract [facility] [address] [place] [address] Provider, Abstract 04/01/2025 Specialty Pharmacy [facility] [address] [place] [phone] Faiza Mcgarry, PHARMACIST Specialty Pharmacy Prior Auth Coordination 03/31/2025 External Device Data [facility] Provider, Abstract 03/31/2025 External Device Data [facility] [place] Provider, Abstract 03/31/2025 External Device Data [facility] [place] Provider, Abstract 03/30/2025 External Device Data [facility] [place] Provider, Abstract 03/29/2025 External Device Data [facility] [place] Provider, Abstract 03/29/2025 External Device Data [facility] [place] Provider, Abstract 03/24/2025 11:28 AM CDT - 2025 2:20 PM CDT Hospital Encounter [facility] 7A Oncology [address] [place] [address] Renny Álvarez MD Ayeni, Opeyemi, MD [place], Anthony Charles, Pancytopenia (CMS/HCC) Discharge Disposition: Home or Self Care 03/24/2025 Travel from Last 3 Months Social History Tobacco Use Types Packs/Day Years Used Date Smoking Tobacco: Never Tobacco Cessation:Counseling Given: Not Answered Sex and Gender Information Value Date Recorded Sex Assigned at Not on file Legal Sex Male 1:51 PM CDT Gender Identity Not on file Sexual Orientation Not on file Last Filed Vital Signs Vital Sign Reading [...] Mass Index 24.27 03/24/2025 11:29 AM CDT Plan of Treatment Health Maintenance Due Date Last Done Comments DIABETES ANNUAL FOOT EXAM 1968 DIABETES ANNUAL RETINAL EXAM 1968 DIABETES MICROALBUMIN ANNUAL SCREEN 1968 LDL CHOLESTEROL ANNUAL 1968 COLORECTAL SCREENING 1995 Colorectal Cancer Screening 1995 FIT-DNA Q 3 years 1995 FIT/FOBT Q 1 year 1995 Flex Sig/CT Colonography Q 5 years 1995 ZOSTER VACCINE (1 of 2) 2000 DTAP/TDAP/TD VACCINES (2 - T d or Tdap) 12/29/2023 12/28/2013 INFLUENZA VACCINE (#1) 2025 RSV VACCINE (60+ or ) (1 - 1-dose 75+ series) 2025 DIABETES HBA1C Q 6 MONTHS 09/25/2025 03/25/2025 PNEUMOCOCCAL VACCINE 50+ YEARS Completed 0 03/14/2017, 12/08/2015, 05/23/2009 Procedures Procedure Name Priority Date/Time Associated Diagnosis Comments TELEMETRY REPORT 04/05/2025 3:24 AM CDT POC GLUCOSE Routine 2025 10:49 AM CDT DIFFERENTIAL, MANUAL Stat 2025 10:39 AM CDT CBC WITH DIFFERENTIAL Pending Discharge 2025 10:39 AM CDT TRANSFUSE PLATELETS Routine 2025 8 :40 AM CDT POC GLUCOSE Routine 2025 7:09 AM CDT PREPARE PLATELETS Routine 2025 7:0 4 AM CDT COMPREHENSIVE METABOLIC PANEL Routine 2025 5:23 AM CDT MDS (myelodysplastic syndrome), high grade (CMS/HCC) CBC WITH DIFFERENTIAL Routine 2025 5:23 AM [...] POC GLUCOSE Routine 03/31/2025 4:56 PM CDT URIC ACID Stat 03/31/2025 12:57 PM CDT MDS (myelodysplastic syndrome), high grade (CMS/HCC) COMPREHENSIVE METABOLIC PANEL Routine 03/31/2025 12:57 PM CDT MDS (myelodysplastic syndrome), high grade (CMS/HCC) CBC WITH DIFFERENTIAL Routine 03/31/2025 12:57 PM [...] 6:58 AM CDT PREPARE PLATELETS Routine 03/30/2025 6:0 5 AM CDT DIFFERENTIAL, MANUAL Routine 03/30/2025 4:13 [...] POC GLUCOSE Routine 03/25/2025 4:49 PM CDT FLOW CYTOMETRY REPORT Routine 03/25/2025 11:50 AM CDT BONE MARROW ASPIRATION & BIOPSY Pathology 03/25/2025 11:50 AM CDT CELL COUNT, BONE MARROW Pathology 03/25/2025 11:50 AM CDT FLOW CYTOMETRY PANEL Routine 03/25/2025 11:50 AM CDT IR BIOPSY BONE MARROW Routine 03/25/2025 11:48 AM CDT POC GLUCOSE Routine 03/25/2025 6:55 AM CDT HEMOGLOBIN A1C Routine 03/25/2025 4:09 AM CDT PROTIME-INR Routine 03/25/2025 4:09 AM CDT FIBRINOGEN QUANTITATIVE Routine 03/25/2025 4:09 AM CDT COMPREHENSIVE METABOLIC PANEL Routine 03/25/2025 4:09 AM CDT CBC WITH DIFFERENTIAL Routine 03/25/2025 4:09 AM CDT POC GLUCOSE Routine 03/25/2025 1:23 AM CDT POC GLUCOSE Routine 03/24/2025 8:34 PM CDT IMMUNOFIXATION Routine 03/24/2025 6:41 PM CDT HEPATITIS C RNA PCR, QUANTITATIVE Routine 03/24/2025 6:41 PM CDT ZINC LEVEL Routine 03/24/2025 6:41 PM CDT COPPER LEVEL Routine 03/24/2025 6:41 PM CDT INDER SCREEN W/REFLEX Routine 03/24/2025 6 :41 PM CDT ACUTE HEPATITIS PANEL Routine 03/24/2025 6:41 PM CDT KAPPA/LAMBDA LIGHT CHAINS Routine 03/24/2025 6:41 PM CDT PROTEIN ELECTROPHORESIS W/REFLEX,SERUM Routine 03/24/2025 6:41 PM CDT TICK-BORNE PANEL, PCR Routine 03/24/2025 6:41 PM CDT CMV BY PCR Routine 03/24/2025 6:41 PM CDT EBV BY PCR Routine 03/24/2025 6:41 PM CDT BLOOD CULTURE Routine 03/24/2025 6:41 PM CDT BLOOD CULTURE Routine 03/24/2025 6:41 PM CDT BLOOD CULTURE Routine 03/24/2025 6:40 PM CDT BLOOD CULTURE Routine 03/24/2025 6:40 PM CDT POC GLUCOSE Routine 03/24/2025 4:52 PM CDT US ABDOMEN COMPLETE Routine 03/24/2025 4 :41 PM CDT DIRECT ANTIGLOBULIN TEST Routine 03/24/2025 12:48 PM CDT VERIFICATION BLOOD GROUP Stat 03/24/2025 12:48 PM CDT TYPE AND SCREEN Routine 03/24/2025 11:57 AM CDT C-REACTIVE PROTEIN Routine 03/24/2025 11:56 AM CDT SEDIMENTATION RATE Routine 03/24/2025 11:56 AM CDT PSA Routine 03/24/2025 11:56 AM CDT TSH Routine 03/24/2025 11:56 AM CDT HAPTOGLOBIN Routine 03/24/2025 11:56 AM CDT FERRITIN Routine 03/24/2025 11:56 AM CDT IRON, TIBC, AND PERCENT SATURATION Routine 03/24/2025 11:56 AM CDT PHOSPHORUS Routine 03/24/2025 11:56 AM CDT VITAMIN B12 AND FOLATE Routine 11:56 AM CDT PERIPHERAL BLOOD SMEAR PATHOLOGY INTERP Routine 03/24/2025 11:56 AM CDT RETICULOCYTES Routine 03/24/2025 11:56 AM CDT COMPREHENSIVE METABOLIC PANEL Stat 03/24/2025 11:56 AM CDT CBC WITH DIFFERENTIAL Stat 03/24/2025 11:56 AM CDT COMPREHENSIVE METABOLIC PANEL Routine 03/23/2025 12:42 PM CDT PROTIME-INR Routine 03/23/2025 from Last 3 Months Results * TELEMETRY REPORT (04/05/2025 3:24 AM CDT) Provider Scanning ECG ORDERABLES Final Result * (ABNORMAL) POC GLUCOSE (2025 10:49 AM CDT) Only the most recent of46 resultswithin the time period is included. [facility] GLUCOSE POC 231(H) 74 - 99 mg/dL 2025 10:49 AM CDT [facility] SPECIMEN SOURCE, GLUCOSE POC Capillary 2025 10:49 AM CDT [facility] Blood, whole 2025 10:4 9 AM CDT 2025 11:12 AM CDT Beni Moses DO POINT OF CARE TESTI NG Final Result [facility] CLIA # [id number] [address] [place] [address] [place] [address] * MANUAL DIFFERENTIAL (2025 10:39 AM CDT) Only the most recent of9 resultswithin the time period is included. [facility] PLATELET EST. Decreased 2025 11:37 AM CDT [facility] ANISOCYTOSIS 1+ /hpf 2025 11:37 AM CDT [facility] POIKILOCYTES 2+ /hpf 2025 11:37 AM CDT [facility] OVALOCYTES 2+ /hpf 2025 11:37 AM CDT [facility] Blood Venipuncture / Unknown 2025 10:39 AM CDT 2025 10:46 AM CDT Narrative [facility] - 2025 11:37 AM CDT Due to the extremely low WBC, the automated differential is a better representation of the patient's actual differential. Beni Lc [place] DO HEMATOLOGY ORDERABL ES COM Final Result [facility] CLIA # [id number] [address] [facility] [facility] [address] * (ABNORMAL) CBC WITH DIFFERENTIAL (2025 10:39 AM CDT) Only the most recent of14 resultswithin the time period is included. [facility] WBC 1.3(L) 4.8 - 10.8 K/uL 2025 11:37 AM CDT [facility] RBC 2.36(L) 4.60 - 6.20 M/uL 2025 11:37 AM CDT [facility] HEMOGLOBIN 7.2(L) 14.0 - 18.0 g/dL 2025 11:37 AM CDT [facility] HEMATOCRIT 21.1(L) 41.0 - 53.0 % 2025 11:37 AM CDT [facility] MCV 89.4 84.0 - 103.0 fL 2025 11:37 AM CDT [facility] MCH 30.5 27.0 - 34.0 pg 2025 11:37 AM CDT [facility] MCHC 34.1 30.0 - 35.0 g/dL 2025 11:37 AM CDT [facility] PLATELETS 23(L) 140 - 440 K/uL 2025 11:37 AM CDT [facility] MPV 10.6 8.9 - 12.8 fL 2025 11:37 AM CDT [facility] RDW 16.3(H) 11.0 - 14.5 % 2025 11:37 AM CDT [facility] RDW-STDEV 52.0 37.0 - 54.0 fL 2025 11:37 AM CDT [facility] NEUTROPHILS 34(L) 42 - 75 % 2025 11:37 AM T [facility] LYMPHOCYTES 61(H) 24 - 44 % 2025 11:37 AM T [facility] MONOCYTES 4 2 - 10 % 2025 11:[address] [facility] EOSINOPHILS 0 0 - 7 % 2025 11:[address] [facility] BASOPHILS 0 0 - 1 % 2025 11:37 AM T [facility] IMMATURE GRANULOCYTES 1 0 - 2 % 2025 11:37 AM T [facility] NEUTROPHIL ABSOLUTE 0.43(LL) 2.00 - 8.00 K/uL 2025 11:37 AM T [facility] LYMPHOCYTE ABSOLUTE 0.76(L) 1.20 - 4.00 K/uL 2025 11:[address] [facility] MONOCYTE ABSOLUTE 0.05(L) 0.10 - 0.60 K/uL 2025 11:37 AM T [facility] EOSINOPHIL ABSOLUTE 0.00 0.00 - 0.70 K/uL 2025 11:[address] [facility] BASOPHILS ABSOLUTE 0.00 0.00 - 0.20 K/uL 2025 11:[address] [facility] IMMATURE GRANULOCYTES ABSOLUTE 0.01 0.00 - 0.10 K/uL 2025 11:[address] [facility] SMEAR REVIEWED: SR - See Smear Review on Manual Diff. 2025 11:[address] [facility] Blood Venipuncture / Unknown 2025 10:39 AM CDT 2025 10:46 AM CDT Beni Moses DO HEMATOLOGY ORDERABL ES Final Result [facility] CLIA # [id number] [address] [place] [address] * TRANSFUSE PLATELETS (2025 10:14 AM CDT) Only the most recent of4 resultswithin the time period is included. Astrid Lion MD BLOOD TRANSFUSION ORDERABLES Fi nal Result * PREPARE PLATELETS (2025 7:04 AM CDT) Only the most recent of4 resultswithin the time period is included. COMPONENT TYPE [id number] [facility] -- [place] COMPONENT IDENTIFICATION [id number] [facility] [place] UNIT ABO O [facility] [place] UNIT RH POS [facility] [place] COMPONENT STATUS Transfused ME [facility] SERVICES -- [place] COMPONENT EXPIRATION DATE/TIME [id number] [facility] [employer] SERVICES -- [place] COMPONENT CODING SYSTEM 5100 [facility] [place] VOLUME, BLOOD PRODUCT 207 [facility] [place] Other, specify 2025 7: 04 AM CDT Truman Rico MD LAB TRANSFUSION ORDERABLES Ed ited Result - Final [facility] [employer] SERVICES -- [place] CLIA#[id number] [facility] [place] [address], * (ABNORMAL) COMPREHENSIVE METABOLIC PANEL (2025 5:23 AM CDT) Only the most recent of13 resultswithin the time period is included. SODIUM 131(L) 136 - 145 mmol/L 2025 6:49 AM CDT [facility] [employer] [facility] POTASSIUM 4.5 3.5 - 5.1 mmol/L 2025 6:49 AM CDT [facility] [employer] [facility] CHLORIDE 99 98 - 107 mmol/L 2025 6:49 AM CDT [facility] [employer] [facility] CO2 24 22 - 29 mmol/L 2025 6:[address] [facility] CALCIUM 8.3(L) 8.8 - 10.2 mg/dL 2025 6:[address] [facility] BUN 30(H) 8 - 23 mg/dL 2025 6:[address] [facility] CREATININE 1.12 0.67 - 1.17 mg/dL 2025 6:[address] [facility] Comment:The GFR result is no t clinically significant on patients <18 or >70 years of age. GLUCOSE 198(H) 74 - 99 mg/dL 2025 6:[address] [facility] TOTAL PROTEIN 6.2(L) 6.4 - 8.3 g/dL 2025 6:[address] [facility] ALBUMIN 3.1(L) 3.5 - 5.2 g/dL 2025 6:[address] [facility] BILIRUBIN TOTAL 0.9 0.0 - 1.0 mg/dL 2025 6:[address] [facility] ALKALINE PHOSPHATASE 153(H) 40 - 129 U/L 2025 6:[address] [facility] AST 14 10 - 50 U/L 2025 6:[address] [facility] ALT 16 <=50 U/L 20[address] 6:[address] [facility] GFR >60 mL/min/1.7 3 sq meter 2025 6:[address] [facility] Comment:eGFR calculated with 2020 CKD-EPI equation. Vegetarian diet, extremely high or low muscle mass, and may affect results. Cystatin C with Glomerular Filtration Rate is a suitable alternative for these patients. ANION GAP 8(L) 9 - 20 mmol/L 2025 6:[address] [facility] Blood Venipuncture / Unknown 2025 5:23 AM CDT 2025 6:18 AM CDT us Truman Rico MD CHEMISTRY ORDERABLES Final Re sult Performing Organization Address [facility]/ZIP Co de Phone Number [facility] CLIA # [id number] [address] [address] * URIC ACID (03/31/2025 12:57 PM CDT) Only the most recent of2 resultswithin the time period is included. URIC ACID 4.5 3.4 - 7.0 mg/dL 03/31/2025 1:43 PM CDT [facility] Blood Venipuncture / Unknown 03/31/2025 12:57 PM CDT 03/31/2025 1:06 PM CDT us Truman Rico MD CHEMISTRY ORDERABLES Final Re sult Performing Organization Address [facility]/ZIP Co de Phone Number [facility] CLIA # [id number] [address] [address] * EKG 12-LEAD (03/31/2025 9:04 AM CDT) 03/31/2025 9:04 AM CDT Narrative INTERFACE SYSTEM - 03/31/2025 5:05 PM CDT [address] [address] Test Date: 2025-03-31 Pat Name: JANICE BARROS Department: 12 Room: 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: [id number] : 1950 Requested By: Order Number: [id number] Reading MD: Marco Nina Measurements Intervals [place] Rate: 100 P: 53 NH: 142 QRS: 3 QRSD: 92 T: 67 QT: 352 QTc: 454 Interpretive Statements Normal sinus rhythm Possible Anterior infarct, age undetermined Abnormal ECG Electronically Signed On 03-31-2025 17:05:12 CDT by Marco Nina us [employer] HALF SECTION IRONER ECG ORDERABLES Final Resu lt Performing Organization Address City/[facility] Co de Phone Number INTERFACE SYSTEM Refer to clinic/hospital department * TRANSFUSE RED BLOOD CELLS (03/30/2025 2:08 PM CDT) Astrid Lion MD BLOOD TRANSFUSION ORDERABLES Fi nal Result * PREPARE RED BLOOD CELLS (03/30/2025 7:53 AM CDT) COMPONENT TYPE [id number] [facility] -- [place] COMPONENT IDENTIFICATION [id number] [facility] -- [place] UNIT ABO O [facility] [place] UNIT RH POS [facility] [place] CROSSMATCH Compatible [facility] -- [place] COMPONENT STATUS Transfused [facility] -- [place] COMPONENT EXPIRATION DATE/TIME [id number] [facility] -- [place] COMPONENT CODING SYSTEM 5[address] [facility] [place] VOLUME, BLOOD PRODUCT 350 [facility] -- [place] Other, specify 03/30/2025 7: 53 AM CDT Astrid Lion MD LAB TRANSFUSION ORDERABLES Edit ed Result - Final [facility] [employer] [facility] [place] CLIA#[id number] [address] [place] [place] [id number] [place] [address] * TYPE AND SCREEN (03/29/2025 9:05 AM CDT) Only the most recent of2 resultswithin the time period is included. ABO GROUP O 03/29/2025 10:16 AM CDT [facility] [place] RH (D) TYPE Positive 03/29/2025 10:16 AM CDT [facility] [employer] SERVICES -- [place] ANTIBODY SCREEN Negative 03/29/2025 10:16 AM CDT [facility] -- [place] Blood Venipuncture / Unknown 03/29/2025 9:05 AM CDT 03/29/2025 9:14 AM CDT Astrid Lion MD BLOOD BANK ORDERABLES Edited Re sult - Final Performing Organization Address [facility] Co de Phone Number [facility] [employer] [facility] [place] CLIA#[id number] [address] [place], [place] [id number] [place] [address] * CELL COUNT, BONE MARROW (03/25/2025 11:50 AM CDT) Bone marrow ALL BONE MARROW / Unknown Collection / Unknown 03/25/2025 11:50 AM CDT 03/25/2025 12:15 PM CDT Poly Funes NP HEMATOLOGY ORDERABLES Final Result Performing Organization Address City/[facility] Co de Phone Number [facility] [employer] [facility] CLIA # [id number] [address] [place] [address] * FLOW CYTOMETRY PANEL (03/25/2025 11:50 AM CDT) FLOW CYTOMETRY INTERP See Separate Pathology Report 03/25/2025 2:30 PM CDT [facility] [employer] [facility] Bone marrow ALL BONE MARROW / Unknown Collection / Unknown 03/25/2025 11:50 AM CDT 03/25/2025 12:09 PM CDT Poly Funes NP PATHOLOGY/CYTOLOGY ORDERABL ES Final Result [facility] # [id number] [address] [place] [address] [place] [address] * BONE MARROW ASPIRATION & BIOPSY (03/25/2025 11:50 AM CDT) CASE REPORT Surgical Pathology Report Case: [id number] Authorizing Provider: Poly Funes NP Collected: 03/25/2025 11:50 AM Ordering Location: [facility] Received: 03/25/2025 12:15 PM 7A Oncology Pathologist: Renetta Lucas MD Specimens: A) - Bone marrow, right posterior iliac crest, clot B) - Bone marrow, right posterior iliac crest, biopsy C) - Peripheral Blood Smear 9:36 AM CDT [facility] ADDENDUM 1 This case was submitted to [facility] for cytogenetics and NeoType MDS/CMML profile on [...] to the patient's electronic health record. CLB/wls [id number] 9:36 AM [facility] [employer] [facility] Addendum electronically signed by Renetta Lucas MD [...] See diagnosis comment REV:NEHAL Renetta Lucas MD [id number] 9:36 AM [facility] [employer] [facility] at 0926 CDT DIAGNOSIS COMMENT Karyotype and NeoType NGS/CMML profile are pending. 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 Results will be reported in an addendum. 9:[address] [facility] GROSS DESCRIPTION A. Received fresh in a syringe labeled Malugen is a single syringe containing 1.1 mL of dark partially clotted bone marrow. The marrow is filtered to form a 2.6 x 1.7 x 0.4 cm clot. The clot is sectioned and entirely submitted in A1. B. Received are 2 containers (1 received fresh, 1 received in formalin) labeled Malugen are 3 bone cores ranging from 0.4-1.5 cm in greatest dimension. The specimen is submitted entirely in B1, following light decalcification. Grossed by: Beatriz Small MS, LALITHA (ASCP) 9:36 AM [facility] LABORATORY [facility] MICROSCOPIC DESCRIPTION Peripheral Blood CBC (03/25/2025): Hgb [...] broken cells. 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 A separate report is available ([id number]). Karyotype and NeoType MDS/CMML profile: Pending from outside reference facility. 9:36 AM CDT [facility] CLINICAL INFORMATION Pancytopenia. Chart review shows hepatosplenomegaly. 9:36 AM CDT [facility] COMMENT The [employer] voice-activated dictation system may have been used [...] determined by the Diagnostic Immunohistochemistry Laboratory of [facility] in compliance with CLIA'88 regulations. Some of these tests rely on the use of analyte specific reagents and are subject to specific labeling requirements by the FDA. All controls show appropriate reactivity. This testing was developed by the Diagnostic Immunohistochemistry Laboratory of [facility]. It has not been cleared or approved by the FDA. The FDA has determined that such clearance or approval is not necessary. 9:36 AM CDT [facility] Bone marrow ALL BONE MARROW / Unknown Collection / Unknown 03/25/2025 11:50 AM CDT 03/25/2025 12:15 PM CDT Bone marrow specimen (specimen) ALL BONE MARROW / Unknown 03/25/2025 11:50 AM CDT 03/25/2025 12:15 PM CDT Bone marrow specimen (specimen) (Peripheral Blood Smear) 03/25/2025 11:50 AM CDT 03/25/2025 12:13 PM CDT Poly Funes NP PATHOLOGY/CYTOLOGY ORDERABL ES Edited Result - Final [facility] CLIA # [id number] [address] [place] [address] * FLOW CYTOMETRY REPORT (03/25/2025 11:50 AM CDT) CASE REPORT Surgical Pathology Report Case: [id number] Authorizing Provider: Poly Funes NP Collected: 03/25/2025 11:50 AM Ordering Location: [facility] Received: 03/25/2025 12:18 PM Oncology Pathologist: Sameer Galvan MD Specimen: Bone marrow 2:27 PM CDT [facility] FINAL DIAGNOSIS FLOW CYTOMETRIC ANALYSIS. FINAL PATHOLOGY DIAGNOSIS IN SEPARATE REPORT. SPECIMEN: - Bone marrow aspirate INTERPRETATION: - No diagnostic immunophenotypic abnormalities detected - This is ONLY an interpretation of the flow cytometry study; for the final/integrated pathology diagnosis see bone marrow case [id number] Sameer Galvan MD [id number] 2:27 PM CDT [facility] at 1427 CDT DIAGNOSIS COMMENT No immunophenotypic evidence of a lymphoproliferative disorder, acute leukemia, increase in blasts, or plasma cell neoplasm is identified. Myeloproliferative neoplasms and myelodysplastic syndromes may not show antigenic abnormalities on myeloid cells and cannot be ruled out by flow cytometry. Please correlate the result with morphological findings, other pertinent laboratory data and clinical information. 2:27 PM CDT [facility] IMMUNOPHENOTYPIC ANALYSIS Lymphocytes are 61.3% of total analyzed events. T-cells (62.5% of lymphoid cells) show a CD4/CD8 ratio of about 1.7 without overt phenotypic abnormality. NK-cells (31.4% of lymphoid cells) are unremarkable. Mature B-cells (2.7% of lymphoid cells) are polyclonal (kappa:lambda 1.6). PT49-ptnqmkka events (1.2% of total cells) are not increased. Plasma cells are not increased and show unremarkable surface marker expression. Markers analyzed: CD2, CD3, CD4, CD5, CD7, CD8, CD10, CD11b, CD11c, CD13, CD14, CD16, CD19, CD20, CD23, CD33, CD34, CD38, CD45, CD56, CD57, CD64, CD117, HLA-DR, surface kappa, surface lambda (total = 26) 2:27 PM CDT [facility] COMMENT Flow cytometry was performed at [facility] flow lab ([facility] [address], 2nd floor, room #[id number] in [place], [place]) and interpreted in[facility]house at [facility] in [facility]. 2:27 PM CDT [facility] Bone marrow ALL BONE MARROW / Unknown Collection / Unknown 03/25/2025 11:50 AM CDT 03/25/2025 12:18 PM CDT Poly Funes NP PATHOLOGY/CYTOLOGY ORDERABL ES Final Result [facility] CLIA # [id number] [address] [address] [place] [address] * IR BIOPSY BONE MARROW (03/25/2025 11:48 [...] Estimated Blood Loss: None Narrative Procedure Note Daniel Monk MD - 03/28/2025 IMPRESSION: Please see [...] well without complication. Estimated Blood Loss: None us Poly Funes NP IR ORDERABLES Final Resul t * (ABNORMAL) PROTIME-INR (03/25/2025 4:09 AM CDT) Only the most recent of2 resultswithin the time period is included. Pathologist [facility] PROTIME 16.0(H) 12.7 - 14.9 Seconds 03/25/2025 4:53 AM CDT [facility] INR 1.2 0.8 - 1.2 03/25/2025 4:53 AM CDT [facility] Blood Venipuncture / Unknown 03/25/2025 4:09 AM CDT 03/25/2025 4:40 AM CDT Narrative [facility] - 03/25/2025 4:53 AM CDT Expected Values for INR: DVT/PE Goal INR 2.5; range 2.0 - 3.0 Valve Replacement Tissue Goal INR 2.5; range 2.0 - 3.0 Valve Replacement Mechanical Goal INR 3.0; range 2.5 - 3.5 POST-SD Goal INR 2.5; range 2.0 - 3.0 or Goal INR 3.0; range 2.5 - 3.5 Atrial Fibrillation Goal INR 2.5; range 2.0 - 3.0 Ischemic Stroke Goal INR 2.5; range 2.0 - 3.0 us Truman Rico MD HEMATOLOGY ORDERABLES Final R esult [facility] CLIA # [id number] [address] [place] [address] * FIBRINOGEN QUANTITATIVE (03/25/2025 4:09 AM CDT) Pathologist [facility] FIBRINOGEN 241 200 - 400 mg/dL 03/25/2025 4:53 AM CDT [facility] Blood Venipuncture / Unknown 03/25/2025 4:09 AM CDT 03/25/2025 4:40 AM CDT us Truman Rico MD HEMATOLOGY ORDERABLES Final R esult Performing Organization Address City/[facility]/ZIP Co de Phone Number [facility] CLIA # [id number] [facility] [address] * HEMOGLOBIN A1C (03/25/2025 4:09 AM CDT) Pathologist [facility] HEMOGLOBIN A1C 5.2 <=5.6 % 03/26/2025 12:01 PM CDT [facility] EST. AVG GLUCOSE, A1C 103 mg/dL 03/26/2025 12:01 PM CDT [facility] Blood Venipuncture / Unknown 03/25/2025 4:09 AM CDT 03/25/2025 4:40 AM CDT Narrative [facility] - 03/26/2025 12:01 PM CDT HGB A1C INTERPRETATION NORMAL: <5.7% PRE-DIABETES: 5.7 - 6.4% DIABETES: 6.5% OR GREATER us Astrid Lion MD CHEMISTRY ORDERABLES Final Resu lt Performing Organization Address City/[facility] Co de Phone Number [facility] CLIA # [id number] [facility] [address] * EBV BY PCR (03/24/2025 6:41 PM CDT) Pathologist [facility] EBV DNA, QN PCR Not Detected IU/mL 04/01/2025 6:24 PM CDT [facility] LOG10 EBV DNA QN PCR Not Detected Log IU/mL 04/01/2025 6:24 PM CDT [facility] Comment: Reference Range: Not Detected For additional information, please refer to http://education.Speech Kingdom.Routezilla/faq/CMVandEBVPCR (This link is being provided for informational/ educational purposes only.) Blood Venipuncture / Unknown 03/24/2025 6:41 PM CDT 03/24/2025 6:53 PM CDT Narrative [facility] - 04/01/2025 6:24 PM CDT Performing Organization Information: Site ID: [place] Name: Latisha Moya/[facility] [place] Address: [address] [place] [address] Dr [place], [place] Director: Ortiz Raymundo M.D.,PhD Batool Wagner HALF SECTION IRONER CHEMISTRY ORDERABLES Final Result [facility] * TICK-BORNE PANEL, PCR (03/24/2025 6:41 PM CDT) BORRELIA MIYAMOTOI PCR NOT DETECTED 03/28/2025 8:54 AM CDT [facility] Comment: REFERENCE RANGE: NOT DETECTED This test detects but does not distinguish between B. miyamotoi and B. hermsii. This test was developed and its analytical performance characteristics have been determined by [employer]. It has not been cleared or approved by FDA. This assay has been validated pursuant to the CLIA regulations and is used for clinical purposes. COMMENT INFECTIOUS DISEASE SEE COMMENT 03/28/2025 8:54 AM CDT [facility] Comment: A negative result does not exclude [...] analytical performance characteristics have been determined by [employer]. It has not been cleared or approved by FDA. This assay has been validated pursuant to the CLIA regulations and is used for clinical purposes. For additional information, please refer to https://education.Speech Kingdom.Routezilla/faq/fbu912 (This link is being provided for informational/ educational purposes only.) EHRLICHIA EWINGII DNA, QL REAL TIME PCR NOT DETECTED 03/28/2025 8:54 AM CDT [facility] Comment: REFERENCE RANGE: NOT DETECTED This test was developed and its analytical performance characteristics have been determined by [email or web address]. It has not been cleared or approved by FDA. This assay has been validated pursuant to the CLIA regulations and is used for clinical purposes. EHRLICHIA CHAFFEENSIS PCR NOT DETECTED 03/28/2025 8:54 AM CDT [facility] Comment: REFERENCE RANGE: NOT DETECTED This test was developed and its analytical performance characteristics have been determined by [facility]. It has not been cleared or approved by FDA. This assay has been validated pursuant to the CLIA regulations and is used for clinical purposes. ANAPLASMA PHAGOCYTOPHILUM PCR NOT DETECTED 03/28/2025 8:54 AM CDT [facility] Comment: REFERENCE RANGE: NOT DETECTED This test was developed and its analytical performance characteristics have been determined by [email or web address]. It has not been cleared or approved by FDA. This assay has been validated pursuant to the CLIA regulations and is used for clinical purposes. BABESIA MICROTI PCR NOT DETECTED 11/2024 8:54 AM CDT [facility] Comment: REFERENCE RANGE: NOT DETECTED This test was developed and its analytical performance characteristics have been determined by [employer]. It has not been cleared or approved by FDA. This assay has been validated pursuant to the CLIA regulations and is used for clinical purposes. Blood Venipuncture / Unknown 03/24/2025 6:41 PM CDT 03/24/2025 6:53 PM CDT Narrative [facility] - 03/28/2025 8:54 AM CDT Performing Organization Information: Site ID: EZ Name: [employer] [facility], Address: [address] [place] [phone] Director: Gayle Marcelino MD,PhD,CHIP Performing Organization Information: Site ID: EZ Name: [employer] [facility], Address: [address] [place] [phone] Director: Gayle Marcelino MD,PhD,CHIP Performing Organization Information: Site ID: EZ Name: [employer] [facility], Address: [address] [place] [phone] Director: Gayle Marcelino MD,PhD,CHIP Performing Organization Information: Site ID: EZ Name: [email or web address], Address: [address] [place] [phone] Director: Gayle Marcelino MD,PhD,CHIP Performing Organization Information: Site ID: EZ Name: [facility], Address: [address] [place] [phone] Director: Gayle Marcelino MD,PhD,CHIP Performing Organization Information: Site ID: EZ Name: [email or web address], Address: [address] [place] [phone] Director: Gayle Marcelino MD,PhD,CHIP Batool Wagner HALF SECTION IRONER CHEMISTRY ORDERABLES Final Result [facility] * (ABNORMAL) ACUTE HEPATITIS PANEL (03/24/2025 6:41 PM CDT) HEPATITIS B SURFACE AG NON-REACT HUBERT Non-react hubert 03/24/2025 7:47 PM CDT [facility] Comment:A non-reactive test result does not exclude the possibility of exposure to or infection with hepatitis B. HEPATITIS B CORE IGM NON-REACT HUBERT Non-react hubert 03/24/2025 7:47 PM CDT [facility] Comment:IgM antibodies to HB c were not detected; does not exclude the possibility of exposure to HBV. HEPATITIS A IGM Non-react hubert Non-react hubert 03/24/2025 7:47 PM CDT [facility] Comment:A negative test resu lt does not exclude the possibility of exposure to Hepatitis A virus. HEPATITIS C AB REACTIVE( A) Non-react huebrt 03/24/2025 7:47 PM CDT [facility] Blood Venipuncture / Unknown 03/24/2025 6:41 PM CDT 03/24/2025 6:53 PM CDT Narrative [facility] - 03/24/2025 7:47 PM CDT Confirmatory testing by HCV_RNA by PCR will be automatically reflexed on reactive results. Batool Wagner HALF SECTION IRONER CHEMISTRY ORDERABLES Final Result Performing Organization Address [facility]/ZIP Co de Phone Number [facility] CLIA # [id number] [address] [address] [place] [address] * HEPATITIS C RNA PCR, QUANTITATIVE (03/24/2025 6:41 PM CDT) HCV RNA, QUANT REAL TIME PCR <15 NOT DETECTED NOT DETECTED IU/mL 03/28/2025 5:29 PM CDT [facility] HCV RNA QUANT PCR COPIES IU/ML <1.18 NOT DETECTED NOT DETECTED Log IU/mL 03/28/2025 5:29 PM CDT [facility] Comment: For additional information, please refer to http://education.Dynamixyz/faq/HSC93y8 (This link is being provided for informational/ educational purposes only.) Blood Venipuncture / Unknown 03/24/2025 6:41 PM CDT 03/24/2025 7:47 PM CDT Narrative [facility] - 03/28/2025 5:29 PM CDT Performing Organization Information: Site ID: [place] Name: [employer] Address: [address] [phone] Director: Chavez Andrews MD Batool Wagenr HALF SECTION IRONER CHEMISTRY ORDERABLES Final Result Performing Organization Address City/[facility]/ZIP Co de Phone Number [facility] * CMV BY PCR (03/24/2025 6:41 PM CDT) CYTOMEGALOVIRUS, QUANT IU/ML Not Detected IU/mL 04/02/2025 6:48 AM CDT [facility] CYTOMEGALOVIRUS BY PCR, QUANT LOG IU/ML Not Detected log IU/mL 04/02/2025 6:48 AM CDT [facility] Comment: REFERENCE RANGE: NOT DETECTED For additional information, please refer to http://education.Speech Kingdom.Routezilla/faq/CMVandEBVPCR (This link is being provided for informational/ educational purposes only.) Blood Venipuncture / Unknown 03/24/2025 6:41 PM CDT 03/24/2025 6:53 PM CDT Narrative [facility] - 04/02/2025 6:48 AM CDT Performing Organization Information: Site ID: AMD Name: [facility] [place] Address: [address] [place] [address] [place] [address] Director: Ortiz Raymundo M.D.,PhD Batool Wagner HALF SECTION IRONER CHEMISTRY ORDERABLES Final Result Performing Organization Address City/State/[facility] Co de Phone Number [facility] * (ABNORMAL) ZINC LEVEL (03/24/2025 6:41 PM CDT) ZINC LEVEL 58(L) 60 - 130 mcg/dL 03/29/2025 9:25 AM CDT [facility] Comment: (Note) This test was developed and its analytical performance characteristics have been determined by [employer]. It has not been cleared or approved by the FDA. This assay has been validated pursuant to the CLIA regulations and is used for clinical purposes. MDF med fusion [address] [place] [address],[address] [place] [address] Lola Ramey MD, PhD Blood Venipuncture / Unknown 03/24/2025 6:41 PM CDT 03/24/2025 6:53 PM CDT Narrative [facility] - 03/29/2025 9:25 AM CDT Performing Organization Information: Site ID: [id number] Name: [facility] Address: [address] [place] [address], [address] [place] [phone] Director: Lola Ramey MD,PhD Batool Wagner HALF SECTION IRONER CHEMISTRY ORDERABLES Final Result [facility] * IMMUNOFIXATION (03/24/2025 6:41 PM CDT) [facility] IMMUNOFIXATION INTERP See Interpretation Below 03/28/2025 4:39 PM CDT [facility] Comment:M1 = IgG kappa INTERPRETED BY: Popeye Michelle MD 11/2024 4:39 PM CDT [facility] Blood Venipuncture / Unknown 03/24/2025 6:41 PM CDT 03/24/2025 7:59 PM CDT Batool Wagner HALF SECTION IRONER CHEMISTRY ORDERABLES Final Result Performing Organization Address [facility] Co de Phone Number [facility] CLIA # [id number] [address] [place] [address] * (ABNORMAL) KAPPA/LAMBDA, FREE LIGHT CHAINS (03/24/2025 6:41 PM CDT) [facility] KAPPA FREE LIGHT CHAIN 52.9(H) 3.3 - 19.4 mg/L 03/29/2025 4:46 PM CDT [facility] LAMBDA FREE LIGHT CHAIN 46.5(H) 5.7 - 26.3 mg/L 03/29/2025 4:46 PM CDT [facility] KAPPA/LAMBDA LIGHT CHAIN RATIO 1.14 0.26 - [...] PM CDT Performing Organization Information: Site ID: RACH Name: [facility] Address: [address] [place] [phone] Director: Chavez Andrews MD Performing Organization Information: Site ID: RACH Name: [employer] Address: [address] [place] [phone] Director: Chavez Andrews MD Batool Wagner HALF SECTION IRONER CHEMISTRY ORDERABLES Edite d Result - Final Performing Organization Address [facility]/ZIP Co de Phone Number [facility] * COPPER LEVEL (03/24/2025 6:41 PM CDT) COPPER LEVEL 88 70 - 175 mcg/dL 03/29/2025 9:17 AM CDT [facility] Comment: (Note) This test was developed and its analytical performance characteristics have been determined by [employer]. It has not been cleared or approved by the FDA. This assay has been validated pursuant to the CLIA regulations and is used for clinical purposes. [facility] [address] [place] [address],[address] [place], [place] [id number] Lola Ramey MD, PhD Blood Venipuncture / Unknown 03/24/2025 6:41 PM CDT 03/24/2025 6:53 PM CDT Narrative [facility] - 03/29/2025 9:17 AM CDT Performing Organization Information: Site ID: [id number] Name: [employer] Address: [address] [place] [address], [address] [place] [phone] Director: Lola Ramey MD,PhD us Batool Wagner HALF SECTION IRONER CHEMISTRY ORDERABLES Final Result Performing Organization Address City/[facility]/ZIP Co de Phone Number [facility] * BLOOD CULTURE (03/24/2025 6:41 PM CDT) Only the most recent of2 resultswithin the time period is included. Pathologist [facility] BLOOD CULTURE No growth 03/29/2025 7:58 PM CDT [facility] Blood (Peripheral) Venipuncture / Unknown 03/24/2025 6:41 PM CDT 03/24/2025 6:53 PM CDT us Batool Wagner NP MICROBIOLOGY - GENERAL ORD ERABLES Final Result [facility] CLIA # [id number] [address] [place] [address] * INDER SCREEN W/REFLEX (03/24/2025 6:41 PM CDT) Pathologist [facility] INDER SCREEN NEGATIVE NEGATIVE 03/29/2025 4:46 PM CDT [facility] Comment: INDER IFA is a first line [...] AC-0: Negative International Consensus on INDER Patterns (https://doi.org/10.1515/ftru-0489-1444) For additional information, please refer to http://education.Venturocket.Routezilla/faq/JMW244 (This link is being provided for informational/ educational purposes only.) Blood Venipuncture / Unknown 03/24/2025 6:41 PM CDT 03/24/2025 6:53 PM CDT Narrative [facility] - 03/29/2025 4:46 PM CDT Performing Organization Information: Site ID: [place] Name: [employer] Address: [address] [place] [address] [place] [address] Director: Chavez Andrews MD us Batool Wagner HALF SECTION IRONER CHEMISTRY ORDERABLES Final Result [facility] * (ABNORMAL) PROTEIN ELECTROPHORESIS W/REFLEX,SERUM (03/24/2025 6:41 PM CDT) TOTAL PROTEIN 6.2(L) 6.4 - 8.3 g/dL 03/28/2025 4:38 PM CDT [facility] ALBUMIN SPE 3.33(L) 3.50 - 5.20 g/dL 03/28/2025 4:38 PM CDT [facility] ALPHA 1 GLOBULIN SPE 0.25 0.21 - 0.45 g/dL 03/28/2025 4:38 PM CDT [facility] ALPHA 2 GLOBULIN SPE 0.43(L) 0.50 - 1.01 g/dL 03/28/2025 4:38 PM CDT [facility] BETA GLOBULIN 0.62 0.60 - 1.06 g/dL 03/28/2025 4:38 PM CDT [facility] GAMMA GLOBULIN 1.51(H) 0.60 - 1.33 g/dL 03/28/2025 4:38 PM CDT [facility] MONOCLONAL PROTEIN 1 0.04 g/dL 03/28/2025 4:38 PM CDT [facility] SPE INTERP See Interpretation Below 03/28/2025 4:38 PM CDT [facility] Comment:Small monoclonal pro tein identified in the gamma region-see separate immunofixation report. INTERPRETED BY: Popeye Michelle MD 11/2024 4:38 PM CDT [facility] Blood Venipuncture / Unknown 03/24/2025 6:41 PM CDT 03/24/2025 7:59 PM CDT Narrative [facility] - 03/28/2025 4:38 PM CDT Immunofixation ordered at [facility] per policy per pathologist. us Batool Wagner NP CHEMISTRY ORDERABLES Final Result [facility] SERVICES [facility] CLIA # [id number] [id number] [place] [address] * US ABDOMEN COMPLETE (03/24/2025 4:41 PM [...] renal MRI with and without contrast recommended. us Batool Wagner NP US ORDERABLES Final Resu lt * VERIFICATION BLOOD GROUP (03/24/2025 12:48 PM CDT) ABO GROUP O 03/24/2025 2:29 PM CDT [facility] RH (D) TYPE Positive 03/24/2025 2:29 PM CDT [facility] Blood Venipuncture / Unknown 03/24/2025 12:48 PM CDT 03/24/2025 1:05 PM CDT Renny Álvarez MD BLOOD BANK ORDERABLES Final Res ult Performing Organization Address [facility] Co de Phone Number [facility] CLIA#[id number] [address] [place] [address], * DIRECT ANTIGLOBULIN TEST W/REFLEX (03/24/2025 12:48 PM CDT) DIRECT ANTIGLOBULIN POLY Negative 03/24/2025 3:58 PM CDT [facility] Blood Venipuncture / Unknown 03/24/2025 12:48 PM CDT 03/24/2025 2:39 PM CDT [employer] Wagner HALF SECTION IRONER BLOOD BANK ORDERABLES Lee Ann l Result Performing Organization Address [facility] de Phone Number [facility] [employer] [facility] CLIA#[id number] [address] [place] [address], * PERIPHERAL BLOOD SMEAR PATHOLOGY INTERP (03/24/2025 11:56 AM CDT) PERIPHERAL BLOOD SMEAR INTERP See Interpretation Below 03/25/2025 10:28 AM CDT [facility] Comment: Red blood cells are quantitatively decreased [...] ORDERABLES Final Res ult Performing Organization Address [facility] Co de Phone Number [facility] CLIA # [id number] [address] [address] [place], [place] [id number] * VITAMIN B12 AND FOLATE (03/24/2025 11:56 AM CDT) Pathologist [facility] VITAMIN B12 617 211 - 946 pg/mL 03/24/2025 1:02 PM CDT [facility] FOLATE, SERUM 11.4 3.1 - 17.5 ng/mL 03/24/2025 1:02 PM CDT [facility] Blood Venipuncture / Unknown 03/24/2025 11:56 AM CDT 03/24/2025 12:11 PM CDT us Renny Álvarez MD CHEMISTRY ORDERABLES Final Resu lt Performing Organization Address [facility]/[place] de Phone Number [facility] CLIA # [id number] [address] [address] [place] [address] * (ABNORMAL) IRON, TIBC, AND PERCENT SATURATION (03/24/2025 11:56 AM CDT) IRON 50(L) 59 - 158 ug/dL 03/24/2025 3:03 PM CDT [facility] TIBC 116(L) 250 - 450 ug/dL 03/24/2025 3:03 PM CDT [facility] IRON % SATURATION 43 15 - 60 % 03/24/2025 3:03 PM CDT [facility] Blood Venipuncture / Unknown 03/24/2025 11:56 AM CDT 03/24/2025 12:11 PM CDT Batool Wagner NP CHEMISTRY ORDERABLES Final Result Performing Organization Address [facility] Co de Phone Number [facility] CLIA # [id number] [address] [address] [place], [place] [id number] * (ABNORMAL) SEDIMENTATION RATE (03/24/2025 11:56 AM CDT) ESR (SEDIMENTATION RATE) 22(H) 0 - 10 mm/Hr 03/24/2025 3:02 PM CDT [facility] Blood Venipuncture / Unknown 03/24/2025 11:56 AM CDT 03/24/2025 12:10 PM CDT Batool Wagner NP HEMATOLOGY ORDERABLES Lee Ann l Result Performing Organization Address [facility] Co de Phone Number [facility] CLIA # [id number] [facility] [address] * RETICULOCYTES (03/24/2025 11:56 AM CDT) RETICULOCYTES 1.8 0.9 - 2.2 % 03/24/2025 12:29 PM CDT [facility] IMMATURE RETIC FRACTION 11.2 4.3 - 16.9 % 03/24/2025 12:29 PM CDT [facility] RETICULOCYTE, ABSOLUTE 0.0508 0.0260 - 0.0950 10e6/uL 03/24/2025 12:29 PM CDT [facility] RETICULOCYTE HEMOGLOBIN CONTENT 31.9 28.6 - 37.4 pg 03/24/2025 12:29 PM CDT [facility] Blood Venipuncture / Unknown 03/24/2025 11:56 AM CDT 03/24/2025 12:10 PM CDT Renny Álvarez MD HEMATOLOGY ORDERABLES Final Res ult Performing Organization Address [facility] Co de Phone Number [facility] CLIA # [id number] [address] [place] [address] * (ABNORMAL) C-REACTIVE PROTEIN (03/24/2025 11:56 AM CDT) CRP 12.2(H) 0.0 - 5.0 mg/L 03/24/2025 3:03 PM CDT [facility] Blood Venipuncture / Unknown 03/24/2025 11:56 AM CDT 03/24/2025 12:11 PM CDT us Batool Wagner HALF SECTION IRONER CHEMISTRY ORDERABLES Final Result Performing Organization Address [facility] de Phone Number [facility] CLIA # [id number] [address] [place] [address] * TSH (03/24/2025 11:56 AM CDT) TSH 2.09 0.27 - 4.20 uIU/mL 03/24/2025 3:03 PM CDT [facility] Blood Venipuncture / Unknown 03/24/2025 11:56 AM CDT 03/24/2025 12:11 PM CDT Batool Wagner HALF SECTION IRONER CHEMISTRY ORDERABLES Final Result Performing Organization Address [facility] Co de Phone Number [facility] [employer] [facility] CLIA # [id number] [address] [place] [address] * PSA (03/24/2025 11:56 AM CDT) [facility] PSA 0.6 0.0 - 4.0 ng/mL 03/24/2025 3:42 PM CDT [facility] Blood Venipuncture / Unknown 03/24/2025 11:56 AM CDT 03/24/2025 12:11 PM CDT Narrative [facility] - 03/24/2025 3:42 PM CDT The concentration of PSA in a given specimen, as determined by assays from different manufacturers, can vary because of differences in assay methods and reagent specificity. Values obtained with different assay methods cannot be used interchangeably. The testing method in use is the ZOFIA Electrochemiluminescence Immunoassay. us Batool Wagner NP CHEMISTRY ORDERABLES Final Result Performing Organization Address City/[facility]/ZIP Co de Phone Number [facility] CLIA # [id number] [address] [address] * (ABNORMAL) PHOSPHORUS (03/24/2025 11:56 AM CDT) [facility] PHOSPHORUS 2.0(L) 2.5 - 4.5 mg/dL 03/24/2025 2:00 PM CDT [facility] Blood Venipuncture / Unknown 03/24/2025 11:56 AM CDT 03/24/2025 12:11 PM CDT us Renny Álvarez MD CHEMISTRY ORDERABLES Final Resu lt [facility] CLIA # [id number] [id number] [place] [address] * HAPTOGLOBIN (03/24/2025 11:56 AM CDT) [facility] HAPTOGLOBIN 47 30 - 200 mg/dL 03/24/2025 3:03 PM CDT [facility] Blood Venipuncture / Unknown 03/24/2025 11:56 AM CDT 03/24/2025 12:11 PM CDT Batool Wagner HALF SECTION IRONER CHEMISTRY ORDERABLES Final Result Performing Organization Address [facility] Co de Phone Number [facility] CLIA # [id number] [address] [address] [place] [address] * FERRITIN (03/24/2025 11:56 AM CDT) FERRITIN 350.4 30.0 - 400.0 ng/mL 03/24/2025 3:03 PM CDT [facility] Blood Venipuncture / Unknown 03/24/2025 11:56 AM CDT 03/24/2025 12:11 PM CDT Batool Wagner HALF SECTION IRONER CHEMISTRY ORDERABLES Final Result Performing Organization Address [facility] de Phone Number [facility] CLIA # [id number] [address] [address] from Last 3 Months Additional Health Concerns Infection Onset Date Last Indicated Neutropenic Precautions 03/29/2025 03/29/20 25 Insurance MEDICARE RX [employer] Commercial Advance Directives For more information, please contact: [phone] * Full Code (Latest Code Status on File) Date Activated Date Inactivated Comments 03/31/2025 5:15 PM 2025 4:25 PM * Default Full Code - Needs Discussion Date Activated Date Inactivated Comments 03/24/2025 1:40 PM 03/31/2025 5:15 PM
--- OUTSIDE RECORDS SUMMARY | 2025-04-09 15:46 | XMS_ITS | Encounter Summary ---
Author Organization [facility] Address [address] [place] [address] Care Team Providers Care Personal Computer Network Analyst Name Role Phone Unavailable Primary Care Provider Unavailabl e Encounter Details Date Type Department Care Team (Late st Contact Info) Description 04/01/2025 Orders Only [facility] [address] [place] [address] Provider, Abstract NO ADDRESS ON FILE Social History Tobacco Use Types Packs/Day Years [...] Procedure Name Priority Date/Time Associated Diagnosis Comments COMPREHENSIVE METABOLIC PANEL Routine 03/23/2025 12:42 PM CDT documented in this encounter Results * COMPREHENSIVE METABOLIC PANEL (03/23/2025 12:42 PM CDT) Blood us Abstract Provider CHEMISTRY ORDERABLES Final Res ult documented in this encounter Visit Diagnoses Not on filedocumented in this encounter Additional Health Concerns Infection Onset Date Last Indicated Resolved Time Neutropenic Precautions 03/29/2025 03/29/2025 documented as of this encounter
--- OUTSIDE RECORDS SUMMARY | 2025-04-09 15:46 | XMS_ITS | Encounter Summary ---
Author Organization [facility] Address [address] [place] [address] Care Team Providers Care Adult Basic Studies Teacher Name Role Phone Unavailable Primary Care Provider Unavailabl e Encounter Details Date Type Department Care Team (Late st Contact Info) Description 04/05/2025 Specialty Pharmacy [facility] [place] [phone] Comfort Palmer, PHARMACIST Specialty Pharmacy Refill Coordination Social History Tobacco Use Types Packs/Day Years Used Date Smoking Tobacco: Never Sex and Gender Information Value Date Recorded Sex Assigned at Not on file Legal Sex Male 1:51 PM CDT Gender Identity Not on file Sexual Orientation Not on file documented as of this encounter Progress Notes * Lisy Roberts - 04/05/2025 10:09 AM CDT [facility] [place] Initial Medication Dispense Note Janice Papo 1950 Name of Medication, Strength, Formulation: VENCLEXTA 100MG DAILY FOR 14 DAYS THEN OFF FOR 14 Date of Initial Receipt of Medication 04/07 Permission to leave delivered package. Yes 14 quantity for 28 days supply Additional information: SPGFLD T&T SHIP 04/06 documented in this encounter Plan of Treatment Not on file documented as of this encounter Visit Diagnoses Not on filedocumented in this encounter Additional Health Concerns Infection Onset Date Last Indicated Resolved Time Neutropenic Precautions 03/29/2025 03/29/2025 documented as of this encounter
--- OUTSIDE RECORDS SUMMARY | 2025-04-09 15:46 | XMS_ITS | Encounter Summary ---
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 [place] [phone] Taylor Magaña, PHARMACIST Specialty Pharmacy Clinical Assessment Social History Tobacco Use Types Packs/Day Years Used Date Smoking Tobacco: Never Sex and Gender Information Value Date Recorded Sex Assigned at Not on file Legal Sex Male 1:51 PM CDT Gender Identity Not on file Sexual Orientation Not on file documented as of this encounter Progress Notes * Taylor Magaña PHARMACIST - 04/05/2025 10:51 AM CDT [facility] Clinical Pharmacist Initial Assessment Oncology Therapy Patient Name: Faina Barros Medication Information Specialty Medication / Dose / Frequency: VENCLEXTA 100 MG TABLET--TAKE 1 TABLET BY MOUTH FOR 14 DAYS Indication: MDS D46.Z Therapy Start Date: START ONCE RECEIVED Pertinent Medical History: SEE BELOW No Known Allergies Current Outpatient Medications on File Prior to Visit Medication Sig Dispense Refill acyclovir (ZOVIRAX) 400 mg tablet Take 1 Tablet (400 mg) by mouth 2 times daily for 14 days. 28 Tablet 0 voriconazole (VFEND) 200 mg tablet Take 1 Tablet (200 mg) by mouth every 12 hours for 14 days. 28 Tablet 0 sulfamethoxazole-trimethoprim (BACTRIM DS) 800-160 mg tablet Take 1 Tablet by mouth every Friday, Friday, and Friday for 14 days. 6 Tablet 0 sennosides (SENOKOT XTRA) 17.2 mg Tablet tablet Take 1 Tablet (17.2 mg) by mouth daily for 14 days.14 Tablet 0 polyethylene glycol (MIRALAX) 17 gram Powder in Packet Take 1 Packet (17 Grams) by mouth 2 times daily as needed for Constipation. 28 Packet 0 bisacodyL (DULCOLAX) 10 mg Suppository Insert 1 Suppository (10 mg) by rectum 1 time daily as needed for Constipation. 14 Suppository 0 venetoclax (VENCLEXTA) 100 mg tablet Take 1 Tablet (100 mg) by mouth daily with breakfast for 14 days on, 14 days off. 14 Tablet 0 glipiZIDE (GLUCOTROL) 5 mg tablet Take 5 mg by mouth 2 times daily with meals. finasteride (PROSCAR) 5 mg tablet Take 5 mg by mouth daily. DULoxetine (CYMBALTA) 60 mg Capsule, Delayed Release(E.C.) Take 60 mg by mouth daily. No current facility-administered medications on file prior to visit. Patient Active Problem List Diagnosis Code Pancytopenia ([facility]) D61.818 Type 2 diabetes mellitus, without long-term current use of insulin ([facility]) E11.9 Benign hypertension I10 Hypophosphatemia E83.39 Protein-calorie malnutrition, moderate E44.0 MDS (myelodysplastic syndrome), high grade ([facility]) D46.Z Clinical Assessment Therapy Specific Counseling and Monitoring: Drug indications and pharmacology Treatment indication and possible outcomes of therapy Inform patient on treatment indication specific to their medical condition and possible treatment outcomes. Medication specifics Drug Name venetoclax(Venclexta) How supplied tablets Route of administration oral Duration of treatment Inform patient on duration of therapy for their medical condition. Storage precautions Advise patient to store below 86 degrees F (30 degrees C). Storage precautions Keep medicine in original container. Special handling/disposal No special handling precautions Special handling/disposal Inform patient on proper disposal. Administration precautions Drug/food interactions Advise patients to avoid consuming grapefruit products, [place] oranges, or starfruit during treatment. Advise patient or caregiver to take dose with a meal. Instruct patient to swallow the tablet whole; do not chew, crush, cut, split, break or dissolve tablets. Advise patient on dosing in the event of a missed dose. Take a missed dose if less than 8 hours have passed since the missed scheduled dose. If more than 8hours have passed, wait until the next scheduled dose. Advise patient on dosing in the event of a missed dose. Do not re-take a dose after vomiting; resume with the next scheduled dose. Common adverse events Inform patient on common adverse reactions and to report if any become severe. Most common reactions in CLL or SLL as monotherapy or combination therapy include low white blood cells (neutrophils), diarrhea, nausea, upper respiratory tract infection, anemia, fatigue, low platelet count, musculoskeletal pain, edema, and cough. Inform patient on common adverse reactions and to report if any become severe. In AML, common effects include fever associated with low white blood cells (neutrophils), nausea, vomiting, diarrhea, low platelet count, constipation, fatigue, peripheral swelling, pneumonia, painful or difficulty breathing, bleeding, anemia, rash, abdominal pain, sepsis, back pain, muscle aches, d izziness, cough,oropharyngeal pain, and low blood pressure. Inform patient of possible side effect mitigation strategies. Severe adverse reactions Inform patient on the risk of tumor lysis syndrome. Patient should report to healthcare provider for any muscle spasm or weakness, low back or side (flank) pain, painful urination or pink or bloody urine. Advise patient to report any signs or symptoms of infection (e.g. fever, chills, sore throat, flu-like symptoms). Drug/OTC interactions Advise patient to inform healthcare provider of all medication they take, including OTC products, vitamins and herbal drugs (e.g., [place]'s Wort). Reproduction and Fertility Advise male patient that treatment may cause infertility and to consider sperm preservation. Inform female patient of reproductive potential of risk to fetus and to avoid during treatment. Maintain contraception during and for at least 30 days post treatment. Lactating mother Advise lactating women to avoid during treatment. Additional warnings Advise patient to complete necessary lab work at the intervals requested by their physician and to practice medication adherence. Advise patient to review the FDA approved Medication Guide. Advise patient or caregiver and family to avoid administration of live vaccines. Live vaccinations should be avoided. Advise patient or caregiver and family to avoid administration of live vaccines. Not recommended during treatment and until B-cell recovery. Inform patient of any pre-existing conditions where treatment should be avoided. Therapeutic Goals: Prolongation of Survival: Extending overall life expectancy beyond typical prognosis., Improvement in Quality of Life: Enhancing physical, emotional, and social well-being., and Prevention of Complications: Minimizing the risk or severity of treatment-related or disease-related complications. Pharmacist conducted an assessment prior to first fill of the medication to determine the appropriateness of therapy. Factors evaluated include medication prescribed, treatment diagnosis, currently prescribed medications (including prescription and OTC meds detailed above), reported/documented allergies, pertinent medical history, patient's ability to self-administer medication, and therapeutic goals based on possible outcomes of therapy. Given the patient's treatment diagnosis, concurrent medications, comorbidities, reported/documentedallergies, and pertinent medical history, therapy is appropriate as currently prescribed. Patient is able to receive or self-administer medication as prescribed. No physical, environmental, financial, or psychosocial barriers identified that would be deemed a significant impediment to therapy. Medication is appropriate as prescribed and will be dispensed. Upon Initial Fill, the Patient/Caregiver is provided information via the Welcome Packet and verbal discussion with pharmacy co-workers regarding: Enrollment in the Patient Management Program Contacting pharmacy representatives Expected [id number] costs Rivera fuentes of medication (upon request) Filling and refilling a prescription Obtaining order status and information regarding potential delays Transferring prescriptions Reporting a suspected medication issue Offer of counseling from a Clinical Specialty Pharmacist upon request and as needed Patient/Caregiver provided education regarding medication therapy via written materials, verbal instruction, and pharmacist counseling. This initial and ongoing education includes: Expectations and potential outcomes of therapy Proper use, administration, and duration of therapy Potential side effects and side effect management Missed dose management Safe handling, storage, and disposal of medication COMPLETED INITIAL COUNSELING WITH FAINA. HE IS GOING TO BE USING AN [facility]COLOGIST WITH [facility] FOR THIS FILL AND THEN HE WILL NOT BE ABLE TO FILL HERE SINCE THIS IS NOT A [facility] PROVIDER. HE SEES THE [facility] PROVIDER TOMORROW (04/07) AND WILL GET THE GO AHEAD TO START TAKING HIS MEDICATION. WE REVIEWED HOW TO TAKE THIS AND WHICH SIDE EFFECTS TO LOOK OUT FOR. Assessment completed by MURRAY Hines on 04/05/25 documented in this encounter Plan of Treatment Not on file documented as of this encounter Visit Diagnoses Not on filedocumented in this encounter Additional Health Concerns Infection Onset Date Last Indicated Resolved Time Neutropenic Precautions 03/29/2025 03/29/2025 documented as of this encounter
--- NOTE | 2025-04-09 15:57 | ECG_ITS ---
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 Measurements Intervals [place] Rate: 130 P: 68 IN: 153 QRS: 22 QRSD: 87 T: 78 QT: 307 QTc: 453 Interpretive Statements SINUS TACHYCARDIA POSSIBLE ANTERIOR MYOCARDIAL INFARCTION , PROBABLY OLD [30 ms Q WAVE IN V3/V4, OR R < 0.2 mV IN V4] NONSPECIFIC ST - T WAVE ABNORMALITY Compared to ECG 03/23/2025 10:51:53 NO CHANGE Electronically Signed On 04-10-2025 17:51:05 CDT by Arun Lo M.D. [id number]
--- NOTE | 2025-04-09 16:03 | XRR_ITS ---
PROCEDURE INFORMATION: Exam: XR Chest Exam date and time: 04/09/2025 4:13 PM Age: 75 years old Clinical indication: Cough and dyspnea; Additional info: Dyspnea; Cough; SOB; Sinus pressure TECHNIQUE: Imaging protocol: Radiologic exam of the chest. Views: 1 view. COMPARISON: CR XR chest 1V portable [id number] 04/08/2025 12:42 PM FINDINGS: Tubes, catheters and devices: Stable right upper extremity PICC terminating in the region of the cavoatrial junction. Lungs: Stable areas of interstitial prominence likely chronic lung changes. No pulmonary consolidation. Pleural spaces: No pleural effusion or pneumothorax. Heart/Mediastinum: Heart size is within normal limits. Bones/joints: No acute osseous abnormalities are seen. XR/XR chest 1V portable [id number] IMPRESSION: No acute cardiopulmonary disease.
--- NOTE | 2025-04-09 16:04 | W.ED.WEAKNES ---
HPI - Weakness General: Chief complaint: Weakness Stated complaint: Fever / RT ear pain Time Seen by Provider: 04/09/25 15:59 History of Present Illness: 75-year-old male presents emergency room complaining of fever also was complaining of right ear pain. Patient is very weak and is notices become increasingly pale when seen him 16 days ago at that time he had pancytopenia and he was transferred to tertiary care they felt he had a myelodysplastic syndrome he had 1 follow-up appointment with oncology since then 3 days ago. He is not on any anticoagulation. He denies any medic easy melena hematemesis coffee-ground emesis or other signs of obvious bleeding. He is very pale in appearance. Denies chest pain does have shortness of breath with activity. Associated symptoms: Denies chest pain, chills, dysuria or fever(s) Related Data Home Medications ?Medication ?Instructions ?Recorded ?Confirmed aspirin 81 mg tablet,delayed 81 mg PO DAILY 10/07/19 04/08/25 release atorvastatin 10 mg tablet 10 mg PO DAILY 03/23/25 04/08/25 duloxetine 60 mg capsule,delayed 60 mg PO DAILY 03/23/25 04/08/25 release finasteride 5 mg tablet 5 mg PO DAILY 03/23/25 04/08/25 ketoconazole 2 % shampoo 1 applic topical .3XWEEKLY 03/23/25 04/08/25 losartan 50 mg-hydrochlorothiazide 1 tab PO DAILY 03/23/25 04/08/25 12.5 mg tablet metformin 850 mg tablet 850 mg PO BID 03/23/25 04/08/25 metoprolol succinate 100 mg 50 mg PO DAILY 03/23/25 04/08/25 tablet,extended release 24 hr triamcinolone acetonide 0.1 % 1 applic topical TID PRN skin 03/23/25 04/08/25 topical ointment irritation acyclovir 400 mg tablet 400 mg PO DAILY 04/07/25 04/08/25 sulfamethoxazole 800 1 tab PO DAILY 04/07/25 04/08/25 mg-trimethoprim 160 mg tablet venetoclax 100 mg tablet 100 mg PO DAILY 04/07/25 04/08/25 (Venclexta) Previous Rx's ?Medication ?Instructions ?Recorded glipizide 5 mg tablet 5 mg PO BID 90 days #180 tabs 08/11/24 ondansetron HCl 4 mg tablet 4 mg PO Q6H PRN nausea and 04/07/25 vomiting #30 tabs prochlorperazine maleate 10 mg 10 mg PO Q4H PRN mild nausea #30 04/07/25 tablet (Compazine) tabs Allergies Allergy/AdvReac Type Severity Reaction Status Date / Time No Known Allergies Allergy Verified 04/07/25 07:59 Review of Systems Const: Denies: fever(s) or chills Card: Reports: dyspnea on exertion; Denies: chest pain Resp: Reports: dyspnea GI: Denies: abdominal pain : Denies: dysuria, urinary frequency or urinary urgency Musc: Denies: neck pain or back pain Skin/Breast: Denies: rash PFSH ED PFSH: Medical History Colonic polyp Prostatic hypertrophy Mild depression Diabetes Hypercholesteremia Hypertension Surgical History Hx of colonoscopy (09/19/20) normal History of colonoscopy with polypectomy History of back surgery History of hip replacement, total Family History Denies family history of Anesthesia complication Bleeding disorder Social History Smoking and tobacco/nicotine status: former use of tobacco/nicotine Alcohol intake: never Substance/Drug Use: never Physical Exam Const: GENERAL APPEARANCE: cooperative ORIENTATION/CONSCIOUSNESS: Yes awake, Yes oriented to person, Yes oriented to place and Yes oriented to time HENMT: COMMON NORMALS: normocephalic, atraumatic and hearing grossly normal bilaterally HEAD & SCALP: normocephalic and atraumatic Resp: COMMON NORMALS: normal respiratory effort, No retractions, No use of accessory muscles and clear to auscultation bilaterally AUSCULTATION: clear to auscultation bilaterally Cardio: COMMON NORMALS: regular rate, regular rhythm and No murmurs present (Cardio) RATE: regular rate RHYTHM: regular rhythm GI: COMMON NORMALS: Soft to palpation and No hepatosplenomegaly present AUSCULTATION: Yes normoactive bowel sounds PALPATION: Yes Soft to palpation, No Tenderness to palpation present (GI), No Guarding due to palpation present (GI) and Yes No hepatosplenomegaly present Extremity: COMMON NORMALS: normal to inspection, capillary refill normal, no clubbing, cyanosis or edema, no calf tenderness and no pedal edema Neuro: SENSORIUM/ORIENTATION: Yes oriented to person, Yes oriented to place and Yes oriented to time Skin: COMMON NORMALS: no rashes or lesions noted GENERAL SKIN EXAM: no rashes or lesions noted Course Vital Signs: Vital signs: Vital Signs Temperature 98.4 F 04/09/25 22:32 Pulse Rate 85 04/10/25 00:04 Respiratory Rate 17 04/10/25 00:04 Blood Pressure 107/57 04/10/25 00:04 Pulse Oximetry 95 04/10/25 00:04 Oxygen Delivery Me thod Room Air 04/09/25 23:10 MDM - Weakness Medical Decision Making Mild dysplasia with severe anemia and thrombocytopenia. Discussed with hospitalist who both agree patient will require further oncology evaluation as an inpatient he is supposed to be getting treatment for his myelodysplasia beginning within the next few days. Initial blood ordered here and transfused will transfer To [facility]. Initial hemoglobin 4.1 repeat hemoglobin 5 3 after transfusion patient's vital signs are stable at the time of transfer. Medical Records I reviewed the patient's medical records. Lab Data I reviewed the patient's lab results. 04/09/25 21:37 04/09/25 16:11 Radiology Impressions Chest X-Ray 04/09/25 16:03 IMPRESSION: No acute cardiopulmonary disease. Laboratory Results WBC 0.43 10^3/uL (3.29-11.43) L* 04/09/25 21:37 Corrected WBC Cancelled 04/09/25 20:43 RBC 1.84 10^6/uL (3.85-5.65) L 04/09/25 21:37 Hgb 5.30 g/dL (11.27-16.99) L* 04/09/25 21:37 Hct 16.4 % (37-53) L* 04/09/25 21:37 MCV 89.1 fl (82-101) 04/09/25 21:37 MCH 28.8 pg (27-33) 04/09/25 21:37 MCHC 32.3 g/dL (30-55) 04/09/25 21:37 RDW 16.3 % (12.1-15.1) H 04/09/25 21:37 Plt Count 2 10^3/cmm (157-399) L* 04/09/25 21:37 MPV Not Reportable 04/09/25 21:37 Gran % Cancelled 04/09/25 20:43 Neut % (Auto) Cancelled 04/09/25 20:43 Lymph % (Auto) Not Reportable 04/09/25 21:37 Smith % (Auto) Not Reportable 04/09/25 21:37 Eos % (Auto) Cancelled 04/09/25 20:43 Baso % (Auto) Cancelled 04/09/25 20:43 Neut # (Auto) Not Reportable 04/09/25 21:37 Lymph # (Auto) Not Reportable 04/09/25 21:37 Smith # (Auto) Not Reportable 04/09/25 21:37 Eos # (Auto) Cancelled 04/09/25 20:43 Baso # (Auto) Cancelled 04/09/25 20:43 Absolute Gran (auto) Cancelled 04/09/25 20:43 Nucleated RBC % (auto) Cancelled 04/09/25 20:43 Total Counted 100 (0-100) 04/09/25 21:37 Atypical Lymphs % 11.0 % (0-5) H 04/09/25 21:37 Absolute Neutrophils 0.0 10^3/cmm (1.4-6.5) L* 04/09/25 21:37 Segmented Neutrophils 7 % 04/09/25 21:37 Band Neutrophils 1.0 % 04/09/25 21:37 Absolute Lymphocytes 0.4 10^3/cmm (1.2-3.4) L 04/09/25 21:37 Lymphocytes (Manual) 79 % 04/09/25 21:37 Monocytes (Manual) 2.0 % 04/09/25 21: Absolute Monocytes 0.0 10^3/cmm (0.1-0.6) L 04/09/25 21:37 Eosinophils (Manual) 0 % 04/09/25 21:37 Absolute Eosinophils 0.0 10^3/cmm (0.0-0.7) 04/09/25 21:37 Basophils (Manual) 0.0 % 04/09/25 21:37 Absolute Basophils 0.0 10^3/cmm (0.0-0.2) 04/09/25 21:37 Nucleated RBCs # Cancelled 04/09/25 20:43 Platelet Estimate Decreased (Normal) 04/09/25 21:37 Ovalocytes Trace 04/09/25 21:37 Sodium 133 mmol/L (136-145) L 04/09/25 16:11 Potassium 4.4 mmol/L (3.5-5.1) 04/09/25 16:11 Chloride 104 mmol/L (98-107) 04/09/25 16:11 Carbon Dioxide 19 mmol/L (22-29) L 04/09/25 16:11 Anion Gap 14.4 (5-19) 04/09/25 16:11 BUN 25 mg/dL (8-23) H 04/09/25 16:11 Creatinine 0.9 mg/dL (0.7-1.2) 04/09/25 16:11 GFR Calculation Not Reportable 04/09/25 16:11 Glucose 186 mg/dL (65-115) H 04/09/25 16:11 Calculated Osmolality 285 mOsm/kg (285-295) 04/09/25 16:11 Lactic Acid 2.5 mmol/L (0.5-2.2) H 04/09/25 16:11 Lactic Acid (Sepsis) 1.9 mmol/L (0.5-2.2) 04/09/25 18:19 Calcium 7.6 mg/dL (8.5-10.5) L 04/09/25 16:11 Total Bilirubin 1.3 mg/dL (0.15-1.2) H 04/09/25 16:11 AST 9 U/L (0-40) 04/09/25 16:11 ALT 10 U/L (0-41) 04/09/25 16:11 Alkaline Phosphatase 104 U/L (40-130) 04/09/25 16:11 Total Protein 6.0 g/dL (6.6-8.7) L 04/09/25 16:11 Albumin 3.0 g/dL (3.5-5.2) L 04/09/25 16:11 Globulin 3.0 g/dL (1.3-4.6) 04/09/25 16:11 Blood Type O Positive 04/09/25 16:40 Rho(D) Type Rh positive 04/09/25 16:40 Antibody Screen Negative 04/09/25 16:40 Crossmatch See Detail 04/09/25 16:40 All radiology interpretation(s) finalized by discharge Discharge Plan Discharge Patient Disposition: Transfer to ED Clinical Impression: Myelodysplastic syndrome, Anemia, Thrombocytopenia Condition: Stable Prescriptions: No Action aspirin 81 mg tablet,delayed release (DR/EC) 81 mg PO DAILY acyclovir 400 mg tablet 400 mg PO DAILY sulfamethoxazole-trimethoprim 800-160 mg tablet 1 tab PO DAILY Venclexta 100 mg tablet 100 mg PO DAILY glipizide 5 mg tablet 5 mg PO BID 90 Days Qty: 180 3RF ondansetron HCl 4 mg tablet 4 mg PO Q6H PRN (Reason: nausea and vomiting) Qty: 30 3RF prochlorperazine maleate [Compazine] 10 mg tablet 10 mg PO Q4H PRN (Reason: mild nausea) Qty: 30 3RF ketoconazole 2 % shampoo 1 applic TOPICAL .3XWEEKLY triamcinolone acetonide 0.1 % ointment 1 applic TOPICAL TID PRN (Reason: skin irritation) atorvastatin 10 mg tablet 10 mg PO DAILY metoprolol succinate 100 mg tablet extended release 24 hr 50 mg PO DAILY metformin 850 mg tablet 850 mg PO BID losartan-hydrochlorothiazide 50-12.5 mg tablet 1 tab PO DAILY finasteride 5 mg tablet 5 mg PO DAILY duloxetine 60 mg capsule,delayed release(DR/EC) 60 mg PO DAILY Referrals: Janet Fatima MD [Primary Care Provider, Family Practice] Print Language: Slovak Coding Level of Care Code ED Tool Tender for Regine Delgado
[2025-04-09 16:26] LABS: Mean Corpuscular HGB Conc 32.0 g/dL (30-55); Mean Corpuscular Hemoglobin 29.1 pg (27-33); Mean Corpuscular Volume 90.8 fl (82-101); Nucleated Red Blood Cells % 0 %; Red Blood Count 1.41 10^6/uL (3.85-5.65)
[2025-04-09 16:48] LABS: Hematocrit 12.8 % (37-53); Hemoglobin 4.10 g/dL (11.27-16.99); Platelet Count 2 10^3/cmm (157-399); Slide Review Slide Review Perform; White Blood Count 0.50 10^3/uL (3.29-11.43)
[2025-04-09 16:51] LABS: Alanine Aminotransferase 10 U/L (0-41); Albumin Level 3.0 g/dL (3.5-5.2); Alkaline Phosphatase 104 U/L (40-130); Anion Gap 14.4 (5-19); Aspartate Amino Transferase 9 U/L (0-40); Blood Urea Nitrogen 25 mg/dL (8-23); Calcium 7.6 mg/dL (8.5-10.5); Carbon Dioxide 19 mmol/L (22-29); Chloride 104 mmol/L (98-107); Creatinine Clr Calc Pharmacy 72.1063; Globulin 3.0 g/dL (1.3-4.6); Glucose 186 mg/dL (65-115); Osmolality Calculated 285 mOsm/kg (285-295); Potassium 4.4 mmol/L (3.5-5.1); Sodium 133 mmol/L (136-145); Total Protein 6.0 g/dL (6.6-8.7)
[2025-04-09 16:52] LABS: Lactic Sepsis W/Reflex 2.5 mmol/L (0.5-2.2)
[2025-04-09 16:59] LABS: Reflex Lactate Order REFLEX LACTIC ORDERD
[2025-04-09] MEDS: cefTAZidime 1,000 mg SDV 2000 MG IVP (17:52)
--- NOTE | 2025-04-09 18:24 | PC.NURSE ---
WHILE OBTAINING BLOOD VITALS, PT TEMPERATURE WENT FROM 98.7 BEFORE THE BLOOD ADMINISTRATION TO 99.4 AFTER 15 MINUTES OF BLOOD BEING STARTED. DR. CESPEDES NOTIFIED. PT SHOWED NO OTHER SIGNS OF REACTION. VERBAL ORDERS TO GIVE 650MG PO TYLENOL.
[2025-04-09 18:48] LABS: Lactic Acid level (Lactate) 1.9 mmol/L (0.5-2.2)
[2025-04-09 21:44] LABS: Mean Corpuscular HGB Conc 32.3 g/dL (30-55); Mean Corpuscular Hemoglobin 28.8 pg (27-33); Mean Corpuscular Volume 89.1 fl (82-101); Red Blood Count 1.84 10^6/uL (3.85-5.65)
[2025-04-09 22:02] LABS: Slide Review Slide Review Perform
[2025-04-10 00:04] VITALS: BP 107/57; PULSE 85; RESP 17; O2SAT 95
[2025-04-10 00:04] LABS: Hematocrit 16.4 % (37-53); Hemoglobin 5.30 g/dL (11.27-16.99); Platelet Count 2 10^3/cmm (157-399); White Blood Count 0.43 10^3/uL (3.29-11.43)
[2025-04-10 00:07] LABS: Absolute Segmented Neutrophil 0.0 10/cmm (1.6-7.1); Atypical Lymphs 11.0 % (0-5); Band Neutrophils Absolute 0.0 10^3/cmm (0.0-1.2); Total Cells Counted 100 (0-100)
[2025-04-10 00:08] LABS: Ovalocytes Trace
== END 2025-04-10 00:05 ==
PROVIDERS: Emergency Provider Family Medicine; PCP Family Medicine
DX: D46.9 Myelodysplastic syndrome, unspecified (principal); D69.6 Thrombocytopenia, unspecified; Z79.82 Long term (current) use of aspirin; Z79.84 Long term (current) use of oral hypoglycemic drugs; Z87.891 Personal history of nicotine dependence; E11.9 Type 2 diabetes mellitus without complications; I10 Essential (primary) hypertension
CPT/HCPCS: 36415; 36430; 71045; 80053; 83605; 85007; 85025; 86850; 86900; 86920; 87040; 93005; 96374; 99285; J0713; J9999; P9016